=== PATIENT | female | born 1955 | race Caucasian/White ===

== ENCOUNTER 2023-03-04 11:08 | Outpatient (OUT) | payer MEDICARE, SELFPAY ==
--- NOTE | 2023-03-04 11:24 | XR_ITS ---
The [address] [address] Patient Name: DERRELL AGUERO MRN: [id number] date: 1955 Sex: F Assigned Patient Location: [facility] Current Patient Location: [facility] Accession/Order Number: [id number] Exam Date: 03/04/2023 11:28 Report Date: 03/05/2023 06:54 At the request of: NON-STAFF PHYSICIAN Procedure: XR elbow RT min 3V PROCEDURE: XR elbow RT min 3V HISTORY: Closed displaced fx of distal end-right humerus S42.491A COMPARISON: None. FINDINGS: BONES:Plate and screw repair of prior lateral malleolus fracture without evidence of hardware fracture or loosening. The distal screw extends into the intercondylar space. Medial and lateral tendons, with the medial pin extending posterior medially at least 2.0 cm external to the bone, to near the skin surface. No appreciable bone fracture or dislocation. Marked degenerative changes and prominent surrounding heterotopic bone formation. SOFT TISSUES:Posterior medial soft tissue swelling/edema. EFFUSION:None visible. OTHER: Negative. IMPRESSION: 1. No prior studies for comparison. 2. Postsurgical changes as detailed above. 3. Pain extending to near the skin surface posterior medial to the elbow, and prominent surrounding subcutaneous edema. Correlate for expected post surgical findings. Electronically authenticated by: JASON GUNN Date: 03/05/2023 06:54
== END 2023-03-04 11:09 ==
PROVIDERS: PCP Family Medicine
DX: S42.491A Other displaced fracture of lower end of right humerus, initial encounter for closed fracture (principal)
CPT/HCPCS: 73080

== ENCOUNTER 2023-05-28 10:02 | Outpatient (OUT) | payer MEDICARE, SELFPAY ==
[2023-05-28 09:34] LABS: Microalbumin Urine Random <1.3 mg/dL (<=30.0)
[2023-05-28 10:11] LABS: Estimated Average Glucose 134 mg/dL; Glycohemoglobin A1C 6.3 % (4.5-6.2)
[2023-05-28 10:23] LABS: Alanine Aminotransferase 28 U/L (14-59); Albumin Globulin Ratio 1.1; Albumin Level 4.1 g/dL (3.4-5.0); Alkaline Phosphatase 82 U/L (46-116); Anion Gap 9.9; Aspartate Amino Transferase 29 U/L (15-37); BUN Creatinine Ratio 20.3; Bilirubin Total 0.7 mg/dL (0.2-1.0); Calcium 9.4 mg/dL (8.5-10.1); Carbon Dioxide 26.4 mmol/L (21.0-32.0); Chloride 103 mmol/L (98-107); Chol HDL Ratio 2.6; Cholesterol 159 mg/dL (<=200); Estimated GFR (African America >60 (>=60); Estimated GFR (Non-African Ame >60 (>=60); Globulin 3.6 g/dL; Glucose 133 mg/dL (74-106); HDL Cholesterol 62 mg/dL (40-60); Potassium 4.3 mmol/L (3.5-5.1); Sodium 135 mmol/L (136-145); Total Protein 7.7 g/dL (6.4-8.2); Triglycerides 144 mg/dL (<=150); VLDL CHOLESTEROL 28.8 mg/dL
[2023-05-28 10:36] LABS: Basophils Absolute Auto 0.1 10^3/uL (0.0-0.1); Basophils Percent Auto 0.8 % (0.2-2.0); Eosinophils Absolute Auto 0.2 10^3/uL (0.0-0.7); Eosinophils Percent Auto 3.3 % (0.9-7.0); Hematocrit 45.7 % (36.0-48.0); Hemoglobin 15.1 g/dL (12.0-16.0); Immature Granulocytes Abs Auto 0.02 10^3/uL (0.00-0.03); Immature Granulocytes Pct Auto 0.3 % (0.0-0.5); Lymphocytes Absolute Auto 1.8 10^3/uL (1.2-3.8); Mean Corpuscular Hemoglobin 27.8 pg (26.7-34.0); Mean Corpuscular Volume 84.2 fL (81.0-99.0); Mean Platelet Volume 11.4 fL (9.5-13.5); Monocytes Absolute Auto 0.4 10^3/uL (0.3-0.8); Monocytes Percent Auto 6.9 % (1.7-12.0); Neutrophils Absolute Auto 3.6 10^3/uL (1.4-6.5); Neutrophils Percent Auto 58.7 % (43.0-75.0); Platelet Count 144 10^3/uL (150-450); Red Blood Count 5.43 10^6/uL (4.20-5.40); Red Cell Distribution Width 13.3 % (11.0-15.0); White Blood Count 6.1 10^3/uL (4.0-11.0)
== END 2023-05-28 10:03 | disposition home or self-care (01) ==
LOC: LAB 10:03
PROVIDERS: PCP Family Medicine; Visit Provider Family Medicine
DX: E11.65 Type 2 diabetes mellitus with hyperglycemia (principal); I10 Essential (primary) hypertension; E78.5 Hyperlipidemia, unspecified
CPT/HCPCS: 36415; 80053; 80061; 82043; 83036; 85025

== ENCOUNTER 2023-10-15 12:39 | Outpatient (OUT) | payer MEDICARE, SELFPAY ==
--- NOTE | 2023-10-15 12:55 | XR_ITS ---
The [place] [id number] Patient Name: DERRELL AGUERO MRN: [id number] date: 1955 Sex: F Assigned Patient Location: [facility] Current Patient Location: [facility] Accession/Order Number: [id number] Exam Date: 10/15/2023 13:09 Report Date: 10/15/2023 14:21 At the request of: NON-STAFF PHYSICIAN Procedure: XR DEXA axial skeleton EXAMINATION: XR DEXA axial skeleton HISTORY: Osteoporosis, Fracture Right Humerus COMPARISON: No relevant comparison available. TECHNIQUE: Dual-energy X-ray absorptiometry (DXA) was performed. FINDINGS: SPINE ANALYSIS: Average bone mineral density is 0.846 g/cm2. T-score (standard deviation relative to young adult mean): -3.0 . HIP ANALYSIS: Lowest bone mineral density is within the femoral neck, 0.697 g/cm2. T-score (standard deviation relative to young adult mean): -2.5 . XR/XR DEXA axial skeleton IMPRESSION: [employer] Classification: Osteoporosis - High Fracture Risk Electronically authenticated by: JASON GUNN Date: 10/15/2023 14:21
== END 2023-10-15 12:40 | disposition home or self-care (01) ==
LOC: RAD 12:43
PROVIDERS: PCP Family Medicine
DX: S42.201A Unspecified fracture of upper end of right humerus, initial encounter for closed fracture (principal); M81.0 Age-related osteoporosis without current pathological fracture
CPT/HCPCS: 77080

== ENCOUNTER 2024-02-07 10:51 | Outpatient (OUT) | payer MEDICARE, SELFPAY ==
--- OUTSIDE RECORDS SUMMARY | 2024-02-07 11:14 | XMS_ITS | CCD ---
Author Organization [facility] Care Team Providers Care Band Maker Name Role Phone Ada Neff MD Primary Care Provider [phone] ADA NEFF Primary Care Physician REQUEST, NONE LISTED Attending Unavaila ble REQUEST, DR MCCOY LISTED Consulting Unavaila ble NEFF, DR ADA Mosley Primary Care Unavailable REQUEST, DR MCCOY LISTED Admitting Unavaila ble MISC, DR MOE Consulting Unavailable BALL, DR MANZANARES Primary Care Unavailable MISC, DR MOE Admitting Unavailable MISC, DR MOE Attending Unavailable CARMEN VILLALTA Admitting Unavailable NABIL, DR MANZANARES Primary Care Unavailable CARMEN VILLALTA Attending Unavailable CARMEN VILLALTA Consulting Unavailable Szado OTR/L, Shirley Unavailable [phone] Nosin OTR/L, Cori Unavailable Unavailable Ada Neff MD Primary Care Provider [phone] Szado OTR/L, Shirley Unavailable Nosin OTR/L, Cori Unavailable Unavailable Ada Neff MD Primary Care Provider Szado OTR/L, Shirley Unavailable Nosin OTR/L, Cori Unavailable Unavailable Ada Neff Unavailable RESHMA Carballo Attending Provider Unavailable Primary Care Provider UnavailTanmay Parnell MD Unavailable Estephanie Carballo Attending Unavailable Estephanie Carballo Admitting Unavailable NO FAMILY, PHYSICIAN Primary Care Unavailable GISELE MCKEON Attending Unavailable TANMAY SCOTT Referring Unavailable BRAYDEN GUAJARDO Attending Unavailable TANMAY SCOTT Referring Unavailable BLACKSTON, GISELE T Attending Unavailable HOYEN, TANMAY Referring Unavailable DARINBLEY, LOVE Attending Unavailable HOYEN, TANMAY Referring Unavailable BLACKSTON, GISELE T Attending Unavailable HOYEN, TANMAY Referring Unavailable KELBLEY, LOVE Attending Unavailable HOYEN, TANMAY Referring Unavailable KELBLEY, LOVE Attending Unavailable HOYEN, TANMAY Referring Unavailable BLACKSMATTEO, GISELE T Attending Unavailable HOYEN, TANMAY Referring Unavailable BLACKSTON, GISELE T Attending Unavailable HOYEN, TANMAY Referring Unavailable Cassiusn Tanmay TAYLOR Unavailable JANICE ROLANDCE Referring Unavailable PROVIDER, UNKNOWN Admitting Unavailable PROVIDER, UNKNOWN Attending Unavailable NEFF, ADA Primary Care Unavailable LENEHAN, BAUTISTA Referring Unavailable PROVIDER, UNKNOWN Admitting Unavailable PROVIDER, UNKNOWN Attending Unavailable NEFF, ADA Primary Care Unavailable PROVIDER, UNKNOWN Admitting Unavailable PROVIDER, UNKNOWN Attending Unavailable EUGENIA, TANMAY A. Referring Unavailable NEFF, ADA Primary Care Unavailable PROVIDER, UNKNOWN Admitting Unavailable NEFF, ADA Primary Care Unavailable LENEHAN, BAUTISTA Referring Unavailable PROVIDER, UNKNOWN Attending Unavailable PROVIDER, UNKNOWN Admitting Unavailable HOYEN, TANMAY A. Attending Unavailable NEFF, ADA Primary Care Unavailable PROVIDER, UNKNOWN Admitting Unavailable PROVIDER, UNKNOWN Attending Unavailable NEFF, ADA Primary Care Unavailable PROVIDER, UNKNOWN Admitting Unavailable LENEHAN, BAUTISTA Referring Unavailable PROVIDER, UNKNOWN Attending Unavailable NEFF, ADA Primary Care Unavailable PROVIDER, UNKNOWN Admitting Unavailable NEFF, ADA Primary Care Unavailable PROVIDER, UNKNOWN Attending Unavailable PROVIDER, UNKNOWN Admitting Unavailable NEFF, ADA Primary Care Unavailable PROVIDER, UNKNOWN Attending Unavailable Allergies Allergy Classification Reported Allergen(s) Allergy Type Date of Onset Reaction(s) Facility (3 sources) atorvastatin Drug Allergy 5 Unknown [facility] Other (1 source) atorvastatin Drug Allergy 3 [facility] Repository Medications Current Medications Medication Drug Class(es) Dates Sig (Normalized) Sig (Original) acetaminophen 325 mg / oxyCODONE hydrochloride 5 mg oral tablet (7 sources) Opioid Agonist Start: 01-04-2022 End: 01-13-2022 take 1 tablet by mouth every six hours as needed for pain oxyCODONE-acetamin ophen (Percocet) 5-325 mg per tablet Indications: Closed fracture of distal end of right humerus, unspecified fracture morphology, initial encounter , Acute post-operative pain Take 1 Tablet by mouth every 6 hours as needed for Pain for up to 7 days. 28 Tablet 0 01/06/2022 01/13/2022 Active Start: 01-03-2022 take 1 tablet by amisha th every six hours Percocet 2.5 mg-325 mg oral tablet 1 tab(s), Oral, q6hr, Refill(s) 0 Start Date: 01/03/22 Status: Ordered aspirin 81 mg chewable tablet (1 source) Platelet Aggregation Inhibitor, Nonsteroidal Anti-inflammatory Drug Start: 01-03-2022 aspirin 81 MG chewable tablet bisacodyl 10 mg rectal suppository (1 source) Stimulant Laxative Start: 01-03-2022 bisacodyl (DULCOLAX) 10 MG suppository calcium chloride 0.0014 meq/ml / potassium chloride 0.004 meq/ml / sodium chloride 0.103 meq/ml / sodium lactate 0.028 meq/ml injectable solution (3 sources) Start: 01-06-2022 lactated ringe rs iv infusion Start: 01-03-2022 lactated ringe rs iv infusion cephalexin 500 mg oral capsule (1 source) Cephalosporin Antibacterial Start: 03-08-2023 End: 03-15-2023 take 1 capsule by mouth four times daily cephALEXin (Keflex) 500 MG capsule Take 1 Capsule by mouth 4 times daily for 7 days. 28 Capsule 0 03/08/2023 03/15/2023 Active docusate sodium 100 mg oral capsule (20 sources) Start: 01-03-2022 take 1 capsule by mouth twice daily docusate sodium (Colace) 100 MG capsule Take 1 Capsule by mouth 2 times daily. 60 Capsule 3 01/04/2022 Active ergocalciferol 1.25 mg oral capsule (8 sources) Provitamin D2 Compound Start: 08-16-2023 End: 12-15-2023 take 1 capsule by mouth every week vitamin D2 (ERGOCALCIFEROL) 1.25 MG (51300 UT) capsule TAKE 1 CAPSULE BY MOUTH ONCE WEEKLY 6 Capsule 0 12/13/2023 Active 1 ml HYDROmorphone hydrochloride 1 mg/ml cartridge (1 source) Opioid Agonist Start: 01-06-2022 End: 01-07-2022 HYDROmorphone (DILAUDID) 1 mg/mL injection HYDROmorphone (DILAUDID) 0.2 MG/ML injection 0.2 mg (1 source) Start: 01-06-2022 End: 01-08-2022 HYDROmorphone (DILAUDID) 0.2 MG/ML injection 0.2 mg lisinopril 5 mg oral tablet (20 sources) Angiotensin Converting Enzyme Inhibitor Start: 01-03-2022 lisinopril (ZESTRIL) 5 MG tablet Take by mouth. 0 01/03/2022 Active magnesium hydroxide 80 mg/ml oral suspension (1 source) Start: 01-03-2022 magnesium hydroxide (MILK OF MAGNESIA) 400 MG/5ML oral suspension metFORMIN hydrochloride 500 mg oral tablet (20 sources) Biguanide Start: 01-03-2022 metformin (GLUCOPHAGE) 500 MG tablet Take by mouth. 0 01/03/2022 Active 1 ml naloxone hydrochloride 0.4 mg/ml injection (2 sources) Opioid Antagonist Start: 01-06-2022 naloxone (NARCAN) 0.4 MG/ML injection Start: 01-03-2022 naloxone (NARC AN) 0.4 MG/ML injection 2 ml ondansetron 2 mg/ml injection (2 sources) Serotonin-3 Receptor Antagonist Start: 01-03-2022 ondansetron (ZOFRAN) 4 MG/2ML injection Start: 01-03-2022 take 1 tablet by amisha th every eight hours Zofran 4 mg Tab 4 mg = 1 tab(s), Oral, q8hr, Refills(s) 0 Start Date: 01/03/22 Status: Ordered oxyCODONE hydrochloride 5 mg oral tablet (5 sources) Opioid Agonist Start: 01-06-2022 End: 01-06-2022 oxyCODONE immediate release tablet Start: 01-03-2022 End: 01-04-2022 oxyCODONE immediate release tablet predniSONE 5 mg oral tablet (20 sources) Start: 03-02-2022 predniSONE (DE LTASONE) 5 MG tablet Take 1 Tablet by mouth Continuous PRN. 42 Tablet 0 03/02/2022 Active rosuvastatin calcium 5 mg oral tablet (20 sources) HMG-CoA Reductase Inhibitor Start: 01-03-2022 rosuvastatin (CRESTO R) 5 MG tablet Take by mouth. 0 01/03/2022 Active take 1 tablet by mouth once anali y Rosuvastatin Calcium 10 MG TAKE ONE TABLET BY MOUTH DAILY Active 72 hr scopolamine 0.0139 mg/hr transdermal system (1 source) Anticholinergic Start: 01-03-2022 scopolamine (TRANSDERM-SCOP) 1 MG/3DAYS patch 10 ml sodium chloride 9 mg/ml injection (1 source) Start: 01-06-2022 sodium chlorid e 0.9 % (PF) 0.9 % injection Completed/Discontinued Medications Medication Drug Class(es) Dates Sig (Normalized) Sig (Original) 2 ml fentaNYL 0.05 mg/ml injection (1 source) Opioid Agonist Start: 01-06-2022 End: 01-06-2022 fentaNYL (SUBLIMAZE) 100 MCG/2ML injection Start: 01-06-2022 End: 01-06-2022 fentaNYL (SUBLIMAZE) 100 MCG /2ML injection Problems Active Problems Problem Classification Problem Date Documented Date Episodic/Chronic Conditions associated with dizziness or vertigo (3 sources) Benign paroxysmal positional vertigo; Translations: [Benign paroxysmal vertigo, left ear] Episodic Diabetes mellitus with complications (5 sources) Hyperglycemia due to type 2 diabetes mellitus; Translations: [Type 2 diabetes mellitus with hyperglycemia] Chronic Disorders of lipid metabolism (20 sources) Hyperlipidemia; Translations: [Hyperlipidemia, unspecified] Onset: 01-04-2022 Chronic Essential hypertension (20 sources) Hypertensive disorder; Translations: [Essential (primary) hypertension] Onset: 01-04-2022 Chronic Heart valve disorders (20 sources) Aortic stenosis, non-rheumatic ; Translations: [Nonrheumatic aortic (valve) stenosis] Onset: 01-01-2015 Chronic Immunizations and screening for infectious disease (7 sources) Encounter for immunization; Translations: [Vaccination given] Onset: 08-12-2021 Episodic Nutritional deficiencies (2 sources) Vitamin D deficiency; Translations: [Vitamin D deficiency, unspecified] 01-10-2024 Chronic Osteoporosis (6 sources) Senile osteoporosis; Translations: [Age-related osteoporosis without current pathological fracture] Onset: 10-11-2023 10-11-2023 Chronic Other nervous system disorders (1 source) Other chronic pain; Translations: [Other chronic pain] Onset: 01-10-2024 Chronic Other nervous system disorders (1 source) Acute postoperative pain; Translations: [Other acute postprocedural pain] Episodic Other non-traumatic joint disorders (1 source) Stiffness of joint of right elbow; Translations: [Stiffness of right elbow, not elsewhere classified] Episodic Other non-traumatic joint disorders (1 source) Finger joint stiff; Translations: [Stiffness of right hand, not elsewhere classified] Episodic Other non-traumatic joint disorders (5 sources) Pain in right shoulder; Translations: [Pain in joint, shoulder region] Onset: 01-10-2024 10-28-2023 Episodic Other non-traumatic joint disorders (4 sources) Stiffness of right shoulder; Translations: [Stiffness of right shoulder, not elsewhere classified] 10-28-2023 Episodic Other non-traumatic joint disorders (3 sources) Chronic pain of right upper limb; Translations: [Pain in right shoulder] 01-10-2024 Episodic Other nutritional; endocrine; and metabolic disorders (3 sources) Body mass index 40+ - severely obese; Translations: [Body mass index (BMI) 40.0-44.9, adult] Chronic Otitis media and related conditions (3 sources) Non-suppurative otitis media; Translations: [Unspecified nonsuppurative otitis media, right ear] Episodic Unclassified (1 source) Pain in right shoulder; Translations: [Pain in right shoulder] Onset: 08-06-2023 Past or Other Problems Problem Classification Problem Date Documented Da te Episodic/Chronic Fracture of upper limb (20 sources) Closed fracture of lower end of humerus; Translations: [Other displaced fracture of lower end of right humerus, initial encounter for closed fracture] Onset: 01-03-2022 Episodic Results Test Name Value Interpretation Reference Range Facility XR ELBOW RIGHT MINIMUM 3 VIE WSon 01-10-2024 XR ELBOW RIGHT MINIMUM 3 VIEWS EXAMINATION: XR ELBOW RIGHT MINIMUM 3 VIEWSPRO/RT 01/10/2024 09:08 AM CLINICAL HISTORY: fx ASSOCIATED DIAGNOSIS: Chronic right shoulder pain Chronic right shoulder pain ORDERING PROVIDER: JANICE ROLAND TECHNMARIO NOTE: COMPARISON: XR ELBOW RIGHT MINIMUM 3 VIEWS 10/11/2023, 12:13 PM FINDINGS: Bone: Osteopenia. Internal fixation of a well-healed fracture of the humeral lateral condyle by plate and screw device and K wire. No hardware failure or loosening, acute fracture or destructive bone lesion. Joint: Moderate ulnotrochlear joint osteoarthritis. No dislocation. Soft tissues: Calcifications surrounding the elbow which may be related to loose intra-articular bodies and/or heterotopic ossification. IMPRESSION: 1. Internal fixation of a well-healed fracture of the right humeral lateral condyle. No hardware failure or loosening. 2. Moderate right ulnotrochlear joint osteoarthritis. 3. Calcifications surrounding the right elbow which may be related to loose intra-articular bodies and/or heterotopic ossification. 4. Osteopenia. Right elbow MACRO: None Normal [facility] XR Elbow - right 3 Viewson 0 01-10-2024 EXAMINATION: XR ELBO W RIGHT MINIMUM 3 VIEWSPRO/RT 01/10/2024 09:08 AM CLINICAL HISTORY: fx ASSOCIATED DIAGNOSIS: Chronic right shoulder pain Chronic right shoulder pain ORDERING PROVIDER: JANICE PATTON NOTE: COMPARISON: XR ELBOW RIGHT MINIMUM 3 VIEWS 10/11/2023, 12:13 PM FINDINGS: Bone: Osteopenia. Internal fixation of a well-healed fracture of the humeral lateral condyle by plate and screw device and K wire. No hardware failure or loosening, acute fracture or destructive bone lesion. Joint: Moderate ulnotrochlear joint osteoarthritis. No dislocation. Soft tissues: Calcifications surrounding the elbow which may be related to loose intra-articular bodies and/or heterotopic ossification. IMPRESSION: 1. Internal fixation of a well-healed fracture of the right humeral lateral condyle. No hardware failure or loosening. 2. Moderate right ulnotrochlear joint osteoarthritis. 3. Calcifications surrounding the right elbow which may be related to loose intra-articular bodies and/or heterotopic ossification. 4. Osteopenia. Right elbow MACRO: None RADIOLOGY Erick Sanchez, - 01/10/2024 EXAMINATION: XR ELBOW RIGHT MINIMUM 3 VIEWSPRO/RT 01/10/2024 09:08 AM CLINICAL HISTORY: fx ASSOCIATED DIAGNOSIS: Chronic right shoulder pain Chronic right shoulder pain ORDERING PROVIDER: JANICE PATTON NOTE: COMPARISON: XR ELBOW RIGHT MINIMUM 3 VIEWS 10/11/2023, 12:13 PM FINDINGS: Bone: Osteopenia. Internal fixation of a well-healed fracture of the humeral lateral condyle by plate and screw device and K wire. No hardware failure or loosening, acute fracture or destructive bone lesion. Joint: Moderate ulnotrochlear joint osteoarthritis. No dislocation. Soft tissues: Calcifications surrounding the elbow which may be related to loose intra-articular bodies and/or heterotopic ossification. IMPRESSION: 1. Internal fixation of a well-healed fracture of the right humeral lateral condyle. No hardware failure or loosening. 2. Moderate right ulnotrochlear joint osteoarthritis. 3. Calcifications surrounding the right elbow which may be related to loose intra-articular bodies and/or heterotopic ossification. 4. Osteopenia. Right elbow MACRO: None [facility] Study observation (narrative) [facility] XR Elbow - right 3 ViewsOrde red By: Erick Sanchez on 01-10-2024 [employer] Work Phone: XR SHOULDER RIGHT MINIMUM 2 VIEWSon 01-10-2024 XR SHOULDER RIGHT MINIMUM 2 VIEWS EXAMINATION: XR SHOULDER RIGHT MINIMUM 2 VIEWSPRO/RT 01/10/2024 09:02 AM CLINICAL HISTORY: Shoulder pain, right ASSOCIATED DIAGNOSIS: Chronic right shoulder pain Chronic right shoulder pain ORDERING PROVIDER: JANICE PATTON NOTE: COMPARISON: 10/11/2023 IMPRESSION: Progressive healing of fracture of head and neck of the right humerus. Asymmetry of the glenohumeral joint is noted. Widening of subacromial space is noted. No significant change in position alignment. Right shoulder MACRO: None Normal [facility] XR Shoulder - right 2 Viewso n 01-10-2024 EXAMINATION: XR SHOULDER RIGHT MINIMUM 2 VIEWSPRO/RT 01/10/2024 09:02 AM CLINICAL HISTORY: Shoulder pain, right ASSOCIATED DIAGNOSIS: Chronic right shoulder pain Chronic right shoulder pain ORDERING PROVIDER: JANICE PATTON NOTE: COMPARISON: 10/11/2023 IMPRESSION: Progressive healing of fracture of head and neck of the right humerus. Asymmetry of the glenohumeral joint is noted. Widening of subacromial space is noted. No significant change in position alignment. Right shoulder MACRO: None RADIOLOGY Deborah Baez MD - 01/10/2024 EXAMINATION: XR SHOULDER RIGHT MINIMUM 2 VIEWSPRO/RT 01/10/2024 09:02 AM CLINICAL HISTORY: Shoulder pain, right ASSOCIATED DIAGNOSIS: Chronic right shoulder pain Chronic right shoulder pain ORDERING PROVIDER: JANICE PATTON NOTE: COMPARISON: 10/11/2023 IMPRESSION: Progressive healing of fracture of head and neck of the right humerus. Asymmetry of the glenohumeral joint is noted. Widening of subacromial space is noted. No significant change in position alignment. Right shoulder MACRO: None [facility] Study observation (narrative) [facility] XR Shoulder - right 2 ViewsO rdered By: Deborah Baez on 01-10-2024 [employer] Work Phone: Telephone Encounteron 2023 [employer] Interface Message Text Left voicemail for patient, notified her we ordered and sent in Vit D to her pharmacy. She should begin to take it and then we will check to see where her levels are once she is done taking the Vit D. Normal [facility] [employer] [facility] Telephone Encounteron 2023 [employer] Interface Message Text Alina would need to contact Radiology and the film library for copies of the XR's Normal [facility] [employer] [facility] [employer] Interface Message Text Mikala from [facility] called, asking to get a copy of the patients x-ray for the patients right side elbow. Please send the x-ray over as soon as possible. Thank you. [phone] ext [phone] Normal [facility] [employer] [facility] Progress Noteson 10-11-2023 [employer] Interface Message Text PT for the elbow and shoulder AAROM and AROM with gentle PROM as the fractures are healing nicely Eval and treat Advance as tolerated Modalities prn Visits 20 The shoulder is healing now rather well. There is some slight angulation on the radiographs. Her elevation is at least to 90???. She feels that the motion is going to improve. It appears she did have a new fracture adjacent or within the old fracture this is also healing on the radiographs with some prominence of the hardware there is some degeneration of the radial capitellar joint. Range of motion is from 40 to approximately 130???. Once the shoulder is healed sufficiently we will considering hardware removal on the right elbow. Further follow-up with radiographs of both conditions over the next 3 months. Tanmay Scott M.D. Normal [facility] [employer] [facility] XR ELBOW RIGHT MINIMUM 3 VIE WSon 10-11-2023 XR ELBOW RIGHT MINIMUM 3 VIEWS EXAMINATION: XR ELBOW RIGHT MINIMUM 3 VIEWSPRO/RT 10/11/2023 12:12 PM CLINICAL HISTORY: right elbow fx ASSOCIATED DIAGNOSIS: Closed supracondylar fracture of right humerus, initial encounter ORDERING PROVIDER: JANICE PATTON NOTE: COMPARISON: XR ELBOW RIGHT MINIMUM 3 VIEWS 08/16/2023, 9:[address] ELBOW RIGHT W/O CONTRAST 01/03/2022, 4:56 PM FINDINGS: Bone: Osteopenia. Internal fixation of healing/well-healed, comminuted, intra-articular fracture of the distal humerus by a K wire and lateral plate and screw device with satisfactory alignment of the fracture fragments and no appreciable radiolucent fracture lines at the fracture site. No hardware failure or loosening or destructive bone lesion. Joint: Elbow joint effusion. Probable loose intra-articular bodies in the elbow joint. Mild ulnotrochlear joint, radiocapitellar joint and proximal radioulnar joint osteoarthritis. No dislocation. Soft tissues: Soft tissue swelling. IMPRESSION: 1. Internal fixation of healing/well-healed, comminuted, intra-articular fracture of the distal right humerus. 2. Right elbow joint effusion and probable loose intra-articular bodies in the elbow joint. 3. Mild right ulnotrochlear joint, radiocapitellar joint and proximal radioulnar joint osteoarthritis. 4. Osteopenia. Right elbow MACRO: None Normal [facility] [employer] [facility] XR Elbow - right 3 Viewson 0 10-11-2023 EXAMINATION: XR ELBO W RIGHT MINIMUM 3 VIEWSPRO/RT 10/11/2023 12:12 PM CLINICAL HISTORY: right elbow fx ASSOCIATED DIAGNOSIS: Closed supracondylar fracture of right humerus, initial encounter ORDERING PROVIDER: JANICE PATTON NOTE: COMPARISON: XR ELBOW RIGHT MINIMUM 3 VIEWS 08/16/2023, 9:[address] ELBOW RIGHT W/O CONTRAST 01/03/2022, 4:56 PM FINDINGS: Bone: Osteopenia. Internal fixation of healing/well-healed, comminuted, intra-articular fracture of the distal humerus by a K wire and lateral plate and screw device with satisfactory alignment of the fracture fragments and no appreciable radiolucent fracture lines at the fracture site. No hardware failure or loosening or destructive bone lesion. Joint: Elbow joint effusion. Probable loose intra-articular bodies in the elbow joint. Mild ulnotrochlear joint, radiocapitellar joint and proximal radioulnar joint osteoarthritis. No dislocation. Soft tissues: Soft tissue swelling. IMPRESSION: 1. Internal fixation of healing/well-healed, comminuted, intra-articular fracture of the distal right humerus. 2. Right elbow joint effusion and probable loose intra-articular bodies in the elbow joint. 3. Mild right ulnotrochlear joint, radiocapitellar joint and proximal radioulnar joint osteoarthritis. 4. Osteopenia. Right elbow MACRO: None RADIOLOGY Erick Sanchez, DO - 10/11/2023 EXAMINATION: XR ELBOW RIGHT MINIMUM 3 VIEWSPRO/RT 10/11/2023 12:12 PM CLINICAL HISTORY: right elbow fx ASSOCIATED DIAGNOSIS: Closed supracondylar fracture of right humerus, initial encounter ORDERING PROVIDER: JANICE PATTON NOTE: COMPARISON: XR ELBOW RIGHT MINIMUM 3 VIEWS 08/16/2023, 9:[address] ELBOW RIGHT W/O CONTRAST 01/03/2022, 4:56 PM FINDINGS: Bone: Osteopenia. Internal fixation of healing/well-healed, comminuted, intra-articular fracture of the distal humerus by a K wire and lateral plate and screw device with satisfactory alignment of the fracture fragments and no appreciable radiolucent fracture lines at the fracture site. No hardware failure or loosening or destructive bone lesion. Joint: Elbow joint effusion. Probable loose intra-articular bodies in the elbow joint. Mild ulnotrochlear joint, radiocapitellar joint and proximal radioulnar joint osteoarthritis. No dislocation. Soft tissues: Soft tissue swelling. IMPRESSION: 1. Internal fixation of healing/well-healed, comminuted, intra-articular fracture of the distal right humerus. 2. Right elbow joint effusion and probable loose intra-articular bodies in the elbow joint. 3. Mild right ulnotrochlear joint, radiocapitellar joint and proximal radioulnar joint osteoarthritis. 4. Osteopenia. Right elbow MACRO: None [facility] Radiology Study observation (narrative) [facility] XR Elbow - right 3 ViewsOrde red By: Erick Sanchez on 10-11-2023 [employer] Work Phone: XR SHOULDER RIGHT MINIMUM 2 VIEWSon 10-11-2023 XR SHOULDER RIGHT MINIMUM 2 VIEWS EXAMINATION: XR SHOULDER RIGHT MINIMUM 2 VIEWSPRO/RT 10/11/2023 12:13 PM CLINICAL HISTORY: Shoulder pain, right; fu fx ASSOCIATED DIAGNOSIS: Closed fracture of proximal end of right humerus, unspecified fracture morphology, initial encounter ORDERING PROVIDER: JANICE PATTON NOTE: COMPARISON: CT PSI RIGHT SHOULDER W/O 08/24/2023, 1:35 PM FINDINGS: Bones: Osteopenia. Healing, comminuted, impaction fracture of the humeral head and neck with satisfactory alignment of the fracture fragments and bridging callus formation and persistent radiolucent fracture lines at the fracture site. No destructive bone lesion. Joint: Moderate acromioclavicular joint osteoarthritis. Inferior subluxation of the humeral head with widening of the superior glenohumeral joint space. No dislocation. Soft tissues: Unremarkable. IMPRESSION: 1. Healing, comminuted, impaction fracture of the right humeral head and neck. 2. Inferior subluxation of the right humeral head with widening of the superior right glenohumeral joint space, likely related to a a shoulder joint effusion. 3. Moderate right acromioclavicular joint osteoarthritis. 4. Osteopenia. Right shoulder MACRO: None Normal [facility] [employer] [facility] XR Shoulder - right 2 Viewso n 10-11-2023 EXAMINATION: XR SHOULDER RIGHT MINIMUM 2 VIEWSPRO/RT 10/11/2023 12:13 PM CLINICAL HISTORY: Shoulder pain, right; fu fx ASSOCIATED DIAGNOSIS: Closed fracture of proximal end of right humerus, unspecified fracture morphology, initial encounter ORDERING PROVIDER: JANICE PATTON NOTE: COMPARISON: CT PSI RIGHT SHOULDER W/O 08/24/2023, 1:35 PM FINDINGS: Bones: Osteopenia. Healing, comminuted, impaction fracture of the humeral head and neck with satisfactory alignment of the fracture fragments and bridging callus formation and persistent radiolucent fracture lines at the fracture site. No destructive bone lesion. Joint: Moderate acromioclavicular joint osteoarthritis. Inferior subluxation of the humeral head with widening of the superior glenohumeral joint space. No dislocation. Soft tissues: Unremarkable. IMPRESSION: 1. Healing, comminuted, impaction fracture of the right humeral head and neck. 2. Inferior subluxation of the right humeral head with widening of the superior right glenohumeral joint space, likely related to a a shoulder joint effusion. 3. Moderate right acromioclavicular joint osteoarthritis. 4. Osteopenia. Right shoulder MACRO: None RADIOLOGY Erick Sanchez, DO - 10/11/2023 EXAMINATION: XR SHOULDER RIGHT MINIMUM 2 VIEWSPRO/RT 10/11/2023 12:13 PM CLINICAL HISTORY: Shoulder pain, right; fu fx ASSOCIATED DIAGNOSIS: Closed fracture of proximal end of right humerus, unspecified fracture morphology, initial encounter ORDERING PROVIDER: JANICE PATTON NOTE: COMPARISON: CT PSI RIGHT SHOULDER W/O 08/24/2023, 1:35 PM FINDINGS: Bones: Osteopenia. Healing, comminuted, impaction fracture of the humeral head and neck with satisfactory alignment of the fracture fragments and bridging callus formation and persistent radiolucent fracture lines at the fracture site. No destructive bone lesion. Joint: Moderate acromioclavicular joint osteoarthritis. Inferior subluxation of the humeral head with widening of the superior glenohumeral joint space. No dislocation. Soft tissues: Unremarkable. IMPRESSION: 1. Healing, comminuted, impaction fracture of the right humeral head and neck. 2. Inferior subluxation of the right humeral head with widening of the superior right glenohumeral joint space, likely related to a a shoulder joint effusion. 3. Moderate right acromioclavicular joint osteoarthritis. 4. Osteopenia. Right shoulder MACRO: None [facility] Radiology Study observation (narrative) [facility] CT PSI RIGHT SHOULDER W/Oon 08-24-2023 CT PSI RIGHT SHOULDER W/O EXAMINATION: CT PSI RIGHT SHOULDER W/OPRO/RT 08/24/2023 01:35 PM CLINICAL HISTORY: prox humerus fracture surgical planning rTSA ASSOCIATED DIAGNOSIS: Other closed displaced fracture of distal end of right humerus, initial encounter ORDERING PROVIDER: JANICE PATTON NOTE: COMPARISON: None TECHNIQUE: Thin axial images were obtained without intravenous contrast. Multiplanar reconstructions were obtained from the axial data. INTRA-PROCEDURE MEDS: FINDINGS: Soft tissue: No significant soft tissue swelling. No focal fluid collection. The visualized muscles are unremarkable, but are suboptimally evaluated by CT. Incidental 3 mm solid pulmonary nodule in the right upper lobe (Series 3, Image 55). Bone/joint: Comminuted, mildly impacted fracture of the humeral anatomic neck with extension to the greater and lesser tuberosities. Some early healing callus formation is evident. No other fracture identified. No suspicious osseous lesion. There is moderate osteoarthritis of the acromioclavicular joint with a large inferiorly projecting osteophyte along the distal clavicle (Series 1001, Image 53). IMPRESSION: 1. Comminuted, mildly impacted fracture of the right humeral anatomic neck with extension to the greater and lesser tuberosities, with some early healing callus formation. 2. Acromioclavicular joint degenerative changes as above. 3. Incidental 3 mm solid pulmonary nodule in the right upper lobe. Based on the 2017 Fleischner Society guidelines, no imaging followup is recommended. These followup recommendations do not apply in immunocompromised patients or patients with cancers who are at risk for metastasis. MACRO: (-I1-) Normal [facility] Progress Noteson 08-16-2023 [employer] Authentication Interface Message Text Patient was identified by name and date of . Sophie Chaudhari RN Patient at risk for falls:No Falls Risk protocol implemented: No Normal [facility] XR ELBOW RIGHT MINIMUM 3 VIE WSon 08-16-2023 XR ELBOW RIGHT MINIMUM 3 VIEWS EXAMINATION: XR ELBOW RIGHT MINIMUM 3 VIEWSPRO/RT 08/16/2023 09:10 AM CLINICAL HISTORY: fx ASSOCIATED DIAGNOSIS: Other closed displaced fracture of distal end of right humerus, initial encounter ORDERING PROVIDER: TANMAY PATTON NOTE: Best images possible, patient in splint COMPARISON: XR ELBOW RIGHT MINIMUM 3 VIEWS 03/08/2023, 9:25 AM IMPRESSION: Fracture lucency involving the distal humerus is not confidently identified on prior exams and may represent a new fracture. Consider cross-sectional imaging. Unchanged position of intact fixation hardware along the lateral aspect of the humerus. Overlying casting material somewhat limits evaluation. Comparison with the previous studies shows no change in position or alignment of the previously described right elbow fractures. Right elbow MACRO: None Normal [facility] [employer] [facility] XR Elbow - right 3 Viewson 1 10-16-2022 EXAMINATION: XR ELBO W RIGHT MINIMUM 3 VIEWSPRO/RT 08/16/2023 09:10 AM CLINICAL HISTORY: fx ASSOCIATED DIAGNOSIS: Other closed displaced fracture of distal end of right humerus, initial encounter ORDERING PROVIDER: TANMAY PATTON NOTE: Best images possible, patient in splint COMPARISON: XR ELBOW RIGHT MINIMUM 3 VIEWS 03/08/2023, 9:25 AM IMPRESSION: Fracture lucency involving the distal humerus is not confidently identified on prior exams and may represent a new fracture. Consider cross-sectional imaging. Unchanged position of intact fixation hardware along the lateral aspect of the humerus. Overlying casting material somewhat limits evaluation. Comparison with the previous studies shows no change in position or alignment of the previously described right elbow fractures. Right elbow MACRO: None RADIOLOGY Laurie Zavaleta MD - 08/16/2023 EXAMINATION: XR ELBOW RIGHT MINIMUM 3 VIEWSPRO/RT 08/16/2023 09:10 AM CLINICAL HISTORY: fx ASSOCIATED DIAGNOSIS: Other closed displaced fracture of distal end of right humerus, initial encounter ORDERING PROVIDER: TANMAY SCOTT TECHNOLOGISTS NOTE: Best images possible, patient in splint COMPARISON: XR ELBOW RIGHT MINIMUM 3 VIEWS 03/08/2023, 9:25 AM IMPRESSION: Fracture lucency involving the distal humerus is not confidently identified on prior exams and may represent a new fracture. Consider cross-sectional imaging. Unchanged position of intact fixation hardware along the lateral aspect of the humerus. Overlying casting material somewhat limits evaluation. Comparison with the previous studies shows no change in position or alignment of the previously described right elbow fractures. Right elbow MACRO: None [facility] Radiology Study observation (narrative) [facility] XR Elbow - right 3 ViewsOrde red By: Laurie Zavaleta on 08-16-2023 [facility] Work Phone: XR elbow RT min 3V*on 2022 XR elbow RT min 3V* [facility] [place] [address] XRay Report Signed Patient: Shruti Locke MR#: [id number] : 1955 Acct:[id number] Age/Sex: 68 / F ADM Date: 08/06/23 Loc: XDUCLY Room: Type: [facility] Attending Dr: Estephanie JUSTICE Copies to: RESHMA Newton Ordering Provider: RESHMA Newton Date of Service: 08/06/23 XR/XR elbow RT min 3V*: RIGHT ELBOW PAIN XR elbow RT min 3V* 08/06/2023 4:58 PM SIGNS AND SYMPTOMS: Right elbow pain after fall PROTOCOL: Frontal, lateral, and oblique radiographs of the right elbow COMPARISON: None FINDINGS: There is evidence of previous hardware fixation of the lateral epicondyle without hardware complication or malalignment. There is bony remodeling of the articular surfaces of the right elbow joint space greatest in the ulnar aspect of the joint. There is a minimally displaced supracondylar fracture which appears to be acute. There is accompanying soft tissue swelling with a joint effusion. There is no evidence of dislocation. XR/XR elbow RT min 3V* IMPRESSION: Minimally displaced supracondylar fracture of the right elbow with an accompanying joint effusion. Remote posttraumatic deformity is noted without hardware complication. Impression dictated by: Hakan Bernard M.D.08/06/2023 5:03 PM Dictation Location: [place] [address] Transcribed By: DEVAN 08/06/231702 Dictated By: Hakan Bernard II, MD 08/06/231700 Signed By: 08/06/231702 [facility] XR shoulder RT min 2V*on XR shoulder RT min 2V* [place] [address] XRay Report Signed Patient: Shruti Locke MR#: [id number] : 1955 Acct:[id number] Age/Sex: 68 / F ADM Date: 08/06/23 Loc: XDUCLY Room: Type: [facility] Attending Dr: Estephanie JUSTICE Copies to: RESHMA Newton Ordering Provider: RESHMA Newton Date of Service: 08/06/23 XR/XR shoulder RT min 2V*: RIGHT SHOULDER PAIN XR shoulder RT min 2V* 08/06/2023 4:57 PM SIGNS AND SYMPTOMS: Fall, right shoulder pain PROTOCOL: Frontal, Grashey, and scapular Y views of the right shoulder COMPARISON: None FINDINGS: There is hypertrophy of the acromial clavicular joint. There is mild glenohumeral joint space loss. There is an acute displaced fracture of the head of the humerus extending to the superior articular surface. No additional fractures are noted. The visualized right hemithorax is grossly intact. XR/XR shoulder RT min 2V* IMPRESSION: There is an acute displaced fracture of the head of the humerus extending to the superior articular surface. No evidence of dislocation. Impression dictated by: Hakan Bernard M.D.08/06/2023 5:01 PM Dictation Location: [facility] Transcribed By: [facility] 08/06/231700 Dictated By: Hakan Bernard II, MD 08/06/231699 Signed By: 08/06/231700 [facility] Progress Noteson 03-08-2023 [employer] Authentication Interface Message Text Patient was identified by name and date of . Sophie Chaudhari RN Patient at risk for falls:No Falls Risk protocol implemented: No Normal [facility] [employer] Authentication Interface Message Text Patient presents today for migrating k-wire right elbow. No pain. Small poke hole over k-wire. Minimal drainage. No purulence. Right hardware removal () The patient was identified operative site was marked and verbal consent was obtained. Under sterile technique, local anesthesia was infiltrated in the planned area of incision. The K-wires were identified overlying the skin. Small longitudinal incisions were made over the K-wire of the right elbow. The K-wire were removed. The wound was irrigated. The skin was closed with steri strips. XR right elbow ordered to confirm k wire removal. Keflex for abx due to open poke hole Janice Roland PA-C Orthopaedics Hand and Upper Extremity 03/08/23 8:42 AM Normal [facility] XR ELBOW RIGHT MINIMUM 3 VIE WSon 03-08-2023 XR ELBOW RIGHT MINIMUM 3 VIEWS EXAMINATION: XR ELBOW RIGHT MINIMUM 3 VIEWSPRO/RT 03/08/2023 09:24 AM CLINICAL HISTORY: right elbow kwire removal ASSOCIATED DIAGNOSIS: Other closed displaced fracture of distal end of right humerus, initial encounter ORDERING PROVIDER: JANICE ROLAND TECHNOLOGISTS NOTE: COMPARISON: 08/03/2022 IMPRESSION: Interval removal of a horizontal pin from the distal humerus, otherwise remaining fixation hardware along the lateral humerus is intact without evidence of failure or complication. There has been interval healing of the lateral epicondyle and capitellar fractures. No new fracture. Right elbow MACRO: None Normal [facility] XR Elbow - right 3 Viewson 0 03-08-2023 EXAMINATION: XR ELBO W RIGHT MINIMUM 3 VIEWSPRO/RT 03/08/2023 09:24 AM CLINICAL HISTORY: right elbow kwire removal ASSOCIATED DIAGNOSIS: Other closed displaced fracture of distal end of right humerus, initial encounter ORDERING PROVIDER: JANICE ROLAND TECHNMARIO NOTE: COMPARISON: 08/03/2022 IMPRESSION: Interval removal of a horizontal pin from the distal humerus, otherwise remaining fixation hardware along the lateral humerus is intact without evidence of failure or complication. There has been interval healing of the lateral epicondyle and capitellar fractures. No new fracture. Right elbow MACRO: None RADIOLOGY Rahul Brady M D - 03/08/2023 EXAMINATION: XR ELBOW RIGHT MINIMUM 3 VIEWSPRO/RT 03/08/2023 09:24 AM CLINICAL HISTORY: right elbow kwire removal ASSOCIATED DIAGNOSIS: Other closed displaced fracture of distal end of right humerus, initial encounter ORDERING PROVIDER: JANICE PATTON NOTE: COMPARISON: 08/03/2022 IMPRESSION: Interval removal of a horizontal pin from the distal humerus, otherwise remaining fixation hardware along the lateral humerus is intact without evidence of failure or complication. There has been interval healing of the lateral epicondyle and capitellar fractures. No new fracture. Right elbow MACRO: None [employer] Radiology Study observation (narrative) [employer] [facility] XR Elbow - right 3 ViewsOrde red By: Rahul Brady on 03-08-2023 [employer] Work Phone: Telephone Encounteron 2022 [employer] Authentication Interface Message Text Patient making sure we got her pictures, notified Janice Thornton PA-C and will forward them to her. Normal The [employer] Interface Message Text Spoke with Md Scott and ABDULLAHI Hutchinson, patient to come in Wednesday morning for K-wire removal. Patient called and notified, appointment made. Normal [facility] [employer] Interface Message Text Asked patient to send us pictures of her arm- will forward pictures to Dr. Scott once I receive them. Normal [facility] [employer] Interface Message Text Spoke with patient, she got her x-ray done. She was wondering if we have received the images- as of now I have not seen anything. I told patient to at least fax over the report, and she should send us the disc with the images. Patient now believes the hardware is starting to poke through ter skin. She stated her arm/clothes were bloodied yesterday. She cleaned herself up and has bandaids and a wrap around the area. I urged her to go to the ED out by her. She stated she does not see the hardware but feels that it is starting to come out. I will speak with Dr. Scott, I informed her she may have to come see us next week sometime. I will call her back by the end of the day. Normal [facility] Telephone Encounteron 2022 [employer] Authentication Interface Message Text Patient calling in regards to her external order so she can get the x-ray of her elbow. Order has been faxed. Patient to call if she does not get it or there are other issues. Normal [facility] Telephone Encounteron 2022 [employer] Authentication Interface Message Text Patient has fax number for the order: fax to [phone]- to Velma. Normal [facility] [employer]ist Authentication Interface Message Text Patient called to let me know she has the fax number so we can fax her external order for the xray. Explained we will not be able to see it, so she will obtain it on a disc and send it to us. We will call her once we review it. Normal [facility] [employer] Authentication Interface Message Text Called her elbow has been hurting she feels that the hardware came loose. She will need external x-ray order and then will get xrays. Normal [facility] Telephone Encounteron 2022 [employer] Authentication Interface Message Text Patient called to say that she believes the screw or a wire broke in her elbow, it hurts if she moves her elbow and she currently has it in a sling. Please contact patient to schedule an earlier appointment than her 05/03 appointment if necessary. Patient is in her cabin for the next few days, please contact her at [phone], otherwise her normal cell number is preferred. Patient confirms it is ok to leave a voicemail with details. Normal [facility] XR Elbow - right 3 Viewson 0 05-04-2022 EXAMINATION: XR ELBO W RIGHT MINIMUM 3 VIEWSPRO/RT 05/04/2022 09:25 AM CLINICAL HISTORY: Reason for Exam: right elbow ORIF ASSOCIATED DIAGNOSIS: Other closed displaced fracture of distal end of right humerus, initial encounter ORDERING PROVIDER: JANICE PATTON NOTE: COMPARISON: March 02, 2022 FINDINGS: A compression plate along the distal lateral aspect humerus 2 pins transfixing distal humerus appear intact and unchanged in position. The major fragments of distal humerus are unchanged in position. Fracture lucencies are visible including the capitellum, although are less distinct than on prior study. IMPRESSION: No change in appearance of fixation hardware or major fracture fragment alignment. XR ELBOW RIGHT MINIMUM 3 VIEWS MACRO: None RADIOLOGY Trever Eastman MD - 05/04/2022 EXAMINATION: XR ELBOW RIGHT MINIMUM 3 VIEWSPRO/RT 05/04/2022 09:25 AM CLINICAL HISTORY: Reason for Exam: right elbow ORIF ASSOCIATED DIAGNOSIS: Other closed displaced fracture of distal end of right humerus, initial encounter ORDERING PROVIDER: JANICE PATTON NOTE: COMPARISON: March 02, 2022 FINDINGS: A compression plate along the distal lateral aspect humerus 2 pins transfixing distal humerus appear intact and unchanged in position. The major fragments of distal humerus are unchanged in position. Fracture lucencies are visible including the capitellum, although are less distinct than on prior study. IMPRESSION: No change in appearance of fixation hardware or major fracture fragment alignment. XR ELBOW RIGHT MINIMUM 3 VIEWS MACRO: None [facility] Radiology Study observation (narrative) [facility] XR Elbow - right 3 ViewsOrde red By: Trever Eastman on 05-04-2022 [facility] Work Phone: XR ELBOW RIGHT MINIMUM 3 VIE WSon 03-02-2022 EXAMINATION: XR ELBO W RIGHT MINIMUM 3 VIEWSPRO/RT 03/02/2022 09:22 AM CLINICAL HISTORY: Reason for Exam: orif lateral epicondyle ASSOCIATED DIAGNOSIS: Other closed displaced fracture of distal end of right humerus, initial encounter ORDERING PROVIDER: JANICE PATTON NOTE: COMPARISON: Right elbow x-ray on 01/19/2022. FINDINGS: Status post ORIF of the comminuted capitellar fracture, no evidence of hardware failure. The alignment of the major fracture fragments is unchanged. The fracture lines are visualized, not changed significantly since prior x-ray. The alignment of the radiocapitellar joint is maintained. Soft tissues about the right elbow has improved. IMPRESSION: * Status post ORIF of the comminuted right capitellar fracture, no evidence of hardware failure. * The alignment of the major fracture fragments is unchanged. No significant change since 01/19/2022 x-ray. XR ELBOW RIGHT MINIMUM 3 VIEWS MACRO: None RADIOLOGY Annabella Sparks MD - 03/02/2022 EXAMINATION: XR ELBOW RIGHT MINIMUM 3 VIEWSPRO/RT 03/02/2022 09:22 AM CLINICAL HISTORY: Reason for Exam: orif lateral epicondyle ASSOCIATED DIAGNOSIS: Other closed displaced fracture of distal end of right humerus, initial encounter ORDERING PROVIDER: JANICE ROLAND TECHNMARIO NOTE: COMPARISON: Right elbow x-ray on 01/19/2022. FINDINGS: Status post ORIF of the comminuted capitellar fracture, no evidence of hardware failure. The alignment of the major fracture fragments is unchanged. The fracture lines are visualized, not changed significantly since prior x-ray. The alignment of the radiocapitellar joint is maintained. Soft tissues about the right elbow has improved. IMPRESSION: * Status post ORIF of the comminuted right capitellar fracture, no evidence of hardware failure. * The alignment of the major fracture fragments is unchanged. No significant change since 01/19/2022 x-ray. XR ELBOW RIGHT MINIMUM 3 VIEWS MACRO: None [facility] Radiology Study observation (narrative) [facility] XR ELBOW RIGHT MINIMUM 3 VIE WSOrdered By: Annabella Sparks on 03-02-2022 [facility] Work Phone: GLYCOHEMOGLOBIN A1Con 2021 ADA RECOMMENDATION SEE BELOW Normal [facility] [place] [facility] Comment on above: Result Comment: ADA RECOMMENDED LIMIT 4.0 - 6.0 ADA THERAPEUTIC TARGET < 7.0 ACTION SUGGESTED > 7.0 Performed By: #### D ATA1C #### [facility] [address] [place] [address] [address] Mark Albert Glucose [Mass/Vol] 131 mg/dL Normal [facility] [place] [facility] Comment on above: Performed By: #### D ATA1C #### [facility] [address] [place], [place] [address] Dr. Mark Albert HbA1c (Bld) [Mass fraction] 6.2 % Normal 4.5-6.2 [facility] Comment on above: Performed By: #### D ATA1C #### [facility] [address] [place] [address] [address] Mark Albert XR ELBOW RIGHT MINIMUM 3 VIE WSon 01-19-2022 EXAMINATION: XR ELBO W RIGHT MINIMUM 3 VIEWSPRO/RT CLINICAL HISTORY: Reason for Exam: right distal humerus ORIF ASSOCIATED DIAGNOSIS: Other closed displaced fracture of distal end of right humerus, initial encounter TECHNOLOGISTS NOTE: COMPARISON: 01/03/2022 FINDINGS: IMPRESSION: Interval fixation of comminuted intra-articular fracture of the lateral epicondyle and capitellum of the humerus. No evidence of hardware failure or complication. There has been interval healing response. Fracture lucencies are evident. There is improved alignment of the fracture fragments compared to the prefixation radiographs, all of the fragments remain mildly displaced. Small curvilinear ossification at the anteromedial aspect of the ulnotrochlear joint was not apparent on prior and may represent an avulsion fracture.. XR ELBOW RIGHT MINIMUM 3 VIEWS MACRO: None RADIOLOGY Rahul Brady M D - 01/19/2022 EXAMINATION: XR ELBOW RIGHT MINIMUM 3 VIEWSPRO/RT CLINICAL HISTORY: Reason for Exam: right distal humerus ORIF ASSOCIATED DIAGNOSIS: Other closed displaced fracture of distal end of right humerus, initial encounter TECHNOLOGISTS NOTE: COMPARISON: 01/03/2022 FINDINGS: IMPRESSION: Interval fixation of comminuted intra-articular fracture of the lateral epicondyle and capitellum of the humerus. No evidence of hardware failure or complication. There has been interval healing response. Fracture lucencies are evident. There is improved alignment of the fracture fragments compared to the prefixation radiographs, all of the fragments remain mildly displaced. Small curvilinear ossification at the anteromedial aspect of the ulnotrochlear joint was not apparent on prior and may represent an avulsion fracture.. XR ELBOW RIGHT MINIMUM 3 VIEWS MACRO: None [facility] Radiology Study observation (narrative) [facility] XR ELBOW RIGHT MINIMUM 3 VIE WSOrdered By: Rahul Brady on 01-19-2022 [facility] Work Phone: Coding Summary.on 01-06-2022 Coding Summary. CD:[id number] G h0bWw+PGhlYWQ+RM6ZHCU cM21kxNKncZ0IE0rJZD0V NGTKPEWIDX5VZX4wzOC8R RkkV1HnlrVi RdjliXCcWB06SBd7WOV0t EgcFMnmvH4dxILiA8j9Yk MvLE65aY49PLekPOSgLxR 3LjZpbjsgbWFy E3drCvMwjOKeNxs+PHRhY mxlIHdpZHRoPScxMDAlJy MksGuvJZ2aPv8qPUQkCJK vbGxhcHNlOiBj q3buWPNsFKweVO8vtBqhI 4WcmGR2ZHQbm4l4Ys18dR I+NTXbTAY8kWndXXzgg64 9KaHxx1vkKQB6 tKSuEVsnDUZ1S00fc5V1W XPyPFBgFBA4jDL8qT2lhI sgcsjlL0OdoFMdTbV3SRT 0eBMxqG2kpOmr qhzisO9cWfh+S52BZV2SO BFZRA6JQqt0M4YfYvluzO I+WG95JDUwEG04mGFpuOE nn4bgkQa9KdGk FWGySBD8rPvbUOcqs0QsJ IWqD20vrAEwt8L7LWKpgO zgqDCfImPxfIB2wS2sTNy vajkot4gevaaj Wrbkf0jxwi34yD64M93dN FvkEYZvROM5WTBjTIRkbY ysce3qsE6vWh8+OEiia7e vz8wijLl0UpSf HJKymkHqjMdwHVL1m8DlQ r24N9ChdWesa9NbWvz3xh 37bDEnu9P5lGL4ICoiDOR soL5gHOrsHpH9 QVYdZsRpcG66sWUkJBfeX f8mqGaahOwmPO5nAZEjkw paEEAgkC5dGCUfmHEqlWg bSD8fJDKaspwt k327EfXlFNT4WSYlxENqD 1IbkE3yNyYtEZHqAJIqF2 FjaXVfKPtgG706IQrsBdZ 0JSZtptXhD9Ok LSFunJwnGhY6j7N7Fk9Bv 4IuasgnYYD3CTarCKR0Vz KgXvSgAbI8F3YoCzx9GFW puAdaDV6dW2Ax STJrcoifpdkokXS0PBQsA JWrxF45mSPiRRawOf0zf9 X3p021SEGtKDOsiS84Cf3 udDogMTBwdCBU rF6kmrqgb5mxmdpvWpWrI ZYsPSu4RRs0ZBOrmIayQj JxYBV3UwU7IAU9kHHfjR6 toRvtfkowxS9n Oyc+M87cuK3dCND1OMW7w wufIBQaosDhIP18SH40W4 RyPjwvdGFibGU+PGRpdiB [id number] n9eaw7XaNQkaD4PyZALwZ BniMhj9KGHfPXR4dEZ3cS 7dXFUuWBsam4Z0aJY6Q0G sunDzbj3un8mv ZJPgKBmjO01cuPMcn7E0W ZFpkZX1PIRzjQsbJcVbrG 93Oyc+ABGxuHtda4SxOue tu3cwn8inmYe7 TcMkORYhzoUwhZzhRBA7k 5NaGf35C02xPFpuHNCvFK FsCSRaZUBljNcdlq3qxF0 wIi8+PGNvbCB3 qYD2qH5xABBfAvS4HGvgF 007WpNtuMFtOncdt3cto5 tmiLq6TwJoXWYpolGcxCl fHYR6k2DdDf89 O65iOPmnTAXmZZMuVKDtE PBelIgqak4msZ4dKk2+PC 2fz0acpu39cF52cTA+PHR eKPI9lHofJVfp DPTgyJ4iTCxgPoX4WGJtZ cKtrX91dHVbPRlgUd3yhU gciJwbOE0xBFZocbvij27 2HoGjz1jmNPXm cVEtRQqwNPI5O92mr5M6Q UUuILKzXFO1cFF3lI9abV lnbjogbGVmdDsgdmVydGl fUZpdHOslK109 IHRvcDsnPlBhdGllbnQgT bHoFNp0J8AgQza1YBJnjU tiDQ2zcZAaTJodPy0leAf xbRdaOO7pWELc xycct876CqPbc3wmBIKwx INyVNvuKGR8H45tf2Q4VR PgLOXwHFH2bTM8bO4unCh nbjogbGVmdDsg dwRriHmrBNijBIqcB321H HRvcDsnPkJpcnRoIERhdG K8CO52ZX54mJGjg1X7iHY 5F2GuCHQfnuyy lbbkoGO3RACtGISaeE33S q0utKmtTa7hSNGsLSO8FW ApeBAiV5XyvE7rXcFyHVR eOPSmP5IiwPBv NSdxR608XIafZxJ9FACdc tEuM2SzAKAapSbsPjK8u8 K1Ui4CO7D5WZ34OZ95xLM er2U4nWG0H7Hq HIAvzsuftmtmlPB3ALYvI RJzkV84Xk1kfJzwEe6vUF OhNWJ0WFUeqXJvB1SyaV5 yOiAjMDAwMDAw K0DqwXRoPSriL094FWuvW iA3MPVuziDmR7DrKIArpM faXsA2t2B4Li5VEEz0EL3 0KF11pQLpb5H2 vIN6R2JfISWrcjciomgnt QM3HBQmAMLtgE72Ak1vgH kkCd7lRDXrNFZ6QKMjlLM dH2QfnA9lYkBa VNSqTRJqP7YuxJYhEXkxY 785MGfiXyY2BIGdyvRlU2 ZgQOXuuOlrTqR6d1B8Gv3 IQBFfDB25YZG9 rLH3IY60FT69R9UuEygbe GFibGU+PHRhYmxlIHdpZH RoPScxMDAlJyBzdHlsZT0 oEz1gSYQvYNHz cWrkySLnNaCxm6heYVOoR KcuVZ8gzWjsI9KxgRN1UN Fzn2s8Hu95H86rZ6WctCT +CTEafBK8vPD8 rY4cGnTeJhU5KRhfX579J yBibJTdAlbjq6bgm6itdF m9CjQ8CUNsliNzlHopKWR 2j6MpJn96R82s IHdpZHRoPSIxNSUiIHZhb Xmikj1swF1sEk8+PGNvbC X2iCO0vI0aIrBcWqN2DXf sE081GgDdsGXf Vfxno4jkk9fwzFe7OqKvO TIrvtTskOwzTIP5z0EpWr 98F5DjfOmsx1VqSfg7nr7 7nPElc6M2cJT1 R8UzHMTwoyyewCAmcTufX M0iUEMomqqwXGCbnG4cDE LuA6p7GbThRsQ9HRcqO3S grgK7ETGilPMr QJlwBEQ7E24qt6X7SVJkM ERgHUX6qUO2zM5vmPxtvt ogbGVmdDsgdmVydGljYWw vOWqkO404XYPu mCdjDCUpvJ4aWTBqnEFsv NqhBM7dYPIgoucrUssXMM ZmFAJGJ8cXJI56WX10aZX us2W7fOR5A6Zs ONNlkqgmsciofUF2RATjM ZOsfE59fMHqGRutBg0tr2 V2l174NZWoKZIptX24My5 udDogMTBwdCBU rJ9xutwyv1zfbvviJlUeT GUiULy7MOp4NIAdvKldJt QbPDZ0KiM8TCM6aXSukB5 miHvejqckgG3n Oyc+LLGiMwAeJJa0Thgrp GQ+UZVmNWH9cJwfSIjmQF BxsJ8eSBRkG2z6PuScVbE 3WOjbI7LhFJOd kbnkIz60pD3xRyUjTuN3D DefN5BdvlJ6ORNtvQPnGC hbPHP0Y47pp3P9FCQcVYV kZAP3rJF8sV2i bGlnbjogbGVmdDsgdmVyd TydMEyeNDuqY504SHShkG smYuS6VYaxMEBmUI52YS3 2xWWny9S9sZQ8 A7XsCTPimdcjuxjdoTU8N JRnLQUwuS17cFMyCVzzLa 1wf0H6a772CBZjNJDjcP3 0Tl0oaUwdAOUv wUCVhF2ksqckz2rqktkhS dXwBVZdEMu6SOd4EQZosK jbZbYxSKM1KrU9TCW8tCJ rcT7gaYycduxn jF7bBjh+FuRnEHhsPL26E C42pWZpn6H2tFX6S3BtZG VdkcztkrfohBI8CQAfBKI fcA03iAXyKApa Fu6fu7X0b456LDFiNPFza K36Op5drWvcWBObpSMNeM 4yooslm6xycclwCeQxWDS hLIl3NQa2QWPg vTawEcFjACR3AnN1YOT9m LYscW0iwUbubhkdrD7qIm c+LR7vaedalxO7ZJ28BT8 5C3ThXzjtePAl bGU+PHRhYmxlIHdpZHRoP XkzLENdWeNvcVkuZJ2nWe 9yZGVyLWNvbGxhcHNlOiB bc7qxEIUkPZif JV2mcHurZ5UnlRD5LNHlh 9c0Ms60A68oF6UrcAR+PG WkzNH4ePI9nH7zHiOrFoO 4BLkwL679HdPe mVXpDjcoz2glt3peoKr4F jDtRJZhbsGkeWxtLPW6q5 DsWu45T60aKCdlHEXiHUG yMCUiIHZhbGln re8hiG5kUh3+FPNrsZF2k AY7bV1cQpMvElR2NBiiZ9 19XeMzkDWsVqfyU26sT2O vdXA+PHRyPjx0 FTAhpFkxZO6ouCZdOPanN h8wIXQ4SoFtCaTfWQhrJ5 ZjMFEnypqdhpbevWV2XEQ pVIHjqW99Tv3y gXifJv2lDRGiAKV7CJAps ZBjA9ZdiW9aGrFqXKEmCA GiR3NceTFoQQfqE325JFg dExE5FGEyemJe C3DjSNBtoBbeOwD2x8P7K h7RnJdpeORbLL7sCfZzQM v2V7SdIww9VJZnwVisAJ3 jvVGtNOjqSo9u nYlysCwfEP9rDWVitzypv 409WgSmo1miUPLkwWGoYP svNHT0V78wi8M4YUFnZPE zNZH3qEE0iK1m bGlnbjogbGVmdDsgdmVyd LkoFLibBFhtQ727MIBloR mgDxVNVnp8T6HgTgm5FOC vlExbSY3adTEa OUaqFr7twBoykLehJT3qT MYitmmis760IjDsz0vuWW QemZLeDOljTTI3M45ld8Z 9UJWxUKGtKMW0 gPZ8jI7gmTtwukapbJWad DsgdmVydGljYWwtYWxpZ2 61PFHopXfhOa1DKcc1Q8C kIkj4XJLnrHmc MI5utGDlQJrlGh3izZkoh TbxJK0oPTWqtxxqn215Xc Fad4dqVOPcnFGqNCevADI 1H64ev8M0RVCk QPUtSMA6bES0iI4hxGycb jogbGVmdDsgdmVydGljYW wlXKsrU849TLAoyLisXzP heWVyOjwvdGQ+ ES02bu01E6ToKjbbCpg0X EKwUMM2oLN4aQ5zMENkPI lmp9F3mXL2J0WbxtDhvt7 ke9elONKcYCwe Y29s (more content not included)... Normal [facility] GLUCOSE, FINGERSTICK-IN OFFI CEon 01-06-2022 Glucose [Mass/Vol] 192 mg/dL High 80 - 116 mg/dL [facility] Interpretation and review of laboratory results Abnormal [facility] Glucose [Mass/Vol] 140 mg/dL High 80 - 116 mg/dL [facility] Interpretation and review of laboratory results Abnormal [facility] No Panel Informationon 01-06 : Technical services were performed by the department of Anesthesia in surgery without interpretive services. Please refer to the patient's chart for the results of the procedure. [facility] Narrative & Impression EXAMINATION: US GUIDANCE NEEDLE PLACEMENT CLINICAL HISTORY: peripheral nerve block [facility] EXAMINATION: XR ELBO W RIGHT 2 VIEWPRO/RT CLINICAL HISTORY: Reason for Exam: intraop, orif of right elbow TECHNOLOGISTS NOTE: COMPARISON: None FLUOROSCOPIST: TANMAY SCOTT FLUORO TIME: .21 Minutes FINDINGS: Intraoperative fluoroscopy was provided during ORIF of distal right humeral fractures. Bony detail is limited. IMPRESSION: Documentation of intraoperative fluoroscopy. Bony detail is limited. Please see operative report for full details. MACRO: None RADIOLOGY Gilbert Palomo MD - 01/06/2022 EXAMINATION: XR ELBOW RIGHT 2 VIEWPRO/RT CLINICAL HISTORY: Reason for Exam: intraop, orif of right elbow TECHNOLOGISTS NOTE: COMPARISON: None FLUOROSCOPIST: TANMAY SCOTT FLUORO TIME: .21 Minutes FINDINGS: Intraoperative fluoroscopy was provided during ORIF of distal right humeral fractures. Bony detail is limited. IMPRESSION: Documentation of intraoperative fluoroscopy. Bony detail is limited. Please see operative report for full details. MACRO: None [facility] Radiology Study observation (narrative) [facility] Radiology Study observation (narrative) [facility] No Panel InformationOrdered By: Henry Farfan on 01-06-2022 [facility] Work Phone: No Panel InformationOrdered By: Gilbert Palomo on 01-06-2022 [facility] Work Phone: US GUIDANCE NEEDLE PLACEMENT on 01-06-2022 : Technical services were performed by the department of Anesthesia in surgery without interpretive services. Please refer to the patient's chart for the results of the procedure. [facility] N[facility]ative & Impression EXAMINATION: US GUIDANCE NEEDLE PLACEMENT CLINICAL HISTORY: peripheral nerve block [facility] Radiology Study observation (narrative) [facility] US GUIDANCE NEEDLE PLACEMENT Ordered By: Rakesh Nickerson on 01-06-2022 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 Indications for Study:Aortic stenosis. Tech. Comments Patient identified by name and date of . Doctor's order(s) verified. Findings/Conclusions Chambers Valves AV The valve could not be adequately visualized. Summary Nondiagnostic study. Authenticated by: Electronically signed and authenticated by EDWINA MEDRANO MD(Interpreting physician) on 01/05/2022 07:37 AM [facility] ABO RH TYPEon 01-04-2022 [facility] Basic metabolic 2000 panelon 01-04-2022 Anion gap [Moles/Vol] 12 mmol/L [facility] Calcium [Mass/Vol] 9.3 mg/dL 8.4 - 10. 4 mg/dL [facility] Chloride [Moles/Vol] 103 mmol/L 97 - 11 1 mmol/L [facility] CO2 [Moles/Vol] 24 mmol/L 21 - 30 mmol/L [facility] Creatinine [Mass/Vol] 0.76 mg/dL 0.50 - 1.10 mg/dL [facility] GFR/1.73 sq M.predicted MDRD (S/P/Bld) [Vol rate/Area] 87 mL/min/{1.73_m2} >=60 mL/min/1.73s qm [facility] Comment on above: 2020 CKD EPI Equatio n using Creatinine without Race Comment: Estimated glomerular filtration rate (eGFR) is calculated without a race coefficient. Values should be interpreted in the context of the patient's full clinical presentation. Reference: 1. Gaurav C, Antonio M, Samy DC, et al.. A Unifying Approach for GFR Estimation: Recommendations of the NKF-ASN Task Force on Reassessing the Inclusion of Race in Diagnosing Kidney Disease. Micronesian Journal of Kidney Diseases 202;79(2):268-88.e1. 2. N Engl J Med 2020 Vol. 385 Issue 19 Pages 2554-1067 Glucose [Mass/Vol] 116 mg/dL 80 - 116 mg/dL [facility] Interpretation and review of laboratory results Normal [facility] Potassium [Moles/Vol] 4.1 mmol/L 3.3 - 5.3 mmol/L [facility] Sodium [Moles/Vol] 135 mmol/L 135 - 148 mmol/L [facility] Urea nitrogen [Mass/Vol] 13 mg/dL 8 - 22 mg/dL [facility] CBC WITH DIFFERENTIALon 12-26 Basophils (Bld) [#/Vol] 0.06 10*3/uL 0.00 - 0.20 K/uL [facility] Basophils/100 WBC (Bld) 0.7 % <=1.9 [facility] Eosinophils (Bld) [#/Vol] 0.12 10*3/uL 0.00 - 0.70 K/uL [facility] Eosinophils/100 WBC (Bld) 1.6 % 0.1 - 4.0 % [facility] Erythrocyte distribution width (RBC) [Ratio] 13.8 % 11.5 - 14.5 % [facility] Hematocrit (Bld) [Volume fraction] 37.3 % 36.0 - 46.0 % [facility] Hemoglobin (Bld) [Mass/Vol] 12.9 g/dL 12.0 - 15.0 g/dL [facility] Interpretation and review of laboratory results Abnormal [facility] Lymphocytes (Bld) [#/Vol] 2.72 10*3/uL 1.00 - 4.80 K/uL [facility] Lymphocytes/100 WBC (Bld) 35.1 % 24.0 - 44.0 % [facility] MCH (RBC) [Entitic mass] 28.6 pg 26.0 - 34.0 pg [facility] MCHC (RBC) [Mass/Vol] 34.5 g/dL 32.0 - 35.9 g/dL [facility] MCV (RBC) [Entitic vol] 83 fL 80 - 100 fL [facility] Monocyte distribution width Auto (Bld) [Entitic vol] [facility] Monocytes (Bld) [#/Vol] 0.63 10*3/uL 0.20 - 1.00 K/uL [facility] Monocytes/100 WBC (Bld) 8.1 % 2.0 - 11.0 % [facility] Neutrophils (Bld) [#/Vol] 4.23 10*3/uL 1.50 - 8.00 K/uL [facility] Neutrophils/100 WBC (Bld) 54.6 % 31.0 - 76.0 % [facility] Platelet mean volume (Bld) [Entitic vol] 8.9 fL 7.5 - 11.2 fL [facility] Platelets (Bld) [#/Vol] 123 10*3/uL Low 150 - 400 K/uL [facility] RBC (Bld) [#/Vol] 4.50 10*6/uL [facility] WBC (Bld) [#/Vol] 7.7 10*3/uL 4.5 - 11.5 K/uL [facility] - Blood bankon ABO and Rh group Nom (Bld) Blood group B Rh(D) positive [facility] Basic metabolic 2000 panelon 01-03-2022 Anion gap [Moles/Vol] 16 mmol/L [facility] Calcium [Mass/Vol] 9.6 mg/dL 8.4 - 10. 4 mg/dL [facility] Chloride [Moles/Vol] 103 mmol/L 97 - 11 1 mmol/L [facility] CO2 [Moles/Vol] 22 mmol/L 21 - 30 mmol/L [facility] Creatinine [Mass/Vol] 0.91 mg/dL 0.50 - 1.10 mg/dL [facility] GFR/1.73 sq M.predicted MDRD (S/P/Bld) [Vol rate/Area] 70 mL/min/{1.73_m2} >=60 mL/min/1.73s qm [facility] Comment on above: 2020 CKD EPI Equatio n using Creatinine without Race Comment: Estimated glomerular filtration rate (eGFR) is calculated without a race coefficient. Values should be interpreted in the context of the patient's full clinical presentation. Reference: 1. Gaurav C, Antonio M, Samy DC, et al.. A Unifying Approach for GFR Estimation: Recommendations of the NKF-ASN Task Force on Reassessing the Inclusion of Race in Diagnosing Kidney Disease. Micronesian Journal of Kidney Diseases 202;79(2):268-88.e1. 2. N Engl J Med 2020 Vol. 385 Issue 19 Pages 5081-7263 Glucose [Mass/Vol] 166 mg/dL High 80 - 116 mg/dL [facility] Interpretation and review of laboratory results Abnormal [facility] Potassium [Moles/Vol] 4.1 mmol/L 3.3 - 5.3 mmol/L [facility] Sodium [Moles/Vol] 137 mmol/L 135 - 148 mmol/L [facility] Urea nitrogen [Mass/Vol] 14 mg/dL 8 - 22 mg/dL [facility] CBC panel Auto (Bld)on 01-03 Erythrocyte distribution width (RBC) [Ratio] 13.7 % 11.5 - 14.5 % [facility] Hematocrit (Bld) [Volume fraction] 37.2 % 36.0 - 46.0 % [facility] Hemoglobin (Bld) [Mass/Vol] 12.8 g/dL 12.0 - 15.0 g/dL [facility] Interpretation and review of laboratory results Abnormal [facility] MCH (RBC) [Entitic mass] 28.7 pg 26.0 - 34.0 pg [facility] MCHC (RBC) [Mass/Vol] 34.5 g/dL 32.0 - 35.9 g/dL [facility] MCV (RBC) [Entitic vol] 83 fL 80 - 100 fL [facility] Platelet mean volume (Bld) [Entitic vol] 9.1 fL 7.5 - 11.2 fL [facility] Platelets (Bld) [#/Vol] 132 10*3/uL Low 150 - 400 K/uL [facility] RBC (Bld) [#/Vol] 4.48 10*6/uL [facility] WBC (Bld) [#/Vol] 8.7 10*3/uL 4.5 - 11.5 K/uL [facility] CT ELBOW RIGHT W/O CONTRASTO rdered By: Anup Díaz on 01-03-2022 CT DLP 281.3 (mGy.cm) [facility] h Work Phone: CT Series Upper arm [facility] Work Phone: CTDI VOL 11.4 (mGy) [facility] Work Phone: PHANTOM TYPE IEC Body Dosimetry Phantom [facility] Work Phone: [facility] Work Phone: CT ELBOW RIGHT W/O CONTRASTo n 01-03-2022 EXAMINATION: CT ELBO W RIGHT W/O CONTRASTPRO/RT CLINICAL HISTORY: Reason for Exam: Elbow fracture; elbow fracture ASSOCIATED DIAGNOSIS: Elbow fracture elbow fracture TECHNOLOGISTS NOTE: Best scans possible COMPARISON: None TECHNIQUE: Thin axial images were obtained without intravenous contrast. Multiplanar reconstructions were obtained from the axial data. INTRA-PROCEDURE MEDS: FINDINGS: Soft tissue: Moderate soft tissue swelling around the elbow joint and along the posterior extremity. No focal fluid collection. The visualized muscles are unremarkable. Bone/joint: Acute, comminuted depressed fracture of the lateral epicondyles epicondyle with extension into the capitulum and trochlea. Multiple loose fracture fragments are seen, largest measuring 1.6 cm in the anterior joint space. there is 1 cm laterally displaced of the proximal ulna and radius suspecting underlying ligamentous tear especially of the ulnar collateral ligament complex. No significant degenerative change. Small joint effusion. IMPRESSION: Acute, comminuted, depressed laterally displaced fracture of the lateral of the lateral epicondyle with extension into the capitulum and trochlea. Suspecting underlying ulna collateral injury. Multiple loose fracture fragments identified within the joint capsule. Associated moderate swelling of the soft tissues without focal fluid collection. CT ELBOW RIGHT W/O CONTRAST MACRO: None RADIOLOGY Anup Díaz MD - 01/03/2022 EXAMINATION: CT ELBOW RIGHT W/O CONTRASTPRO/RT CLINICAL HISTORY: Reason for Exam: Elbow fracture; elbow fracture ASSOCIATED DIAGNOSIS: Elbow fracture elbow fracture TECHNOLOGISTS NOTE: Best scans possible COMPARISON: None TECHNIQUE: Thin axial images were obtained without intravenous contrast. Multiplanar reconstructions were obtained from the axial data. INTRA-PROCEDURE MEDS: FINDINGS: Soft tissue: Moderate soft tissue swelling around the elbow joint and along the posterior extremity. No focal fluid collection. The visualized muscles are unremarkable. Bone/joint: Acute, comminuted depressed fracture of the lateral epicondyles epicondyle with extension into the capitulum and trochlea. Multiple loose fracture fragments are seen, largest measuring 1.6 cm in the anterior joint space. there is 1 cm laterally displaced of the proximal ulna and radius suspecting underlying ligamentous tear especially of the ulnar collateral ligament complex. No significant degenerative change. Small joint effusion. IMPRESSION: Acute, comminuted, depressed laterally displaced fracture of the lateral of the lateral epicondyle with extension into the capitulum and trochlea. Suspecting underlying ulna collateral injury. Multiple loose fracture fragments identified within the joint capsule. Associated moderate swelling of the soft tissues without focal fluid collection. CT ELBOW RIGHT W/O CONTRAST MACRO: None [facility] Radiology Study observation (narrative) [facility] Consent for Treatmenton Consent for Treatment [id number] .00CD:127 Normal [facility] Discharge Instructionson Discharge Instructions [id number] 1.00CD:127 Normal [facility] ED Clinical Summaryon 2021 ED Clinical Summary [place] [address] ED Clinical Summary Person Information Name: SHRUTI LOCKE/[facility] Age: 66 Years : 1955 Sex: Female Language: Sao Tomean PCP: ADA NEFF MD Marital Status: Single Visit Id: Visit Reason: Fall; Elbow pain-swelling; Fell 01/02/2022...right elbow injury Speciality: Acuity: 3 Enc Type: Emergency Med Service: Emergency Arrival: 01/03/2022 08:40:31 Discharge: 01/03/2022 12:03:27 LOS: 000 03:23 Checkin: 01/03/2022 08:40:31 Checkout: 01/03/2022 12:03:27 Dispo Type: Home (Routine DC) EVENTS: Event Name Event Status Request Date/Time Start Date/Time Complete Date/Time Arrive Complete 01/03/2022 08:40:31 01/03/2022 08:40:31 01/03/2022 08:40:31 Document Home Meds Request 01/03/2022 08:40:31 Triage Complete 01/03/2022 08:40:31 01/03/2022 08:52:15 01/03/2022 08:52:15 Dr Exam Complete 01/03/2022 08:45:05 01/03/2022 08:45:05 01/03/2022 08:45:05 Registration Complete 01/03/2022 08:45:05 01/03/2022 08:52:44 01/03/2022 09:32:32 Bed Assign Complete 01/03/2022 08:52:44 01/03/2022 08:52:44 01/03/2022 08:52:44 RN Exam Complete 01/03/2022 08:52:44 01/03/2022 08:57:30 01/03/2022 08:57:30 Fall Risk Request 01/03/2022 08:57:30 Dr Exam Complete 01/03/2022 09:27:56 01/03/2022 09:27:56 01/03/2022 09:27:56 Reg Complete Request 01/03/2022 09:32:32 Reg Bed Request Complete 01/03/2022 09:32:32 01/03/2022 09:32:32 01/03/2022 09:32:32 X-Ray Complete 01/03/2022 09:59:08 01/03/2022 10:02:18 01/03/2022 10:19:55 Wet Read Request 01/03/2022 10:19:55 Discharge Complete 01/03/2022 11:36:20 01/03/2022 12:03:32 01/03/2022 12:03:32 Transfer Complete 01/03/2022 12:03:32 01/03/2022 12:03:32 01/03/2022 12:03:32 ADDRESS: [address] [place] [phone] PHYS DOC NOTES: MEDICAL INFORMATION: Prescriptions Given: Medications to Continue with No Changes Other Medications acetaminophen-oxycodo ne (Percocet 2.5 mg-325 mg oral tablet) 1 Tablets By Mouth every 6 hours. lisinopril (lisinopril 5 mg Tab) 1 Tablets By Mouth every day. metformin (metformin 500 mg Tab) 1 Tablets By Mouth 2 times a day. ondansetron (Zofran 4 mg Tab) 1 Tablets By Mouth every 8 hours. rosuvastatin (rosuvastatin 5 mg Tab) 1 Tablets By Mouth every day. PATIENT EDUCATION INFORMATION: Instructions: Cast or Splint Care, Adult, [id number] Follow up: With: Address: When: Go directly to [facility] emergency room to be evaluated by Dr. Avila With: Address: When: ADA TAWANDA [address] [place] [address] [facility] (1) In 3 days DIAGNOSIS: 1:Fracture of right elbow [facility] ED Noteon 01-03-2022 ED Note 1050: Called [facility] Transfer line, Valdo answered. Valdo talked to Dr. Moss about transfer. 1127: Valdo called back from [facility] Transfer line....Valdo stated Patient was accepted to Dr. Sheng Donahue (Ortho) and we can set up transfer to ER to ER at [facility]. Handed the packet to Family member that is driving patient to [facility] ER. Packet : Disc, ED chart , Facesheet and Auth to Transfer documentation and with Directions to [facility]. [facility] ED Note-Physicianon 01-04-20 ED Note-Physician Basic Information No qualifying data available. Chief Complaint pt arrived via privat vehicle c/o right elbow pain. pt stated that she was at a flea market and tripped and fell. pt was seen at another hospital and needed surgery but she wanted to come to her hospital here. pt last took half of a percocet at 0430 last History of Present Illness Ms. Locke is a 66 y/o female with PMH of HTN/high cholesterol/T2DM who comes into the ER today for a referral to an orthopedic surgeon after having fallen and broken her right arm yesterday. Patient had a fracture of the humerus after a fall brought on by tripping on a cinder block at a [employer] yesterday. She states she did not hit or head or lose consciousness, but was dizzy for about 5 minutes after the fall. The dizziness has since resolved. The patient denies current chest pain, sob, numbness/tingling in the extremity, signs of ischemia. Review of Systems Constitutional: no fever, no chills, no sweats, no weakness Skin: no Jaundice, no rash, no lesions, nopetechiae Respiratory: no shortness of breath, no cough, no orthopnea, no wheezing Cardiovascular: no chest pain, no palpitations, no edema Gastrointestinal: no nausea, no vomiting, no diarrhea, no GI bleeding Musculoskeletal: no back pain, no trauma Neurologic: no headache, no dizziness, no numbness, no weakness Heme/Lymph: no bleeding tendency, no bruising tendency, no petechiae, no swollen nodes Additional ROS info: Except as noted in the above Review of Systems and in the History of Present Illness all other systems have been reviewed and are negative or noncontributory. Physical Exam Vitals & Measurements T: 36.7 ?C(Oral) HR: 80(Peripheral) RR: 18 BP: 148/78 SpO2: 94% HT: 165 cm HT: 165.0 cm WT: 96.5 kg WT: 96.5 kg BMI: 35.45 General: alert, no acute distress Skin: warm, dry Head: no trauma, normocephalic Neck: Trachea midline, no adenopathy, no tenderness Eye: normal conjunctiva, sclera clear Cardiovascular: holosystolic murmur that patient states is chronic, regular rate and rhythm, normal peripheral perfusion Respiratory: Lungs CTA, respirations non labored Chest wall: no deformity. Gastrointestinal: soft, non distended, no tenderness, no guarding. Back: No tenderness, Normal ROM, Normal alignment. Extremities: right arm in cast and sling, swollen with good perfusion, Neurological: alert oriented, LOC appropriate for age, CN II-XII grossly intact, sensation equal & normal bilaterally, speech normal Psychiatric: cooperative, affect appropriate for age, normal judgement, normal psychiatric thoughts. Medical Decision Making I discussed the case with our student. I then examined the patient and interviewed the patient. She was seen in [place] yesterday diagnosed with a displaced intra-articular elbow fracture. She did not want to have definitive treatment in that area so she returned home with a posterior splint. She states that the pain is controlled. On examination the hand does appear to be slightly swollen but it is warm to the touch she has good strength and strong pulses. I discussed the case with our orthopedic surgeon, Dr. Borden. He asked for repeat films through the splint so he could evaluate and make a decision. These films were reviewed. There is a comminuted intra-articular fracture that is significantly displaced anteriorly. He felt that the repair was beyond the skill level of a [facility] and referred her to [facility]. I discussed the case with [facility] transfer line. They have arranged an orthopedic consult today in their emergency room with Dr. Avila. Copies of the films will be sent with the patient. Assessment/Plan 1. Fracture of right elbow (S42.401A: Unspecified fracture of lower end of right humerus, initial encounter for closed fracture) Orders: XR Elbow 2 Views Right Disposition Plan Patient Discharge Condition Unchanged, stable Discharge Disposition Transfer by private vehicle to [facility] ER Discharge Prescription List Prescriptions No active prescription medications Follow-up With When Contact Information Go directly to [facility] emergency room to be evaluated by Dr. Avila Additional Instructions: ADA NEFF In 3 days [facility] [place], [place] [address] (1) Additional Instructions: Patient Education Cast or Splint Care, Adult, Xxea-jd-Lien Attestation Patient was treated and evaluated by the Medical Student. The attending physician was in the Emergency Department at all times and supervised care. The case was discussed with the attending physician and diagnostics were reviewed as needed. Problem List/Past Medical History Ongoing No qualifying data Historical No qualifying data Medications Inpatient No active inpatient medications Home lisinopril 5 mg Tab, 5 mg= 1 tab(s), Oral, Daily metformin 500 mg Tab, 500 mg= 1 tab(s), Oral, BID Percocet 2.5 mg-325 mg oral tablet, 1 tab(s (more content not included)... Normal [facility] Comment on above: Result Comment: Elec tronically Signed By: Yaakov Greenwood MS, III\.br\Date and Time Signed: 01/03/22 09:06 EDT\.br\Electronically Co-Signed By: Jl Moss MD\.br\Date and Time Co-Signed: 01/03/22 11:37 EDT ED Patient Education Noteon 01-03-2022 ED Patient Education Note Orthopedics Cast or Splint Care, Adult Casts and splints are supports that are worn to protect broken bones and other injuries. A cast or splint may hold a bone still and in the correct position while it heals. Casts and splints may also help to ease pain, swelling, and muscle spasms. How to care for your cast ? Do not stick anything inside the cast to scratch your skin. ? Check the skin around the cast every day. Tell your doctor about any concerns. ? You may put lotion on dry skin around the edges of the cast. Do not put lotion on the skin under the cast. ? Keep the cast clean. ? If the cast is not waterproof: ? Do not let it get wet. ? Cover it with a watertight covering when you take a bath or a shower. How to care for your splint ? Wear it as told by your doctor. Take it off only as told by your doctor. ? Loosen the splint if your fingers or toes tingle, get numb, or turn cold and blue. ? Keep the splint clean. ? If the splint is not waterproof: ? Do not let it get wet. ? Cover it with a watertight covering when you take a bath or a shower. Follow these instructions at home: Bathing ? Do not take baths or swim until your doctor says it is okay. Ask your doctor if you can take showers. You may only be allowed to take sponge baths for bathing. ? If your cast or splint is not waterproof, cover it with a watertight covering when you take a bath or shower. Managing pain, stiffness, and swelling ? Move your fingers or toes often to avoid stiffness and to lessen swelling. ? Raise (elevate) the injured area above the level of your heart while sitting or lying down. Safety ? Do not use the injured limb to support your body weight until your doctor says that it is okay. ? Use crutches or other assistive devices as told by your doctor. General instructions ? Do not put pressure on any part of the cast or splint until it is fully hardened. This may take many hours. ? Return to your normal activities as told by your doctor. Ask your doctor what activities are safe for you. ? Keep all follow-up visits as told by your doctor. This is important. Contact a doctor if: ? Your cast or splint gets damaged. ? The skin around the cast gets red or raw. ? The skin under the cast is very itchy or painful. ? Your cast or splint feels very uncomfortable. ? Your cast or splint is too tight or too loose. ? Your cast becomes wet or it starts to have a soft spot or area. ? You get an object stuck under your cast. Get help right away if: ? Your pain gets worse. ? The injured area tingles, gets numb, or turns blue and cold. ? The part of your body above or below the cast is swollen and it turns a different color (is discolored). ? You cannot feel or move your fingers or toes. ? There is fluid leaking through the cast. ? You have very bad pain or pressure under the cast. ? You have trouble breathing. ? You have shortness of breath. ? You have chest pain. This information is not intended to replace advice given to you by your health care provider. Make sure you discuss any questions you have with your health care provider. Document Released: 01/13/2012 Document Revised: 01/03/2020 Document Reviewed: 09/03/2017 Elsevier Patient Education ? 2019 [employer] Normal [facility] ED Patient Summaryon 022 ED Patient Summary [place] [id number] Patient Discharge Instructions Person Information Name: SHRUTI LOCKE Age: 66 Years Arrival Date: 01/03/2022 08:40:31 Discharge Diagnosis: 1:Fracture of right elbow Primary Care Physician: ADA NEFF MD Provider Information Primary Provider: Jl Moss MD [employer] Specialist:None The exam and treatment you received in the Emergency Department were for an urgent problem and are not intended as complete care. It is important that you follow up with a doctor, nurse practitioner, or physician?s content assistant for ongoing care. If your symptoms become worse or you do not improve as expected and you are unable to reach your usual health care provider, you should return to the Emergency Department. We are available 24 hours a day. SHRUTI LOCKE has been given the following list of patient education materials, prescriptions and follow-up instructions: Follow-up Instructions: With: Address: When: Go directly to [facility] emergency room to be evaluated by Dr. Avila With: Address: When: ADA NEFF [address] [place] [address] Business (1) In 3 days In the event that this physician does not participate in your insurance network, please consult with your insurance company to find a nearby participating provider. Patient Education Materials: Cast or Splint Care, Adult, [id number] A MESSAGE TO ALL PATIENTS REGARDING OPIOIDS PRESCRIPTION OPIOIDS: WHAT YOU NEED TO KNOW Prescription opioids can be used to help relieve ybvvspgv-gp-ahpfyf pain and are often prescribed following a surgery or injury, or for certain health conditions. These medications can be an important part of the treatment but also come with serious risks. It is important to work with your healthcare provider to make sure you are getting the safest, most effective care. WHAT ARE THE RISKS AND SIDE EFFECTS OF OPIOID USE? Prescription opioids carry serious risks of addiction and overdose, especially with prolonged use. An opioid overdose, often marked by slowed breathing, can cause sudden . The use of prescription opioids can have a number of side effects as well, even when taken as directed: ? Tolerance?meaning you might need to take more of the medication for the same pain relief ? Physical dependence?meaning you have symptoms of withdrawal when a medication is stopped ? Increased sensitivity to pain ? Constipation ? Nausea, vomiting, and dry mouth ? Sleepiness and dizziness ? Confusion ? Depression ? Low levels of testosterone that can result in lower sex drive, energy, and strength ? Itching and sweating RISKS ARE GREATER WITH: ? History of drug misuse, substance use disorder, or overdose ? Mental health conditions (such as depression or anxiety) ? Sleep apnea ? Older age (65 years and older) ? Avoid alcohol while taking prescription opioids. Also, unless specifically advised by your health care provider, medications to avoid include: ? Benzodiazepines (such as Xanax or Valium) ? Muscle relaxants (such as Soma or Flexeril) ? Hypnotics (such as Ambien or Lunesta) ? Other prescription opioids KNOW YOUR OPTIONS Talk to your health care provider about ways to manage your pain that don?t involve prescription opioids. Some of these options may actually work better and have fewer risks and side effects. Options may include: ? Pain relievers such as acetaminophen, ibuprofen, and naproxen ? Some medication that are also used for depression or seizures ? Physical therapy and exercise ? Cognitive behavioral therapy, a psychological, goal-directed approach, in which patients learn how to modify physical, behavioral, and emotional triggers of pain and stress. IF YOU ARE PRESCRIBED OPIOIDS FOR PAIN: ? Never take opioids in greater amounts or more often than prescribed. ? Follow up with your primary health care provider. o Work together to create a plan on how to manage your pain. o Talk about ways to help manage your pain that don?t involve prescription opioids. o Talk about any and all concerns and side effects. ? Help prevent misuse and abuse o Never sell or share prescription opioids. o Never use another person?s prescription opioids. ? Store prescription opioids in a secure place and out of reach of others (this may include visitors, children, friends, and family). ? Safely dispose of unused prescription opioids: Find your community drug take-back program or your pharmacy mail-back program, or flush them down the toilet, following guidance from the Food and Drug Administration (www.fda.gov/Drugs/Re sourcesForYou). ? Visit www.cdc.gov/drugoverd ose to learn about the risks of opioids abuse and overdose. ? If you believe you may be struggling with addiction, tell your health child care giver and ask for ho (more content not included)... [facility] No Panel Informationon 01-03 Radiology Study observation (narrative) [facility] Outside Recordson 01-03-2022 Outside Records [id number]# 1.00CD:127 Normal [facility] PROTHROMBIN TIME AND INRon 0 01-03-2022 INR Coag (PPP) [Relative time] 1.20 {INR} [facility] Interpretation and review of laboratory results Abnormal [facility] PT Coag (PPP) [Time] 13.5 s High [facility] TYPE AND SCREENon 01-03-2022 ABO and Rh group Nom (Bld) Blood group B Rh(D) positive [facility] ABO and Rh group Nom (Bld) No Previous Results [facility] Blood group antibody screen Ql Negative [facility] Transfer Documentson 022 Transfer Documents [id number]# 1.00CD:127 Normal [facility] XR ELBOW RIGHT MINIMUM 3 VIE WSon 01-03-2022 EXAMINATION: XR ELBO W RIGHT MINIMUM 3 VIEWSPRO/RT CLINICAL HISTORY: Reason for Exam: elbow fx ASSOCIATED DIAGNOSIS: TECHNOLOGISTS NOTE: COMPARISON: None FINDINGS: Acute displaced fracture of the lateral epicondyle extending into the capitulum. Joint effusion is not well evaluated due to overlying bone fragment. There is no radiopaque foreign body. Lateral soft tissue swelling. IMPRESSION: Acute displaced fracture of the lateral epicondyle with extension into the joint space. Adjacent lateral soft tissue swelling. Right elbow MACRO: None RADIOLOGY Arlyn Mills MD - 01/03/2022 EXAMINATION: XR ELBOW RIGHT MINIMUM 3 VIEWSPRO/RT CLINICAL HISTORY: Reason for Exam: elbow fx ASSOCIATED DIAGNOSIS: TECHNOLOGISTS NOTE: COMPARISON: None FINDINGS: Acute displaced fracture of the lateral epicondyle extending into the capitulum. Joint effusion is not well evaluated due to overlying bone fragment. There is no radiopaque foreign body. Lateral soft tissue swelling. IMPRESSION: Acute displaced fracture of the lateral epicondyle with extension into the joint space. Adjacent lateral soft tissue swelling. Right elbow MACRO: None [facility] XR ELBOW RIGHT MINIMUM 3 VIE WSOrdered By: Arlyn Mills on 01-03-2022 [facility] Work Phone: XR Elbow 2 Views Righton XR Elbow 2 Views Right Exam Date/Time: 01/03/2022 10:19 EDT Reason for Exam: Fracture Report IMPRESSION: THERE ARE COMMINUTED FRACTURES OF THE LATERAL HUMERAL CONDYLE. CLINICAL HISTORY: Fracture COMPARISONS: None available. FINDINGS: AP and lateral views of the right elbow demonstrate comminuted mildly displaced fractures of the lateral humeral condyle FINAL REPORT Dictated: 01/03/2022 11:00 am Reggie Babcock MD, V. Signed (Electronic Signature): 01/03/2022 11:00 am Signed by: Reggie Babcock MD, V. Transcribed by: HILDA Technologist: KALEIGH Lipscomb [facility] XR FOREARM RIGHT 2 VIEWSon 0 01-03-2022 EXAMINATION: XR FOREARM RIGHT 2 VIEWSPRO/RT CLINICAL HISTORY: Reason for Exam: elbow fx ASSOCIATED DIAGNOSIS: TECHNOLOGISTS NOTE: COMPARISON: None FINDINGS: Acute displaced fracture of the lateral epicondyle with extension into the capitulum. The radius and ulna are intact. There is no radiopaque foreign body. IMPRESSION: 1. Acute displaced fracture of the lateral epicondyle with intra-articular extension. The radius and ulna are intact. 2. Soft tissue swelling of the forearm Right forearm MACRO: None RADIOLOGY Arlyn Mills MD - 01/03/2022 EXAMINATION: XR FOREARM RIGHT 2 VIEWSPRO/RT CLINICAL HISTORY: Reason for Exam: elbow fx ASSOCIATED DIAGNOSIS: TECHNOLOGISTS NOTE: COMPARISON: None FINDINGS: Acute displaced fracture of the lateral epicondyle with extension into the capitulum. The radius and ulna are intact. There is no radiopaque foreign body. IMPRESSION: 1. Acute displaced fracture of the lateral epicondyle with intra-articular extension. The radius and ulna are intact. 2. Soft tissue swelling of the forearm Right forearm MACRO: None [facility] XR HUMERUS RIGHTon EXAMINATION: XR HUMERUS RIGHTPRO/RT CLINICAL HISTORY: Reason for Exam: elbow fx ASSOCIATED DIAGNOSIS: TECHNOLOGISTS NOTE: Best images possible due to PT ability to tolerate exam, please look at elbow for distal lateral COMPARISON: None FINDINGS: Acute fracture of the lateral epicondyle with extension into the elbow joint. There is no radiopaque foreign body. Moderate degenerative changes of the shoulder joint. IMPRESSION: Acute fracture of the lateral epicondyle with intra-articular extension. The mid and proximal portions of the humerus are intact. Right humerus MACRO: None RADIOLOGY Arlyn Mills MD - 01/03/2022 EXAMINATION: XR HUMERUS RIGHTPRO/RT CLINICAL HISTORY: Reason for Exam: elbow fx ASSOCIATED DIAGNOSIS: TECHNOLOGISTS NOTE: Best images possible due to PT ability to tolerate exam, please look at elbow for distal lateral COMPARISON: None FINDINGS: Acute fracture of the lateral epicondyle with extension into the elbow joint. There is no radiopaque foreign body. Moderate degenerative changes of the shoulder joint. IMPRESSION: Acute fracture of the lateral epicondyle with intra-articular extension. The mid and proximal portions of the humerus are intact. Right humerus MACRO: None [facility] Blood Glucose Meteron 2021 Glucose [Mass/Vol] 159 mg/dL High 70-100 [facility] Comment on above: Performed By: #### A CC #### [facility], CLIA# [id number] [address] [place], [place] [address] [place] [address] Adalid Olea M.D. Director CT Elbow WO Righton 01-03-20 CT Elbow WO Right [facility] Name: SHRUTI LOCKE Resilience Phys: [place] [address] : 1955 Age: 66 Acct: [id number] [place] [facility] [place] No.: [id number] Status: REG ER Exam Date: 01/02/22 Accession Number: [id number] Exam: [id number] CT/CT Elbow WO Right CT Elbow WO Right EXAMINATION: CT Elbow WO Right HISTORY: Elbow fracture COMPARISON: Elbow x-rays earlier in the day. TECHNIQUE: Axial CT imaging was performed through the elbow. Sagittal and coronal reformatted/reconstru cted sequences were obtained. Dose reduction techniques were achieved by using automated exposure control and/or adjustment of mA and/or kV according to patient size and/or use of iterative reconstruction technique. FINDINGS: Both the sagittal and coronal reformatted-reconstru cted sequencing were performed in an oblique planes instead of true coronal and sagittal planes. This limits evaluation of the fracture. Comminuted displaced intra-articular fracture of the capitellum that extends into the distal distal humerus metaphysis and lateral epicondyle. No visualized irregularity of the radial head or olecranon. Large elbow effusion IMPRESSION: Comminuted displaced intra-articular fracture of the capitellum and lateral epicondyle. CC: ADA NEFF; FABRICIO MCKEE Technologist: MERCEDES DIETRICH Dictated By: MINNA PETER Signed Date/Time: 01/02/22, 1740 This report was electronically signed in another vendor system Normal [facility] XR Elbow 3 Views Righton XR Elbow 3 Views Right [facility] Name: SHRUTI LOCKE Resilience Phys: [place] [address] : 1955 Age: 66 Acct: [id number] [place] [facility] [place] No.: [id number] Status: REG ER Exam Date: 01/02/22 Accession Number: [id number] Exam: [id number] RAD/XR Elbow 3 Views Right XR Elbow 3 Views Right XR Elbow 3 Views Right Indication: Fall with injury Comparison: None Findings: There is a fracture of the lateral aspect of the lateral epicondyle of the humerus with intra-articular extension and displacement. Moderate joint effusion noted. Soft tissue swelling. Impression: Displaced lateral epicondylar fracture. CC: ADA NEFF; FABRICIO MCKEE Technologist: GUILLERMINA NICOLAS Dictated By: ANGELITA HOLLIS MD Signed Date/Time: 01/02/22, 1534 This report was electronically signed in another vendor system Normal [facility] CBC AUTO DIFFon 08-11-2021 BASO # 0.0 103/ul Normal 0.0-0.1 [facility] Comment on above: Performed By: #### C BC #### [facility] [address] [address] [address] Mark Albert Basophils/100 WBC (Bld) 0.7 % Normal 0.2-2.0 [facility] Comment on above: Performed By: #### C BC #### [facility] [address] [place] [address] [address] Mark Albert EO # 0.3 103/ul Normal 0.0-0.7 [facility] Comment on above: Performed By: #### C BC #### [facility] [address] [place] [address] Dr. Mark Albert Eosinophils/100 WBC (Bld) 4.9 % Normal 0.9-7.0 [facility] Comment on above: Performed By: #### C BC #### [facility] [address] [place] [address] Dr. Mark Albert Erythrocyte distribution width (RBC) [Ratio] 13.0 % Normal 11.0-15.0 [facility] Comment on above: Performed By: #### C BC #### [facility] [address] [place] [address] Dr. Mark Ablert Hematocrit (Bld) [Volume fraction] 48.2 % Critically high 36.0-48.0 [facility] Comment on above: Performed By: #### C BC #### [facility] [address] [place] [address] Dr. Mark Albert Hemoglobin (Bld) [Mass/Vol] 15.8 g/dL Normal 12.0-16.0 [facility] Comment on above: Performed By: #### C BC #### [facility] [address] [place] [address] Dr. Mark Albert IG # 0.01 10e3/ul Normal 0.00-0.03 [facility] Comment on above: Performed By: #### C BC #### [facility] [address] [place] [address] Dr. Mark Albert IG % 0.2 % Normal 0.0-0.5 [facility] Comment on above: Performed By: #### C BC #### [facility] [address] [place] [address] Dr. Mark Albert LYMPH # 2.0 103/ul Normal 1.2-3.8 [facility] Comment on above: Performed By: #### C BC #### [facility] [address] [place] [address] Dr. Mark Albert Lymphocytes/100 WBC (Bld) 32.8 % Normal 20.5-60.0 [facility] Comment on above: Performed By: #### C BC #### [facility] [address] [place] [address] Dr. Mark Albert MANUAL DIFF REQ NO Normal [facility] Comment on above: Performed By: #### C BC #### [facility] [address] [place] [address] Dr. Mark Albert MCH (RBC) [Entitic mass] 27.7 pg Normal 26.7-34.0 [facility] Comment on above: Performed By: #### C BC #### [facility] [address] [place] [address] Dr. Mark Albert MCHC (RBC) [Mass/Vol] 32.8 g/dL Normal 29.9-35.2 [facility] Comment on above: Performed By: #### C BC #### [facility] [address] [place] [address] Dr. Mark Albert MCV (RBC) [Entitic vol] 84.4 fL Normal 81.0-99.0 [facility] Comment on above: Performed By: #### C BC #### [facility] [address] [place] [address] Dr. Mark Albert MONO # 0.4 103/ul Normal 0.3-0.8 [facility] Comment on above: Performed By: #### C BC #### [facility] [address] [place] [address] Dr. Mark Albert Monocytes/100 WBC (Bld) 6.5 % Normal 1.7-12.0 [facility] Comment on above: Performed By: #### C BC #### [facility] [address] [place] [address] Dr. Mark Albert NEUT # 3.4 103/ul Normal 1.4-6.5 [facility] Comment on above: Performed By: #### C BC #### [facility] [address] [place] [address] Dr. Mark Albert Neutrophils/100 WBC (Bld) 54.9 % Normal 43.0-75.0 [facility] Comment on above: Performed By: #### C BC #### [facility] [address] [address] [address] Mark Albert Platelet mean volume (Bld) [Entitic vol] 11.8 fL Normal 9.5-13.5 [facility] Comment on above: Performed By: #### C BC #### [facility] [address] [place] [address] [address] Mark Albert PLT 140 103/ul Critically low 150-450 [facility] Comment on above: Result Comment: plts reviewed Performed By: #### C BC #### [facility] [address] [address] [address] Mark Albert RBC 5.71 106/ul Critically high 4.20-5.40 [facility] Comment on above: Performed By: #### C BC #### [facility] [address] [address] [address] Mark Albert WBC 6.1 103/ul Normal 4.0-11.0 [facility] Comment on above: Performed By: #### C BC #### [facility] [address] [address] [address] Mark Albert LIPID PROFILEon 08-11-2021 CHOL-HDL RATIO NORM SEE BELOW Normal [facility] Comment on above: Result Comment: 3.3 - 4.4 LOW RISK 4.4 - 7.1 AVERAGE RISK 7.1 - 11.0 MODERATE RISK >11.0 HIGH RISK Performed By: #### L IPID, BMP #### [facility] [address] [place] [address] Dr. Mark Albert Cholesterol [Mass/Vol] 173 mg/dL Normal <=200 Th [facility] Comment on above: Performed By: #### L IPID, BMP #### [facility] [address] [address] [address] Mark Albert Cholesterol in HDL [Mass/Vol] 59 mg/dL Normal [facility] Comment on above: Performed By: #### L IPID, BMP #### [facility] [address] [address] [address] Mark Albert Cholesterol in LDL [Mass/Vol] 83.4 mg/dL Normal [facility] Comment on above: Performed By: #### L IPID, BMP #### [facility] [address] [place] [address] Dr. Mark Albert Cholesterol.total/Chol esterol in HDL [Mass ratio] 2.9 {ratio} Normal [facility] Comment on above: Performed By: #### L IPID, BMP #### [facility] [address] [address] [address] Mark Albert HDL NORMAL > or = 60 mg/dl - LO W CARDIOVASCULAR RISK <40 mg/dl - HIGH CARDIOVASCULAR RISK Normal [facility] Comment on above: Performed By: #### L IPID, BMP #### [facility] [address] [place] [address] Dr. Mark Albert LDL CALC NORMAL SEE BELOW Normal [facility] Comment on above: Result Comment: <100 mg/dl OPTIMAL 100 - 129 mg/dl NEAR OR ABOVE OPTIMAL 130 - 159 mg/dl BORDERLINE HIGH 160 - 189 mg/dl HIGH >190 mg/dl VERY HIGH Performed By: #### L IPID, BMP #### [facility] [address] [place] [address] Dr. Mark Albert Triglyceride [Mass/Vol] 153 mg/dL Critically high <=150 [facility] Comment on above: Performed By: #### L IPID, BMP #### [facility] [address] [place] [address] Dr. Mark Albert VLDL CALC 30.6 mg/dL Normal [facility] Comment on above: Performed By: #### L IPID, BMP #### [facility] [address] [place] [address] Dr. Mark Albert PROF CHEM 8 (BAS METB)on Anion gap [Moles/Vol] 11.7 mmol/L Normal [facility] Comment on above: Performed By: #### L IPID, BMP #### [facility] [address] [place] [address] Dr. Mark Albert Calcium [Mass/Vol] 9.8 mg/dL Normal 8.4-10.2 [facility] Comment on above: Performed By: #### L IPID, BMP #### [facility] [address] [place] [address] Dr. Mark Albert Chloride [Moles/Vol] 98 mmol/L Normal 98-107 [facility] Comment on above: Performed By: #### L IPID, BMP #### [facility] [address] [place] [address] Dr. Mark Albert CO2 [Moles/Vol] 28.7 mmol/L Normal 22.0-30.0 [facility] Comment on above: Performed By: #### L IPID, BMP #### [facility] [address] [place] [address] Dr. Mark Albert Creatinine [Mass/Vol] 0.72 mg/dL Normal 0.52-1.04 [facility] Comment on above: Performed By: #### L IPID, BMP #### [facility] [address] [place] [address] Dr. Mark Albert EGFR-AF [facility] LUCIAN >60 Normal >=60 [facility] Comment on above: Performed By: #### L IPID, BMP #### [facility] [address] [place] [address] Dr. Mark Albert EGFR-NON AF [facility] LUCIAN >60 Normal >=60 [facility] Comment on above: Performed By: #### L IPID, BMP #### [facility] [address] [place] [address] Dr. Mark Albert Glucose [Mass/Vol] 259 mg/dL Critically high 74-106 [facility] Comment on above: Performed By: #### L IPID, BMP #### [facility] [address] [place] [address] Dr. Mark Albert Potassium [Moles/Vol] 4.4 mmol/L Normal 3.4-5.0 [facility] Comment on above: Performed By: #### L IPID, BMP #### [facility] [address] [place] [address] Dr. Mark Albert Sodium [Moles/Vol] 134 mmol/L Critically low 137-145 [facility] Comment on above: Performed By: #### L IPID, BMP #### [facility] [address] [address] [address] Mark Albert Urea nitrogen [Mass/Vol] 13.0 mg/dL Normal 7.0-17.0 [facility] Comment on above: Performed By: #### L IPID, BMP #### [facility] [address] [address] [address] Mark Albert Urea nitrogen/Creatinine [Mass ratio] 18.1 mg/mg Normal [facility] Comment on above: Performed By: #### L IPID, BMP #### [facility] [address] [place] [address] Dr. Mark Albert Vital Signs Date Time Vital Sign Value Performing Clinician Facility 05-19-2023 10:00-0400 Body height 162.56 cm Ada Neff Other [facility] Other 05-19-2023 10:00-0400 Body mass index (BMI) [Ratio] 36.9 kg/m2 Ada Neff Other [facility] Other 05-19-2023 10:00-0400 Body weight 97.52 kg Ada Neff Other [facility] Other 05-19-2023 10:00-0400 Diastolic blood pressure 83 mm[Hg] Ada Neff Other [facility] Other 05-19-2023 10:00-0400 Systolic blood pressure 164 mm[Hg] Ada Neff Other [facility] Other 01-06-2022 18:30-0400 Body temperature 99.9 [degF] Tanmay Scott MD Work Phone: [facility] 01-06-2022 18:30-0400 Diastolic blood pressure 80 mm[Hg] Tanmay Scott MD Work Phone: [facility] 01-06-2022 18:30-0400 Heart rate 72 /min Tanmay Scott MD Work Phone: [facility] 01-06-2022 18:30-0400 SaO2% (BldA) [Mass fraction] 94 % Tanmay Scott MD Work Phone: [facility] 01-06-2022 18:30-0400 Systolic blood pressure 149 mm[Hg] Tanmay Scott MD Work Phone: [facility] 01-06-2022 18:03-0400 Respiratory rate 14 /min Tanmay Scott MD Work Phone: [facility] 01-04-2022 15:35-0400 Body temperature 98.4 [degF] Marianna Zavala MD Work Phone: [facility] 01-04-2022 15:35-0400 Diastolic blood pressure 69 mm[Hg] Marianna Zavala MD Work Phone: [facility] 01-04-2022 15:35-0400 Heart rate 86 /min Marianna Zavala MD Work Phone: [facility] 01-04-2022 15:35-0400 Respiratory rate 18 /min Marianna Zavala MD Work Phone: [facility] 01-04-2022 15:35-0400 SaO2% (BldA) [Mass fraction] 96 % Marianna Zavala MD Work Phone: [facility] 01-04-2022 15:35-0400 Systolic blood pressure 141 mm[Hg] Marianna Zavala MD Work Phone: [facility] 01-03-2022 18:30-0400 Body height 165.1 cm Marianna Zavala MD Work Phone: [facility] 01-03-2022 18:30-0400 Body mass index (BMI) [Ratio] 35.28 kg/m2 Marianna Zavala MD Work Phone: [facility] 01-03-2022 18:30-0400 Body weight 96.16 kg Marianna Zavala MD Work Phone: [facility] 01-03-2022 08:44-0400 Body temperature 98.06 [degF] Jl [facility] 01-03-2022 08:44-0400 Diastolic blood pressure 78 mm[Hg] J[facility] 01-03-2022 08:44-0400 Heart rate 80 /min Jl [facility] 01-03-2022 08:44-0400 Respiratory rate 18 /min Jl [facility] 01-03-2022 08:44-0400 SaO2% (BldA) [Mass fraction] 94 % J[facility] 01-03-2022 08:44-0400 Systolic blood pressure 148 mm[Hg] J[facility] Encounters Encounter Date Encounter Type Care Provider Facility Start: 01-10-2024 End: 01-11-2024 ambulatory JANICE ROLAND Facility:[facility] Start: 01-10-2024 End: 01-10-2024 Office outpatient visit 15 minutes Tanmay Scott MD Work Phone: [facility] Comment on above: Chronic right should er pain (Primary Dx); Vitamin D deficiency Start: 01-10-2024 End: 01-10-2024 Subsequent hospital visit by physician Op Xray 1 [facility] Radiology Comment on above: Chronic right should er pain Start: 11-18-2023 End: 11-18-2023 ambulatory GISELE MCKEON Not Available Start: 11-16-2023 End: 11-16-2023 ambulatory GISELE MCKEON Not Available Start: 11-11-2023 Bamboo flowsheet Love Melchor [employer] [facility] Start: 11-11-2023 Bamboo flowsheet Love Lagunasy [employer] [facility] Start: 11-11-2023 End: 11-11-2023 ambulatory Love Lagunasy [employer] [facility] Comment on above: Acute pain of right shoulder (Primary Dx); Stiffness of right shoulder joint Start: 11-09-2023 Bamboo flowsheet Love Lagunasy [employer] [facility] Start: 11-09-2023 Bamboo flowsheet Love Lagunasy [employer] [facility] Start: 11-09-2023 End: 11-09-2023 ambulatory LOVE LAGUNASY Not Available Start: 11-09-2023 End: 11-09-2023 ambulatory Love Lagunasy [employer] [facility] Comment on above: Acute pain of right shoulder (Primary Dx); Stiffness of right shoulder joint Start: 11-04-2023 End: 11-04-2023 ambulatory Gisele Mckeon PT Work Phone: [facility] Comment on above: Acute pain of right shoulder (Primary Dx); Stiffness of right shoulder joint Start: 11-02-2023 Refill Janice CALLAWAYC Work Phone: [facility] Comment on above: Refill Start: 11-02-2023 End: 11-02-2023 ambulatory LOVE MELCHOR Not Available Start: 10-28-2023 End: 10-28-2023 ambulatory Gisele Mckeon PT Work Phone: [facility] Comment on above: Acute pain of right shoulder (Primary Dx); Stiffness of right shoulder joint Start: 10-26-2023 End: 10-26-2023 ambulatory BRAYDEN GUAJARDO Not Available Start: 10-21-2023 End: 10-21-2023 ambulatory GISELE MCKEON Not Available Start: 10-11-2023 End: 10-12-2023 ambulatory JANICE ROLAND Facility:[facility] Start: 10-11-2023 End: 10-12-2023 ambulatory UNKNOWN PROVIDER Facility:[facility] Start: 10-11-2023 End: 10-12-2023 Office outpatient visit 25 minutes Tanmay Scott MD Work Phone: [facility] Comment on above: Other closed displac ed fracture of distal end of right humerus, initial encounter (Primary Dx); Closed supracondylar fracture of right humerus, initial encounter; Closed fracture of proximal end of right humerus, unspecified fracture morphology, initial encounter; Age-related osteoporosis without current pathological fracture Start: 08-24-2023 End: 08-25-2023 ambulatory UNKNOWN PROVIDER Facility:[facility] Start: 08-16-2023 End: 08-17-2023 ambulatory UNKNOWN PROVIDER Facility:[facility] Start: 08-16-2023 End: 08-16-2023 Office outpatient visit 15 minutes Janice Roland PA-C Work Phone: [facility] Comment on above: Other closed displac ed fracture of distal end of right humerus, initial encounter (Primary Dx); Closed supracondylar fracture of right humerus, initial encounter; Closed fracture of proximal end of right humerus, unspecified fracture morphology, initial encounter Start: 08-16-2023 End: 08-16-2023 Subsequent hospital visit by physician Op Xray 2 [facility] Comment on above: Other closed displac ed fracture of distal end of right humerus, initial encounter Start: 08-06-2023 End: 08-06-2023 ambulatory Estephanie Carballo Facility:[facility] Start: 08-06-2023 End: 08-06-2023 Patient encounter procedure SURGICAL SPECIALIST-C Estephanie Carballo Work Phone: [facility] [place] Work Phone: Start: 08-06-2023 End: 08-06-2023 ambulatory Ada Neff Other [facility] Other Start: 08-06-2023 Telephone encounter Ada Neff [facility] [place] Start: 05-19-2023 End: 05-19-2023 ambulatory Ada Neff Other [facility] Other Start: 05-19-2023 Office outpatient vi sit 15 minutes Ada Neff [facility] Start: 03-08-2023 End: 03-09-2023 ambulatory UNKNOWN PROVIDER Facility:[facility] Start: 03-08-2023 End: 03-08-2023 Office outpatient visit 15 minutes Janice ROSADO-C Work Phone: [facility] Comment on above: Other closed displac ed fracture of distal end of right humerus, initial encounter (Primary Dx) Start: 03-04-2023 Telephone encounter Irena Lambert RN [facility] Start: 03-02-2023 Telephone encounter Irena Lambert RN [facility] Start: 08-03-2022 End: 08-03-2022 Office outpatient visit 15 minutes Janice ROSADO-C Work Phone: [facility] Comment on above: Other closed displac ed fracture of distal end of right humerus, initial encounter (Primary Dx) Start: 05-04-2022 End: 05-04-2022 Office outpatient new 30 minutes Janice [facility]AWAYC [facility] Comment on above: Other closed displac ed fracture of distal end of right humerus, initial encounter (Primary Dx) Start: 05-04-2022 End: 05-04-2022 Subsequent hospital visit by physician Op Xray 5 [facility] Radiology Comment on above: Other closed displac ed fracture of distal end of right humerus, initial encounter Start: 03-02-2022 Telephone encounter Janice Asencio stiven ROSADO-C Work Phone: [facility] Physical Therapy Start: 03-02-2022 End: 03-02-2022 Nutrition therapy Karla Stone OTR/L [facility] Occupational Therapy Start: 03-02-2022 End: 03-02-2022 Patient encounter procedure Janice ROSADO-Everette Work Phone: [facility] Comment on above: Other closed displac ed fracture of distal end of right humerus, initial encounter (Primary Dx) OT Treatment (Clinic 2) Start: 03-02-2022 End: 03-02-2022 Subsequent hospital visit by physician Op Xray 5 [facility] Comment on above: Other closed displac ed fracture of distal end of right humerus, initial encounter Start: 01-28-2022 End: 01-29-[address] NONE LISTED REQUEST Facility: Start: 01-19-2022 End: 01-19-2022 ambulatory Shirley Collazoalley OTR/L Work Phone: [facility] Occupational Therapy Comment on above: Arrived Start: 01-19-2022 End: 01-19-2022 Nutrition therapy Shirley Collazoalley OTR/L Work Phone: [employer] Occupational Therapy Start: 01-19-2022 End: 01-19-2022 Patient encounter procedure Janice Amparo FERNANDO Work Phone: [facility] Comment on above: Other closed displac ed fracture of distal end of right humerus, initial encounter (Primary Dx) Start: 01-19-2022 End: 01-19-2022 Subsequent hospital visit by physician Op Xray 1 [facility] Comment on above: Other closed displac ed fracture of distal end of right humerus, initial encounter Start: 01-14-2022 Orders Only Janice Amparo [place] Work Phone: [facility] Start: 01-06-2022 End: 01-06-2022 Subsequent hospital visit by physician Tanmay Scott MD Work Phone: [facility] Comment on above: Arrived Start: 01-06-2022 End: 01-06-2022 Subsequent hospital visit by physician Tanmay Scott MD Work Phone: [facility] Main OR Comment on above: Closed fracture of d istal end of right humerus, unspecified fracture morphology, initial encounter (Primary Dx); Acute post-operative pain; Nonrheumatic aortic valve stenosis; Hyperlipidemia, unspecified hyperlipidemia type; Hypertension, unspecified type Arrived Start: 01-04-2022 Orders Only Godfrey Avila DO Work Phone: [facility] Start: 01-03-2022 End: 01-04-2022 Evaluation and management of inpatient Marianna Zavala MD Work Phone: Inpatient [facility]A Comment on above: Closed fracture of r ight elbow, initial encounter (Primary Dx); Closed fracture of distal end of right humerus, unspecified fracture morphology, initial encounter; Hyperlipidemia, unspecified hyperlipidemia type; Hypertension, unspecified type; Nonrheumatic aortic valve stenosis Start: 01-03-2022 Admission to [facility] Godfreyiesha Avila DO Work Phone: [facility] Start: 01-03-2022 End: 01-03-2022 Emergency department patient visit Jl [facility] Start: 10-14-2021 Adult health examination Roz Neff Other [facility] Other Start: 08-12-2021 End: 08-13-2021 ambulatory CARMEN VILLALTA Facility:[facility] Start: 08-11-2021 End: 08-12-[address] DOCTOR QUICK Facility:[facility] Start: 09-26-2019 Gynecological examin ation normal Adanichole Neff Other [facility] Other Procedures Date Procedure Procedure Detail Performing Clinician Start: 01-10-2024 End: 01-10-2024 Radex shoulder complete minimum 2 views Janice Roland PA-C Work Phone: Start: 08-16-2023 Radex elbow complete minimum 3 views Herber Brunson MD Work Phone: Start: 08-06-2023 Plain X-ray of right elbow SURGICAL SPECIALIST-C Estephanie Carballo Work Phone: Start: 08-06-2023 Plain X-ray of right shoulder SURGICAL SPECIALIST-C Estephanie Carballo Work Phone: Start: 03-08-2023 Removal implant deep Ma alejandra Roland PA-C Work Phone: Start: 05-04-2022 Radex elbow complete minimum 3 views Janice Roland PA-C Work Phone: Start: 03-02-2022 Radex elbow complete minimum 3 views Janice Roland PA-C Work Phone: Start: 01-19-2022 Therapeutic px 1/> a reas each 15 min exercises Shirley Price OTR/L Work Phone: Start: 01-19-2022 Radex elbow complete minimum 3 views Janice Roland PA-C Work Phone: Start: 01-06-2022 End: 01-06-2022 Us guidance needle placement img s&i Minna Merrick DO Work Phone: Start: 01-06-2022 Glucose blood reagent strip Tanmay Scott MD Work Phone: Start: 01-06-2022 Radex elbow 2 views Cuco Garcia MD Work Phone: Start: 01-06-2022 Glucose blood reagent strip Tanmay Scott MD Work Phone: Start: 01-04-2022 Echocardiography Paola ancelmo Saldanao DO Work Phone: Start: 01-04-2022 Basic metabolic pane l calcium total Adalid Tatum DO Work Phone: Start: 01-04-2022 Blood typing serologic abo Adalid Tatum DO Work Phone: Start: 01-03-2022 Blood count complete automated Adalid Tatum DO Work Phone: Start: 01-03-2022 Blood typing, ABO, R ho(D) and RBC antibody screening Adalid Tatum DO Work Phone: Start: 01-03-2022 Ct upper extremity w /o contrast material Adalid Tatum DO Work Phone: Start: 01-03-2022 Radex humerus minimum 2 views Adalid Tatum DO Work Phone: Start: 01-03-2022 XRAY UPPER EXTREMITY IMAGE IMPORT Adalid Tatum DO Work Phone: Plan of Treatment Date Care Activity Detail Author Start: 08-11-2026 Cholesterol [Mass/volume] in Serum or Plasma Cholesterol [facility] Start: 01-10-2024 End: 01-10-2024 Patient encounter procedure 01/10/2024 9:30 AM EDT Office Visit [facility] [address] [place] [address] Tanmay Scott MD [address] [place] [address] [facility] Start: 11-18-2023 End: 11-18-2023 ambulatory 11/18/2023 10:00 AM EST Treatment [facility] [address] [place] [address] Gisele Mckeon, PT [address] [place] [address] [facility] Start: 11-16-2023 End: 11-16-2023 ambulatory 11/16/2023 10:00 AM EST Treatment [facility] [address] [place] [address] Gisele Mckeon, PT [address] [place] [address] [facility] Start: 11-11-2023 End: 11-11-2023 ambulatory [facility] Comment on above: Arrived Start: 11-09-2023 End: 11-09-2023 ambulatory [facility] Comment on above: Arrived Start: 11-04-2023 End: 11-04-2023 ambulatory 11/04/2023 10:00 AM EST Treatment [facility] [address] [place] [address] Gisele Mckeon, PT [address] [place] [address] [facility] Start: 11-02-2023 End: 11-02-2023 ambulatory 11/02/2023 10:30 AM EST Treatment [facility] [address] [place] [address] Love Melchor, [employer] [facility] Start: 10-11-2023 End: 10-11-2024 DXA Skeletal system Views for bone density BD BONE DENSITY SURVEY Imaging Routine Closed fracture of proximal end of right humerus, unspecified fracture morphology, initial encounter Age-related osteoporosis without current pathological fracture Expected: 10/11/2023, Expires: 10/11/2024 [facility] Work Phone: Comment on above: Expected: 10/11/2023 , Expires: 10/11/2024 Start: 08-24-2023 End: 08-24-2023 Professional / ancillary services management 08/24/2023 2:00 PM EST Ancillary Procedure [facility] [address] [place] [address] [facility] [address] Start: 08-16-2023 End: 08-16-2024 CT Shoulder - right WO contrast CT PSI RIGHT SHOULDER W/O Imaging Within 1 week Other closed displaced fracture of distal end of right humerus, initial encounter Expected: 08/16/2023, Expires: 08/16/2024 [facility] [facility] Work Phone: Comment on above: Expected: 08/16/2023 , Expires: 08/16/2024 Start: 06-27-2023 Annual wellness visit Annual W ellness Visit (G0438) [facility] Start: 05-28-2023 COVID-19 Vaccine ( season) COVID[facility] Start: 05-28-2023 Influenza vaccination Influenza Vacc ine (#1) [facility] Start: 05-03-2023 End: 05-03-2023 Patient encounter procedure 05/03/2023 9:45 AM EDT Office Visit [facility] [address] [facility] [place] [address] Janice Roland PA-C [address] [facility] [place] [address] [facility] Start: 01-04-2023 Basic metabolic 2000 panel - Serum or Plasma Basic [facility] Panel [facility] Start: 01-04-2023 Creatinine measurement Basic Metabol ic Panel [facility] Start: 01-04-2023 End: 01-04-2023 Patient encounter procedure 01/04/2023 Office Visit Orthopedics Janice Roland PA-C [address] [facility] [place] [address] [facility] Start: 08-03-2022 End: 08-03-2023 XR Elbow - right 3 Views XR ELBOW RIGHT MINIMUM 3 VIEWS Imaging Routine Other closed displaced fracture of distal end of right humerus, initial encounter Expected: 08/03/2022, Expires: 08/03/2023 [facility] [employer] [facility] Work Phone: Comment on above: Expected: 08/03/2022 , Expires: 08/03/2023 Start: 08-03-2022 End: 08-03-2022 Patient encounter procedure 08/03/2022 Office Visit Orthopedics Janice Roland PA-C [address] [facility] [place] [address] [facility] Start: 2022 [facility] Start: 2022 Pneumococcal Vaccine : 65+ Years (1 - PCV) Pneumococcal Vaccine: 65+ Years (1 - PCV) [facility] Start: 2022 Pneumococcal Vaccine : 65+ Years (1 of 1 - PCV) Pneumococcal Vaccine: 65+ Years (1 of 1 - PCV) [facility] Start: 2022 Screening for osteoporosis Bone Densitometry [facility] Start: 06-27-2022 Influenza vaccination Influenza Vacc ine (#1) [facility] Start: 06-27-2022 Welcome to Medicare Visit (G0402) Welcome to Medicare Visit (G0402) [facility] Start: 05-04-2022 End: 05-04-2023 XR Elbow - right 3 Views XR ELBOW RIGHT MINIMUM 3 VIEWS Imaging Routine Other closed displaced fracture of distal end of right humerus, initial encounter Expected: 05/04/2022, Expires: 05/04/2023 [facility] [employer] [facility] Work Phone: Comment on above: Expected: 05/04/2022 , Expires: 05/04/2023 Start: 05-04-2022 End: 05-04-2022 Patient encounter procedure 05/04/2022 Office Visit Orthopedics Janice Roland PA-C [address] [facility] [place] [address] [facility] Start: 03-26-2022 End: 03-26-2022 ambulatory 03/26/2022 Allied Health Occupational Therapy Nosin, Cori, OTR/L [address] [facility] [place] [address] [facility] Start: 03-02-2022 End: 03-02-2023 Radex elbow complete minimum 3 views XR ELBOW RIGHT MINIMUM 3 VIEWS Imaging Routine Other closed displaced fracture of distal end of right humerus, initial encounter Expected: 03/02/2022, Expires: 03/02/2023 [facility] [employer] [facility] Work Phone: Comment on above: Expected: 03/02/2022 , Expires: 03/02/2023 Start: 03-02-2022 End: 03-02-2022 Patient encounter procedure 03/02/2022 Office Visit Orthopedics Janice Roland PA-C [address] [facility] [place] [address] [facility] Start: 01-19-2022 End: 01-19-2023 Radex elbow complete minimum 3 views XR ELBOW RIGHT MINIMUM 3 VIEWS Imaging Routine Other closed displaced fracture of distal end of right humerus, initial encounter Expected: 01/19/2022, Expires: 01/19/2023 [facility] [employer] [facility] Work Phone: Comment on above: Expected: 01/19/2022 , Expires: 01/19/2023 Start: 01-19-2022 End: 01-19-2022 Patient encounter procedure 01/19/2022 Office Visit Orthopedics Janice Roland PA-C [address] [facility] [place] [address] [facility] Start: 01-14-2022 End: 01-14-2023 Radex elbow complete minimum 3 views XR ELBOW RIGHT MINIMUM 3 VIEWS Imaging Routine Other closed displaced fracture of distal end of right humerus, initial encounter Expected: 01/14/2022, Expires: 01/14/2023 [facility] Work Phone: Comment on above: Expected: 01/14/2022 , Expires: 01/14/2023 Start: 01-06-2022 End: 01-06-2022 REDUCTION, OPEN, HUMERUS, DISTAL REDUCTION, OPEN, HUMERUS, DISTAL Routine scheduled Closed fracture of right elbow, initial encounter 01/06/2022 1:22 PM EDT [facility] Start: 12-10-2021 COVID-19 Vaccine (3 - Booster for Gio series) COVID-19 Vaccine (3 - Booster for Gio series) [facility] Start: 10-07-2021 COVID-19 Vaccine (3 - Booster for Gio series) COVID-19 Vaccine (3 - Booster for Gio series) [facility] Start: 2017 Hepatitis B (HBV) Vaccine (optional start 60+ years) Hepatitis B (HBV) Vaccine (optional start 60+ years) [facility] Start: 2017 RSV vaccine (optiona l 60+ years) RSV vaccine (optional 60+ years) [facility] Start: 2007 Measurement of occul t blood in single stool specimen FIT [facility] Start: 2007 Screening for malignant neoplasm of breast Mammography [facility] Start: 2007 Screening for malignant neoplasm of colon CRC Screening [facility] Start: 2007 Varicella-zoster vaccine (product) Shingles (RZV) Vaccine (1 of 2) [facility] Start: 2002 Cholesterol [Mass/volume] in Serum or Plasma Cholesterol [facility] Start: 2002 Screening for malignant neoplasm of colon [facility] Start: 1997 Screening for malignant neoplasm of breast [facility] Start: 1976 Screening for malignant neoplasm of cervix Pap Smear [facility] Start: 1976 Hepatitis A (HAV) Vaccine (optional start 19+ years) Hepatitis A (HAV) Vaccine (optional start 19+ years) [facility] Start: 1975 Hepatitis C screening Hepatitis C An tibody [facility] Start: 1975 Tetanus + diphtheria + acellular pertussis vaccine (product) Tdap Booster [facility] Start: 1972 HIV screening HIV Test [facility] Start: 1957 Screening for malignant neoplasm of colon [facility] End: 01-04-2022 Ecg routine ecg w/least 12 lds trcg only w/o i&r EKG 12 LEAD - PERFORM MUSE Routine One time, now for 1 Occurrences starting 01/04/2022 until 01/04/2022 [facility] [employer] [facility] Work Phone: Comment on above: One time, now for 1 Occurrences starting 01/04/2022 until 01/04/2022 End: 01-03-2022 Radex elbow complete minimum 3 views XR ELBOW RIGHT MINIMUM 3 VIEWS Imaging STAT Today for 1 Occurrences starting 01/03/2022 until 01/03/2022 [facility] [employer] [facility] Work Phone: Comment on above: Today for 1 Occurren juan starting 01/03/2022 until 01/03/2022 End: 01-06-2022 Radex elbow complete minimum 3 views XR ELBOW RIGHT MINIMUM 3 VIEWS Imaging Routine Today for 1 Occurrences starting 01/06/2022 until 01/06/2022 [facility] [employer] [facility] Work Phone: Comment on above: Today for 1 Occurren juan starting 01/06/2022 until 01/06/2022 REDUCTION, OPEN, HUMERUS, DISTAL REDUCTION, OPEN, HUMERUS, DISTAL E- Within 24 Hours Closed fracture of distal end of right humerus, unspecified fracture morphology, initial encounter [facility] REDUCTION, OPEN, HUMERUS, DISTAL REDUCTION, OPEN, HUMERUS, DISTAL Routine scheduled Closed fracture of right elbow, initial encounter [facility] REDUCTION, OPEN, HUMERUS, DISTAL REDUCTION, OPEN, HUMERUS, DISTAL Routine scheduled Closed fracture of distal end of right humerus, unspecified fracture morphology, initial encounter [facility] Immunizations Immunization Date Immunization Notes Care Provider [facility] 09-07-2023 Influenza, injectabl e, high-dose seasonal, quadrivalent, 0.7 mL, preservative free (JBT=660) Tanmay Scott MD Work Phone: [facility] 09-07-2023 Respiratory syncytia l virus (RSV), vaccine, bivalent, protein subunit RSV prefusion F, diluent reconstituted, 0.5 mL, preservative free (XJE=987) Tanmay Scott MD Work Phone: [facility] 07-28-2022 influenza virus vaccine, split virus (incl. purified surface antigen) Ada Neff Other [facility] Other 08-12-2021 Moderna Monovalent (12+ yrs) COVID-19 vaccine, mRNA, spike protein, LNP, PF, 100 mcg/0.5 mL (IQK=444) Irena Lambert RN [facility] Payers Date Payer Category Payer Private Health Insurance [id number] 2022 Private Health Insurance [id number] 2022 Medicare [id number] 315 2022 Medicare [id number] 2.1 [id number] 2022 Private Health Insurance CLI [id number] 2022 Unknown [id number] 1.13.56.2.7.3.365244. 315 1959 Self-pay 1957 Unknown [id number] 2.16.840.1.856311.3.579.2.1259 1957 Unknown [id number] 2.16.840.1.179018.3.579.2.1259 1957 Unknown [id number] 2.16.840.1.852595.3.579.2.1259 1957 Unknown [id number] 2.16.840.1.767739.3.579.2.1259 1957 Unknown [id number] 2.16.840.1.682195.3.579.2.1259 1957 Unknown [id number] 2.16.840.1.678781.3.579.2.1259 1957 Unknown [id number] 2.16.840.1.229885.3.579.2.1259 1957 Unknown [id number] 2.16.840.1.244383.3.579.2.1259 1957 Unknown [id number] 2.16.840.1.542434.3.579.2.1259 1957 Unknown [id number] 2.16.840.1.010503.3.579.2.732 1957 Unknown [id number] 2.16.840.1.378218.3.579.2.732 1957 Unknown [id number] 2.840.1.414150.3.579.2.732 1957 Unknown [id number] 2.16.840.1.556933.3.579.2.732 1957 Unknown [id number] 2..840.1.163017.3.579.2.732 1957 Unknown [id number] 2.16.840.1.196519.3.579.2.732 1957 Unknown [id number] 2.16.840.1.654926.3.579.2.732 1957 Unknown [id number] 2.16.840.1.887591.3.579.2.732 1957 Unknown [id number] 2.16.840.1.659182.3.579.2.732 Unknown [id number] 2.16.840.1.481834.3.579.2.593 Unknown [id number] 2.16.840.1.549410.3.579.2.593 Unknown [id number] 2.16.840.1.324944.3.579.2.593 Unknown MMO [id number] Rip BC/BS [id number] 2.16.840.1.559270.3.579.2.531 Social History Date Type Detail Facility Start: 01-03-2022 End: 01-10-2024 Tobacco smoking status DEIS Ex-smoker [facility] Work Phone: Start: 09-27-1976 End: 09-27-1991 History of tobacco use Current smoker [facility] Start: 09-27-1976 End: 09-27-1991 History of tobacco use Cigarette Smoker [facility] Start: 01-03-2022 End: 01-10-2024 Cigarettes smoked current (pack per day) - Reported 1 [facility] Start: 1955 [facility] Comment on above: pt denies Start: 01-10-2024 Sex Assigned At Female F [facility] Start: 05-04-2022 End: 01-10-2024 Tobacco use and exposure Smokeless tobacco non-user [facility] Start: 1955 Sex Assigned At Female F [facility] Medical Equipment Procedure Code Equipment Code Equipment Origin al Text Equipment Identifier Dates Plate T 2.4mm 7h ole Shaft Lcp Ea1 249.670 - [id number] Start: 01-06-2022 Scr Bn 65mm Lg T lscp Kyls [id number] - [id number] Start: 01-06-2022 Clinical Notes 01-03-2022 to 01-10-2024 Tanmay Scott MD - 01/10/2024 9:30 AM Jose Mckeon, PT - 11/04/2023 10:00 AM Nanda Mckeon, PT - 10/28/2023 10:00 AM Tanmay Nixon MD - 10/11/2023 12:18 PM EST Note Date & Type Note Facility 01-10-2024 Note [facility] Progress Note: S: 68 year old female who presents for follow up right shoulder and elbow following a fall on 08/05/23. She previously underwent right distal humerus ORIF with Dr Scott in December 2021. Today she is doing well. Pain Score: 0/10. Her motion has improved. She is doing her exercises at home daily. Elbow stiff today because she was gardening over the last couple days. Otherwise no concerns. Has 1 week left of vit D booster then will have level checked. Considering hardware removal for the elbow in the fall. ROS: Constitutional - denies fever, chills, night sweats Cardiac - denies CP, palpitations Respiratory - denies SOB, cough O: There were no vitals filed for this visit. General: Well-appearing, NAD, converses appropriately HEENT: Atraumatic, normocephalic, MMM Cardiac: RRR to peripheral palpation Pulmonary: Normal inspiratory effort, non-labored breathing Musculoskeletal: Right shoulder Skin intact. No significant swelling or deformity TTP none ROM FF 120, ER 40 SILT Right elbow Skin intact. No significant deformity. Mild swelling TTP minimal ROM flexion 90, ext -40 SILT Imaging: XR right elbow: healed supracondylar fracture right elbow with unchanged hardware alignment. XR right shoulder: healed proximal humerus fracture mild Inferior subluxation of the head relative to the GH joint Imaging personally interpreted and reviewed with patient. A/P: 68 year old female with right proximal humerus fracture, right distal humerus fracture - continue PT exercises - consider elbow hardware removal in the fall - check vit D level once booster completed. External order provided. Will call with results and then decide on plan moving forward (another booster vs OTC daily) - DEXA T score -2.5 to 3.0. will follow up with PCP - RTC in the fall when ready to proceed with hardware removal elbow Ambulatory Split/Shared Visit Documentation: MDM: I personally performed and obtained the entire medical decision making of this patient during this encounter and confirm the documentation of the entire encounter is accurate. I provided a substantive portion of the care of this patient. Encounter Diagnoses Name Primary? Chronic right shoulder pain Yes Vitamin D deficiency Tanmay Scott M.D. Attending responsible for the care and surgery Janice Roland PA-C [facility]opa[facility] Hand [facility] Upper Extremity 01/10/24 9:45 AM [facility] 01-10-2024 History of Presen t illness Narrative Images from the original note were not included. [facility] Progress Note: S: 68 year old female who presents for follow up right shoulder and elbow following a fall on 08/05/23. She previously underwent right distal humerus ORIF with Dr Scott in December 2021. Today she is doing well. Pain Score: 0/10. Her motion has improved. She is doing her exercises at home daily. Elbow stiff today because she was gardening over the last couple days. Otherwise no concerns. Has 1 week left of vit D booster then will have level checked. Considering hardware removal for the elbow in the fall. ROS: Constitutional - denies fever, chills, night sweats Cardiac - denies CP, palpitations Respiratory - denies SOB, cough O: There were no vitals filed for this visit. General: Well-appearing, NAD, converses appropriately HEENT: Atraumatic, normocephalic, MMM Cardiac: RRR to peripheral palpation Pulmonary: Normal inspiratory effort, non-labored breathing Musculoskeletal: Right shoulder Skin intact. No significant swelling or deformity TTP none ROM FF 120, ER 40 SILT Right elbow Skin intact. No significant deformity. Mild swelling TTP minimal ROM flexion 90, ext -40 SILT Imaging: XR right elbow: healed supracondylar fracture right elbow with unchanged hardware alignment. XR right shoulder: healed proximal humerus fracture mild Inferior subluxation of the head relative to the GH joint Imaging personally interpreted and reviewed with patient. A/P: 68 year old female with right proximal humerus fracture, right distal humerus fracture - continue PT exercises - consider elbow hardware removal in the fall - check vit D level once booster completed. External order provided. Will call with results and then decide on plan moving forward (another booster vs OTC daily) - DEXA T score -2.5 to 3.0. will follow up with PCP - RTC in the fall when ready to proceed with hardware removal elbow Ambulatory Split/Shared Visit Documentation: MDM: I personally performed and obtained the entire medical decision making of this patient during this encounter and confirm the documentation of the entire encounter is accurate. I provided a substantive portion of the care of this patient. Encounter Diagnoses Name Primary? Chronic right shoulder pain Yes Vitamin D deficiency Tanmay Scott M.D. Attending responsible for the care and surgery Janice Roland PA-C Orthopaedics Hand [facility] Upper Extremity 01/10/24 9:45 AM documented in this encounter [facility] 11-04-2023 History of Presen t illness Narrative Physical Therapy Physical Therapy Treatment Visit Patient Name: Shruti Locke Today's Date: 11/04/2023 Encounter Diagnoses Name Primary? Acute pain of right shoulder Yes Stiffness of right shoulder joint Visit number: 5 Supervised Time: 42 minutes Total Time: 55 minutes Time In: 10:30 AM Time Out: 11:28 AM History: Pt. Presents to PT with right shoulder pain and limited shoulder ROM. Pt. tripped on a curb on 08/05/23 resulting in closed fracture of proximal end of right humerus. Pt. Is now referred to PT for elbow and shoulder AAROM/AROM with gentle PROM as the fractures are healing nicely. Precautions: osteopenia, fractures are still healing; gentle PROM Objective: PT Evaluation (10/21/23) Right shoulder AROM: flexion 75 deg, abduction 45 deg, IR sacrum, ER right neck Right shoulder PROM: flexion 120 deg, abduction 100 deg Flexibility: posterior capsular tightness, pectoralis tightness Strength: right shoulder grossly 3-/5 in all planes Goals: To be met by 4-6 weeks 1) Pt. Will report of 0/10 right shoulder pain while reaching/lifting objects to help improve her functional mobility and quality of life. 2) Pt. Will demonstrate 160 degree or greater right shoulder flexion/abduction AROM to help improve her functional mobility and return to prior level of function. 3) Pt. Will demonstrate normal functional ER/IR ROM to help improve her functional mobility and return to prior level of function. 4) Pt. Will demonstrate 5/5 right shoulder strength grossly in all planes to help improve her functional mobility and return to prior level of function. 5) Pt. Will demonstrate normal right UE muscle flexibility to help improve her functional shoulder ROM in all planes to return to prior level of function. Subjective/Pain: pt. Reports of less shoulder pain after manual technique from last PT session. TREATMENT: Manual: PROM gentle, in all cardinal directions, MFR/STM/TPR to right shoulder and upper arm, (avoid mobs due to healing fracture) (16 minutes) Therapeutic Exercise: guided patient through skilled therapeutic exercises to help improve shoulder ROM/flexibility; exercises in grid ( 30 mins total/ 15 minutes supervised ) Therapeutic Activity: Neuromuscular Re-education: Modalities: IFC with ice for pain control (PRN) Assessment: The patient has participated in 5 outpatient PT sessions since start of care on 10/21/23 for right shoulder pain and tightness post proximal end fracture of right humerus. Continues to demonstrates steady progress toward PT. PT treatment to focus on improving shoulder ROM/flexibility, gentle due to fracture site is still healing. Plan: Recommend outpatient PT 2x/week for 4-6 weeks per above PT POC pending patient progress and medical necessity standards I hereby deem this POC medically necessary. Please sign below and fax back to the number below. Physician Signature: Date: documented in this encounter [facility] 10-28-2023 History of Presen t illness Narrative Physical Therapy Physical Therapy Treatment Visit Patient Name: Shruti Locke Today's Date: 10/28/2023 Encounter Diagnoses Name Primary? Acute pain of right shoulder Yes Stiffness of right shoulder joint Visit number: 3 Supervised Time: 50 Total Time: 58 Treatment time: 1000 Treatment conclusion: 1058 History: Pt. Presents to PT with right shoulder pain and limited shoulder ROM. Pt. tripped on a curb on 08/05/23 resulting in closed fracture of proximal end of right humerus. Pt. Is now referred to PT for elbow and shoulder AAROM/AROM with gentle PROM as the fractures are healing nicely. Precautions: osteopenia, fractures are still healing; gentle PROM Objective: PT Evaluation (10/21/23) Right shoulder AROM: flexion 75 deg, abduction 45 deg, IR sacrum, ER right neck Right shoulder PROM: flexion 120 deg, abduction 100 deg Flexibility: posterior capsular tightness, pectoralis tightness Strength: right shoulder grossly 3-/5 in all planes Goals: To be met by 4-6 weeks 1) Pt. Will report of 0/10 right shoulder pain while reaching/lifting objects to help improve her functional mobility and quality of life. 2) Pt. Will demonstrate 160 degree or greater right shoulder flexion/abduction AROM to help improve her functional mobility and return to prior level of function. 3) Pt. Will demonstrate normal functional ER/IR ROM to help improve her functional mobility and return to prior level of function. 4) Pt. Will demonstrate 5/5 right shoulder strength grossly in all planes to help improve her functional mobility and return to prior level of function. 5) Pt. Will demonstrate normal right UE muscle flexibility to help improve her functional shoulder ROM in all planes to return to prior level of function. Subjective/Pain: Pt has been performing more household activities to help improve shoulder ROM. Continues to have difficulty reaching behind her back and over her head. TREATMENT: Manual: PROM gentle, in all cardinal directions, MFR/STM/TPR to right shoulder and upper arm, (avoid mobs due to healing fracture) (15 minutes) Therapeutic Exercise: guided patient through skilled therapeutic exercises to help improve shoulder ROM/flexibility; exercises in grid (25 minutes) Therapeutic Activity: Neuromuscular Re-education: Modalities: IFC with ice for pain control Assessment: The patient has participated in 3 outpatient PT sessions since start of care on 10/21/23. Pt. Will benefit from skilled PT services. PT treatment to focus on improving shoulder ROM/flexibility, gentle due to fracture site is still healing. Added band exercises to POC today and pt. Tolerated well. Pt demonstrates good progress toward PT goals. Good effort with all ther ex. Plan: Recommend outpatient PT 2x/week for 4-6 weeks per above PT POC pending patient progress and medical necessity standards I hereby deem this POC medically necessary. Please sign below and fax back to the number below. Physician Signature: Date: documented in this encounter [facility] 10-11-2023 History of Presen t illness Narrative PT for the elbow and shoulder AAROM and AROM with gentle PROM as the fractures are healing nicely Eval and treat Advance as tolerated Modalities prn Visits 20 The shoulder is healing now rather well. There is some slight angulation on the radiographs. Her elevation is at least to 90 . She feels that the motion is going to improve. It appears she did have a new fracture adjacent or within the old fracture this is also healing on the radiographs with some prominence of the hardware there is some degeneration of the radial capitellar joint. Range of motion is from 40 to approximately 130 . Once the shoulder is healed sufficiently we will considering hardware removal on the right elbow. Further follow-up with radiographs of both conditions over the next 3 months. Tanmay Scott M.D. documented in this encounter [facility] 08-16-2023 Note [facility] Progress Note: S: 68 year old female who presents for ED follow up right shoulder and elbow following a fall on 08/05/23. She previously underwent right distal humerus ORIF with Dr Scott in December 2021. Tripped over curb walking with her daughter. Presented to OSH near home. Placed in long arm splint. Today she presents with her daughter. Significant bruising right upper arm. Pain Score: 0/10. Denies numbness/tingling. ROS: Constitutional - denies fever, chills, night sweats Cardiac - denies CP, palpitations Respiratory - denies SOB, cough O: There were no vitals filed for this visit. General: Well-appearing, NAD, converses appropriately HEENT: Atraumatic, normocephalic, MMM Cardiac: RRR to peripheral palpation Pulmonary: Normal inspiratory effort, non-labored breathing Musculoskeletal: Right shoulder Skin intact. Significant anterior ecchymosis resolving TTP diffuse ROM deferred SILT Right elbow Skin intact. No significant deformity. Mild swelling TTP minimal ROM deferred, wiggles fingers SILT Imaging: XR right elbow: acute supracondylar fracture right elbow with unchanged hardware alignment XR right shoulder reviewed from OSH: acute, displaced proximal humerus fracture with humeral head split, varus deformity. Inferior subluxation of the head relative to the GH joint Imaging personally interpreted and reviewed with patient. A/P: 68 year old female with right proximal humerus fracture, right distal humerus fracture - Sling/OT splint - has at home. Will wear when not wearing sling as needed - CT right shoulder to eval, considering rTSA pending CT results - Will discuss over the phone once CT reviewed to determine treatment plan - Vit D weekly booster - RTC pending CT results. Will discuss via telephone. Janice Roland PA-C Orthopaedics Hand and Upper Extremity 08/16/23 10:10 AM [facility] [employer] [facility] 08-16-2023 History of Presen t illness Narrative Images from the original note were not included. [facility] Progress Note: S: 68 year old female who presents for ED follow up right shoulder and elbow following a fall on 08/05/23. She previously underwent right distal humerus ORIF with Dr Scott in December 2021. Tripped over curb walking with her daughter. Presented to OSH near home. Placed in long arm splint. Today she presents with her daughter. Significant bruising right upper arm. Pain Score: 0/10. Denies numbness/tingling. ROS: Constitutional - denies fever, chills, night sweats Cardiac - denies CP, palpitations Respiratory - denies SOB, cough O: There were no vitals filed for this visit. General: Well-appearing, NAD, converses appropriately HEENT: Atraumatic, normocephalic, MMM Cardiac: RRR to peripheral palpation Pulmonary: Normal inspiratory effort, non-labored breathing Musculoskeletal: Right shoulder Skin intact. Significant anterior ecchymosis resolving TTP diffuse ROM deferred SILT Right elbow Skin intact. No significant deformity. Mild swelling TTP minimal ROM deferred, wiggles fingers SILT Imaging: XR right elbow: acute supracondylar fracture right elbow with unchanged hardware alignment XR right shoulder reviewed from OSH: acute, displaced proximal humerus fracture with humeral head split, varus deformity. Inferior subluxation of the head relative to the GH joint Imaging personally interpreted and reviewed with patient. A/P: 68 year old female with right proximal humerus fracture, right distal humerus fracture - Sling/OT splint - has at home. Will wear when not wearing sling as needed - CT right shoulder to eval, considering rTSA pending CT results - Will discuss over the phone once CT reviewed to determine treatment plan - Vit D weekly booster - RTC pending CT results. Will discuss via telephone. Janice Roland PA-C Orthopaedics Hand and Upper Extremity 08/16/23 10:10 AM Patient was identified by name and date of . Sophie Chaudhari RN Patient at risk for falls:No Falls Risk protocol implemented: No documented in this encounter [facility] 05-19-2023 Evaluation note Encounter Date Diagnosis Assessment Notes Apr, Essential (primary) hypertension (ICD-10 - I10) Blood pressure remains well controlled at this time. Denies cardiac symptoms. Shows no signs or symptoms or poor control. Patient to continue with above medication and we will continue to monitor. Advised to pay attention to body and symptoms. Any developing patterns. Stay well hydrated. Apr, Type 2 diabetes mellitus with hyperglycemia (ICD-10 - E11.65) gave info for the $20 a1C at . Also recheck in 3 months. Discussed potential adverse effects of metformin. Pt will call with any issues. Healthy diet and exercise encouraged. Weight loss helps to reduce blood sugars and A1C. Wear supportive shoes, avoid open toed shoes. Check feet daily. Apr, Hyperlipidemia, unspecified (ICD-10 - E78.5) Patient to continue to watch diet and increase exercise routine. Remain active as tolerated and we will continue to monitor with routine blood work. Patient is to continue with above medication as directed. [employer] Other 06-12-2023 History of Present illness Narrative* Sophie Chaudhari RN - 03/08/2023 8:59 AM EDT Patient was identified by name and date of . Sophie Chaudhari RN Patient at risk for falls:No Falls Risk protocol implemented: No * Janice Roland PA-C - 03/08/2023 8:38 AM EDT Images from the original note were not included. Patient presents today for migrating k-wire right elbow. No pain. Small poke hole over k-wire. Minimal drainage. No purulence. Right hardware removal () The patient was identified operative site was marked and verbal consent was obtained. Under steriletechnique, local anesthesia was infiltrated in the planned area of incision. The K-wires were identified overlying the skin. Small longitudinal incisions were made over the K-wire of the right elbow.The K-wire were removed. The wound was irrigated. The skin was closed with steri strips. XR right elbow ordered to confirm k wire removal. Keflex for abx due to open poke hole Janice Roland PA-C Orthopaedics Hand and Upper Extremity 03/08/23 8:42 AM documented in this [id number] Telephone encounter Note* Telephone Encounter - Irena Lambert RN - 03/04/2023 9:09 AM EDT Patient calling in regards to her external order so she can get the x-ray of her elbow. Order has been faxed. Patient to call if she does not get it or there are other issues. [id number] Miscellaneous Notes* Telephone Encounter - Irena Lambert RN - 03/04/2023 9:09 AM EDT Patient calling in regards to her external order so she can get the x-ray of her elbow. Order has been faxed. Patient to call if she does not get it or there are other issues. documented in this [id number] Telephone encounter Note* Telephone Encounter - Irena Lambert RN - 03/02/2023 4:59 PM EDT Patient has fax number for the order: fax to [phone]- to [facility]. [id number] Miscellaneous Notes* Telephone Encounter - Irena Lambert RN - 03/02/2023 4:59 PM EDT Patient has fax number for the order: fax to [phone]- to [facility]. documented in this [id number] Telephone encounter Note* Telephone Encounter - Irena Lambert RN - 03/02/2023 4:47 PM EDT Patient called to let me know she has the fax number so we can fax her external order for the xray.Explained we will not be able to see it, so she will obtain it on a disc and send it to us. We willcall her once we review it. [id number] Miscellaneous Notes* Telephone Encounter - Irena Lambert RN - 03/02/2023 4:47 PM EDT Patient called to let me know she has the fax number so we can fax her external order for the xray.Explained we will not be able to see it, so she will obtain it on a disc and send it to us. We willcall her once we review it. documented in this [id number] Telephone encounter Note* Telephone Encounter - Irena Lambert RN - 03/02/2023 3:20 PM EDT Called her elbow has been hurting she feels that the hardware came loose. She will need external x-ray order and then will get xrays. [id number] Miscellaneous Notes* Telephone Encounter - Irena Lambert RN - 03/02/2023 3:20 PM EDT Called her elbow has been hurting she feels that the hardware came loose. She will need external x-ray order and then will get xrays. documented in this [id number] History of Present illness Narrative* Janice Roland PA-C - 08/03/2022 8:35 PM EST Images from the original note were not included. [facility] Progress Note: S: 67 year old female who presents for follow up s/p ORIF right distal humerus lateral epicondyle, lateral collateral ligament repair. Doing well today. Pain minimal. Pain Score: 2/10 Completed outpatient therapy. She is active at home. Denies numbness/tingling. Occasional ache and stiffness with activity. ROS: Constitutional - denies fever, chills, night sweats Cardiac - denies CP, palpitations Respiratory - denies SOB, cough O: There were no vitals filed for this visit. General: Well-appearing, NAD, converses appropriately HEENT: Atraumatic, normocephalic, MMM Cardiac: RRR to peripheral palpation Pulmonary: Normal inspiratory effort, non-labored breathing Musculoskeletal: Right elbow - Skin intact. Well healed surgical incision. No significant swelling or deformity - TTP minimal over lateral epicondyle - ROM limited flexion 90 extension lacks 30, improving pronosupination - Sensation intact to LT Imaging: XR right elbow: s/p lateral epicondyle ORIF with intact hardware. Heterotopic ossification. Significant healed noted. No significant change from prior Imaging personally interpreted and reviewed with patient. A/P: 67 year old female s/p right lateral epicondyle ORIF, lateral collateral ligament repair - Continue activities as tolerated - Discussed HO excision if painful in 4-6 months. Will monitor with repeat XR and exam - Continue ice, heat, NSAIDs as needed - Consider CT if no improvement - RTC in 4-6 months with XR ordered Janice Roland PA-C [facility]opa[facility] Extremity 08/03/22 8:35 PM * Emmett Licona - 08/03/2022 10:10 AM EST Patient was identified by name and date of . Patient at risk for falls:No Falls Risk protocol implemented: No documented in this [id number] History of Present illness Narrative* Janice Roland PA-C - 05/04/2022 10:02 AM EDT Images from the original note were not included. [facility] Progress Note: S: 66 year old female who presents for follow up s/p ORIF right distal humerus lateral epicondyle, lateral collateral ligament repair. Doing well today. Pain minimal. Compliant with therapy at outside facility. Denies numbness/tingling. Occasional ache and stiffness. Working on ROM with her therapist. Small improvements. ROS: Constitutional - denies fever, chills, night sweats Cardiac - denies CP, palpitations Respiratory - denies SOB, cough O: There were no vitals filed for this visit. General: Well-appearing, NAD, converses appropriately HEENT: Atraumatic, normocephalic, MMM Cardiac: RRR to peripheral palpation Pulmonary: Normal inspiratory effort, non-labored breathing Musculoskeletal: Right elbow - Skin intact. Well healed surgical incision. No significant swelling or deformity - TTP minimal over lateral epicondyle - ROM limited flexion 80, extension lacks 30 - Sensation intact to LT Imaging: XR right elbow: s/p lateral epicondyle ORIF with intact hardware. Heterotopic ossification. Significant healed noted Imaging personally interpreted and reviewed with patient. A/P: 66 year old female s/p right lateral epicondyle ORIF, lateral collateral ligament repair - Continue OT for ROM and strengthening. May have block from HO but continue to progress as tolerated - Continue ice, heat, NSAIDs as needed - Consider CT at next visit to [facility] RTC in 3 months with XR ordered Janice Roland PA-C Orthopa[facility] Hand and Upper Extremity 05/04/22 10:02 AM * Lindsay Hernandes RN - 05/04/2022 9:26 AM EDT Patient was identified by name and date of . Lindsay Hernandes RN Patient at risk for falls:No Falls Risk protocol implemented: No documented in this [id number] Telephone encounter Note* Telephone Encounter - Stella De León - 03/02/2022 3:39 PM EDT Ks Ms. Roland, Patient called and stated going to a Therapy office which near to her home. The OT referral from December is too old as per the therapy office. Please update the [facility] therapy referral and fax it over to [phone]. If you have any questions, please feel free to call back to the patient. Thank you! [id number] Miscellaneous Notes* Telephone Encounter - Stella De León - 03/02/2022 3:39 PM EDT Hi Ms. Roland, Patient called and stated going to a Therapy office which near to her home. The OT referral from December is too old as per the therapy office. Please update the [facility] therapy referral and fax it over to [phone]. If you have any questions, please feel free to call back to the patient. Thank you! documented in this [id number] History of Present illness Narrative* Karla Stone OTR/Tu - 03/02/2022 9:40 AM EDT OCCUPATIONAL THERAPY HAND CLINIC Visit #: 2 Referred to Occupational Therapy for evaluation and treatment Referring Provider: Janice Roland PA-C Diagnosis: R distal humerus fx Multi fragmented and comminuted lateral epicondyle fracture involving the entire capitellum with intact medial column DOI/Mechanism: 01/03/22, tripped over a cinder block Surgery: 01/06/21 ORIF right distal humerus lateral epicondyle, repair lateral collateral ligament PRECAUTIONS: NWB Payor: FINANCIAL ASSISTANCE PROGRAM / Plan: [facility] / Product Type: *No Product type* hSruti Locke is a 66 year old hand dominant female. Past Medical History as of 03/02/2022: Past Medical History: Diagnosis Date Aortic stenosis DM (diabetes mellitus) (HCC) Hyperlipidemia Hypertension Obesity (BMI 30-39.9) Medications as of 03/02/2022: Current Outpatient Medications: predniSONE (DELTASONE) 5 MG tablet, Take 1 Tablet by mouth Continuous PRN., Disp: 42 Tablet, Rfl: 0 lisinopril (ZESTRIL) 5 MG tablet, Take by mouth., Disp: , Rfl: metformin (GLUCOPHAGE) 500 MG tablet, Take by mouth., Disp: , Rfl: lisinopril (ZESTRIL) 5 MG tablet, Take 5 mg by mouth daily., Disp: , Rfl: docusate sodium (Colace) 100 MG capsule, Take 1 Capsule by mouth 2 times daily. (Patient not taking: Reported on 03/02/2022), Disp: 60 Capsule, Rfl: 3 Employment: Retired Identification was verified by patient verbalizing her name and date of . SUBJECTIVE: pt reporting she has mostly been working on her hand motion Pain scale: Pain is 0/10 in right elbow and forearm and is described as aching. To manage symptoms, patient instructed to utilize heat and ice at home, to utilize splint, continuepain medication as prescribed by physician of record and to begin home exercise program OBJECTIVE: Appearance: Edema moderate dorsal hand and elbow Scar at lateral elbow, adherent and tight Splinting: Posterior elbow, wrist and hand splint Fabricated 01/19/22 Purpose of splint: relieve pain, support/rest and protect healing structures Wearing schedule:discharge Pt was instructed in splint wearing schedule, care and precautions. Treatment Today: See HEP Home Exercises Program (HEP): Edema control, elevation with active pumping of hand, tibigrip D for hand and tubigrip E for elbow Tendon gliding PROM MCP flexion-hold 10 sec PROM composite finger flexion-hold 10 sec Wrist AROM flex/ext Wrist PROM flexion-hold 10 sec Wrist PROM extension-hold 10 sec AROM forearm rotation Elbow AROM against wall with towel behind humerus Elbow AROM down to side Elbow PROM, upper arm on a stack of books, pushing holding 10 sec Encourage use of RUE in functional tasks, nothing super heavy Emphasis on importance of therapy early on to improve outcomes Scar massage with dycem or lotion 3x/day Tubigrip, both pieces at night time, hand piece in the day time Total time: 60 min Individual time: TEx4 In time: 0940 Out time: 1040 Pt educated in Home Exercise Program (HEP), Precautions, Pt response to education: Return demonstration, ASSESSMENT: Shruti Locke is a 66 year old female 7 weeks and 6 day(s) s/p ORIF right distal humerus lateral epicondyle, repair lateral collateral ligament. Pt reporting she has been working mostly on finger motion. Elbow extremely stiff, resting in about -20* ext and very limited flexion (about 45* actively). Reissued HEP to address finger, wrist, forearm, elbow and edema deficits. Pt reporting issued with lack of insurance and getting to OT, discussed importance of addressing injury now, and not waiting months as outcomes can be poor at that point. Pt and daughter reporting understanding. Pt has skilled OT needs to address problems listed below. Prognosis for therapy: Good Problems include: Decreased Range of Motion, Decreased Strength, Edema, Pain, Impaired Self Care Skills, Impaired Home Management Skills, Lack of home program, Fracture and Healing Structures PLAN OF CARE: Patient would benefit from occupational therapy for the following goals: GOALS Short Term Goals: achieve in 2 visits: Patient demonstrates home program independently. Patient is able to independently don and doff splint. Patient is able to verbalize precautions, wearing schedule and purpose of splinting. Patient is independent with ROM exercises. Patient is independent with edema control. Interventions/Frequency: OT eval 03/26/22 MD appt 05/04/22 Plan of care discussed with patient and agreed upon. Risks and benefits of Occupational Therapy discussed with patient. Plan for next visit: static progressive elbow flexion splint, make one more appointment within 3 months of injury date, progress program. KOREY Segura/Tu documented in this [id number] History of Present illness Narrative* Janice Roland PA-C - 03/02/2022 9:22 AM EDT Images from the original note were not included. Post Operative visit Date of surgery: 01/06/2022 Surgery(s) performed: 1. ORIF right distal humerus lateral epicondyle 2. Lateral collateral ligament repair Surgeon: Tanmay Scott MD Pain (0-10): minimal Other Complaints: elbow stiffness, hand edema Wound: well healed Edema: moderate, resolving Motion: stiff elbow flexion/extension, has not been in therapy due to insurance issues. Will see OTtoday Sensibility: intact to LT Radiograph findings: s/p lateral epicondyle ORIF with intact hardware. No further displacement of the fracture fragments. Intact k-wire fixation. Evidence of healing. Imaging personally interpreted and reviewed with patient. Plan: OT today for ROM, edema control. Prednisone taper for swelling. Progress as tolerated. Has not been wearing OT splint advised to completely discontinue X-rays on follow up: yes - right elbow ordered Follow up: 2 months with XR ordered Janice Roland PA-C Orthopaedics Hand and Upper Extremity 03/02/22 9:23 AM documented in this [id number] History of Present illness Narrative* Shirley Price OTR/L - 01/19/2022 10:08 AM EDT OCCUPATIONAL THERAPY HAND CLINIC Visit #: 1 Referred to Occupational Therapy for evaluation and treatment Referring Provider: Janice Roland PA-C Diagnosis: distal humerus fx Multi fragmented and comminuted lateral epicondyle fracture involving the entire capitellum with intact medial column DOI/Mechanism: 01/03/22, tripped over a cinder block Surgery: 01/06/21 ORIF right distal humerus lateral epicondyle, repair lateral collateral ligament PRECAUTIONS: Healing fracture, Protective ROM, Protective splint and NWB Payor: FINANCIAL ASSISTANCE PROGRAM / Plan: [facility] / Product Type: *No Product type* Shruti Locke is a 66 year old hand dominant female. Past Medical History as of 01/19/2022: Past Medical History: Diagnosis Date Aortic stenosis DM (diabetes mellitus) (HCC) Hyperlipidemia Hypertension Obesity (BMI 30-39.9) Medications as of 01/19/2022: Current Outpatient Medications: lisinopril (ZESTRIL) 5 MG tablet, Take 5 mg by mouth daily., Disp: , Rfl: docusate sodium (Colace) 100 MG capsule, Take 1 Capsule by mouth 2 times daily., Disp: 60 Capsule, Rfl: 3 Employment: Retired Identification was verified by patient verbalizing her name and date of . SUBJECTIVE: pain is not bad, I don't like the drugs Pain scale: Pain is 0/10 in right elbow and forearm and is described as aching. To manage symptoms, patient instructed to utilize heat and ice at home, to utilize splint, continuepain medication as prescribed by physician of record and to begin home exercise program OBJECTIVE: 13 days post op Appearance: Edema severe Closed Wound: lateral elbow, steri strips just removed, some dry blood present Splinting: Posterior elbow, wrist and hand splint fabricated this visit Purpose of splint: relieve pain, support/rest and protect healing structures Wearing schedule: At all times except remove to shower and perform home exercises. May remove and allow to air while arm supported on pillow Pt was instructed in splint wearing schedule, care and precautions. Treatment Today: See HEP Home Exercises Program (HEP): AAROM : sup/pro with elbow at 90, elbow flex and ext with forearm in neutral. Achieves ~ -65 to 85 flex Tendon gliding - pt with sig stiffness fingers Wound Care ( wash in soap and water, pat dry) Edema control, elevation with active pumping of hand Pt seen for walk in appointment in OT Hand Clinic and seen for the following: Total time: 55 min In time: 10:10 Out time: 11:05 Pt educated in Home Exercise Program (HEP), Precautions, Pt response to education: Return demonstration, ASSESSMENT: Shruti Locke is a 66 year old female 13 day(s) s/p ORIF right distal humerus lateral epicondyle, repair lateral collateral ligament. Splint fabricated, elbow very stiff. Also with some stiffness fingers. Edema is significant Prognosis for therapy: Good Problems include: Decreased Range of Motion, Decreased Strength, Edema, Pain, Impaired Self Care Skills, Impaired Home Management Skills, Lack of home program, Fracture and Healing Structures PLAN OF CARE: Patient would benefit from occupational therapy for the following goals: GOALS Short Term Goals: achieve in 2 visits: Patient demonstrates home program independently. Patient is able to independently don and doff splint. Patient is able to verbalize precautions, wearing schedule and purpose of splinting. Patient is independent with ROM exercises. Patient is independent with edema control. Interventions/Frequency: Plan to f/u PRN Patient to schedule follow up therapy at another facility. Given phone numbers for CHT's closer to home. Plan of care discussed with patient and agreed upon. Risks and benefits of Occupational Therapy discussed with patient. Plan for next visit: adjust splint as needed KOREY Jimenez/Tu documented in this [id number] Instructions* Patient Instructions* Janice Roland PA-C - 01/19/2022 9:52 AM EDT [facility] at [phone] to schedule an appointment if one was not made for you today. documented in this [id number] History of Present illness Narrative* Janice Roland PA-C - 01/19/2022 9:39 AM EDT Images from the original note were not included. Post Operative visit Date of surgery: 01/06/2022 Surgery(s) performed: 1. ORIF right distal humerus lateral epicondyle 2. Lateral collateral ligament repair Surgeon: Tanmay Scott MD Pain (0-10): 0 Other Complaints: none Wound: healing well Edema: resolving Motion: stiff, protected Sensibility: intact to LT Radiograph findings: s/p lateral epicondyle ORIF with intact hardware. No further displacement of the fracture fragments. Intact k-wire fixation Imaging personally interpreted and reviewed with patient. Plan: OT today for posterior long arm splint, ROM, edema control. External OT order for therapy closer to home. Sutures trimmed. Scar massage X-rays on follow up: yes - right elbow ordered Follow up: 6 weeks with XR ordered Janice Roland PA-C Orthopaedics Hand and Upper Extremity 01/19/22 9:39 AM documented in this [id number] Miscellaneous Notes* Brief Operative Note - Buzz Garcia MD - 01/06/2022 2:23 PM EDT Brief Operative Note MAIN OR 05 Shruti Locke 66 year old female Surgical Contact Serial Number: [id number] Preoperative Diagnosis: Closed fracture of right elbow, initial encounter [S42.401A] Postoperative Diagnosis: * Closed fracture of right elbow, initial encounter [S42.401A] Procedures: ORIF R lateral epicondyle Surgeon(s): Surgeon(s): Tanmay Scott MD Staff: Scrub: Brooks Wesley RN; Tawanna Godfrey Auger Supervisor Nurse: Love Carney RN; Sunny Donald RN Physician Communications Specialist: Janice Roland PA-C Securities Dealer: Buzz Garcia MD Anesthesia: General Anesthesiologist: Henry Farfan MD; Minna Sin DO CAA: Sunny Appiah CAA Specimen(s): * No specimens in log * Estimated Blood Loss: 5-10 cc Lines/Drains: Peripheral IV Access: 01/06/22 0928 20 gauge Distal;Left;Outer Forearm (Active) $ Lines: $ IV Start (procedure) 01/06/22926 Site Assessment WNL;Dressing intact 01/06/22926 Infusion Status Port #1 Infusing 01/06/22926 Temporarily Retained Foreign Object: No Findings: Comminuted fracture Complications: None Status at end of surgery: Stable Activity: NWB Surgical wound class: Yes, wound was clean. Patient Class: Outpatient Surgery. Is this a patient scheduled as an outpatient that needs to be admitted as an inpatient? No Dr. Scott was present in the OR for the critical portion of the procedure and procedure sign-out. Signed by Buzz Garcia MD 01/06/2022 4:21 PM * OP Note - Tanmay Scott MD - 01/06/2022 2:23 PM EDT Patient: Shruti Locke : 1955 Date of Procedure:01/06/2022 PREOPERATIVE DIAGNOSIS: Right lateral epicondyle distal humerus fracture POSTOPERATIVE DIAGNOSIS: Same PROCEDURE PERFORMED: ORIF right distal humerus lateral epicondyle, repair lateral collateral ligament SURGEON: Tanmay Scott MD CUSTOMER SERVICE ADVISOR: Radha TAYLOR, Amparo ROSADO ANESTHESIA: General ESTIMATED BLOOD LOSS: 10 cc FINDINGS: Multi fragmented and comminuted lateral epicondyle fracture involving the entire capitellum with intact medial column COMPLICATIONS: None. SPECIMENS: None. DRAINS: None IMPLANTS: Implant Name Type Inv. Item Serial No. Lokie Driver Lot No. LRB No. Used Action PLATE T 2.4MM 7HOLE SHAFT LCP EA1 249.670 - [id number] Plate PLATE T 2.4MM 7HOLE SHAFT LCP EA1 249.670 [employer] TRAY Right 1 Implanted SCREW 2.4 X 28MM SELF-TAPPING EA1 201.778 - [id number] Screw SCREW 2.4 X 28MM SELF-TAPPING EA1 [employer] TRAY Right 1 Implanted SCREW 2.4 X 24MM SELF-TAPPING EA1 [id number] - [id number] Screw SCREW 2.4 X 24MM SELF-TAPPING EA1 [employer] TRAY Right 1 Implanted SCREW 2.4 X 30MM SELF-TAPPING EA1 212.830 - [id number] Screw SCREW 2.4 X 30MM SELF-TAPPING EA1 212.830 [employer] TRAY Right 1 Implanted SCR BN 65MM LG TLSCP KYLS EA1 [id number] - [id number] Screw SCR BN 65MM LG TLSCP KYLS [id number] Tyron TRAY Right 2 Implanted Tourniquet time: 103 minutes Temporarily Retained Foreign Object: No INDICATIONS FOR OPERATION: The patient is a 66 year old female who presents status post fall. Patient was then presented roughly 2 days ago to the emergency room after a fall. Imaging at that time demonstrated an extremely comminuted lateral epicondyle fracture. Patient was splinted with plans for outpatient fixation. In the interim prior to surgical intervention patient was noted to have a history of aortic stenosis. Preoperative echocardiogram was obtained and reviewed by the anesthesia team.Risks and benefits were explained. Patient is deemed stable and cleared for surgical intervention The patient was counseled extensively regarding the options for treatment including operative and non- operative forms of treatment and after thorough counseling has elected to proceed with surgical treatment. The patient was counseled that with surgical treatment there is the possibility that their condition might not improve or may even worsen. No guarantees or warranties were provided regarding the outcome. Risks, benefits and alternatives of the surgery were discussed with the patient. The risks include, but not limited to, infection, bleeding, post-operative pain, damage to nerves and bloodvessels, wound dehiscence and wound healing problems, incomplete relief of pain, the need for physical/occupational therapy, inability to return to their desired level of function, the need for revision surgery, complex regional pain syndrome, bone malunion or nonunion (if applicable) as well as medical complications such as anesthetic complications, cardiopulmonary complications and . I also had a mami discussion with the patient with regards to the the severity of her fracture. Based onher preoperative imaging her articular surface was extremely comminuted on the lateral side. I explained that we would do everything that we could to piece back the fragments to restore her joint alignment however there was a very real possibility that we would not be able to reconstruct this and that she would need some sort of intervention in the future in the form of arthroplasty. Patient understood these risks and benefits and consented to the procedure. The patient was medically stable prior to surgery. DESCRIPTION OF PROCEDURE: The patient was identified preoperatively, operative site was marked and consent was obtained. She was then was brought back to the operating room. She was placed supine on stretcher with a hand table. Anesthesia was administered without complication. Patient was then transitioned lateral on a beanbag. An axillary roll was placed into the down arm. All bony prominences were padded. Peroneal nerves were free. SCDs were applied to the bilateral lower extremities. A tourniquet was placed on the upper arm and set at 250 mm Hg. The arm was then sterilely prepped and draped in standard fashion. A time out was performed and an esmarch bandage was used to exsanguinate the arm. The tourniquet was inf lated. We began our case by making a curvilinear incision over the lateral aspect of the distal humerus curving into what would become our future Yoel interval. Sharp dissection was carried through skin. Bovie electrocautery was used to maintain hemostasis. The intermuscular septum between the brachialis and triceps was identified and split just on the posterior edge. Dissection was carried down to the level of the lateral humeral ridge. The brachialis and triceps muscles were bluntly elevated from the anterior posterior humeral surfaces. Distally we extended our incision and identified what we thought to be the anconeus. We identified a Yoel interval. This interval was split bluntly as well as with electrocautery. At this time a significant amount of fracture hematoma was identified and evacuated. Next, in order to identify the more medial aspects of our articular surface we chose to create a flap of the lateral epicondyle and lateral ulnar collateral ligament. This was done by taking and transecting the posterior aspect of the periosteum and posterior fascia off the lateral epicondyle. Once this was done we were able to reflect the entire lateral epicondyle piece anteriorly. At this time it was quickly apparent the significant level of comminution at the joint surface at the lateral edge. There was roughly 5-6 fragments of various size that consisted of the capitellum and lateral epicondyle. All these pieces were free-floating with without any soft tissue attachments. Unfortunately felt that at this time these pieces were nonviable and not contribute to any articular stability in the long-term. These pieces were removed and the joint was irrigated with normal saline. Oncethis was done there was a fairly sizable soft bony gap between the intact medial column and the lateral column. There was 1 piece that we had reflected anteriorly with our lateral ulnar collateral ligament was still intact the soft tissue. This was the most lateral aspect of the lateral epicondyle.In order to maintain some level of lateral column stability we placed some D corticated bone graft from the free pieces into the bony void. We then secured these pieces with a K-wire and cut this flush. Next we flipped our lateral epicondyle piece that was still attached to soft tissue back down toclose off the gap. Everything was then secured with 2 K-wires 1 up into the medial column and 1 lateral to medial across the articular surface. Imaging was then brought in which demonstrated a relatively normal appearing joint however it was noted again that there was still a moderate amount of bone loss. Without this to be acceptable at this time given the significant amount of comminution and bone loss that she had sustained. The elbow was also ranged at this time and felt to be stable without a significant amount of fat amount of posterolateral rotary instability or instability of the ulnohumeral joint. Next we placed a 7 hole [employer] mini frag 2.4 mm plate over the lateral epicondyle origin. This wassecured proximally with a cortical screw and then distally with a locking screw through what we hadreconstructed to be arch are articular surface. The plate was further secured with 2 more screws proximally. X-ray with again was brought in which confirmed plate position, screw trajectory, and overall maintained alignment of our reconstructed articular surface. The elbow was then ranged and felt to be stable however there was some slight gapping laterally where we had reflected off our lateral ulnar collateral ligament. We then chose to repair this through drill hole just proximal to the lateral epicondyle. Suture tape was used to circumferentially passed through the lateral ulnar collateral ligament and then up in through the drill hole that we had made. This was done in a way to essentially create a tension band effect across the lateral epicondyle and lateral ulnar collateral ligament. The elbow was very stable at this time. There were no blocks to rotation or range of motion. Once this was completed, the wound was copiously irrigated. The Yoel interval was closed with several interrupted 0 Vicryl sutures in [id number] fashion. The lateral intermuscular septum between the triceps and brachialis was then closed in running fashion with 0 Vicryl. The skin was then closed in layered fashion with 2-0 Vicryl, followed by running 3-0 Monocryl. The skin was cleaned Steri-Strips were applied and then the wound was dressed with Xeroform fluffs and Webril. The tourniquetwas then deflated. The drapes were removed. Finally a long-arm splint was applied and the patient was transition from her lateral position back supine and general anesthesia was reversed without complication. The patient was then taken to the recovery room in stable condition The sponge, needle, and instrument count were correct. DISPOSITION: The patient will be discharged home. Pain will be controlled via oral pain medications. Patient will follow-up in roughly 1-2 weeks for postoperative visit. Tanmay Scott M.D. Attending responsible for the care and surgery * Anesthesia Attestation - Minna Sin DO - 01/06/2022 1:40 PM EDT Anesthesia Attestation ATTESTATION OF INFORMED CONSENT FOR ANESTHESIA Anesthesia options were discussed with the patient and/or legal inbound call center representative. The risks, benefits and alternatives were reviewed. Questions regarding anesthesia were answered. Patient and/or legal inbound call center representative knows such anesthetics and procedures may be performed by Resident physicians, Certified Anesthesiologist Assistants, or Certified Nurse Anesthetists under the supervision of a physician. The patient /or the patient s legal representativeagree with the plan for anesthesia. * Blood Attestation - Minan Sin DO - 01/06/2022 1:40 PM EDT Blood Attestation ATTESTATION OF INFORMED CONSENT FOR BLOOD The transfusion of blood and/or blood components were discussed with the patient and/or legal inbound call center representative. The risks, benefits and alternatives were reviewed. Questions regarding blood transfusions were answered. The patient /or the patient s legal inbound call center representative agree with the plan for transfusion of blood and/or blood components. documented in this [id number] History general Narrative - Reported* Type Description Date Medical History Essential (primary) hypertension Medical History Type 2 diabetes mellitus with hy perglycemia Surgical History Tubal Ligation Surgical History Right elbow surgery 01/06/2022 Hospitalization History SEE SURGICAL HX [facility] Other 04-12-2022 Hospital Discharge instructions* Instructions* Kendy Cortes RN - 01/06/2022 Post-Operative Instructions Hand/Wrist/Elbow/Shoulder Surgery Dressing You have a bulky dressing or splint on your elbow. Do Not remove dressing until your next appointment with your surgeon or Occupational Therapy (OT). Please call your surgeon's office if this is not already arranged Showering You may shower as soon as you want after surgery. Please cover the dressing with a bag and do not get it wet. If your cast or splint gets wet you must contact your surgeon's office immediately to arrange to be seen. If you are allowed to remove your dressing, you may shower and get the wound wet 2 days after your surgery. You may allow the water to run over the incisions and pat the incision day. Do Not let the wound soak in a tub, pool, or dishwater. Ice & Elevate The use of ice on your elbow after surgery will help with both pain control and swelling. Continue with icing your elbow on an as needed basis. Elevate your elbow above heart level as much as possible for the first 48 hours after surgery. Thiswill keep the swelling to a minimum and prevent throbbing and pain. Pain Medication If you received a regional anesthetic block your arm and hand may be numb for several hours (6-24 hours). You will be discharged with an oral pain medication (analgesic). Rest and elevation is still one of the most important factors for pain control. Take your pain medication as directed even though the pain is minimal with the block; do not wait for the pain to become out of control. The most severe pain occurs as the block wears off. Even if you are not having pain but feel the arm and hand waking up , take your pain medication sothat it will be working when needed. Pain medication may cause some lethargy, nausea, or constipation. If these symptoms become significantly problematic, please contact your surgeon's office and discontinue the medication. Avoid alcohol while taking pain medication. Gradually resume your normal diet. The night of your surgery, begin with liquids and/or light foods. If you are feeling well enough in the morning progress to your normal eating patterns. Eating a well balanced diet with plenty of fresh fruits and vegetables and drinking plenty of fluids may help alleviate and constipation resulting from pain medication. Smoking and smokeless tobacco Tobacco use is known to interfere with wound and fracture healing and increase your pain. Do not smoke postoperatively. Please contact your surgeon's office for a referral to the smoking cessation program. Driving It is not advisable to drive a vehicle while you are on pain medication due to the possible side effects. However, once you are off pain medication and you feel that you are able to safely control the vehicle, you may drive. Warning Signs Observe your elbow and incision site for increased redness, inflammation, drainage, foul odor, or increased pain unrelieved by rest or medication. If any of the above occurs, or should you develop a fever greater than 101 degrees, please notify your surgeon's office or contact the orthopeadic nurseat immediately. Appointments Your follow-up appointment is scheduled on No future appointments.. If you do not already have an appointment scheduled within two weeks of your surgery, please contact our office at the numbers listed below. Do not hesitate to call your surgeon with any questions or concerns at the numbers listed above. After business hours please call [facility] pellet press operator at and ask for the orthopeadicresident foreign correspondent. For emergencies call [phone]. [facility] Upper Extremity and Hand Surgery MD Trever Wright MD Kyle Chepla, MD Andrea Gallup, BROADCAST TECHNICIAN-NEUROLOGICAL SURGEON MD Tanmay Louis MD Bram Kaufman, MD Michael Keith, MD Adrienne Lee, MD Mary Grace Lenehan, PAChaceC MD Vito Stone MD Kathryn Wozniak, PA-C Orthopaedic Surgery Nurse Line Orthopaedic Surgery Appointments For questions related to paperwork, please call Orthopaedic Surgery , Option 1 PERIOPERATIVE DISCHARGE/HOME-GOING INSTRUCTIONS ANESTHESIA - GENERAL (ADULT) If a problem arises, you may contact your physician by calling [phone] and asking for the resident foreign correspondent for Hand service. Special Care Needs: Activity: Rest at home today and tomorrow, then progress to your regular activities as tolerated. Diet: Clear liquids are best tolerated at first. If you are not nauseated, you can progress your diet to solid foods as tolerated. Possible post-operative precautions: Call you doctor or clinic for: 1. Signs of infection such as fever or chills. 2. Severe pain that in not relieved by Tylenol or your pain medicine prescription. 3. You may have a sore throat - it is usually gone in 1 to 2 days. Post-anesthesia safety: Possible side effects include drowsiness, dizziness, or inability to think clearly. For your safety, do not drive, drink alcoholic beverages, take any unprescribed medication or make any important decisions for 24 hours. A responsible adult should be with you for 24 hours. If no urine by 10:30PM or you become very uncomfortable and can t urinate, call [phone] or come to the emergency room. The day after surgery, a nurse will call to check on you. However, if there are any questions or concerns, please call us at the number listed in the home going instructions. PERIOPERATIVE DISCHARGE/HOME-GOING INSTRUCTIONS ANESTHESIA - PERIPHERAL NERVE BLOCK Precautions: Avoid exposure to extreme cold or heat on affected site until normal sensation returns. Because thenerves were temporarily numbed, you will not be able to tell if your skin is getting burned or damaged. Avoid weight bearing to the affected arm or leg. Because the nerves were temporarily numbed, your arm or leg may be weak and may not support weight. In addition, you will not be able to feel the painthat would normally prevent you from straining that limb. If you have numbness or excessive weakness in any or part of the affected area that persists [id number] hours, contact [phone], and ask for the anesthesiologist foreign correspondent. For additional health information, call: [employer] Line at [phone]; 24 hours a day. PERIOPERATIVE DISCHARGE/HOME-GOING INSTRUCTIONS Obstructive Sleep Apnea (MARITZA) Recommendations: You have had an evaluation for Obstructive Sleep Apnea during your pre- operative interview and have been identified as possibly having MARITZA. Sleep apnea, if untreated, is thought to be a possible cause of high blood pressure and breathing problems. Please make an appointment with the sleep study office at [phone] to be evaluated and scheduled for the recommended sleep study. If you have diagnosed or suspected sleep apnea, your anesthesiologist recommends that if you have been given narcotic prescriptions today, do not fill them. Wait to fill and start your narcotic prescriptions until tomorrow. If you have a CPAP or BiPAP machine, use it today if you take a nap in addition to your usual nightly use. If you experience an emergency with your breathing, you, or you family member should immediately call 911. * Attachments The following attachments cannot be sent through Care Everywhere. * Preventing Falls ([place]) documented in this [id number] History and physical note* Janice Roland PA-C - 01/06/2022 10:31 AM EDT I have reviewed the patient's History and Physical Examination. I have personally seen and evaluated the patient, repeating hooks portions. There is no significant interval change. Surgery is still indicated. Yes Consent reviewed and signed by patient/family: Yes Operative site verified and marked: Yes Janice Roland PA-C 01/06/22 10:31 AM documented in this [id number] Hospital Discharge instructions* Instructions* Lenin Carpio MD - 01/04/2022 Follow-Up Instructions Your surgery is scheduled for 01/06/[address] Scott. You will receive a call from the Surgery Schedulers on Wednesday with timing of your surgery. The direct orthopaedic clinic appointment line phone number is [phone]. Please do not delay incalling to make this appointment. Alternatively, you may call the main hospital appointment number at [phone], and ask the pellet press operator to be connected to the orthopaedic outpatient clinic assistant front office manager. Cast/Splint Care Instructions: 1) Do not get your splint/cast wet for any reason. This includes protecting it from shower water and in the rain. If the cast/splint becomes wet for any reason, you need to be seen immediately, either in the emergency department or in the first available clinic appointment, in order to have the splint/cast changed. Allowing a wet splint/cast to sit on your skin may cause skin breakdown and infection. 2) Do not walk or bear any weight on your cast/splint, unless specifically told to do so. 3) Do not stick any sharp objects (knives, forks, clothes hangers, etc) inside your splint/cast to itch. This will inevitably cause a scratch on the skin, which may become infected. Alternatively, you may blow a vice chair, on the cool air setting, in order to provide some relief. 4) You should keep your operative or injured extremity elevated above the level of your heart for the first 48-72 hours. This will help minimize the swelling in the immediate aftermath from surgery or from an acute fracture/injury. 5) You may ice your injured/operative extremity, which is especially useful to minimize swelling, in the first 48-72 hours. Make sure that the ice is not in direct contact with your skin, and that the ice does not leak out of it's bag. It will take ~30 minutes for the ice/cooling to move through your splint/cast material, but it will do so. Double-bagging ice is an effective technique. 6) If you begin to experience progressive and rapidly increasing pain that seems out of proportion to what you normally have been experiencing from your baseline pain after surgery/injury, or if yourdigits (fingers or toes) become numb and/or turn blue and cold - you NEED TO CALL US IMMEDIATELY ORCOME TO the Emergency Department IMMEDIATELY for an emergent evaluation by the orthopaedic resident. Activity Right Upper Extremity: Non-Weight Bearing Discharge medications You have been sent home with the following home pain medications: Percocet. Please wean yourself off the Percocet, as tolerated. You may not take more than 12 Percocet tablets in a single 24-hr period. Do not take tylenol or drive while on Percoet. You have been sent home with colace to prevent constipation while on narcotic pain medications. Take as needed. documented in this [id number] Consult note* Sushila Rodney - 01/04/2022 12:06 PM EDT Associated Order(s): IP OCCUPATIONAL THERAPY SERVICE REQUEST OCCUPATIONAL THERAPY INITIAL EVALUATION Patient seen from 926 to 941 on 7A unit for 15 minutes. Reason for Admit:66 yo female admitted s/p fall Diagnosis: R lateral epicondyle and capitellum fractures Precautions/Activity Order: NWB RUE, high falls, full code Procedures this admit: plan for surgical fixation 01/04 once clear for OR Past Medical and Surgical History: Past Medical History: Diagnosis Date Aortic stenosis DM (diabetes mellitus) (HCC) Hyperlipidemia Hypertension Obesity (BMI 30-39.9) Past Surgical History: Procedure Laterality Date TUBAL LIGATION SUBJECTIVE: Patient Subjective: It hurts whenever I move my arm. Patient Identified Goal(s):To return home Home Living Situation Prior Functional Status: Independent Living Assistance Available at Home: lives with , daughters also able to assist as needed Patient lives in a 1 story home 1 stairs to enter. Full Bathroom on 1 level, Bedroom on 1 level. Equipment available at home: shower chair, cane OBJECTIVE: Patient Identification: patient verbalizing his/her name and date of . Risks and benefits of occupational therapy: Patient informed of risks and benefits of treatment Appearance:IV, splint to RUE Alertness: WFL Affect: WNL Cooperation/Behavior: Appropriate dialogue with therapist Communication: WFL Pain: Pain ratin/10 at rest,0/10 with movement, Location: R elbow Pain Relief Interventions Implemented: Positioning and Notified Nurse Self Care: Assistance Level Dep Max Mod Min CG CS DS UT I Set-Up Comment Feeding x x Using LUE, assist for cutting food Grooming/Hygiene x x Using LUE Bathing:UB x Simulated sponge bathing Bathing:LB x Simulated sponge bathing Dressing:UB x Anticipated to don shirt Dressing: LB x Anticipated to don pants Toileting x Anticipated for clothing management Transfers/Bed Mobility: Assistance Level Dep Max Mod Min CG CS DS UT I Set-Up Comment Toilet Transfers x anticipated Bed Transfers x Sit to stand from chair, Pt supporting LUE with RUE Bed Mobility NT pt seated in chair at time of eval Endurance for Self Care: Fair Static Sitting Balance: WFL Dynamic Sitting Balance: WFL UE Motor: LUE AROM and strength grossly WFL RUE immobilized at elbow in extension, NWB Digit extension WFL, digit flexion 3/4 Wrist flexion/extension WFL Shoulder flexion 1/4 active, 1/2 passive Vision/Perception: WFL Cognition: Orientation: Oriented to person, place and date Follows Commands: WFL Attention: WNL Memory: WFL Problem Solving: WFL Safety/Judgement: WFL Sequencing: WFL Patient/Family Education: Instructed patient in roles of therapy, importance of OOB activity and occupational engagement, RUE WB restrictions, d/c planning Patient up in chair with call light in reach. DME: With Patients permission ordered no equipment via [employer] Order. If any questions contact [facility] DME Provider at [phone]. 6 Clicks Daily Activity OT 01/04/2022 Help from another person Eating meals 3 Help from another person taking care of personal grooming 3 Help from another person bathing 3 Help from another person putting on and taking off regular upper body clothing 3 Help from another person putting on and taking off regular lower body clothing 3 Help from another person toileting 3 OT 6 Clicks Score 18 6 Click Score Guidelines: 1 - Unable = Total/Dependent Assist 2 - A lot = Max/Moderate Assist 3 - A little = Minimum/Contact Guard Assist/Supervision 4 - Non = Modified [place]/Independent ASSESSMENT: Anticipate patient will be appropriate for discharge home pending pt's functional status following scheduled ORIF of RUE. Will continue to follow patient while in hospital as appropriate, pt may benefit from outpatient OT services as WB status is upgraded Rehabilitation Potential: Good Problem List: decreased ADLs, impaired upper extremity motor function, decreased functional transfers/mobility, impaired balance, decreased home management tasks/IADLs and decreased functional activity tolerance Goals (to be achieved by discharge from acute care): Patient will perform grooming with Set up Patient will dress upper body with Close supervision Patient will dress lower body with Close supervision Patient will perform bed mobility with Close supervision Patient will perform bathing with Close supervision Patient will perform toileting with Close supervision Patient will perform bed transfers with Modified Independent Patient will perform commode transfers with Modified Independent Patient will demonstrate improved right fine motor skills to fasten buttons/zippers PLAN: Shruti Gregoryt will be seen 1-3 times a week. Treatment to include: Functional AROM/Strengthening, functional mobility training, ADL retraining, functional endurance activities, home management retraining, functional task simulation, adaptive equipment / compensatory strategy training and patient / family education and discharge planning able to discuss the evaluation findings and treatment plan with the patient/family. The patient/family did participate in the development of plan and goals. Sushila Rodney, OTR/L NA = Not Assessed, I = Independent, UT = Modified Independent, Sup = Supervised, Set up = Physical Assistance for Set-up Only, Min = Minimal Assistance, Mod = Moderate Assistance, Max = Max assistance; Dep = Dependent; AROM = Active Range of Motion;PROM=Passive Rangeof Motion; MMT = Manual Muscle Test; UB = Upper Body; LB = Lower Body * Ajay Wen, PT - 01/04/2022 10:07 AM EDT Associated Order(s): IP PHYSICAL THERAPY SERVICE REQUEST PHYSICAL THERAPY ACUTE EVALUATION Referral received, chart reviewed. Patient seen from 926 to 941 on 7A 702-1 unit for 15 minutes. Admit date/time: 01/03/2022 2:26 PM Co Eval with Ot for safe pt handling and improved therapy tolerance Reason for Admit: Fall with R elbow Fx Diagnosis: Closed Fracture of R Distal Humerus Precautions: Up with assistance as tolerated Falls Weightbearing Non-weight bearing right upper extremity Full Code Procedures this admit: Pending OR er Ortho note on 01/04/22 Past Medical and Surgical History: PMH: Past Medical History: Diagnosis Date Aortic stenosis DM (diabetes mellitus) (HCC) Hyperlipidemia Hypertension Obesity (BMI 30-39.9) PSH: Past Surgical History: Procedure Laterality Date TUBAL LIGATION Identification was verified by patient verbalizing his/her name and date of . Risks and Benefits of physical therapy: Patient and family informed of risks and benefits of treatment SUBJECTIVE: Patient Subjective: I tripped at the [employer] Patient Identified Goal(s):none verbalized PRODUCT SAFETY HEAD Status: I for ADL/IADL, + drive, retired, no AD Home: 1 steps to enter without rails. no steps to bedroom/bathroom Assistance available: pt family can assist throughout day Equipment available: cane shower chair and rolling walker OBJECTIVE: Appearance: Obese, IV and Splint/cast R UE Behavior: WFL Oriented x 4 Follows multiple step commands Pain: Site/Location: R UE at rest; Pain Scale: 0/10 Pain Relief Interventions Implemented: Notified Nurse Passive ROM: Not formally tested however observed WFL for basic level of mobility, R UE n/t Strength/Active ROM: Not formally tested however observed WFL for basic level of mobility and Grossly at least 3/5 throughout, R UE n/t Mobility: Sitting balance: Good Sit to stand: close supervision Ambulation/Gait: pt CS x 70' with therapy managing IV line, pt supporting R UE cast with cues from therapy. Decreased gait speed, decreased step length, no unsteadiness noted. Endurance: WFL Patient/Family Education: Instructed Patient and other family member in roles of therapy. Reviewed Weightbearing Non-weight bearing right upper extremity Precautions with Patient and other family member Patient up in chair with call light in reach. DME: With Patients permission ordered no equipment via [employer] Order. If any questions contact [facility] DME Provider at [phone]. 6 Clicks Basic Mobility PT 01/04/2022 Difficulty turning over in bed 3 Difficulty sitting down and standing up from a chair with arms 3 Difficulty moving from lying on back to sitting on the side of the bed 3 Help from another person moving to and from bed to a chair 3 Help from another person to walk in hospital room 3 Help from another person climbing 3-5 steps with a railing 3 PT 6 Clicks Score 18 6 Click Score Guidelines: 1 - Total = Requires total assistance, or cannot do at all. 2 - A lot = Requires a lot of help (maximun to moderate assistance) Can use assistive devices. 3 - A little = Requires a little help (supervision, minimal assistance) Can use assistive devices. 4 - None = Does not require any help and does the activity independently. Can use assistive devices. ASSESSMENT: Shruti Locke is a 66 year old yo female s/p fall with R distal humorus Fx that is currenlty pending surgical intervention per Ortho 01/04/22 note. Pt r UE is splinted and NWB. Pt demonstrating good compliance with orders and mobilizing at supervision level. Anticipate patient will be appropriate for discharge home following 1-2 acute Physical Therapy sessions. Will continue to follow patient while in hospital as appropriate. Problems: Pain Decreased ROM/strength Decreased functional mobility Rehabilitation Potential: Good Goals (to be achieved by discharge from acute care): Patient will achieve acceptable level of pain control to allow participation in therapy. Patient will increase bed mobility to modified independent Patient will perform sit to/from stand with none with modified independent Patient will ambulate 150 feet with none with modified independent Patient will ascend/descend 1 stairs with single rail(s) and none with contact guard assistance Patient will increase ROM/Strength/Endurance/Balance to allow for above goals. Patient/Family independent with exercise program/precautions. PLAN OF CARE: Frequency: Patient to be seen 3-5 times a week Interventions: Functional mobility ROM/Strengthening Home exercise program Discharge planning and equipment ordering as needed Patient /Family education The evaluation findings and treatment plan were discussed with the patient/family. The patient/family indicated understanding and agreement with the plan. Ajay Wen PT NA = Not Assessed, I = Independent, UT = Modified Independent, Sup = Supervised, Set up = Physical Assistance for Set-up Only, Min = Minimal Assistance, Mod = Moderate Assistance, Max = Max assistance; Dep = Dependent; AROM = Active Range of Motion; PROM = Passive Range of Motion; MMT = Manual Muscle Test; LE = Lower Extremity * Emmett Garcia MD - 01/03/2022 6:54 PM EDT Associated Order(s): IP MEDICINE CONSULT Images from the original note were not included. MEDICINE CONSULTS PRE-SURGICAL EVALUATION Shruti Locke [id number] A710/2801/03/2022 Length of stay: 1 day(s) REASON FOR CONSULT: PSE Surgical Procedure: ORIF RUE - distal humeral fracture Surgeon: Sheng Date of Surgery: 01/04/2022 HPI: Shruti Locke is a 66 year old female with a PMHx of HTN, HLD, DM (diagnosed 09/2021), and Aortic Stenosis (diagnosed 2012) who presented to the ED on 01/03/2022 with c/o R elbow pain following a mechanical fall. Initially presented to OSH and was found to have R elbow fracture; transferred to [facility] for in tervention. Pt tripped and fell over a cinder block while exiting a flea market. No head trauma. Ptdenies recurrent falls, syncope, lightheadedness, or dizziness. Ortho originally with plan to proceed to OR on evening of 01/03, however, anesthesia requesting additional clearance d/t murmur discovered on exam and Pt with report of history of Aortic Stenosis. Surgical Hx: Review of patient's past surgical history indicates: TUBAL LIGATION FHx: Denied significant FH. No family history on file. Social Hx: Social History Socioeconomic History Marital status: Tobacco Use Smoking status: Former Smoker Packs/day: 1.00 Years: 15.00 Pack years: 15.00 Types: Cigarettes Quit date: 1991 Years since quittin.2 Home Medications: Metformin 500 mg BID Lisinopril 5 mg daily Rosuvastatin 10 mg daily Functional capacity: >4 mets DASI: 50.7 points Mets 8.97 STOP-BANG: Snores louder than talking or loud enough to be heard through closed doors Often feels tired, fatigued, or sleepy during daytime Treatment for high blood pressure BMI more than 35 Age over50 => 5 points total. (?3 points is high risk for MARITZA) ROS General: Denies: fever, chills and night sweats [employer]EW[employer]: No h/o CVA/TIA/Seizures Respiratory: h/o smoking 15 pack/years and No h/o COPD, asthma dyspnea or recent URI Cardiovascular: h/o diagnosed in 2012 (asymptomatic); No CP, KNOX, palpitations, or edema GI: No h/o PUD/GERD/Liver disease/ ETOH excess : No h/o disease Renal: No h/o CRI/ESRD Endo: h/o T2DM oral agents Heme: No h/o excessive bleeding/ bruising, no h/o anemia, no h/o blood products Onc: No h/o malignancy VTE: No h/o DVT/PE Rheum: No h/o rheumatologic disease Psychiatric: No h/o psychiatric disease Anesthesia complications: no history of difficult intubation , adverse effects of anesthetic agents, or family history of anesthesia-related problems, nor malignant hyperthermia MEDCATIONS: No current facility-administered medications on file prior to encounter. No current outpatient medications on file prior to encounter. ALLERGIES: Patient has no known allergies. Latex Allergy: No OBJECTIVE: BP 127/64 (BP Location: left arm) Pulse 69 Temp 98.1 F (36.7 C) (Oral) Resp 16 Ht 5' 5 (1.651 m) Wt 212 lb (96.2 kg) SpO2 96% BMI 35.28 kg/m Intake/Output Summary (Last 24 hours) at 01/03/20222199 Last data filed at 01/03/20222031 Gross per 24 hour Intake 480 ml Output -- Net 480 ml PHYSICAL EXAM: General: WDWN, Lying in bed, mild discomfort d/t RUE pain, alert, conversational. Skin: Warm, dry. Abrasion RLE. Nevus LLE. HEENT: NCAT. EOMI. PERRL. Dentures Neck: FROM. Supple. No JVD, lymphadenopathy CV: RRR. Heart murmur 2/6 systolic murmur best heard at LUSB Lungs: Lungs clear to auscultation. Good air entry bilaterally Abdomen: Abdomen soft and non-tender. BS normal No masses or organomegaly. Extremities: RUE bandaged and with limited ROM d/t pain. Remaining extremities normal. No edema. Neuro: No focal neurological deficits Pulses: 2+ carotid and radial pulses : Not examined/ Not indicated AIRWAY EXAM: Mallampati Classification of Airway: Class III Only soft palate visible Neck Extension: FROM Mouth Openin fingers Teeth: dentures ASA Classification: Class II: Individual with one system well controlled disease. Disease does not affect daily living. LAB DATA: CBC (last 3 years, up to 5 values) None PT/INR None Basic Metabolic Panel None GFR could not be estimated; serum creatinine not found Fingerstick Glucose None Hepatic/Biliary/Pancreas None Arterial Blood Gases None Cardiac None Lipids (last 3 years, up to 5 values) None No results found for: HBA1C Unable to assess ASCVD risk (required inputs: age 40-79; cholesterol 130-320 in past 5 years, HDL 20-100 in past 5 years, systolic BP 90-200, smoking status) IMAGING/OTHER: EKG: NA CT ELBOW RIGHT W/O CONTRAST IMPRESSION: Acute, comminuted, depressed laterally displaced fracture of the lateral of the lateral epicondyle with extension into the capitulum and trochlea. Suspecting underlying ulna collateral injury. Multiple loose fracture fragments identified within the joint capsule. Associated moderate swelling of thesoft tissues without focal fluid collection. XR HUMERUS RIGHT IMPRESSION: Acute fracture of the lateral epicondyle with intra-articular extension. The mid and proximal portions of the humerus are intact. XR FOREARM RIGHT 2 VIEWS IMPRESSION: 1. Acute displaced fracture of the lateral epicondyle with intra-articular extension. The radius and ulna are intact. 2. Soft tissue swelling of the forearm XR ELBOW RIGHT MINIMUM 3 VIEWS IMPRESSION: Acute displaced fracture of the lateral epicondyle with extension into the joint space. Adjacent lateral soft tissue swelling. RISK CALCULATOR ASSESSMENT: NSQIP RCRI 0 points = Class I risk (3.9% 30-day risk of , UT, or cardiac arrest) ASSESSMENT: 66 year old female with PMH notable for HTN, HLD, DM, and planned for ORIF RUE. Medicine is consulted for pre-surgical evaluation. Functional/exercise capacity: >4.0 METs History: HTN: controlled on lisinopril T2DM: controlled on metformin HLD: on rosuvastatin : no follow up since diagnosis 2012; asymptomatic Patient has minor clinical predictors of increased perioperative cardiovascular risk and patient isscheduled for a procedure that is medium risk. RECOMMENDATIONS: Recommendations to surgical team: Blood sugar on AM of surgery Continue statin throughout periop period Target blood sugar values <180 mg/dl postoperatively Sleep apnea monitoring per Anesthesia protocol Hold ACEi/ARB/diuretic day of surgery. Hold metformin on the evening prior to surgery and the morning of surgery. Final clearance pending cardiology recommendations. Although Pt is currently on ACEi, it is suggested that Pt follow up with cardiology/PCP regarding use of ACEi in setting of , as this is frequently contraindicated. Patient is medically optimized for surgery pending : Labs EKG, and clearance by cardiology. Patient was intructed on the following: -NPO after midnight before surgery except following meds with sip of water on AM of surgery -Follow up PCP regarding sleep study for suspected MARITZA as outpatient. -Follow up with PCP/cardiology regarding management of . Post-op pain management/antibiotics/anticoagulation/blood products/wound care: - management per surgical team Staffed with Dr. Garcia. Eliza Blunt MD, PhD Internal Medicine/Pediatrics PGY 3 HAO Pager (19/04): [phone] (click to text page) Attending/Teaching Physician Note: I saw and evaluated Shruti Locke. I personally obtained the hooks and critical portions of the history and physical exam. I reviewed the resident's documentation and discussed the patient with the resident. I agree with the resident's medical decision making as documented in the resident's note. Additional Findings, Impression and Plan: [Principal Hospital Problem (Final Diagnosis)] Closed fracture of right distal humerus [Secondary Hospital Problems] Closed fracture of distal end of right humerus, unspecified fracture morphology, initial encounter HTN (hypertension) HLD (hyperlipidemia) Nonrheumatic aortic valve stenosis I was consulted for pre-surgical evaluation due to concern for aortic stenosis and medical comorbidities. Patient is low risk for moderate risk procedure. Risk of M LESLYE less than 1%. Cardiology evaluated aortic stenosis and it is not severe. Would avoid fluid shifts as possible during surgery. Further specific recommendations per Cardiology. I explained the risks and benefits of surgery to the patient and she agrees to move forward as scheduled. Med consult will see the patient at least once after surgery. Please call for questions/comanagement. Emmett Garcia MD documented in this [id number] History of Present illness Narrative* Tj Reyes MD - 01/04/2022 11:20 AM EDT Bedside echo performed to assess for aortic stenosis severity Patient couldn't lay left lateral, hence imaging obtained in supine position. Aortic valve opens adequately, calcified, no AI on color doppler LVEF ~55+/-5% Full echo to be performed on Wednesday Discussed with Dr. Kumar and Dr Jarvis * Adalid Tatum DO - 01/04/2022 1:41 AM EDT Images from the original note were not included. Orthopaedics Progress Note Shruti Cornelia [id number] 01/04/22 S: No acute events overnight. Pain is well-controlled. Denies cp/sob/n/v. No fevers/chills. O: BP 127/64 (BP Location: left arm) Pulse 69 Temp 98.1 F (36.7 C) (Oral) Resp 16 Ht 5' 5 (1.651 m) Wt 212 lb (96.2 kg) SpO2 96% BMI 35.28 kg/m Alert, awake Right Upper Extremity TTP over R elbow over splint Splint c/d/i SILT m/r/u/a nerves of RUE Motor intact intrinsic, healthcare technician, wrist flexion Radial pulse 2+ at wrist, cap refill<2s Compartments soft and compressible Labs Basic Metabolic Panel Na K Cl CO2 Gap Glu BUN Cr Ca 01/03/22 1707 137 4.1 103 22 16 166 14 0.91 9.6 CBC (last 3 years, up to 5 values) WBC RBC Hgb Hct MCV RDW Plt 01/03/22 1707 8.7 4.48 12.8 37.2 83 13.7 132 A/P: Shruti Locke is a 66 year old female with R lateral epicondyle and capitellum fractures - Pain control: oxycodone PRN - NPO for surgery today - pt will need echo today for medical/cardiology clearance - plan for surgical fixation 01/04 once clear for OR - maintain splint RUE. Alarcon, elevate Phong Tatum DO Orthopaedic Surgery PGY-2 Pager [phone] 01/04/22 1:45 AM Team A: - Osmany Hanson, PGY-1, [phone] - Andres Rodriguez, PGY-3, [phone] - Phong Tatum, PGY-2, [phone] Team B: - Toni Gilmore, PGY-2, [phone] - WEI Medrano, PGY-2, [phone] Elective Team: - Bertin Geronimo, PGY-2, [phone] - Lenin Carpio, PGY-3, [phone] Hand Team: - Denis Garcia, PGY-4, [phone] After 5 pm and on weekends, please page foreign correspondent resident ([phone]) with questions or concerns. documented in this [id number] Miscellaneous Notes* Care Plan Note - Abby Soares RN - 01/04/2022 10:28 AM EDT Problem: Routine Care: Goal: Patient care will be managed and maintained throughout hospital stay per unit specific routine care procedure Outcome: Progressing Problem: Acute Pain: Goal: Ability to identify pain intensity on a pain scale and rate it consistently will be achieved and maintained Outcome: Progressing Goal: Understanding of proper administration and use of medicines will be achieved Outcome: Progressing Goal: Acceptable level of pain which allows the patient to achieve functional outcome goals Outcome: Progressing Problem: Impaired Mobility: Goal: Ability to tolerate increased activity will improve and be maintained Outcome: Progressing Goal: Ability to maintain or regain baseline function will be acheived Outcome: Progressing Goal: Range of joint motion will improve Outcome: Progressing Goal: Will be free of DVT Outcome: Progressing Problem: Alteration in Tissue Perfusion: Peripheral: Goal: Promote adequate perfusion and limit complications for a person experiencing or is at risk for inadequate tissue perfusion in peripheral circulation Outcome: Progressing Problem: Impaired Skin Integrity: Goal: Acheive wound healing without signs and symptoms of infection Outcome: Progressing Problem: Risk for Infection: Goal: Risk for infection will be reduced Outcome: Progressing Problem: Altered Elimination: Goal: Establishment of normal bowel function will be achieved and maintained Outcome: Progressing Goal: Establishment of normal urinary function will be acheived and maintained Outcome: Progressing Problem: Anticoagulation Therapy: Goal: Ability to acheive therapeutic anticoagulation therapy with be maintained Outcome: Progressing Problem: VTE Prophylaxis: Goal: Will be free of DVT Outcome: Progressing Problem: Safety: Goal: Patient will remain free of falls during hospital stay Outcome: Progressing Problem: Discharge Planning: Goal: Discharge needs of the adult patient will be met Outcome: Progressing Goal: Discharge needs of the pediatric patient will be met Outcome: Progressing * Care Plan Note - Hong Lebron RN - 01/03/2022 9:31 PM EDT Problem: Routine Care: Goal: Patient care will be managed and maintained throughout hospital stay per unit specific routine care procedure Outcome: Progressing Problem: Acute Pain: Goal: Ability to identify pain intensity on a pain scale and rate it consistently will be achieved and maintained Outcome: Progressing Goal: Understanding of proper administration and use of medicines will be achieved Outcome: Progressing Goal: Acceptable level of pain which allows the patient to achieve functional outcome goals Outcome: Progressing Problem: Impaired Mobility: Goal: Ability to tolerate increased activity will improve and be maintained Outcome: Progressing Problem: Impaired Mobility: Goal: Ability to tolerate increased activity will improve and be maintained Outcome: Progressing Goal: Ability to maintain or regain baseline function will be acheived Outcome: Progressing Goal: Range of joint motion will improve Outcome: Progressing Goal: Will be free of DVT Outcome: Progressing Problem: Alteration in Tissue Perfusion: Peripheral: Goal: Promote adequate perfusion and limit complications for a person experiencing or is at risk for inadequate tissue perfusion in peripheral circulation Outcome: Progressing Problem: Impaired Skin Integrity: Goal: Acheive wound healing without signs and symptoms of infection Outcome: Progressing Problem: Risk for Infection: Goal: Risk for infection will be reduced Outcome: Progressing Problem: Altered Elimination: Goal: Establishment of normal bowel function will be achieved and maintained Outcome: Progressing Goal: Establishment of normal urinary function will be acheived and maintained Outcome: Progressing Problem: Anticoagulation Therapy: Goal: Ability to acheive therapeutic anticoagulation therapy with be maintained Outcome: Progressing Problem: VTE Prophylaxis: Goal: Will be free of DVT Outcome: Progressing Problem: Safety: Goal: Patient will remain free of falls during hospital stay Outcome: Progressing Problem: Discharge Planning: Goal: Discharge needs of the adult patient will be met Outcome: Progressing Goal: Discharge needs of the pediatric patient will be met Outcome: Progressing * Anesthesia Attestation - Minna Sin DO - 01/03/2022 5:40 PM EDT Anesthesia Attestation ATTESTATION OF INFORMED CONSENT FOR ANESTHESIA Anesthesia options were discussed with the patient and/or legal inbound call center representative. The risks, benefits and alternatives were reviewed. Questions regarding anesthesia were answered. Patient and/or legal inbound call center representative knows such anesthetics and procedures may be performed by Resident physicians, Certified Anesthesiologist Assistants, or Certified Nurse Anesthetists under the supervision of a physician. The patient /or the patient s legal representativeagree with the plan for anesthesia. * Blood Attestation - Minna Sin DO - 01/03/2022 5:40 PM EDT Blood Attestation ATTESTATION OF INFORMED CONSENT FOR BLOOD The transfusion of blood and/or blood components were discussed with the patient and/or legal inbound call center representative. The risks, benefits and alternatives were reviewed. Questions regarding blood transfusions were answered. The patient /or the patient s legal inbound call center representative agree with the plan for transfusion of blood and/or blood components. 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 Indications for Study:Aortic stenosis. Tech. Comments Patient identified by name and date of . Doctor's order(s) verified. Findings/Conclusions Chambers Valves AV The valve could not be adequately visualized. Summary Nondiagnostic study. Authenticated by: Electronically signed and authenticated by EDWINA MEDRANO MD(Interpreting physician) on 01/05/2022 07:37 AM documented in this [id number] Reason for referral (narrative)* Tests/Procedures (Emergency) - Authorized Specialty Diagnoses / Procedures Referred By Contact Referred To Contact Cardiovascular Testing Procedures ECHOCARDIOGRAM, ADULT SERVICE REQUEST [address] [place] [address] [facility] CARD NON INVASIVE [address] [place] [address] Referral ID Status Reason Start Date Expiration Date V isits Requested Visits Authorized [id number] Authorized 01/04/2022 01/04/2023 1 1 * Service Level Authorization (Emergency) - Authorized Specialty Diagnoses / Procedures Referred By Contac t Referred To Contact Radiology Procedures XR ELBOW RIGHT MINIMUM 3 VIEWS Adalid Tatum DO [address] [place] [address] [facility] DIAGNOSTIC RADIOLOGY [address] [facility] [place] [address] Referral ID Status Reason Start Date Expiration Date V isits Requested Visits Authorized [id number] Authorized 01/03/2022 01/03/2023 1 1 * Service Level Authorization (Emergency) - Closed Specialty Diagnoses / Procedures Referred By Contac t Referred To Contact Radiology Procedures XRAY UPPER EXTREMITY IMAGE IMPORT(BRAIN) DOWNLOAD POWERSHARE IMAGES TO [facility] Adalid Tatum DO [address] [place] [address] [facility] DIAGNOSTIC RADIOLOGY [address] [facility] [place] [address] Referral ID Status Reason Start Date Expiration Date Visits Re quested Visits Authorized [id number] Closed 01/03/2022 01/03/2023 1 1 [id number] History and physical note* Adalid Tatum DO - 01/04/2022 1:46 AM EDT I have reviewed the patient's History and Physical Examination. I have personally seen and evaluated the patient, repeating hooks portions. There is no significant interval change. Surgery is still indicated. Yes Consent reviewed and signed by patient/family: Yes Operative site verified: Yes Adalid Tatum DO Orthopaedic Surgery PGY-2 Pager [phone] 01/04/22 1:46 AM Alternative Team members: Ortho Team A Bertin Geronimo [phone] Ajay Gilmore [phone] After 5 pm and on weekends, please page foreign correspondent resident ([phone]) with questions or concerns. * Adalid Tatum DO - 01/03/2022 4:46 PM EDT Orthopaedic Surgery Consult H&P Requesting Provider / Service: ED CC: R elbow pain HPI: 66 year old female presents to [facility] c/o righ elbow pain after mechanical fall. Pt fell yesterday while in [facility]. Pt lives in [facility]. Pt presented to outside facility and was found to have R elbow fractures. Pt transferred here for definitive treatment. Pt denies any other injury. Onset: yesterday Location: R elbow Duration: constant Aggravating factors: movement Pain ratin/10 Associated symptoms: none Denies history of VTE. Former smoker. PMH: No past medical history on file. DM, HTN, HLD No past surgical history on file. Tubal ligation Social History Socioeconomic History Marital status: No Known Allergies No current facility-administered medications for this encounter. No current outpatient medications on file. Family History: non contributory Review of Systems: ROS No pertinent symptoms related to systems other than those stated above. O: Patient Vitals for the past 24 hrs: BP Temp Temp src Pulse Resp SpO2 O2 Device 01/03/22 1342 130/67 98.1 F (36.7 C) Temporal 80 18 100 % Room air No intake or output data in the 24 hours ending 01/03/22 1647 PE: BP 130/67 Pulse 80 Temp 98.1 F (36.7 C) (Temporal) Resp 18 SpO2 100% GEN: AaOx4, NAD HEENT: normocephalic atraumatic, EOMI, MMM, pupils equal and round PSYCH: appropriate mood and affect RESP: nonlabored breathing on room air CARDIAC: Extremities WWP, RRR to peripheral palpation NEURO: CN 2-12 grossly intact SKIN: warm and dry Right upper extremity: - Skin intact. Eccymosis over elbow - Tender to palpation over R elbow - pain with movement of R elbow - AIN/PIN/Uln motor fxn intact - SILT axillary, radial, median, ulnar - 2+ radial pulse. Cap refill < 2 seconds in all digits. - Compartments soft and compressible. A complete secondary exam was performed, and no injuries were identified other than those stated above. Labs: Basic Metabolic Panel None Cardiac None Imagin-view radiographs of the right elbow, obtained at [facility] today, show Acute, mildly displaced fracture of the lateral epicondyle with extension into the capitulum. Mild lateral soft tissue swelling. CT pending A/P: 66yo F with lateral epicondyle and capitellum fractures - pt splinted in the ED - CT for pre-op planing - NPO - pain control - admit to orthopedic service - plan for surgical intervention this evening- ORIF R elbow Phong Tatum DO Orthopedic Surgery, PGY-2 Pager [phone] For questions/issues: Patient will be followed by Team A Team A: - Osmany Hanson, PGY-1, [id number] - Andres Rodriguez, PGY-3, [phone] - Phong Tatum, PGY-2, [id number] Team B: - Toni Gilmore, PGY-2, [phone] - WEI Medrano, PGY-2, [phone] Elective Team: - Bertin Geronimo, PGY-2, [phone] - Lenin Carpio, PGY-3, [phone] Hand Team: - Denis Garcia, PGY-4, [phone] After 5 pm and on weekends, please page the on-call resident ([phone]) with questions or concerns. 12/27/21 This consult was seen and staffed within 30 minutes of the initial consult. documented in this [id number] Emergency department Note* Oliver Ivey MD - 01/03/2022 4:58 PM EDT SECOND ATTENDING PHYSICIAN 01/03/2022 4:58 PM Patient was endorsed to me at 3:00 PM from Brenda Zavala Initial H&P as obtained and documented by Brenda Zavala. ED Medications: Medications ceFAZolin (ANCEF) 2,000 mg in dextrose 50 mL ivpb (has no administration in time range) ED Provider Transfer of Care Admission Report: Clinical Impression: Clinical Impression Diagnosis Comment Closed fracture of right elbow, initial encounter [S42.401A] Closed fracture of distal end of right humerus, unspecified fracture morphology, initial encounter [S42.401A] Reason for admission: OR admission Pending labs: CBC, BMP, TYPE AND SCREEN and PT & INR Pending imaging results: XR ELBOW RIGHT Report called to Orthopedics. MEDICAL DECISION MAKING Vital Signs: Reviewed the patient s vital signs. Nursing Notes: Reviewed and utilized the nursing notes. Signal Mechanic: not needed - patient preferred language is S[place]. Radiology Studies: Ordered and reviewed the radiology images. Reviewed the radiologist's preliminary report which reads as follows: XR ELBOW RIGHT MINIMUM 3 VIEWS: Acute, mildly displaced fracture of the lateral epicondyle with extension into the capitulum. Mild lateral soft tissue swelling. XR FOREARM RIGHT 2 VIEWS: Acute, mildly displaced fracture of the lateral epicondyle with intra-articular extension into the capitulum. XR HUMERUS RIGHT: Acute fracture of the lateral condyle with extension to the capitulum. CT ELBOW RIGHT W/O CONTRAST: Acute, comminuted fracture of the lateral still humerus including the lateral epicondyle with extension into the capitulum and trochlea. Multiple loose fracture fragmentsidentified within the joint capsule. Associated moderate swelling of the soft tissues without focalfluid collection. Medical Decision Making: Knee Fx, taken to OR by ortho. IMPRESSION AND DISPOSITION IMPRESSION Clinical Impression Diagnosis Comment Closed fracture of right elbow, initial encounter [S42.162A] Medical Screening Exam: The patient has received a medical screening examination and within reasonable clinical confidence the patient was stabilized within the capabilities of the Emergency Department and requires admission for further stabilization and / or evaluation DISPOSITION Disposition: Admitted. Time of admission:5:30 PM . Report given to Orthopedics. Patient condition: Stable COUNSELING Counseling: Spoke with the patient and discussed today s findings, in addition to providing specific details for the plan of care and counseling regarding the diagnosis and prognosis. She was given the opportunity to ask questions. Discussed the plan for admission. SCRIBE ATTESTATION 01/03/2022, 5:11 PM. This note is prepared by Herber Gloria acting as Scribe for Oliver Trujillo All medical record entries made by the Scribe were at my direction and personally dictated by me. Margot reviewed the record and confirm that the note above accurately reflects all work, treatment, procedures, and medical decision making performed by me. Oliver Trujillo. * Marianna Zavala MD - 01/03/2022 3:34 PM EDT Images from the original note were not included. EMERGENCY DEPARTMENT - VISIT NOTE HISTORY OF PRESENT ILLNESS Chief Complaint Patient presents with Arm symptoms Right arm fracture [facility] HIPAA: Verbal permission granted from patient to discuss case, including protected health information, in front of family / friends in room at the time of the evaluation. Signal Mechanic: not needed - patient preferred language is [place]. The history is provided by the Patient. Shruti Locke is a 66 year old female RHD presenting to the ED for right elbow fracture. Pt reports she tripped and fell over concrete barrier yesterday while she was in [place], [place]. Fell onto right elbow. Denies any other injury. Went to [facility] in [place], [place], had xray and CT which demonstrated right elbow fx. Pt was splinted and given percocet rx for pain. Pt is from [place], [place] and went to [facility] today and was referred to [facility] for orthopedic consultation. Pt last took percocet approx 11am today which is helping with pain. Pain is constant in right elbow. Last ate at 10pm last night.Denies numbness or weakness in hand. Denies head pain, neck or back pain. REVIEW OF SYSTEMS The following systems were reviewed and are negative except as noted: the remainder of the systems were reviewed and all others are negative except as noted above PAST HISTORY Pertinent Past History: HTN, HL Pertinent Social History: denies tob use PHYSICAL EXAM BP 130/67 Pulse 80 Temp 98.1 F (36.7 C) (Temporal) Resp 18 SpO2 100% Exam: Constitutional Nursing triage notes reviewed, Vital signs reviewed, Alert, Awake, No acute distressand sitting in chair HENT Head atraumatic Eyes Pupils equal round and reactive to light and Extraocular muscles intact Neck Supple and Non tender Lungs Clear to auscultation Heart Regular rate and rhythm Back No midline bony tenderness to thoracic/lumbar/sacral spines Extremities Full ROM all 4 extremities except right elbow. R UE in posterior long arm splint and sling; no tenderness over right wrist/ hand. +2 radial pulse on R Neuro Alert normally oriented, Normal speech and distal m/u/r motor and sensation intact to lt touch in R UE Skin Warm and Dry Psych Normal affect, Good eye contact and Cooperative MEDICAL DECISION MAKING and ED COURSE Nursing triage and assessment notes reviewed and incorporated Chart Reviewed: Summary of pertinent elements includes CT right elbow report from yesterday shows comminuted intra-articular fx through capitellum and lateral epicondyle [employer] History Professor Orthopedics Recommend repeat xrays, may need ORIF this evening. OARRS was reviewed today: NO concerning data. MDM/Plan: pt here for orthopedic consultation of right elbow fracture s/p mechanical fall yesterday. NVI distally. xrays pending and final recommendations pending at sign out to Dr. Ivey at 1500. Marianna Zavala MD IMPRESSION AND DISPOSITION Clinical Impression Diagnosis Comment Closed fracture of right elbow, initial encounter [S42.401A] pending orthopedic consultation Marianna Zavala MD documented in this [id number] Evaluation + Plan note Extracted from: Title:ED Note Author:Timo MS III, Yaakov Jalloh e:01/03/22 1. Fracture of right elbow ( S42.401A: Unspecified fracture of lower end of right humerus, initial encounter for closed fracture) Orders: XR Elbow 2 Views Right [facility]04-09-2022 Hospital Discharge instructions Patient Education 01/03/2022 11:36:25 Cast or Splint Care, Adult, [id number] Cast or Splint Care, Adult Casts and splints are supports that are worn to protect broken bones and other injuries. A cast or splint may hold a bone still and in the correct position while it heals. Casts and splints may also help to ease pain, swelling, and muscle spasms. How to care for your cast Do not stick anything inside the cast to scratch your skin. Check the skin around the cast every day. Tell your doctor about any concerns. You may put lotion on dry skin around the edges of the cast. Do not put lotion on the skin under the cast. Keep the cast clean. If the cast is not waterproof: ?Do not let it get wet. ?Cover it with a watertight covering when you take a bath or a shower. How to care for your splint Wear it as told by your doctor. Take it off only as told by your doctor. Loosen the splint if your fingers or toes tingle, get numb, or turn cold and blue. Keep the splint clean. If the splint is not waterproof: ?Do not let it get wet. ?Cover it with a watertight covering when you take a bath or a shower. Follow these instructions at home: Bathing Do not take baths or swim until your doctor says it is okay. Ask your doctor if you can take showers. You may only be allowed to take sponge baths for bathing. If your cast or splint is not waterproof, cover it with a watertight covering when you take a bath or shower. Managing pain, stiffness, and swelling Move your fingers or toes often to avoid stiffness and to lessen swelling. Raise (elevate) the injured area above the level of your heart while sitting or lying down. Safety Do not use the injured limb to support your body weight until your doctor says that it is okay. Use crutches or other assistive devices as told by your doctor. General instructions Do not put pressure on any part of the cast or splint until it is fully hardened. This may take many hours. Return to your normal activities as told by your doctor. Ask your doctor what activities are safe for you. Keep all follow-up visits as told by your doctor. This is important. Contact a doctor if: Your cast or splint gets damaged. The skin around the cast gets red or raw. The skin under the cast is very itchy or painful. Your cast or splint feels very uncomfortable. Your cast or splint is too tight or too loose. Your cast becomes wet or it starts to have a soft spot or area. You get an object stuck under your cast. Get help right away if: Your pain gets worse. The injured area tingles, gets numb, or turns blue and cold. The part of your body above or below the cast is swollen and it turns a different color (is discolored). You cannot feel or move your fingers or toes. There is fluid leaking through the cast. You have very bad pain or pressure under the cast. You have trouble breathing. You have shortness of breath. You have chest pain. This information is not intended to replace advice given to you by your health care provider. Make sure you discuss any questions you have with your health care provider. Document Released: 01/13/2012 Document Revised: 01/03/2020 Document Reviewed: 09/03/2017 [employer] Patient Education 2020 [employer]. Follow Up Care 01/03/2022 08:43:16 With:Go directly to [facility] emergency room to be evaluated by Dr. Avila Address:Unknown When: Unknown With:ADA NEFF Address: [address] [place], [place] [id number]- [facility] (1) When:Within 3 Day(s) [facility] Diagnosis Other closed displaced fracture of distal end of right humerus, initial encounter- Primary [facility] Diagnosis Closed fracture of right elbow, initial encounter Closed fracture of distal end of right humerus, unspecified fracture morphology, initial encounter Hyperlipidemia, unspecified hyperlipidemia type Hypertension, unspecified type Nonrheumatic aortic valve stenosis Aortic valve disorders [facility]* Diagnosis Closed fracture of distal end of right humerus, unspecified fracture morphology, initial encounter- Primary Acute post-operative pain Nonrheumatic aortic valve stenosis Aortic valve disorders Hyperlipidemia, unspecified hyperlipidemia type Hypertension, unspecified type [facility]* Diagnosis Other closed displaced fracture of distal end of right humerus, initial encounter- Primary [facility]* Diagnosis Other closed displaced fracture of distal end of right humerus, initial encounter- Primary [facility]* Diagnosis Other closed displaced fracture of distal end of right humerus, initial encounter- Primary [facility]* Diagnosis Other closed displaced fracture of distal end of right humerus, initial encounter- Primary [facility]* Diagnosis Other closed displaced fracture of distal end of right humerus, initial encounter [facility]* Diagnosis Other closed displaced fracture of distal end of right humerus, initial encounter- Primary [facility]* Diagnosis Other closed displaced fracture of distal end of right humerus, initial encounter- Primary Stiffness of right elbow joint Stiffness of finger joint of right hand [facility]* Diagnosis Other closed displaced fracture of distal end of right humerus, initial encounter [facility]* Diagnosis Other closed displaced fracture of distal end of right humerus, initial encounter- Primary [facility]* Diagnosis Other closed displaced fracture of distal end of right humerus, initial encounter [facility]* Diagnosis Other closed displaced fracture of distal end of right humerus, initial encounter- Primary [facility]* Diagnosis Other closed displaced fracture of distal end of right humerus, initial encounter- Primary [facility]* Diagnosis Other closed displaced fracture of distal end of right humerus, initial encounter- Primary Other closed displaced fracture of distal end of right humerus, initial encounter [facility] noteNo assessment information availableMercy Health [facility] Work Phone: Evaluation noteNo InformationNortJefferson [facility] [employer] Other Evaluation note* Diagnosis Other closed displaced fracture of distal end of right humerus, initial encounter- Primary Closed supracondylar fracture of right humerus, initial encounter Closed fracture of proximal end of right humerus, unspecified fracture morphology, initial encounter Other closed displaced fracture of distal end of right humerus, initial encounter [facility]* Diagnosis Other closed displaced fracture of distal end of right humerus, initial encounter [facility]* Diagnosis Other closed displaced fracture of distal end of right humerus, initial encounter- Primary Closed supracondylar fracture of right humerus, initial encounter Closed fracture of proximal end of right humerus, unspecified fracture morphology, initial encounter Age-related osteoporosis without current pathological fracture Senile osteoporosis Closed supracondylar fracture of right humerus, initial encounter Closed fracture of proximal end of right humerus, unspecified fracture morphology, initial encounter [facility]* Diagnosis Acute pain of right shoulder- Primary Stiffness of right shoulder joint [facility] Diagnosis Acute pain of right shoulder- Primary Stiffness of right shoulder joint [facility]* Diagnosis Acute pain of right shoulder- Primary Stiffness of right shoulder joint [facility]* Diagnosis Acute pain of right shoulder- Primary Stiffness of right shoulder joint [facility]* Diagnosis Chronic right shoulder pain- Primary Pain in joint, shoulder region Vitamin D deficiency Unspecified vitamin D deficiency Chronic right shoulder pain Pain in joint, shoulder region [facility]* Diagnosis Chronic right shoulder pain Pain in joint, shoulder region [facility] Narrative No data available for this section [facility] for referral (narrative)* Tests/Procedures (Routine) - Authorized Specialty Diagnoses / Procedures Referred By Contac t Referred To Contact Diagnoses Other closed displaced fracture of distal end of right humerus, initial encounter Janice Roland PA-C [address] [facility] [address] [place] [id number] Referral ID Status Reason Start Date Expiration Date V isits Requested Visits Authorized [id number] Authorized 03/02/2023 03/02/2024 3 3 Comments [facility] elbow right [facility] Tests/Procedures (Routine) - Authorized Specialty Diagnoses / Procedures Referred By Contac t Referred To Contact Diagnoses Vitamin D deficiency Janice Roland PA-C [address] [facility] [place] [address] Referral ID Status Reason Start Date Expiration Date V isits Requested Visits Authorized [id number] Authorized 01/10/2024 01/09/2025 3 3 Comments 25-hydroxy vit D. Vit D lab - check level * Diagnostic X-Ray (Routine) - Closed Specialty Diagnoses / Procedures Referred By Contac t Referred To Contact Radiology Diagnoses Chronic right shoulder pain Procedures XR ELBOW RIGHT MINIMUM 3 VIEWS Janice Roland PA-C [address] [place] [address] [place] [address] [facility] DI[facility] [address] [place] [address] [place] [address] Referral ID Status Reason Start Date Expiration Date Visits Re quested Visits Authorized [id number] Closed 01/10/2024 01/04/2025 1 1 * Diagnostic X-Ray (Routine) - Closed Specialty Diagnoses / Procedures Referred By Contac t Referred To Contact Radiology Diagnoses Chronic right shoulder pain Procedures XR SHOULDER RIGHT MINIMUM 2 VIEWS Janice Roland PA-C [address] [place] [address] [place] [address] [facility] [address] [place] [address] [place] [address] Referral ID Status Reason Start Date Expiration Date Visits Re quested Visits Authorized [id number] Closed 01/10/2024 01/04/2025 1 1 [facility] N[facility]* Auth/Cert Specialty Diagnoses / Procedures Referred By Contac t Referred To Contact General Surgery Diagnoses Closed fracture of right elbow, initial encounter Closed fracture of right elbow, initial encounter [S42.401A] Procedures OPEN TREATMENT, HUMERAL SUPRACONDYLAR/TRANSCOND YLAR FRACTURE; W/INTERCONDYLAR EXTENSION REDUCTION, OPEN, HUMERUS, DISTAL Tanmay Scott MD [address] [place] [address] [facility] [address] [facility] [place] [address] Phone: [phone] Referral ID Status Reason Start Date Expiration Date Visits Re quested Visits Authorized [id number] 3 3 [facility] Advance Directives No Advanced Directives Records FoundLatest Code Status on File Code Status Date Activated Date Inactivated Comments Full Code 01/03/2022 6:46 PM Documentation of decision pr ocess for this code status: Patient and surrogate unable or unavailable to discuss. There is no previous documentation of code status. Defaulting to Full Code Latest Code Status on File Code Status Date Activated Date Inactivated Comments Full Code 01/03/2022 6:46 PM Latest Code Status on File Code Status Date Activated Date Inactivated Comments Full Code 01/03/2022 6:46 PM 01/04/2022 7:48 PM Latest Code Status on File Code Status Date Activated Date Inactivated Comments Full Code 01/03/2022 6:46 PM 01/04/2022 7:48 PM Latest Code Status on File Code Status Date Activated Date Inactivated Comments Full Code 01/03/2022 6:46 PM 01/04/2022 7:48 PM Question Answer Comments Documentation of decision process for this code status: Patient and surrogate unable or unavailable to discuss. There is no previous documentation of code status. Defaulting to Full Code Latest Code Status on File Code Status Date Activated Date Inactivated Comments Full Code 01/03/2022 6:46 PM 01/04/2022 7:48 PM Question Answer Comments Documentation of decision process for this code status: Patient and surrogate unable or unavailable to discuss. There is no previous documentation of code status. Defaulting to Full Code Latest Code Status on File Code Status Date Activated Date Inactivated Comments Full Code 01/03/2022 6:46 PM 01/04/2022 7:48 PM Question Answer Comments Documentation of decision process for this code status: Patient and surrogate unable or unavailable to discuss. There is no previous documentation of code status. Defaulting to Full Code Reason for Referral Specialty Diagnoses / Procedures Referred By Angie sifuentes Referred To Contact Radiology Diagnoses Chronic right shoulder pain Procedures XR SHOULDER RIGHT MINIMUM 2 VIEWS Janice Roland PA-C [address] [place] [address] [place] [address] [facility] [address] [place] [address] [place] [address] Referral ID Status Reason Start Date Expiration Date Visits Re quested Visits Authorized [id number] Closed 01/10/2024 01/04/2025 1 1 Specialty Diagnoses / Procedures Referred By Contac t Referred To Contact Radiology Diagnoses Chronic right shoulder pain Procedures XR ELBOW RIGHT MINIMUM 3 VIEWS Janice Roland PA-C [address] [place] [address] [place] [address] [facility] [address] [place] [address] [place] [address] Referral ID Status Reason Start Date Expiration Date Visits Re quested Visits Authorized [id number] Closed 01/10/2024 01/04/2025 1 1 Specialty Diagnoses / Procedures Referred By Contac t Referred To Contact Radiology Diagnoses Closed fracture of proximal end of right humerus, unspecified fracture morphology, initial encounter Age-related osteoporosis without current pathological fracture Procedures BD BONE DENSITY SURVEY Tanmay Scott MD [address] [place] [address] [facility] BONE DENSITY [address] [place] [address] Referral ID Status Reason Start Date Expiration Date V isits Requested Visits Authorized [id number] Authorized 10/11/2023 10/10/2024 1 1 Specialty Diagnoses / Procedures Referred By Contac t Referred To Contact Diagnoses Closed fracture of proximal end of right humerus, unspecified fracture morphology, initial encounter Tanmay Scott MD [address] [place] [address] Referral ID Status Reason Start Date Expiration Date Visits Requested Visits Authorized [id number] Authorized Patient Preference 10/11/2023 10/11/2024 3 3 Comments PT for the elbow and shoulder AAROM and AROM with gentle PROM as the fractures are healing nicely Eval and treat Advance as tolerated Modalities prn Visits 20 Referral ID Status Reason Start Date Expiration Date Visits Requested Visits Authorized [id number] Authorized Patient Preference 10/11/2023 10/11/2024 3 3 Comments Dexa scan for osteoporosis Specialty Diagnoses / Procedures Referred By Contac t Referred To Contact Radiology Diagnoses Closed supracondylar fracture of right humerus, initial encounter Procedures XR ELBOW RIGHT MINIMUM 3 VIEWS Janice Roland PA-C [address] [place] [address] [place] [address] [facility] [address] [address] [place] [address] Referral ID Status Reason Start Date Expiration Date Visits Re quested Visits Authorized [id number] Closed 10/11/2023 10/10/2024 1 1 Specialty Diagnoses / Procedures Referred By Contac t Referred To Contact Radiology Diagnoses Closed fracture of proximal end of right humerus, unspecified fracture morphology, initial encounter Procedures XR SHOULDER RIGHT MINIMUM 2 VIEWS Janice Roland PA-C [address] [place] [address] [place] [address] [facility] [address] [place] [address] [place] [address] Referral ID Status Reason Start Date Expiration Date Visits Re quested Visits Authorized [id number] Closed 10/11/2023 10/10/2024 1 1 Specialty Diagnoses / Procedures Referred By Contac t Referred To Contact Radiology Diagnoses Other closed displaced fracture of distal end of right humerus, initial encounter Procedures XR ELBOW RIGHT MINIMUM 3 VIEWS Janice Roland PA-C [address] [place] [address] [place] [address] [facility] [address] [place] [address] Dr [place] [id number] Referral ID Status Reason Start Date Expiration Date V isits Requested Visits Authorized [id number] Authorized 01/14/2022 01/14/2023 1 1 Specialty Diagnoses / Procedures Referred By Contac t Referred To Contact Procedures US GUIDANCE NEEDLE PLACEMENT Main Or [address] [facility] [place] [address] Referral ID Status Reason Start Date Expiration Date V isits Requested Visits Authorized [id number] Authorized 01/06/2022 01/06/2023 3 3 Specialty Diagnoses / Procedures Referred By Contac t Referred To Contact Cardiology Diagnoses Nonrheumatic aortic valve stenosis Hyperlipidemia, unspecified hyperlipidemia type Hypertension, unspecified type Procedures CARDIOLOGY SERVICE REQUEST Janice Roland PA-C [address] [place] [address] [address] [place] [id number] [facility] HV [address] [place] [address] Referral ID Status Reason Start Date Expiration Date V isits Requested Visits Authorized [id number] Authorized 01/06/2022 07/05/2022 3 3 Specialty Diagnoses / Procedures Referred By Contac t Referred To Contact Radiology Procedures XR ELBOW RIGHT 2 VIEW XR ELBOW RIGHT MINIMUM 3 VIEWS Buzz Garcia MD [address] [place] [address] [place] [address] [facility] [address] [place] [address] [place] [address] Referral ID Status Reason Start Date Expiration Date Visits Re quested Visits Authorized [id number] Closed 01/06/2022 01/06/2023 1 1 Specialty Diagnoses / Procedures Referred By Contac t Referred To Contact Radiology Procedures XR ELBOW RIGHT MINIMUM 3 VIEWS Main Or [address] [place] [address] [facility] [address] [place] [address] [place] [address] Referral ID Status Reason Start Date Expiration Date V isits Requested Visits Authorized [id number] Authorized 01/06/2022 01/06/2023 1 1 Specialty Diagnoses / Procedures Referred By Contact Referred To Contact Cardiovascular Testing Procedures ECHOCARDIOGRAM, ADULT SERVICE REQUEST Janice Roland PA-C [address] [place] [address] [place] [address] [facility] CARD NON INVASIVE [address] [place] [address] Referral ID Status Reason Start Date Expiration Date V isits Requested Visits Authorized [id number] Authorized 01/06/2022 01/06/2023 1 1 Specialty Diagnoses / Procedures Referred By Contac t Referred To Contact Procedures US GUIDANCE NEEDLE PLACEMENT Minna Sin DO [address] [place] [address] Referral ID Status Reason Start Date Expiration Date V isits Requested Visits Authorized [id number] Authorized 01/06/2022 01/06/2023 3 3 Summary Purpose Family History No Family History Records FoundNo Family History Records FoundNo Family History Records FoundNo Family History Records FoundNo Family History Records FoundNo Family History Records Found Additional Source Comments Care Teams (unrecognized sec tion and content) Band Maker Relationship Specialty Start Date End Date Ada Neff MD [address] [place] [facility] [place] [address] PCP - General Family Medicine 01/03/22 Band Maker Relationship Specialty Start Date End Date Ada Neff MD [address] [place] [facility] [place] [address] PCP - General Family Medicine 01/03/22 Band Maker Relationship Specialty Start Date End Date Ada Neff MD [address] [place] [facility] [place] [address] PCP - General Family Medicine 01/03/22 Band Maker Relationship Specialty Start Date End Date Ada Neff MD [address] [place] [facility] [place] [address] PCP - General Family Medicine 01/03/22 Band Maker Relationship Specialty Start Date End Date Ada Neff MD [address] [place] [facility] [place] [address] PCP - General Family Medicine 01/03/22 Band Maker Relationship Specialty Start Date End Date Ada Neff MD [address] [place] [facility] [place] [address] PCP - General Family Medicine 01/03/22 Band Maker Relationship Specialty Start Date End Date Ada Neff MD [address] [place] [facility] [place] [address] PCP - General Family Medicine 01/03/22 Band Maker Relationship Specialty Start Date End Date Ada Neff MD [address] [place] [facility] [place] [address] PCP - General Family Medicine 01/03/22 Band Maker Relationship Specialty Start Date End Date Ada Neff MD [address] [place] [address] PCP - General Family Medicine 01/03/22 Chan Pricee, OTR/L [address] [place] [address] Occupational Therapist Occupational Therapy 01/31/22 Band Maker Relationship Specialty Start Date End Date Ada Neff MD [address] [place] [address] PCP - General Family Medicine 01/03/22 Shirley Price, OTR/L [address] [place] [address] Occupational Therapist Occupational Therapy 01/31/22 Band Maker Relationship Specialty Start Date End Date Ada Neff MD [address] [place] [address] PCP - General Family Medicine 01/03/22 Chan Pricee, OTR/L [address] [place] [address] Occupational Therapist Occupational Therapy 01/31/22 Band Maker Relationship Specialty Start Date End Date Ada Neff MD [address] [place] [address] PCP - General Family Medicine 01/03/22 Janet Priceerine, OTR/L [address] [place] [address] Occupational Therapist Occupational Therapy 01/31/22 Band Maker Relationship Specialty Start Date End Date Ada Neff MD [address] [place] [address] PCP - General Family Medicine 01/03/22 Chan Pricee, OTR/L [address] [place] [address] Occupational Therapist Occupational Therapy 01/31/22 Nosin, Cori, OTR/L [address] [place] [address] Occupational Therapist Occupational Therapy 03/28/22 Band Maker Relationship Specialty Start Date End Date Ada Neff MD [address] [place] [address] PCP - General Family Medicine 01/03/22 Chan Pricee, OTR/L [address] [place] [address] Occupational Therapist Occupational Therapy 01/31/22 Nosin, Cori, OTR/L [address] [place] [address] Occupational Therapist Occupational Therapy 03/28/22 Band Maker Relationship Specialty Start Date End Date Ada Neff MD [address] [place] [address] PCP - General Family Medicine 01/03/22 Chan Pricee, OTR/L [address] [place] [address] Occupational Therapist Occupational Therapy 01/31/22 Nosin, Cori, OTR/L [address] [place] [address] Occupational Therapist Occupational Therapy 03/28/22 Band Maker Relationship Specialty Start Date End Date Ada Neff MD [address] [place] [address] PCP - General Family Medicine 01/03/22 Shirley Price, OTR/L [address] [place] [address] Occupational Therapist Occupational Therapy 01/31/22 Nosin, Cori, OTR/L [address] [place] [address] Occupational Therapist Occupational Therapy 03/28/22 Band Maker Relationship Specialty Start Date End Date Ada Neff MD [address] [place] [address] PCP - General Family Medicine 01/03/22 Chan Pricee, OTR/L [address] [place] [address] Occupational Therapist Occupational Therapy 01/31/22 Nosin, Cori, OTR/L [address] [facility] [place] [address] Occupational Therapist Occupational Therapy 03/28/22 Band Maker Relationship Specialty Start Date End Date Ada Neff MD [address] [place] [address] PCP - General Family Medicine 01/03/22 Shirley Price, OTR/L [address] [place] [address] Occupational Therapist Occupational Therapy 01/31/22 Nosin, Cori, OTR/L [address] [facility] [place] [address] Occupational Therapist Occupational Therapy 03/28/22 Team Status: Inactive Member Role Status Dates Estephanie Carballo NP-C Attending Provider Active Band Maker Relationship Specialty Start Date End Date Ada Neff MD [address] [place] [address] PCP - General Family Medicine 01/03/22 Shirley Price, OTR/L [address] [place] [address] Occupational Therapist Occupational Therapy 01/31/22 NosMatt pylei, OTR/L [address] [facility] [place] [address] Occupational Therapist Occupational Therapy 03/28/22 Band Maker Relationship Specialty Start Date End Date Ada Neff MD [address] [place] [address] PCP - General Family Medicine 01/03/22 Shirley Price, OTR/L [address] [place] [address] Occupational Therapist Occupational Therapy 01/31/22 NosMatt pylei, OTR/L [address] [facility] [place] [address] Occupational Therapist Occupational Therapy 03/28/22 Band Maker Relationship Specialty Start Date End Date Ada Neff MD [address] [place] [address] PCP - General Family Medicine 01/03/22 Shirley Price, OTR/L [address] [place] [address] Occupational Therapist Occupational Therapy 01/31/22 Karla Stone, OTR/L [address] [facility] [place] [address] Occupational Therapist Occupational Therapy 03/28/22 Band Maker Relationship Specialty Start Date End Date Ada Neff MD [address] [place] [address] PCP - General Family Medicine 01/03/22 Shirley Price, OTR/L [address] [place] [address] Occupational Therapist Occupational Therapy 01/31/22 Karla Stone, OTR/L [address] [facility] [place] [address] Occupational Therapist Occupational Therapy 03/28/22 Tanmay Scott MD [address] [place] [address] Physician Orthopaedic Hand Service 10/30/23 Band Maker Relationship Specialty Start Date End Date Ada Neff MD [address] [place] [address] PCP - General Family Medicine 01/03/22 Shirley Price, OTR/L [address] [place] [address] Occupational Therapist Occupational Therapy 01/31/22 Karla Stone, OTR/L [address] [facility] [place] [address] Occupational Therapist Occupational Therapy 03/28/22 Tanmay Scott MD [address] [place] [phone] Physician Orthopaedic Hand Service 10/30/23 Band Maker Relationship Specialty Start Date End Date Ada Neff MD [address] [place], [place] [id number] PCP - General Family Medicine 01/03/22 Shirley Price, OTR/L [address] [place], [place] [address] Occupational Therapist Occupational Therapy 01/31/22 Karla Stone, OTR/L [address] [place] [address] [place] [address] Occupational Therapist Occupational Therapy 03/28/22 Tanmay Scott MD [address] [place] [phone] Physician Orthopaedic Hand Service 10/30/23 Reason for Visit (unrecogniz ed section and content) Reason Comments Arm symptoms Right arm fracture s ent from [facility] for ortho consult Specialty Diagnoses / Procedures Referred By Contact Referred To Contact Occupational Therapy Diagnoses Other closed displaced fracture of distal end of right humerus, initial encounter Janice Roland PA-C [address] [place] [address] [address] [place] [phone] Occ Therapy [address] [place] [address] Referral ID Status Reason Start Date Expiration Date Visits Requested Visits Authorized [id number] Authorized Consultatio [facility] 01/19/2022 01/19/2023 10 10 Specialty Diagnoses / Procedures Referred By Angie sifuentes Referred To Contact Radiology Diagnoses Other closed displaced fracture of distal end of right humerus, initial encounter Procedures XR ELBOW RIGHT MINIMUM 3 VIEWS Janice Roland PA-C [address] [place] [address] DR [place] [phone] [facility] [address] [place] [address] [place] [address] Referral ID Status Reason Start Date Expiration Date Visits Re quested Visits Authorized [id number] Closed 01/14/2022 01/14/2023 1 1 Reason Comments Post Op Check Reason Comments OT Treatment Clinic 2 Specialty Diagnoses / Procedures Referred By Contact Referred To Contact Occupational Therapy Diagnoses Other closed displaced fracture of distal end of right humerus, initial encounter Janice Roland PA-C [address] [place] [address] [place] [address] Occ [address] [place] [address] Referral ID Status Reason Start Date Expiration Date Visits Re quested Visits Authorized [id number] Closed 01/19/2022 01/19/2023 1 1 Reason Comments Evaluation Follow up right elbo w. Referral ID Status Reason Start Date Expiration Date Visits Re quested Visits Authorized [id number] Closed 03/02/2022 03/02/2023 1 1 Reason Comments Monitoring/follow-up Right elbow Specialty Diagnoses / Procedures Referred By Angie sifuentes Referred To Contact Orthopedics Diagnoses . Procedures . [facility] [address] [place] [phone] Phone: [phone] Referral ID Status Reason Start Date Expiration Date Visits Re quested Visits Authorized [id number] 3 3 Reason Comments Elbow symptoms/complaints Specialty Diagnoses / Procedures Referred By Angie sifuentes Referred To Contact Radiology Diagnoses Other closed displaced fracture of distal end of right humerus, initial encounter Procedures XR ELBOW RIGHT MINIMUM 3 VIEWS Ortho Hand [address] [place] [address] [facility] [address] [place] [address] [place] [address] Referral ID Status Reason Start Date Expiration Date Visits Re quested Visits Authorized [id number] Closed 11/13/2023 08/12/2024 1 1 Reason Comments Joint Pain Monitoring/follow-up Specialty Diagnoses / Procedures Referred By Angie sifuentes Referred To Contact Physical Therapy Diagnoses Unspecified fracture of upper end of right humerus, initial encounter for closed fracture Procedures [place] PHYSICAL THERAPY EVALUATION LOW COMPLEX 20 MINS Tanmay Scott MD [address] [place] [phone] Gisele Mckeon, PT [address] [address] Referral ID Status Reason Start Date Expiration Date V isits Requested Visits Authorized [id number] Authorized 10/14/2023 04/11/2024 30 30 Reason Comments Refill Reason Comments Monitoring/follow-up Specialty Diagnoses / Procedures Referred By Angie sifuentes Referred To Contact Radiology Diagnoses Chronic right shoulder pain Procedures XR ELBOW RIGHT MINIMUM 3 VIEWS Janice Roland PA-C [address] [facility] [place] [address] [facility] [address] [facility] [place] [address] Referral ID Status Reason Start Date Expiration Date Visits Re quested Visits Authorized [id number] Closed 01/10/2024 01/04/2025 1 1 Scheduled Active and Recently Administ ered Medications (unrecognized section and content) Medication Order 01/02/2022 01/03/2022 01/04/2022 aspirin 81 MG chewable tablet 81 mg, Oral, 2 TIMES DAILY, First dose on 01/03/22 at 1900, Until Discontinued 190 (Hold/Not Given - Provider: Hong Lebron RN - Reason: Not indicated) 1014 (Hold/Not Given - Provider: Abby Soares, MATILDA - Reason: Clinical contraindications)2100 (Due) docusate sodium (COLACE) capsule 100 mg, Oral, 2 TIMES DAILY, First dose on 01/03/22 at 2100, Until Discontinued 2031 (Given - Provider: Hong Lebron, MATILDA) 1013 (Given - Provider: Abby Soares, RN)2100 (Due) Continuous Medication Order 01/02/2022 01/03/2022 01/04/2022 lactated ringers iv infusion Intravenous, at 75 mL/hr, CONTINUOUS, Starting on 01/03/22 at 1900, Until Discontinued 1900 (Hold/Not Given - Provider: Hong Lebron RN - Reason: Not indicated) lactated ringers iv infusion Intravenous, at 50 mL/hr, CONTINUOUS, Starting on 01/03/22 at 2000, Until Discontinued 2031 (IV New Bag - Provider: Hong Lebron, RN) PRN Medication Order 01/02/2022 01/03/2022 01/04/2022 bisacodyl (DULCOLAX) 10 MG suppository 10 mg, Rectal, DAILY PRN, Starting on 01/03/22 at 1843, Until Discontinued, Constipation, if NPO or no BM from Milk of Magnesia within 6 hours magnesium hydroxide (MILK OF MAGNESIA) 400 MG/5ML oral suspension 30 mL, Oral, EVERY 8 HOURS PRN, Starting on 01/03/22 at 1843, Until Discontinued, Constipation naloxone (NARCAN) 0.4 MG/ML injection 0.4 mg, Intravenous Push, PRN, Starting on 01/03/22 at 1843, Until Discontinued, Respiratory Rate Less Than 8 for adults and less than 12 for Peds or for suspected overdose, as needed for opiate overdose ondansetron (ZOFRAN) 4 MG/2ML injection 4 mg, Intravenous Push, EVERY 6 HOURS PRN, Starting on 01/03/22 at 1843, Until Discontinued, Nausea, Vomiting, if nausea/vomiting not controlled by Scopalamine Patch oxyCODONE immediate release tablet (CANCELED) 5 mg, Oral, EVERY 6 HOURS PRN, Starting on 01/03/22 at 1845, Until 01/04/22 at 0959, Mild Pain (pain score 1,2,3) 0450 (Given - Provid er: Hong Lebron RN) oxyCODONE immediate release tablet (CANCELED) 10 mg, Oral, EVERY 6 HOURS PRN, Starting on 01/03/22 at 1845, Until 01/04/22 at 0959, Moderate Pain (pain score 4,5,6) 2031 (Given - Provider: Hong Lebron RN) oxyCODONE immediate release tablet 5 mg, Oral, EVERY 4 HOURS PRN, Starting on 01/04/22 at 1000, Until Discontinued, Mild Pain (pain score 1,2,3) oxyCODONE immediate release tablet 10 mg, Oral, EVERY 4 HOURS PRN, Starting on 01/04/22 at 1000, Until Discontinued, Moderate Pain (pain score 4,5,6) 1013 (Given - Provid er: Abby Soares RN)1654 (Given - Provider: Abby Soares RN) scopolamine (TRANSDERM-SCOP) 1 MG/3DAYS patch 1.5 mg, Transdermal, EVERY 72 HOURS PRN, Starting on 01/03/22 at 1843, Until Discontinued, nausea/vomiting Scheduled Medication Order 01/04/2022 01/05/2022 01/06/2022 ceFAZolin (ANCEF) 2,000 mg in dextrose 50 mL ivpb (COMPLETED) 2,000 mg, Intravenous, ONCE, 1 dose, On Wed01/06/22 at 1030 1417 (Given - Provid er: VICTORIA Woodruff) fentaNYL (SUBLIMAZE) 100 MCG/2ML injection (COMPLETED) 50 mcg, Intravenous Push, ONCE, 1 dose, On Wed01/06/22 at 1700, PACU Now 1643 (Given - Provid er: Kendy Cortes RN) Continuous Medication Order 01/04/2022 01/05/2022 01/06/2022 lactated ringers iv infusion Intravenous, at 75 mL/hr, CONTINUOUS, Starting on Wed01/06/22 at 1030, Until Discontinued 1030 (Due) PRN Medication Order 01/04/2022 01/05/2022 01/06/2022 HYDROmorphone (DILAUDID) 0.2 MG/ML injection 0.2 mg 0.2 mg, Intravenous Push, PACU EVERY 15 MIN PRN X 4 DOSES, 4 doses, Starting on e 01/06/22 at 1452, Until Lili 01/08/22 at 1451, Moderate Pain (pain score 4,5,6), PACU Now HYDROmorphone (DILAUDID) 1 mg/mL injection 0.5 mg, Intravenous Push, PACU EVERY 15 MIN PRN X 4 DOSES, 4 doses, Starting on Wed01/06/22 at 1452, Until Wed01/07/22 at 2359, Severe Pain (pain score 7,8,9,10), PACU Now naloxone (NARCAN) 0.4 MG/ML injection 0.4 mg, Intravenous Push, PRN, Starting on Wed01/06/22 at 1452, Until Discontinued, Respiratory Rate Less Than 8 for adults and less than 12 for Peds or for suspected overdose, PACU Now oxyCODONE immediate release tablet 5 mg, Oral, PACU ONCE PRN, Starting on Wed01/06/22 at 1452, Until Wed01/06/22 at 2051, Mild Pain (pain score 1,2,3), PACU Now sodium chloride 0.9 % (PF) 0.9 % injection 3 mL, Intravenous Push, PRN, Starting on Wed01/06/22 at 1452, Until Discontinued, For medication administration and blood draw, PACU Now INFORMATION SOURCE (unrecogn ized section and content) DATE CREATED AUTHOR 01/11/2022 [facility] DATE CREATED AUTHOR AUTHOR'S ORGANIZ ATION 02/05/2022 [facility] DATE CREATED AUTHOR AUTHOR'S ORGANIZ ATION 02/15/2022 [facility] DATE CREATED AUTHOR AUTHOR'S ORGANIZ ATION 11/05/2023 [place] DATE CREATED AUTHOR AUTHOR'S ORGANIZ ATION 11/26/2023 [facility] DATE CREATED AUTHOR AUTHOR'S ORGANIZ ATION 01/16/2024 [facility] [employer] [facility] Goals (unrecognized section and content) Goals may be documented in a n alternate section FOR RECORDS PERTAINING TO PATIENTS WHO ARE OR HAVE BEEN ENROLLED IN A CHEMICAL DEPENDENCY/SUBSTANCEABUSE PROGRAM, SOME INFORMATION MAY BE OMITTED. This clinical summary was aggregated from multiple sources. Caution should be exercised in using it in the provision of clinical care. This summary normalizes information from multiple sources, and as a consequence, information in this document may materially change the coding, format and clinical context of patient data. In addition, data may be omitted in some cases. CLINICAL DECISIONS SHOULD BE BASED ON THE PRIMARY CLINICAL RECORDS. [email or web address] provides no warranty or guarantee of the accuracy or completeness of information in this document.
== END 2024-02-07 10:52 | disposition home or self-care (01) ==
LOC: LAB 10:51
PROVIDERS: PCP Family Medicine
DX: E55.9 Vitamin D deficiency, unspecified (principal)
CPT/HCPCS: 36415; 82306

== ENCOUNTER 2024-05-24 08:49 | Outpatient (OUT) | payer MEDICARE, SELFPAY ==
--- NOTE | 2024-05-24 08:51 | MM_ITS ---
Patient Name: DERRELL AGUERO MR#: [id number] : 1955 Exam Date: 05/24/2024 Ordering Doctor: DR Ciara Jefferson M.D. RADIOLOGY REPORT PROCEDURE: MM TOMOSYNTHESIS SCREENING BI COMPARISON: MG MAMM PINKY SCRN W CAD DIG, 02/13/2013. INDICATIONS: Screening Calculator Name NCI Breast Cancer Risk Assessment Tool 5 Year Breast Cancer Risk 1.20% Lifetime Breast Cancer Risk 4.40% Personal Breast Cancer No Personal Ovarian Cancer No Treatments None Family Cancers Sister with lymph cancer at age 42; Brother with colon cancer at age 58. LOCATION: [facility] BREAST COMPOSITION: The breasts are heterogeneously dense,which may obscure small masses. FINDINGS: DIAGNOSTIC CATEGORY 2--BENIGN FINDING. NO CHANGE FROM COMPARISON. Scattered benign-appearing nodules are present. Scattered benign-appearing calcifications are present. Scattered benign-appearing lymph nodes are present. RIGHT BREAST: No significant suspicious finding. LEFT BREAST: No significant suspicious finding. RECOMMENDATIONS: ROUTINE MAMMOGRAM AND CLINICAL EVALUATION IN 12 MONTHS. PLEASE NOTE: A NORMAL MAMMOGRAM DOES NOT EXCLUDE THE POSSIBILITY OF BREAST CANCER. A CLINICALLY SUSPICIOUS PALPABLE LUMP SHOULD BE BIOPSIED. Dictated by: Ky Soares MD on 05/24/2024 at 12:35 Approved by: Ky Soares MD on 05/24/2024 at 12:36
== END 2024-05-24 08:50 | disposition home or self-care (01) ==
LOC: MAMMO 08:49
PROVIDERS: PCP Family Medicine; Visit Provider Family Medicine
DX: Z12.31 Encounter for screening mammogram for malignant neoplasm of breast (principal); Z80.7 Family history of other malignant neoplasms of lymphoid, hematopoietic and related tissues; Z80.0 Family history of malignant neoplasm of digestive organs
CPT/HCPCS: 77063; 77067

== ENCOUNTER 2024-05-24 09:21 | Outpatient (OUT) | payer MEDICARE, SELFPAY ==
[2024-05-24 09:50] LABS: Basophils Absolute Auto 0.1 10^3/uL (0.0-0.1); Eosinophils Absolute Auto 0.3 10^3/uL (0.0-0.7); Eosinophils Percent Auto 5.4 % (0.9-7.0); Hematocrit 42.7 % (36.0-48.0); Hemoglobin 14.5 g/dL (12.0-16.0); Immature Granulocytes Abs Auto 0.01 10^3/uL (0.00-0.03); Immature Granulocytes Pct Auto 0.2 % (0.0-0.5); Lymphocytes Absolute Auto 1.6 10^3/uL (1.2-3.8); Lymphocytes Percent Auto 30.9 % (20.5-60.0); Mean Corpuscular Hemoglobin 28.3 pg (26.7-34.0); Mean Corpuscular Volume 83.2 fL (81.0-99.0); Monocytes Absolute Auto 0.4 10^3/uL (0.3-0.8); Monocytes Percent Auto 6.7 % (1.7-12.0); Neutrophils Absolute Auto 2.9 10^3/uL (1.4-6.5); Neutrophils Percent Auto 55.8 % (43.0-75.0); Platelet Count 130 10^3/uL (150-450); Red Blood Count 5.13 10^6/uL (4.20-5.40); Red Cell Distribution Width 12.9 % (11.0-15.0); White Blood Count 5.2 10^3/uL (4.0-11.0)
[2024-05-24 10:43] LABS: Alanine Aminotransferase 30 U/L (14-59); Albumin Globulin Ratio 1.3; Albumin Level 4.1 g/dL (3.4-5.0); Alkaline Phosphatase 87 U/L (46-116); Anion Gap 14.2; Aspartate Amino Transferase 29 U/L (15-37); BUN Creatinine Ratio 15.7; Bilirubin Total 0.7 mg/dL (0.2-1.0); Calcium 9.6 mg/dL (8.5-10.1); Carbon Dioxide 26.7 mmol/L (21.0-32.0); Chloride 101 mmol/L (98-107); Chol HDL Ratio 2.4; Cholesterol 161 mg/dL (<=200); Estimated GFR (African America >60 (>=60); Estimated GFR (Non-African Ame >60 (>=60); Globulin 3.1 g/dL; Glucose 154 mg/dL (74-106); HDL Cholesterol 66 mg/dL (40-60); Potassium 3.9 mmol/L (3.5-5.1); Sodium 138 mmol/L (136-145); Total Protein 7.2 g/dL (6.4-8.2); Triglycerides 132 mg/dL (<=150); VLDL CHOLESTEROL 26.4 mg/dL
[2024-05-24 10:46] LABS: Microalbumin Urine Random <1.3 mg/dL (<=30.0)
[2024-05-24 11:34] LABS: Estimated Average Glucose 166 mg/dL; Glycohemoglobin A1C 7.4 % (4.5-6.2)
== END 2024-05-24 09:22 | disposition home or self-care (01) ==
LOC: LAB 09:23
PROVIDERS: PCP Family Medicine; Visit Provider Family Medicine
DX: E78.5 Hyperlipidemia, unspecified (principal); E11.65 Type 2 diabetes mellitus with hyperglycemia; I10 Essential (primary) hypertension
CPT/HCPCS: 36415; 80053; 80061; 82043; 83036; 85025

== ENCOUNTER 2024-09-14 09:46 | Outpatient (OUT) | payer MEDICARE, SELFPAY ==
[2024-09-14 10:01] LABS: Estimated Average Glucose 151 mg/dL; Glycohemoglobin A1C 6.9 % (4.5-6.2)
--- OUTSIDE RECORDS SUMMARY | 2024-09-14 10:01 | XMS_ITS | CCD ---
Author Organization [facility] CliniSynm Care Team Providers Care Page Makeup System Operator Name Role Phone Ada Neff MD Primary Care Provider ADA NEFF Primary Care Physician REQUEST, NONE LISTED Attending Unavaila ble REQUEST, DR MCCOY LISTED Consulting Unavaila ble TAWANDA, DR ADA Mosley Primary Care Unavailable REQUEST, DR MCCOY LISTED Admitting Unavaila ble MISC, DR MOE Consulting Unavailable BALL, DR MANZANARES Primary Care Unavailable MISC, DR MOE Admitting Unavailable MISC, DR MOE Attending Unavailable CARMEN VILLALTA Admitting Unavailable NABIL, DR MANZANARES Primary Care Unavailable CARMEN VILLALTA Attending Unavailable CARMEN VILLALTA Consulting Unavailable Szado OTR/L, Shirley Unavailable Nosin OTR/L, Cori [...] GUAJARDO Attending Unavailable TANMAY SCOTT Referring Unavailable GISELE MCKEON Attending Unavailable TANMAY SCOTT Referring Unavailable LOVE MELCHOR Attending Unavailable HOYEN, TANMAY Referring Unavailable MIKE, GISELE Sifuentes Attending Unavailable EMERYYEFransisco, TANMAY Referring Unavailable LOVE MELCHOR Attending Unavailable HOYEN, TANMAY Referring Unavailable LOVE MELCHOR Attending Unavailable HOYEN, TANMAY Referring Unavailable BLACKSTON, GISELE T Attending Unavailable HOYEN, TANMAY Referring Unavailable BLACKSTON, GISELE T Attending Unavailable EUGENIA, TANMAY Referring Unavailable Tanmay Scott MD Unavailable JANICE ROLANDCE Referring Unavailable PROVIDER, UNKNOWN Attending Unavailable PROVIDER, UNKNOWN Admitting Unavailable NEFF, ADA Primary Care Unavailable PROVIDER, UNKNOWN Attending Unavailable PROVIDER, UNKNOWN Admitting Unavailable TANMAY SCOTT. Referring Unavailable NEFF, ADA Primary Care Unavailable PROVIDER, UNKNOWN Attending Unavailable LENEHAN, BAUTISTA Referring Unavailable PROVIDER, UNKNOWN Admitting Unavailable NEFF, ADA Primary Care Unavailable NEFF, ADA Primary Care Unavailable PROVIDER, UNKNOWN Attending Unavailable LENEHAN, BAUTISTA Referring Unavailable PROVIDER, UNKNOWN Admitting Unavailable PROVIDER, UNKNOWN Attending Unavailable PROVIDER, UNKNOWN Admitting Unavailable NEFF, ADA Primary Care Unavailable LENEHAN, BAUTISTA Referring Unavailable PROVIDER, UNKNOWN Attending Unavailable PROVIDER, UNKNOWN Admitting Unavailable NEFF, ADA Primary Care Unavailable PROVIDER, UNKNOWN Attending Unavailable PROVIDER, UNKNOWN Admitting Unavailable NEFF, ADA Primary Care Unavailable NEFF, ADA Primary Care Unavailable PROVIDER, UNKNOWN Admitting Unavailable TANMAY SCOTT Attending Unavailable PROVIDER, UNKNOWN Attending Unavailable PROVIDER, UNKNOWN Admitting Unavailable NEFF, ADA Primary Care Unavailable Unavailable Primary Care Provider Unavailabl e Allergies Allergy Classification Reported Allergen(s) Allergy Type Date of Onset Reaction(s) Facility (3 sources) atorvastatin Drug Allergy 5 Unknown [facility] Other (1 source) atorvastatin Drug Allergy 3 [facility] Repository Medications Current Medications Medication Drug Class(es) [...] days. 28 Capsule 0 03/08/2023 03/15/2023 Active cholecalciferol 0.05 mg oral capsule (1 source) Vitamin D Start: 05-22-2024 take 50 ug by mouth once daily Cholecalciferol (Vitamin D3) Active 50 MCG PO Daily May 22, 2024 12:00am docusate sodium 100 mg oral capsule (20 sources) Start: 01-03-2022 take 1 capsule by mouth twice daily docusate sodium (Colace) 100 MG capsule Take 1 Capsule by mouth 2 times daily. 60 Capsule 3 01/04/2022 Active ergocalciferol 1.25 mg oral capsule (14 sources) Provitamin D2 Compound Start: 08-16-2023 End: 12-15-2023 take 1 capsule by mouth every week vitamin D2 (ERGOCALCIFEROL) 1.25 MG (96446 UT) capsule TAKE 1 CAPSULE BY MOUTH [...] mg oral tablet (20 sources) Biguanide Start: 01-12-2024 End: 04-10-2024 take 1 tablet by mouth twice daily Metformin Active 0 .ROUTE .COMPLEX 180 April 10, 2024 10:12am TAKE 1 TABLET BY MOUTH TWICE A DAY Start: 01-03-2022 End: 01-12-2024 metformin (GLUCOPHAGE) 500 M G tablet Take by mouth. 0 01/03/2022 Active 1 ml naloxone hydrochloride 0.4 mg/ml injection (2 sources) Opioid Antagonist Start: 01-06-2022 naloxone (NA RCAN) 0.4 MG/ML injection Start: 01-03-2022 naloxone (NARC [...] oral tablet (20 sources) Start: 03-02-2022 predniSONE (DELTASONE) 5 MG tablet Take 1 Tablet by mouth Continuous PRN. 42 Tablet 0 03/02/2022 Active rosuvastatin calcium 10 mg oral tablet (20 sources) HMG-CoA Reductase Inhibitor Start: 01-12-2024 take 10 mg by mouth once daily Rosuvastatin Active 10 MG PO Daily January 12, 2024 12:00am Start: 01-03-2022 rosuvastatin ( CRESTOR) 5 MG tablet Take by mouth. 0 01/03/2022 Active take 1 tablet by amisha th once daily Rosuvastatin Calcium 10 MG TAKE ONE TABLET [...] left ear] Episodic Diabetes mellitus with complications (7 sources) Hyperglycemia due to type 2 diabetes [...] [Vitamin D deficiency, unspecified] 01-10-2024 Chronic Osteoporosis (11 sources) Senile osteoporosis; Translations: [Age-related osteoporosis without [...] [Body mass index (BMI) 40.0-44.9, adult] Chronic Other screening for suspected conditions (not mental disorders or infectious disease) (2 sources) Patient encounter status; Translations: [Encounter for screening mammogram for malignant neoplasm of breast] 05-22-2024 Episodic Otitis media and related conditions (3 sources) [...] Test Name Value Interpretation Reference Range Facility Telephone Encounteron 2023 Box Worker Authentication Interface Message Text Left voicemail for patient- Vit D level is good she can begin to take Vit D 2000 units over the counter. Normal [facility] Box Worker Authentication Interface Message Text Pt called, asking about her, Vit D, new test results. Please call pt @ [phone] Thank you. Normal [facility] XR ELBOW RIGHT MINIMUM 3 VIE [...] Osteopenia. Right elbow MACRO: None Normal [facility] XR Elbow - right 3 Viewson [...] MACRO: None RADIOLOGY Erick Sanchez, DO - 01/10/2024 EXAMINATION: XR ELBOW RIGHT MINIMUM [...] ossification. 4. Osteopenia. Right elbow MACRO: None [facility] Radiology Study observation (narrative) [facility] XR Elbow - right 3 ViewsOrde red By: Erick Sanchez on 01-10-2024 [facility] Work Phone: XR SHOULDER RIGHT MINIMUM 2 [...] alignment. Right shoulder MACRO: None Normal [facility] XR Shoulder - right 2 Viewso n 01-10-2024 EXAMINATION: XR SHOULDER RIGHT MINIMUM 2 VIEWSPRO/RT 01/10/2024 09:02 AM CLINICAL HISTORY: Shoulder pain, right ASSOCIATED DIAGNOSIS: Chronic right shoulder pain Chronic right shoulder pain ORDERING PROVIDER: JANICE ROLAND TECHNMARIO NOTE: COMPARISON: 10/11/2023 IMPRESSION: Progressive healing of [...] in position alignment. Right shoulder MACRO: None [facility] Rad[facility] Study observation (narrative) [facility] XR Shoulder - right 2 ViewsO rdered By: Deborah Baez on 01-10-2024 [facility] Work Phone: Telephone Encounteron 2023 Box Worker Authentication Interface Message Text Left voicemail for patient, notified her we ordered and sent in Vit D to her pharmacy. She should begin to take it and then we will check to see where her levels are once she is done taking the Vit D. Normal [facility] Telephone Encounteron 2023 Box Worker Authentication Interface Message Text Alina would need to contact Radiology and the film library for copies of the XR's Normal [facility] Box Worker Authentication Interface Message Text Mikala from [facility] called, asking to get a copy of the patients x-ray for the patients right side elbow. Please send the x-ray over as soon as possible. Thank you. [phone] ext [phone] Normal [facility] Progress Noteson 10-11-2023 Box Worker Authentication Interface Message Text PT for the [...] 3 months. Tanmay Scott M.D. Normal [facility] XR ELBOW RIGHT MINIMUM 3 VIE WSon 10-11-2023 XR ELBOW RIGHT MINIMUM 3 VIEWS EXAMINATION: XR ELBOW RIGHT MINIMUM 3 VIEWSPRO/RT 10/11/2023 12:12 PM CLINICAL HISTORY: right elbow fx ASSOCIATED DIAGNOSIS: Closed supracondylar fracture of right humerus, initial encounter ORDERING PROVIDER: JANICE ROLAND TECHNOLOGISTS NOTE: COMPARISON: XR ELBOW RIGHT MINIMUM 3 [...] Osteopenia. Right elbow MACRO: None Normal [facility] XR Elbow - right 3 Viewson [...] osteoarthritis. 4. Osteopenia. Right elbow MACRO: None [facility] Radiology Study observation (narrative) [facility] [employer] [facility] XR Elbow - right 3 ViewsOrde red By: Erick Sanchez on 10-11-2023 [facility] Work Phone: XR SHOULDER RIGHT MINIMUM 2 VIEWSon 10-11-2023 XR SHOULDER RIGHT MINIMUM 2 VIEWS EXAMINATION: XR SHOULDER RIGHT MINIMUM 2 VIEWSPRO/RT 10/11/2023 12:13 PM CLINICAL HISTORY: Shoulder pain, right; fu fx ASSOCIATED DIAGNOSIS: Closed fracture of proximal end of right humerus, unspecified fracture morphology, initial encounter ORDERING PROVIDER: JANICE ROLAND TECHNMARIO NOTE: COMPARISON: CT PSI RIGHT SHOULDER W/O [...] Osteopenia. Right shoulder MACRO: None Normal [facility] XR Shoulder - right 2 Viewso [...] osteoarthritis. 4. Osteopenia. Right shoulder MACRO: None [facility] Radiology Study observation (narrative) [facility] CT PSI RIGHT SHOULDER W/Oon 08-24-2023 CT PSI RIGHT SHOULDER W/O EXAMINATION: CT PSI RIGHT SHOULDER W/OPRO/RT 08/24/2023 01:35 PM CLINICAL HISTORY: prox humerus fracture surgical planning rTSA ASSOCIATED DIAGNOSIS: Other closed displaced fracture of distal end of right humerus, initial encounter ORDERING PROVIDER: JANICE ROLAND TECHNOLOGISTS NOTE: COMPARISON: None TECHNIQUE: Thin axial images [...] risk for metastasis. MACRO: (-I1-) Normal [facility] Progress Noteson 08-16-2023 Box Worker Authentication Interface Message Text Patient was identified by name and date of . Sophie Chaudhari RN Patient at risk for falls:No Falls Risk protocol implemented: No Normal [facility] XR ELBOW RIGHT MINIMUM 3 VIE [...] fractures. Right elbow MACRO: None [facility] El[facility] - right 3 Viewson 1 10-16-2022 EXAMINATION: XR ELBO W RIGHT MINIMUM 3 VIEWSPRO/RT 08/16/2023 09:10 AM CLINICAL HISTORY: fx ASSOCIATED DIAGNOSIS: Other closed displaced fracture of distal end of right humerus, initial encounter ORDERING PROVIDER: TANMAY SCOTT TECHNMARIO NOTE: Best images possible, patient in splint [...] humerus, initial encounter ORDERING PROVIDER: TANMAY SCOTT TECHNMARIO NOTE: Best images possible, patient in splint [...] right elbow fractures. Right elbow MACRO: None [facility] Rad[facility]narrative[facility] - right 3 ViewsOrde red By: Laurie Zavaleta on 08-16-2023 [facility] Work Phone: XR elbow RT min 3V*on 2022 XR elbow RT min 3V* [facility] Main [address] [address] XRay Report Signed Patient: Shruti Locke MR#: [id number] : 1955 Acct:[id number] Age/Sex: 68 / F ADM Date: 08/06/23 Loc: XDUCLY Room: Type: [facility] Attending Dr: Estephanie JUSTICE Copies to: RESHMA Netwon Ordering Provider: RESHMA Newton Date of Service: [...] Hakan Bernard M.D.08/06/2023 5:03 PM Dictation Location: [place] [address] Transcribed By: [facility] 08/06/231702 Dictated By: Hakan Bernard II, MD 08/06/231700 Signed By: 08/06/231702 Normal [facility] XR shoulder RT min 2V*on XR shoulder RT min 2V* [facility] Main [address] [address] XRay Report Signed Patient: Shruti Locke MR#: [id number] : 1955 Acct:[id number] Age/Sex: 68 / F ADM Date: 08/06/23 Loc: XDUCLY Room: Type: [facility] Attending Dr: Estephanie JUSTICE Copies to: RESHMA [...] Hakan Bernard M.D.08/06/2023 5:01 PM Dictation Location: [place] [address] Transcribed By: DEVAN 08/06/231700 Dictated By: Hakan Bernard II, MD 08/06/231699 Signed By: 08/06/231700 [facility] Progress Noteson 03-08-2023 Box Worker Authentication Interface Message Text Patient was identified by name and date of . Sophie Chaudhari RN Patient at risk for falls:No Falls Risk protocol implemented: No Normal [facility] Box Worker Authentication Interface Message Text Patient presents today [...] Upper Extremity 03/08/23 8:42 AM Normal [facility] XR ELBOW RIGHT MINIMUM 3 VIE [...] fracture. Right elbow MACRO: None Normal [facility] XR Elbow - right 3 Viewson [...] No new fracture. Right elbow MACRO: None Rahul Cole M D - 03/08/2023 EXAMINATION: XR ELBOW [...] No new fracture. Right elbow MACRO: None [facility] Radiology Study observation (narrative) [facility] XR Elbow - right 3 ViewsOrde red By: Rahul Brady on 03-08-2023 [facility] Work Phone: Telephone Encounteron 2022 Box Worker Authentication Interface Message Text Patient making sure we got her pictures, notified Janice Thornton PA-C and will forward them to her. Normal [facility] Authentication Interface Message Text Spoke with Md Scott and ABDULLAHI Camacho Jasper, patient to come in Wednesday for K-wire removal. Patient called and notified, appointment made. Normal [facility] Interface Message Text Asked patient to send us pictures of her arm- will forward pictures to Dr. Scott once I receive them. Normal [facility] Interface Message Text Spoke with patient, she [...] the end of the day. Normal [facility] Telephone Encounteron 2022 Box Worker Authentication Interface Message Text Patient calling in regards to her external order so she can get the x-ray of her elbow. Order has been faxed. Patient to call if she does not get it or there are other issues. Normal [facility] Telephone Encounteron 2022 Box Worker Authentication Interface Message Text Patient has fax number for the order: fax to [phone]- to [facility]. Normal [facility] Authentication Interface Message Text Patient called to let me know she has the fax number so we can fax her external order for the xray. Explained we will not be able to see it, so she will obtain it on a disc and send it to us. We will call her once we review it. Normal [facility] Box Worker Authentication Interface Message Text Called her elbow has been hurting she feels that the hardware came loose. She will need external x-ray order and then will get xrays. Normal [facility] Telephone Encounteron 2022 Box Worker Authentication Interface Message Text Patient called to say that she believes the screw or a wire broke in her elbow, it hurts if she moves her elbow and she currently has it in a sling. Please contact patient to schedule an earlier appointment than her 05/03 appointment if necessary. Patient is in her cabin for the next few days, please contact her at [phone], otherwise her normal cell number is preferred. Patient confirms it is ok to leave a voicemail with details. Normal [facility] XR Elbow - right 3 Viewson [...] ELBOW RIGHT MINIMUM 3 VIEWS MACRO: None [facility] Radiology Study observation (narrative) [facility] XR Elbow - right 3 ViewsOrde red By: Trever Eastman on 05-04-2022 [facility] Work Phone: XR ELBOW RIGHT MINIMUM 3 [...] ELBOW RIGHT MINIMUM 3 VIEWS MACRO: None [facility] Radiology Study observation (narrative) [facility] XR ELBOW RIGHT MINIMUM 3 VIE WSOrdered By: Annabella Sparks on 03-02-2022 [facility]: GLYCOHEMOGLOBIN A1Con 2021 ADA RECOMMENDATION SEE BELOW Normal [facility] Comment on above: Result Comment: ADA RECOMMENDED LIMIT 4.0 - 6.0 ADA THERAPEUTIC TARGET < 7.0 ACTION SUGGESTED > 7.0 Performed By: #### D ATA1C #### [facility] [address] [place] [address] Dr. Mark Albert Glucose [Mass/Vol] 131 mg/dL Normal [facility] Comment on above: Performed By: #### D ATA1C #### [facility] [address] [place] [address] [address] Mark Albert HbA1c (Bld) [Mass fraction] 6.2 % Normal 4.5-6.2 [facility] Comment on above: Performed By: #### D ATA1C #### [facility] [address] [place] [address] Dr. Mark Albert XR ELBOW RIGHT MINIMUM [...] ELBOW RIGHT MINIMUM 3 VIEWS MACRO: None [facility] Radiology Study observation (narrative) [facility] XR ELBOW RIGHT MINIMUM 3 VIE WSOrdered By: Rahul Brady on 01-19-2022 [facility] Work Phone: Coding Summary.on 01-06-2022 Coding Summary. CD:[id number] G h0bWw+PGhlYWQ+ZM4FUUA gH76lhLVdoJ7KZ3aUTA1R WGXCCKSIXE9IZM7ewIW4G SxmI5QceqWx XxmboJBmIS45CJv5XIY2s UolOHltnV0qzMSiI0r9Cj VxTV94oN71OUirXOCuFdP 3LjZpbjsgbWFy O5gcNzKlgUUpUyu+PHRhY mxlIHdpZHRoPScxMDAlJy JjsWkmXL9lWz7jUXLmFJL vbGxhcHNlOiBj d8miZKBbWGxhES4awIvhZ 9OzfJV4LHTbq7c7Ye31eY I+WRClBXK5hNbrTDisu04 6LkXbj9gvTZO4 hFIjAMjhWIV6S49oi3V3U UFhFUDuHUR8sFG3jH0alX qewojeL6KvqFCuNbF5COB 3oOSwtT5coNvw tmvaiR8sYfs+T05TJV6LZ WAACL6JRxg0S4JwCspkyQ I+NL62UDTqFN99zWOlgQI kq5ioiUb8EsHh NSNlGAW8fPghBSiov7YiM HHcH34bdLFbw2B5DAKsyV dzjEGkMrFvdCL1wE4jHCa kxtogf4gwxofq Zerce0zmtx14bB88X21rO OgzCKCxUZM3DMPxMYIclJ rwae2olC9jNp7+MKira6u bw1cgtTe8ZzIg WGKjaiRgbIylMZZ4d3WcH x63U5YevEwbm7KyCvw2qi 63qFIjj1J7vJU8LGwtNKN ziR4fKZugFeZ6 DHFiJaKspF71zZNxGDfbI i0fyJcueBgpYF3hOLRher otYAWmbP5vNWFwtJPnqIu kSO7zJNGjhudg e386WnEqBLS9ICQzmYCaJ 5ZrnF5dGzMbXYBlXEUmB3 YfqAGtSTvjV951MAwsPiW 2VADosbMjZ6Ou VNXwsMctBkM8d0X2Il7Cu 5KkqwplDRE1ADjvEGD1Ml WdGpZxCrY4V1QxIrm4YOM tqAniLM9vI0Ro OGHxppphqkvioMM8HENxV OCuzS91dLLaFOezJn3in9 H3g565WNSvWSVdgT94If2 udDogMTBwdCBU zP3lhgvwn9dvghyaLvYqU JGvAMb4SXa5YUJzjGwtMz FnLNA6MyG2CTP7aVWndX0 evSnvlbyupG5p Oyc+L04uhG9rMDO4ZRH3v memWOYidnZrDM34XE01Z4 RyPjwvdGFibGU+PGRpdiB tcOosRV2hPyPy o6cfk5KrNRvvM2KyBRJgD GonRzz5BMTjSMF2bBM0aW 8uOGXeBGsdf5U2xIN4M9J nwkPldk1mr8nx BJRlJXgoM01zrHEww5Y6X MTbfHY7KIOndZtiFuFzzO 93Oyc+HARlhVlab4PxEhp vl8htn1nqyVb2 OkFdBYGdrfVxhXgaDYM3d 7AvDn12W04vMOghAUGlWM LcMTKrCJBhoMxgrb8brV1 wIi8+PGNvbCB3 iVK0hD5xLQJrYzO0MUfpG 304CuXqoQLfJmdaf2amc4 hqeZm1PfMiTGUnmxMmnCz nWZP3j3RyCb19 D65sIQeuVBTsVTOoKJUhA SZrsVfuba0dlB9nCg9+PC 9su2lkvf54wT72zAU+PHR eLBB4mFazFSyh IPWotM9xSEfgTwQ4HCDvI mMwnB64lHXsKLbeKk0ltT hhuWazCF7iLZBioyxnf94 5ZnSkz0spMCIb zTSrMJrdDTG2Y32ki1B6B SWmDQRuEOK1oUW0tC1qeN lnbjogbGVmdDsgdmVydGl iHXtsYOldV962 IHRvcDsnPlBhdGllbnQgT fBiVGh4P4DyVbs5YNUwgE uhPQ6afPGyYMsfGi4avKd xeLuqTM1mXUTp svydm265ObFra2fpDSCit FZiBWvjLMF2E18np0R5YO SvHSZiQFF2kPV6qJ1yvPf nbjogbGVmdDsg zsPbeWheXAekQPscR648H HRvcDsnPkJpcnRoIERhdG Q0SX89FC58xUYws6W8sMO 7V7LcHDQawxgg guaeiWQ6VQKwJNWqqQ03G p4jkTukTe3sFOZrAEY7SN LujPNkO1GzyT2oLoTmIWJ iWLAhE1GnkSDn MIacR495LTqyWlC7YEQbo zJbK0TrWASqrNoaPyQ5v2 E8Ut1GP3U9CO13NC40xMO fs3E7iWV9Z7Mp EGOzdjlsdznhqEK5PNKhC MWkmQ89Mi2ieUviZz8cRT JjIGO8OZQkpZDkX8IqtQ2 yOiAjMDAwMDAw V6CwySFrHTbfJ651ZLeoE wS3XZSabdWmK4YlINPiuX xaFiO9o8D4Np0ODUa9XC6 7PM63eMVop7N2 mDS8G1WdHKThjoosmoeus GF4VVAzSHOdsF89Ik3ewD mqJv0aOZMsZIN4RPUozWT pQ6ZfuU4rAaWm BPNjJFYoP5UexWHlCHlwD 876WJlaBjW9YTLqunAeS5 MxQBArtRfaDvN7f4Z1Ia7 PKHVtKN46DNT6 gKK6WY84BA15C7YsDccyv GFibGU+PHRhYmxlIHdpZH RoPScxMDAlJyBzdHlsZT0 bEn2iNNEcNKNc yJdkuRJzXaRim2giIFVrR CcqKH8qxFyaR2OwdTC6ZE Vqd6z6Nt30L06qD4WhdZM +NRNngPE9pJY6 iW5oQvEpVeP3MKghZ566I gZdlXZaZooha7nvl9tqiF b3ZhM0YQLybcNgzOslLSR 7y8NdBo46Q72s IHdpZHRoPSIxNSUiIHZhb Tspml5fpW4xAf4+PGNvbC C9zPD4iA7cTfJcLaY2KIe tY926GyBjzCFt Vfmpy4zuq8butMy2KjUtM UVejfFpkJmcVRP6p0DuPa 98Y7LrsVwkp8VtYgm9rb7 4yHTtu2Y0fCW1 B2ErNKPcoudxtAPkjHapA I6uJJJzsrhoDLDesQ7vBM OtA1l6VsBqHdE4NXofA4Y fsvC6MVZycHUf FSytQND9K49mm2C2DZEuC PJfTRX1qOB5fF4plRbnyr ogbGVmdDsgdmVydGljYWw fTPajS277NBTh qRdsQZRqyJ0xMUOcbCCek XvgAO5xTEWhvofsEmkCHV FeULURI3wUZN78RX58kTS xl1F4eAC3O6Fg NWPhlafhuwohkAG0QCUxZ RNdqR17vJXmRAbmXv7ii0 N3v974SNNyEQHogN33Ph3 udDogMTBwdCBU dP5npngli8qzqkdtWrUvE LBcQSy1ZWn6WVZonTjlMc TzTZT2PhA4JRK5qLJgdC6 tsYbeckczjD6c Oyc+VERbXfIfUSa1Jxexd GQ+IEPpTNG8bBhzAVmxYU HnhM2cSMExI9s0ApMyLkC 5JNcxN7GgKWGr brloMq85fV1rMrBwGxB5G AguQ9WryoJ3VNDvwNFcIE qqKYT8W45uk7U9ZOTdDMV pYKT3iHA0mD8i bGlnbjogbGVmdDsgdmVyd IqfGUcjBMrzC507GDOlbW cyYdX6WDaiAIObVT51XW3 5yREta4X4cUN1 C2NjHUMpelsffuhqnER4P LWcNDSabM12fWWfTHitXs 8cj0I7l000DJIvDSOmmY1 5Wo1idCjfBZHm nRZJqK1wcukyf5aubfbeJ aYnGLSeGNz2XYm0YRLonX uhHkQuWMO4RyQ9YET0gYF zgH7sdUpelmhb wJ5aUub+KlJlIHlmNB91L F30dKKrj7W3nMJ0H5EiBP RjqlzhofairQF8PUMqVNZ vsR59bSRmXLpa Ak1cx2N8m071IMTsTBXxp H32Qe1icLkkMJVplVLCpW 8xgipmg7cfqgdrEmNhSBT tKFv7YBu1PYEe uXhuKmIfSRO3InG4WWF5m BGmhP4iwWtybfyroB3nYn c+WX3qaefuoqC9HA81RZ1 2B4SaHugsnMDg bGU+PHRhYmxlIHdpZHRoP ZxnWVXcLfXfmHsqAO2bWr 9yZGVyLWNvbGxhcHNlOiB hy6mfPPKxBShp FC3jvJkaP0BllHY5POKxw 3p1Ja15P45gK1WugKJ+PG HwqKP0hMB5eI8wDxLgOeS 6JAeoY198YzCl lKOyHbqur9zam9pujWh5I cRzUBPnjbAxwCgfRAL1v1 FgEy18Q86cEFreIIPzEWY yMCUiIHZhbGln so9adR9hIn3+XVRsoDS2v GH7rB8wPiTvHnF5GRubL6 51HmJalDOnVzmfH65sC1D vdXA+PHRyPjx0 QTJwySrfWL2qeYKnKWxiG c1mPMY6TaFcCnPiHJkeQ1 LhERIystwactngbGC4OYS rNFDobB80Ic3v lRjaTp4mGLHzKET2RGHgo HUlQ7SymY7nFyQcHOFvFR SqE2DzyNGwCIjwC872YPn zNcR5JLKtoxBg A1OoEMBqdTffAbS6i8A2E b9VqWxqpTFfEK1iFgFeLK s0T4VtHji5GUCcjLrwGV6 mpEJuGCfmCz8w mHroiLxpSO0hTOMqsdzqq 367QxSam3vbXCTslHDyBG iiTXQ6T72at3Q7HKAkOWB sHKV4oAN5oE2w bGlnbjogbGVmdDsgdmVyd JkbAElbSZazJ608SASwuR taTmCLNnt2W0BbPng1NUL obUeoRS1zrIAc GNayBe9dcBuygJalLS3wB HLwqyfxe672RrGee5igPH BxqLIcEUdeUXI8U60uv0N 8FYRaKYUfCPR0 sNA5eI1dsCuqkshwiPIgm DsgdmVydGljYWwtYWxpZ2 35ZXOotOedXo4DCue6X9K yHkb2NHGhtCop KM8onSVcKDclWj6bcBclc YbePO3dWFEtlqfrm968Ca Cez0rvQMUmaFUdLTfhHLA 7R69ia1C0ZOWq ZTIwWWM0zVI0jE7tqUnyw jogbGVmdDsgdmVydGljYW wqTHlqL956RXEiuCbmZxS heWVyOjwvdGQ+ KY64mi98E1IsLqseKvc5M WLfCNU0mDD3mD5oTLHhEC ibr2Z2sBQ0V0BoolQxcw0 ib7ctTRAyPBqd Y29s (more content not included)... Normal [facility] GLUCOSE, FINGERSTICK-IN OFFI CEon 01-06-2022 Glucose [Mass/Vol] 192 mg/dL High 80 - 116 mg/dL [facility] Interpretation and review of laboratory results Abnormal [facility] Glucose [Mass/Vol] 140 mg/dL High 80 - 116 mg/dL [facility] Interpretation and review of laboratory results [facility] Panel Informationon 01-06 : Technical services were performed by the department of Anesthesia in surgery without interpretive services. Please refer to the patient's chart for the results of the procedure. [facility] Narrative & Impression EXAMINATION: US GUIDANCE NEEDLE PLACEMENT CLINICAL HISTORY: peripheral nerve block [facility] EXAMINATION: XR ELBO W RIGHT 2 VIEWPRO/RT [...] operative report for full details. MACRO: None [facility] Radiology Study observation (narrative) [facility] Radiology Study observation (narrative) [facility] No Panel InformationOrdered By: Henry Farfan on 01-06-2022 [facility]: No Panel InformationOrdered By: Gilbert Palomo on 01-06-2022 [employer] Work Phone: US GUIDANCE NEEDLE PLACEMENT on 01-06-2022 : Technical services were performed by the department of Anesthesia in surgery without interpretive services. Please refer to the patient's chart for the results of the procedure. [facility] Narrative & Impression EXAMINATION: US GUIDANCE NEEDLE PLACEMENT CLINICAL HISTORY: peripheral nerve block [facility] Radiology Study observation (narrative) [facility] US GUIDANCE NEEDLE PLACEMENT Ordered By: Rakesh Nickerson on 01-06-2022 [facility]: ECHOCARDIOGRAM REPORTon 12-26 Left ventricular Ejection fraction % [facility] Jennifer Coronado M D - 01/04/2022 10:26 AM EDT Transthoracic Echocardiographic Report Name: CORNELIA MEDRANO Physician: : [id number] Referring Physician: SHENG DONAHUE DO Age: 66 [employer]: Exam Date: 01/04/2022 10:26 Fellow: LUIS A [...] Inclusion of Race in Diagnosing Kidney Disease. [place] Journal of Kidney Diseases 202;79(2):268-88.e1. 2. N Engl J Med 2020 Vol. 385 Issue 19 Pages 4156-4451 Glucose [Mass/Vol] 116 mg/dL 80 - 116 mg/dL [facility] Interpretation and review of laboratory results Normal [facility] Potassium [Moles/Vol] 4.1 mmol/L 3.3 - 5.3 mmol/L [facility] Sodium [Moles/Vol] 135 mmol/L 135 - 148 mmol/L [facility] Urea nitrogen [Mass/Vol] 13 mg/dL 8 - 22 mg/dL [facility] CBC WITH DIFFERENTIALon 12-26 Basophils (Bld) [#/Vol] [...] [Mass/Vol] 12.9 g/dL 12.0 - 15.0 g/dL [facility] Interpretation [...] 7.7 10*3/uL 4.5 - 11.5 K/uL [facility] - Blood bankon ABO and Rh group Nom (Bld) Blood group B Rh(D) positive [facility] Basic metabolic 2000 panelon 01-03-2022 Anion gap [Moles/Vol] 16 mmol/L [facility] Calcium [Mass/Vol] 9.6 mg/dL 8.4 - 10. [...] Inclusion of Race in Diagnosing Kidney Disease. [place] Journal of Kidney Diseases 202;79(2):268-88.e1. 2. N Engl J Med 2020 Vol. 385 Issue 19 Pages 5783-3243 Glucose [Mass/Vol] 166 mg/dL High 80 - 116 mg/dL [facility] Interpretation and review of laboratory results Abnormal [facility] Potassium [Moles/Vol] 4.1 mmol/L 3.3 - 5.3 mmol/L [facility] Sodium [Moles/Vol] 137 mmol/L 135 - 148 mmol/L [facility] Urea nitrogen [Mass/Vol] 14 mg/dL 8 - 22 mg/dL [facility] panel Auto (Bld)on 01-03 Erythrocyte distribution width (RBC) [Ratio] 13.7 % 11.5 - 14.5 % [facility] Hematocrit (Bld) [Volume fraction] 37.2 % 36.0 - 46.0 % [facility] Hemoglobin (Bld) [Mass/Vol] 12.8 g/dL 12.0 - 15.0 g/dL [facility] review of laboratory results [facility] MCH (RBC) [Entitic mass] 28.7 pg 26.0 - 34.0 pg [facility] MCHC (RBC) [Mass/Vol] 34.5 g/dL 32.0 - 35.9 g/dL [facility] MCV (RBC) [Entitic vol] 83 fL 80 - 100 fL [facility] Platelet mean volume (Bld) [Entitic vol] 9.1 fL 7.5 - 11.2 fL [facility] Platelets (Bld) [#/Vol] 132 10*3/uL Low 150 - 400 K/uL [facility] RBC (Bld) [#/Vol] 4.48 10*6/uL [facility] WBC (Bld) [#/Vol] 8.7 10*3/uL 4.5 - 11.5 K/uL [facility] CT ELBOW RIGHT W/O CONTRASTO rdered By: Anup Díaz on 01-03-2022 CT DLP 281.3 (mGy.cm) [facility] Work Phone: CT Series Upper arm [facility] Work Phone: CTDI VOL 11.4 (mGy) [facility] Work Phone: PHANTOM TYPE IEC Body Dosimetry Phantom [facility] Work Phone: [facility] Work Phone: CT ELBOW RIGHT W/O CONTRASTo [...] CT ELBOW RIGHT W/O CONTRAST MACRO: None [facility] Rad[facility] Study observation (narrative) [facility] Consent for Treatmenton 04-0 Consent for Treatment [id number]#1 .00CD:127 Normal [facility] Discharge Instructionson Discharge Instructions [id number]# 1.00CD:127 Normal [facility] ED Clinical Summaryon 2021 ED Clinical Summary [address] [address] ED Clinical Summary Person Information Name: SHRUTI LOCKE/[facility] Age: 66 Years : 1955 Sex: Female Language: Jordanian PCP: ADA NEFF MD Marital Status: Single [...] 01/03/2022 12:03:32 01/03/2022 12:03:32 01/03/2022 12:03:32 ADDRESS: [address] [place] [phone] PHYS DOC NOTES: MEDICAL INFORMATION: Prescriptions Given: [...] INFORMATION: Instructions: Cast or Splint Care, Adult, Orvj-er-Crzh Follow up: With: Address: When: Go directly to [facility] emergency room to be evaluated by Dr. Avila With: Address: When: ADA NEFF [facility] [id number] Business (1) In 3 days DIAGNOSIS: 1:Fracture of right elbow [facility] ED Noteon 01-03-2022 ED Note 1050: Called [facility] Transfer line, Valdo answered. Valdo talked to Dr. Moss about transfer. 1127: Valdo called back from [facility] Transfer line....Valdo stated Patient was accepted to Dr. Sheng Donahue (Ortho) and we can set up transfer to ER to ER at [facility]. Handed the packet to Family member that is driving patient to [facility] ER. Packet : Disc, ED chart , Facesheet and Auth to Transfer documentation and with Directions to [facility]. Normal [facility] ED Note-Physicianon 01-04-20 ED Note-Physician Basic Information No qualifying data available. Chief Complaint pt arrived via privat vehicle c/o right elbow pain. pt stated that she was at a [employer] and tripped and fell. pt was seen at another hospital and needed surgery but she wanted to come to her hospital here. pt last took half of a percocet at 0430 last History of Present Illness Ms. Lokce is a 66 y/o female with PMH of HTN/high cholesterol/T2DM who comes into the ER today for a referral to an orthopedic surgeon after having fallen and broken her right arm yesterday. Patient had a fracture of the humerus after a fall brought on by tripping on a cinder block at a [employer] yesterday. She states she did not hit [...] interviewed the patient. She was seen in [place] yesterday diagnosed with a displaced intra-articular elbow [...] was beyond the skill level of a [facility] hospital and referred her to [facility]. I discussed the case with [facility] transfer line. They have arranged an orthopedic [...] Discharge Disposition Transfer by private vehicle to [facility] ER Discharge Prescription List Prescriptions No active prescription medications Follow-up With When Contact Information Go directly to [facility] emergency room to be evaluated by Dr. Avila Additional Instructions: ADA NEFF In 3 days [facility] [place], [place] [address] (1) Additional Instructions: Patient Education Cast or Splint Care, Adult, Ktuw-pw-Yorc Attestation Patient was treated and evaluated by [...] 1 tab(s (more content not included)... Normal [facility] Comment on above: Result Comment: Elec tronically Signed By: Timo ALVAREZ IIIYaakov\.br\Date and Time Signed: 01/03/22 09:06 EDT\.br\Electronically Co-Signed [...] Reviewed: 09/03/2017 Elsevier Patient Education ? 2019 [employer]. Normal [facility] ED Patient Summaryon 022 ED Patient Summary [address] [address] Patient Discharge Instructions Person Information Name: SHRUTI LOCKE Age: 66 Years Arrival Date: 01/03/2022 08:40:31 Discharge Diagnosis: 1:Fracture of right elbow Primary Care Physician: ADA NEFF MD Provider Information Primary Provider: Jl Moss MD [facility] Mover Helper:None The exam and treatment you received in the Emergency Department were for an urgent problem and are not intended as complete care. It is important that you follow up with a doctor, nurse practitioner, or physician?s financial assistant for ongoing care. If your symptoms [...] Instructions: With: Address: When: Go directly to [facility] emergency room to be evaluated by Dr. Avila With: Address: When: ADA NEFF [address] [place] [id number] Business (1) In 3 days In the event that this physician does not participate in your insurance network, please consult with your insurance company to find a nearby participating provider. Patient Education Materials: Cast or Splint Care, Adult, Etpk-hd-Ecer A MESSAGE TO ALL PATIENTS REGARDING OPIOIDS PRESCRIPTION OPIOIDS: WHAT YOU NEED TO KNOW Prescription opioids can be used to help relieve igirqbsh-cv-dmmubv pain and are often prescribed following a [...] be struggling with addiction, tell your health hourly caregiver and ask for ho (more content not included)... Normal [facility] No Panel Informationon 01-03 Radiology Study observation (narrative) [facility] Outside Recordson 01-03-2022 Outside Records [id number]# 1.00CD:127 Normal [facility] PROTHROMBIN TIME AND INRon 0 01-03-2022 INR Coag (PPP) [Relative time] 1.20 {INR} High [facility] Interpretation and review of laboratory results [facility] Coag (PPP) [Time] 13.5 s High [facility] TYPE AND SCREENon 01-03-2022 ABO and Rh group Nom (Bld) Blood group B Rh(D) positive [facility] ABO and Rh group Nom (Bld) No Previous Results [facility] Blood group antibody screen Ql Negative [facility] Transfer Documentson 022 Transfer Documents [id number]# 1.00CD:127 Normal [facility] XR ELBOW RIGHT MINIMUM 3 VIE WSon [...] soft tissue swelling. Right elbow MACRO: None Arlyn Riggins MD - 01/03/2022 EXAMINATION: XR ELBOW RIGHT [...] soft tissue swelling. Right elbow MACRO: None [facility] XR ELBOW RIGHT MINIMUM 3 VIE WSOrdered By: Arlyn Mills on 01-03-2022 [employer] Work Phone: XR Elbow 2 Views Righton [...] V. Transcribed by: HILDA Technologist: KALEIGH Lipscomb [facility] XR FOREARM RIGHT 2 VIEWSon 0 01-03-2022 [...] of the forearm Right forearm MACRO: None Arlyn Riggins MD - 01/03/2022 EXAMINATION: XR FOREARM RIGHT [...] of the forearm Right forearm MACRO: None [facility] XR HUMERUS RIGHTon 2 EXAMINATION: XR HUMERUS RIGHTPRO/RT CLINICAL HISTORY: Reason [...] humerus are intact. Right humerus MACRO: None [facility] Blood Glucose Meteron 2021 Glucose [Mass/Vol] 159 mg/dL High 70-100 [facility] Comment on above: Performed By: #### A CC #### [facility], CLIA# [id number] [facility] [address] Adalid Olea M.D. Director CT Elbow WO [facility] 01-03-20 CT Elbow WO Right [facility] Name: SHRUTI LOCKE [email or web address] Phys: [place] [address] : 1955 Age: 66 Acct: [id number] Loc: LAURA MRN/Unit No.: [id number] Status: REG ER Exam Date: 01/02/22 Accession Number: [id number] Exam: CT/CT Elbow WO Right CT Elbow WO [...] electronically signed in another vendor system Normal [facility] XR Elbow 3 Views Righton XR Elbow 3 Views Right [facility] Name: SHRUTI LOCKE [email or web address] Phys: [place] [address] : 1955 Age: 66 Acct: [id number] Loc: LAURA MRN/Unit No.: [id number] Status: REG ER Exam Date: 01/02/22 Accession Number: [id number] Exam: RAD/XR Elbow 3 Views Right XR Elbow [...] By: ANGELITA HOLLIS MD Signed Date/Time: 01/02/22, 6459 This report was electronically signed in another vendor system Normal [facility] CBC AUTO DIFFon 08-11-2021 BASO # 0.0 103/ul Normal 0.0-0.1 [facility] Comment on above: Performed By: #### C BC #### [facility] [address] [place] [address] Dr. Mark Albert Basophils/100 WBC (Bld) 0.7 % Normal 0.2-2.0 [facility] Comment on above: Performed By: #### C BC #### [facility] [address] [place] [address] Dr. Mark Albert EO # 0.3 103/ul Normal 0.0-0.7 [facility] Comment on above: Performed By: #### C BC #### [facility] [address] [place] [address] Dr. Mark Albert Eosinophils/100 WBC (Bld) 4.9 % Normal 0.9-7.0 [facility] Comment on above: Performed By: #### C BC #### [facility] [address] [place] [address] Dr. Mark Albert Erythrocyte distribution width (RBC) [Ratio] 13.0 % Normal 11.0-15.0 [facility] Comment on above: Performed By: #### C BC #### [facility] [address] [place] [address] Dr. Mark Albert Hematocrit (Bld) [Volume fraction] 48.2 % Critically high 36.0-48.0 [facility] Comment on above: Performed By: #### C BC #### [facility] [address] [place] [address] Dr. Mark Albert Hemoglobin (Bld) [Mass/Vol] 15.8 g/dL Normal 12.0-16.0 [facility] Comment on above: Performed By: #### C BC #### [facility] [address] [place] [address] Dr. Mark Albert IG # 0.01 10e3/ul Normal 0.00-0.03 [facility] Comment on above: Performed By: #### C BC #### [facility] [address] [place] [address] Dr. Mark Albert IG % 0.2 % Normal 0.0-0.5 [facility] Comment on above: Performed By: #### C BC #### [facility] [address] [place] [address] Dr. Mark Albert LYMPH # 2.0 103/ul Normal 1.2-3.8 [facility] Comment on above: Performed By: #### C BC #### [facility] [address] [place] [address] Dr. Mark Albert Lymphocytes/100 WBC (Bld) 32.8 % Normal 20.5-60.0 [facility] Comment on above: Performed By: #### C BC #### [facility] [address] [place] [address] Dr. Mark Albert MANUAL DIFF REQ NO Normal [facility] Comment on above: Performed By: #### C BC #### [facility] [address] [place] [address] Dr. Mark Albert MCH (RBC) [Entitic mass] 27.7 pg Normal 26.7-34.0 [facility] Comment on above: Performed By: #### C BC #### [facility] [address] [place] [address] Dr. Mark Albert MCHC (RBC) [Mass/Vol] 32.8 g/dL Normal 29.9-35.2 [facility] Comment on above: Performed By: #### C BC #### [facility] [address] [place] [address] Dr. Mark Albert MCV (RBC) [Entitic vol] 84.4 fL Normal 81.0-99.0 [facility] Comment on above: Performed By: #### C BC #### [facility] [address] [place] [address] Dr. Mark Albert MONO # 0.4 103/ul Normal 0.3-0.8 [facility] Comment on above: Performed By: #### C BC #### [facility] [address] [address] [address] Mark Albert Monocytes/100 WBC (Bld) 6.5 % Normal 1.7-12.0 [facility] Comment on above: Performed By: #### C BC #### [facility] [address] [place] [address] Dr. Mark Albert NEUT # 3.4 103/ul Normal 1.4-6.5 [facility] Comment on above: Performed By: #### C BC #### [facility] [address] [place] [address] Dr. Mark Albert Neutrophils/100 WBC (Bld) 54.9 % Normal 43.0-75.0 [facility] Comment on above: Performed By: #### C BC #### [facility] [address] [place] [address] Dr. Mark Albert Platelet mean volume (Bld) [Entitic vol] 11.8 fL Normal 9.5-13.5 [facility] Comment on above: Performed By: #### C BC #### [facility] [address] [place] [address] Dr. Mark Albert PLT 140 103/ul Critically low 150-450 [facility] Comment on above: Result Comment: plts reviewed Performed By: #### C BC #### [facility] [address] [place] [address] Dr. Mark Albert RBC 5.71 106/ul Critically high 4.20-5.40 [facility] Comment on above: Performed By: #### C BC #### [facility] [address] [place] [address] Dr. Mark Albert WBC 6.1 103/ul Normal 4.0-11.0 [facility] Comment on above: Performed By: #### C BC #### [facility] [address] [address] [address] Mark Albert LIPID PROFILEon 08-11-2021 CHOL-HDL RATIO NORM SEE BELOW Normal [facility] Comment on above: Result Comment: 3.3 - 4.4 LOW RISK 4.4 - 7.1 AVERAGE RISK 7.1 - 11.0 MODERATE RISK >11.0 HIGH RISK Performed By: #### L IPID, BMP #### [facility] [address] [address] [address] Mark Albert Cholesterol [Mass/Vol] 173 mg/dL Normal <=200 [facility] Comment on above: Performed By: #### L IPID, BMP #### [facility] [address] [address] [address] Mark Albert Cholesterol in HDL [Mass/Vol] 59 mg/dL Normal [facility] Comment on above: Performed By: #### L IPID, BMP #### [facility] [address] [address] [address] Mark Albert Cholesterol in LDL [Mass/Vol] 83.4 mg/dL Normal [facility] Comment on above: Performed By: #### L IPID, BMP #### [facility] [address] [address] [address] Mark Albert Cholesterol.total/Chol esterol in HDL [Mass ratio] 2.9 {ratio} Normal [facility] Comment on above: Performed By: #### L IPID, BMP #### [facility] [address] [address] [address] Mark Albert HDL NORMAL > or = 60 mg/dl - LO W CARDIOVASCULAR RISK <40 mg/dl - HIGH CARDIOVASCULAR RISK Normal [facility] Comment on above: Performed By: #### L IPID, BMP #### [facility] [address] [address] [address] Mark Albert LDL CALC NORMAL SEE BELOW Normal [facility] Comment on above: Result Comment: <100 mg/dl OPTIMAL 100 - 129 mg/dl NEAR OR ABOVE OPTIMAL 130 - 159 mg/dl BORDERLINE HIGH 160 - 189 mg/dl HIGH >190 mg/dl VERY HIGH Performed By: #### L IPID, BMP #### [facility] [address] [address] [address] Mark Albert Triglyceride [Mass/Vol] 153 mg/dL Critically high <=150 [facility] Comment on above: Performed By: #### L IPID, BMP #### [facility] [address] [address] [address] Mark Albert VLDL CALC 30.6 mg/dL Normal [facility] Comment on above: Performed By: #### L IPID, BMP #### [facility] [address] [place] [address] Dr. Mark Albert PROF CHEM 8 (BAS METB)on Anion gap [Moles/Vol] 11.7 mmol/L Normal [facility] Comment on above: Performed By: #### L IPID, BMP #### [facility] [address] [place] [address] Dr. Mark Albert Calcium [Mass/Vol] 9.8 mg/dL Normal 8.4-10.2 [facility] Comment on above: Performed By: #### L IPID, BMP #### [facility] [address] [place] [address] Dr. Mark Albert Chloride [Moles/Vol] 98 mmol/L Normal 98-107 [facility] Comment on above: Performed By: #### L IPID, BMP #### [facility] [address] [place] [address] Dr. Mark Albert CO2 [Moles/Vol] 28.7 mmol/L Normal 22.0-30.0 [facility] Comment on above: Performed By: #### L IPID, BMP #### [facility] [address] [place] [address] Dr. Mark Albert Creatinine [Mass/Vol] 0.72 mg/dL Normal 0.52-1.04 [facility] Comment on above: Performed By: #### L IPID, BMP #### [facility] [address] [place] [address] Dr. Mark Albert EGFR-AF BOLIVIAN >60 Normal >=60 [facility] Comment on above: Performed By: #### L IPID, BMP #### [facility] [address] [place] [address] Dr. Mark Albert EGFR-NON AF BOLIVIAN >60 Normal >=60 [facility] Comment on above: Performed By: #### L IPID, BMP #### [facility] [address] [place] [address] Dr. Mark Albert Glucose [Mass/Vol] 259 mg/dL Critically high 74-106 T [facility] Comment on above: Performed By: #### L IPID, BMP #### [facility] [address] [place] [address] Dr. Mark Albert Potassium [Moles/Vol] 4.4 mmol/L Normal 3.4-5.0 [facility] Comment on above: Performed By: #### L IPID, BMP #### [facility] [address] [place] [address] Dr. Mark Albert Sodium [Moles/Vol] 134 mmol/L Critically low 137-145 Th [facility] Comment on above: Performed By: #### L IPID, BMP #### [facility] [address] [place] [address] Dr. Mark Albert Urea nitrogen [Mass/Vol] 13.0 mg/dL Normal 7.0-17.0 [facility] Comment on above: Performed By: #### L IPID, BMP #### [facility] [address] [place] [address] Dr. Mark Albert Urea nitrogen/Creatinine [Mass ratio] 18.1 mg/mg Normal [facility] Comment on above: Performed By: #### L IPID, BMP #### [facility] [address] [place] [address] Dr. Mark Albert Vital Signs Date Time Vital Sign Value Performing Clinician Facility 05-22-2024 10:02-0400 Body height 162.56 cm [facility] 05-22-2024 10:020400 Body mass index (BMI) [Ratio] 37.8 kg/m2 [facility] 05-22-2024 10:02-0400 Body weight 99.79 kg [facility] 05-22-2024 10:02-0400 Diastolic blood pressure 80 mm[Hg] [facility] 05-22-2024 10:02-0400 Heart rate 81 /min [facility] 05-22-2024 10:02-0400 Systolic blood pressure 151 mm[Hg] [facility] 05-19-2023 10:00-0400 Body height 162.56 cm Ada Neff Other [facility] Other 05-19-2023 10:00-0400 Body mass index (BMI) [Ratio] 36.9 kg/m2 Ada Neff Other [facility] Other 05-19-2023 10:00-0400 Body weight 97.52 kg Ada Neff Other [facility] Other 05-19-2023 10:00-0400 Diastolic blood pressure 83 mm[Hg] Ada Neff Other [facility] Other 05-19-2023 10:00-0400 Systolic blood pressure 164 mm[Hg] Ada Neff Other [facility] Other 01-06-2022 18:30-0400 Body temperature 99.9 [degF] Tanmay Scott MD Work Phone: [employer] 01-06-2022 18:30-0400 Diastolic blood pressure 80 mm[Hg] Tanmay Scott MD Work Phone: [employer] 01-06-2022 18:30-0400 Heart rate 72 /min Tanmay Scott MD Work Phone: [employer] 01-06-2022 18:30-0400 SaO2% (BldA) [Mass fraction] 94 % Tanmay Scott MD Work Phone: [employer] 01-06-2022 18:30-0400 Systolic blood pressure 149 mm[Hg] Tanmay Scott MD Work Phone: [employer] 01-06-2022 18:03-0400 Respiratory rate 14 /min Tanmay Scott MD Work Phone: [employer] 01-04-2022 15:35-0400 Body temperature 98.4 [degF] Marianna Zavala MD Work Phone: [employer] 01-04-2022 15:35-0400 Diastolic blood pressure 69 mm[Hg] Marianna Zavala MD Work Phone: [employer] 01-04-2022 15:35-0400 Heart rate 86 /min Marianna Zavala MD Work Phone: [employer] 01-04-2022 15:35-0400 Respiratory rate 18 /min Marianna Zavala MD Work Phone: [employer] 01-04-2022 15:35-0400 SaO2% (BldA) [Mass fraction] 96 % Marianna Zavala MD Work Phone: [employer] 01-04-2022 15:35-0400 Systolic blood pressure 141 mm[Hg] Marianna Zavala MD Work Phone: [employer] 01-03-2022 18:30-0400 Body height 165.1 cm Marianna Zavala MD Work Phone: [employer] 01-03-2022 18:30-0400 Body mass index (BMI) [Ratio] 35.28 kg/m2 Marianna Zavala MD Work Phone: [employer] 01-03-2022 18:30-0400 Body weight 96.16 kg Marianna Zavala MD Work Phone: [employer] 01-03-2022 08:44-0400 Body temperature 98.06 [degF] Jl Moss [facility] 01-03-2022 08:44-0400 Diastolic blood pressure 78 mm[Hg] Jl Moss [facility] 01-03-2022 08:44-0400 Heart rate 80 /min Jl Moss [facility] 01-03-2022 08:44-0400 Respiratory rate 18 /min Jl Moss [facility] 01-03-2022 08:44-0400 SaO2% (BldA) [Mass fraction] 94 % Jl Moss [facility] 01-03-2022 08:44-0400 Systolic blood pressure 148 mm[Hg] Jl Moss [facility] Encounters Encounter Date Encounter Type Care Provider Facility Start: 05-22-2024 End: 05-22-2024 ambulatory [facility] Work Phone: Start: 05-22-2024 End: 05-22-2024 [facility]: Start: 02-10-2024 Telephone encounter Irena Lambert RN [facility] Start: 01-10-2024 End: 01-11-2024 ambulatory ADA NEFF Facility:[facility] Start: 01-10-2024 End: 01-10-2024 Office outpatient visit 15 minutes Tanmay Scott MD Work Phone: [facility] Comment on above: Chronic right should er pain (Primary Dx); Vitamin D deficiency Start: 01-10-2024 End: 01-10-2024 Subsequent hospital visit by physician Op Xray 1 [facility] Radiology Comment on above: Chronic right should er pain Start: 12-13-2023 Telephone encounter Irena Lambert RN [facility] Orthopedic Hand Start: 12-12-2023 Refill Janice smith PA-C Other Phone: [facility] Hand Comment on above: Refill Start: 11-18-2023 End: 11-18-2023 ambulatory GISELEJOHN MCKEON Not Available Start: 11-16-2023 End: 11-16-2023 ambulatory GISELE MCKEON Not Available Start: 11-11-2023 Bamboo flowsheet Love Lagunasy MACHINE CLOTH EXAMINER [facility] Start: 11-11-2023 Bamboo flowsheet Love Lagunasy MACHINE CLOTH EXAMINER [facility] Start: 11-11-2023 End: 11-11-2023 ambulatory Love Lagunasy MACHINE CLOTH EXAMINER [facility] Comment on above: Acute pain of right shoulder (Primary Dx); Stiffness of right shoulder joint Start: 11-09-2023 Bamboo flowsheet Love Brookebley MACHINE CLOTH EXAMINER [facility] Start: 11-09-2023 Bamboo flowsheet Love Brookebley MACHINE CLOTH EXAMINER [facility] Start: 11-09-2023 End: 11-09-2023 ambulatory LOVE LAGUNASY Not Available Start: 11-09-2023 End: 11-09-2023 ambulatory Love Lagunasy MACHINE CLOTH EXAMINER [facility] Comment on above: Acute pain of right shoulder (Primary Dx); Stiffness of right shoulder joint Start: 11-04-2023 End: 11-04-2023 ambulatory Gisele Mckeon PT Work Phone: [facility] Comment on above: Acute pain of right shoulder (Primary Dx); Stiffness of right shoulder joint Start: 11-02-2023 Refill Janice Thornton Jay smith PA-C Work Phone: [facility] Comment on above: Refill Start: 11-02-2023 End: 11-02-2023 ambulatory LOVE MELCHOR Not Available Start: 10-28-2023 End: 10-28-2023 ambulatory Gisele Mckeon PT Work Phone: [facility] Comment on above: Acute pain of right shoulder (Primary Dx); Stiffness of right shoulder joint Start: 10-26-2023 End: 10-26-2023 ambulatory BRAYDEN CASANDRA Not Available Start: 10-21-2023 End: 10-21-2023 ambulatory GISELEJOHN MCKEON Not Available Start: 10-11-2023 End: 10-12-2023 ambulatory UNKNOWN PROVIDER Facility:[facility] Start: 10-11-2023 End: 10-12-2023 ambulatory UNKNOWN PROVIDER Facility:[facility] Start: 10-11-2023 End: 10-12-2023 Office outpatient visit 25 minutes Tanmay Scott MD Work Phone: [facility] Comment on above: Other closed displac ed fracture of distal end of right humerus, initial encounter (Primary Dx); Closed supracondylar fracture of right humerus, initial encounter; Closed fracture of proximal end of right humerus, unspecified fracture morphology, initial encounter; Age-related osteoporosis without current pathological fracture Start: 08-24-2023 End: 08-25-2023 ambulatory JANICE ROLAND Facility:[facility] Start: 08-16-2023 End: 08-17-2023 ambulatory UNKNOWN PROVIDER Facility:[facility] Start: 08-16-2023 End: 08-16-2023 Office outpatient visit 15 minutes Janice Velastiven CALLAWAYC Work Phone: [facility] Comment on above: Other closed displac ed fracture of distal end of right humerus, initial encounter (Primary Dx); Closed supracondylar fracture of right humerus, initial encounter; Closed fracture of proximal end of right humerus, unspecified fracture morphology, initial encounter Start: 08-16-2023 End: 08-16-2023 Subsequent hospital visit by physician Op Xray 2 [facility] Radiology Comment on above: Other closed displac ed fracture of distal end of right humerus, initial encounter Start: 08-06-2023 End: 08-06-2023 ambulatory Estephanie Carballo Facility:[facility] Start: 08-06-2023 End: 08-06-2023 Patient encounter procedure NCR OPERATOR-C Estephanie Carballo Work Phone: [facility] [place] Work Phone: Start: 08-06-2023 End: 08-06-2023 ambulatory Ada Neff Other [facility] Other Start: 08-06-2023 Telephone encounter Ada Neff [facility] [place] Start: 05-19-2023 End: 05-19-2023 ambulatory Ada Neff Other [facility] Mtime Other Start: 05-19-2023 Office outpatient vi sit 15 minutes Ada Neff [facility] Start: 03-08-2023 End: 03-09-2023 ambulatory BAUTISTATONO VELASTIVEN [facility] Start: 03-08-2023 End: 03-08-2023 Office outpatient visit 15 minutes Janice Roland [facility]-C [facility] Comment on above: Other closed displac ed fracture of distal end of right humerus, initial encounter (Primary Dx) Start: 03-04-2023 Telephone encounter [facility] Start: 03-02-2023 Telephone encounter [facility] Start: 08-03-2022 End: 08-03-2022 Office outpatient visit 15 minutes Janice ROSADO-C [facility] Comment on above: Other closed displac ed fracture of distal end of right humerus, initial encounter (Primary Dx) Start: 05-04-2022 End: 05-04-2022 Office outpatient new 30 minutes Janice Roland PA-C Work Phone: [facility] Comment on above: Other closed displac ed fracture of distal end of right humerus, initial encounter (Primary Dx) Start: 05-04-2022 End: 05-04-2022 Subsequent hospital visit by physician Op Xray 5 [facility] Radiology Comment on above: Other closed displac ed fracture of distal end of right humerus, initial encounter Start: 03-02-2022 Telephone encounter Janice saleem PA-C Work Phone: [facility] Physical Therapy Start: 03-02-2022 End: 03-02-2022 Nutrition therapy Karla Stone OTR/L [facility] Occupational Therapy Start: 03-02-2022 End: 03-02-2022 Patient encounter procedure Janice Roland PA-C [facility] Comment on above: Other closed displac ed fracture of distal end of right humerus, initial encounter (Primary Dx) OT Treatment (Clinic 2) Start: 03-02-2022 End: 03-02-2022 Subsequent hospital visit by physician Op Xray 5 [facility] Radiology Comment on above: Other closed displac ed fracture of distal end of right humerus, initial encounter Start: 01-28-2022 End: 01-29-[address] NONE LISTED REQUEST Facility: Start: 01-19-2022 End: 01-19-2022 ambulatory Shirley Dee OTR/L Work Phone: [facility] Comment on above: Arrived Start: 01-19-2022 End: 01-19-2022 Nutrition therapy Shirley Dee OTR/L Work Phone: [facility] Start: 01-19-2022 End: 01-19-2022 Patient encounter procedure [facility]ice Roland [facility]-C [facility] Comment on above: Other closed displac ed fracture of distal end of right humerus, initial encounter (Primary Dx) Start: 01-19-2022 End: 01-19-2022 Subsequent hospital visit by physician Frank Op Xray 1 [facility] Radiology Comment on above: Other closed displac ed fracture of distal end of right humerus, initial encounter Start: 01-14-2022 Orders Only Janice Thompsonsarah Washington Work Phone: [facility] Start: 01-06-2022 End: 01-06-2022 Subsequent hospital visit by physician Tanmay Scott MD Work Phone: [facility] Radiology Comment on above: Arrived Start: 01-06-2022 End: 01-06-2022 Subsequent hospital visit by physician Tanmay Scott MD Work Phone: [facility] Main OR Comment on above: Closed fracture of d istal end of right humerus, unspecified fracture morphology, initial encounter (Primary Dx); Acute post-operative pain; Nonrheumatic aortic valve stenosis; Hyperlipidemia, unspecified hyperlipidemia type; Hypertension, unspecified type Arrived Start: 01-04-2022 Orders Only Godfrey Avila DO Work Phone: [facility] Start: 01-03-2022 End: 01-04-2022 Evaluation and management of inpatient Marianna Zavala MD Work Phone: Inpatient [facility]A Comment on above: Closed fracture of r ight elbow, initial encounter (Primary Dx); Closed fracture of distal end of right humerus, unspecified fracture morphology, initial encounter; Hyperlipidemia, unspecified hyperlipidemia type; Hypertension, unspecified type; Nonrheumatic aortic valve stenosis Start: 01-03-2022 Admission to [facility] Godfrey Avila Work Phone: [facility] Orthopedics Start: 01-03-2022 End: 01-03-2022 Emergency department patient visit Jl Moss [facility] Start: 10-14-2021 Adult health examination Roz Neff Other [facility] Other Start: 08-12-2021 End: 08-13-2021 ambulatory CARMEN VILLALTA Facility:[facility] Start: 08-11-2021 End: 08-12-[address] DOCTOR QUICK Facility:[facility] Start: 09-26-2019 Gynecological examin ation normal Ada Neff Other [facility] Other Procedures Date Procedure Procedure Detail Performing Clinician Start: 01-10-2024 End: 01-10-2024 Radex shoulder complete minimum 2 views Janice Roland PA-C Work Phone: Start: 08-16-2023 Radex elbow complete minimum 3 views Herber Brunson MD Work Phone: Start: 08-06-2023 Plain X-ray of right elbow NCR OPERATOR-C Estephanie Carballo Work Phone: Start: 08-06-2023 Plain X-ray of right shoulder NCR OPERATOR-C Estephanie Carballo Work Phone: Start: 03-08-2023 Removal implant deep Ma alejandra Roland PA-C Work Phone: Start: 05-04-2022 Radex elbow complete minimum 3 views Janice Roland PA-C Work Phone: Start: 03-02-2022 Radex elbow complete minimum 3 views Janice Roland PA-C Work Phone: Start: 01-19-2022 Therapeutic px 1/> a reas each 15 min exercises Shirley Szado OTR/L Work Phone: Start: 01-19-2022 Radex elbow complete minimum 3 views Janice Roland PA-C Work Phone: Start: 01-06-2022 End: 01-06-2022 Us guidance needle placement img s&i Minna Sin DO Work Phone: Start: 01-06-2022 Glucose blood reagent strip Tanmay Scott MD Work Phone: Start: 01-06-2022 Radex elbow 2 views Cuco Garcia MD Work Phone: Start: 01-06-2022 Glucose blood reagent strip Tanmay Scott MD Work Phone: Start: 01-04-2022 Echocardiography Paola Avila DO Work Phone: Start: 01-04-2022 Basic metabolic [...] Cholesterol [Mass/volume] in Serum or Plasma Cholesterol [facility] Start: 01-10-2024 End: 01-10-2024 Patient encounter procedure [facility] Start: 11-18-2023 End: 11-18-2023 ambulatory 11/18/2023 10:00 AM EST Treatment [facility] [address] [place] [address] Gisele Mckeon, PT [address] [place] [address] [facility] Start: 11-16-2023 End: 11-16-2023 ambulatory 11/16/2023 10:00 AM EST Treatment [facility] [address] [place] [address] Gisele Mckeon, PT [address] [place] [address] [facility] Start: 11-11-2023 End: 11-11-2023 ambulatory [facility] Comment on above: Arrived Start: 11-09-2023 End: 11-09-2023 ambulatory [facility] Comment on above: Arrived Start: 11-04-2023 End: 11-04-2023 ambulatory 11/04/2023 10:00 AM EST Treatment [facility] [address] [place] [address] Gisele Mckeon, PT [address] [place] [address] [facility] Start: 11-02-2023 End: 11-02-2023 ambulatory 11/02/2023 10:30 AM EST Treatment [facility] [address] [place] [address] Love Melchor, MACHINE CLOTH EXAMINER [facility] Start: 10-11-2023 End: 10-11-2024 DXA Skeletal system Views for bone density BD BONE DENSITY SURVEY Imaging Routine Closed fracture of proximal end of right humerus, unspecified fracture morphology, initial encounter Age-related osteoporosis without current pathological fracture Expected: 10/11/2023, Expires: 10/11/2024 [employer] Work Phone: Comment on above: Expected: 10/11/2023 , Expires: 10/11/2024 Start: 08-24-2023 End: 08-24-2023 Professional / ancillary services management 08/24/2023 2:00 PM EST Ancillary Procedure [facility] [address] [place] [address] [facility] [address] Start: 08-16-2023 End: 08-16-2024 CT Shoulder - right WO contrast CT PSI RIGHT SHOULDER W/O Imaging Within 1 week Other closed displaced fracture of distal end of right humerus, initial encounter Expected: 08/16/2023, Expires: 08/16/2024 [employer] Work Phone: Comment on above: Expected: 08/16/2023 , Expires: 08/16/2024 Start: 06-27-2023 Annual wellness visit Annual W ellness Visit ([id number]) [facility] Start: 05-28-2023 COVID-19 Vaccine ( season) COVID-19 Vaccine ( season) [facility] Start: 05-28-2023 Influenza vaccination Influenza Vacc ine (#1) [facility] Start: 05-03-2023 End: 05-03-2023 Patient encounter procedure 05/03/2023 9:45 AM EDT Office Visit [facility] Orth[facility] Hand [address] [place], [place] [id number] Janice Roland PA-C [address] [facility] [place] [address] [facility] Start: 01-04-2023 Basic metabolic 2000 panel - Serum or Plasma Basic Metabolic Panel [facility] Start: 01-04-2023 Creatinine measurement Basic Metabol ic Panel [facility] Start: 01-04-2023 End: 01-04-2023 Patient encounter procedure 01/04/2023 Office Visit Orthopedics Janice Roland PA-C [address] [place] [address] [facility] Hand Start: 08-03-2022 End: 08-03-2023 XR Elbow - right 3 Views XR ELBOW RIGHT MINIMUM 3 VIEWS Imaging Routine Other closed displaced fracture of distal end of right humerus, initial encounter Expected: 08/03/2022, Expires: 08/03/2023 [employer] Work Phone: Comment on above: Expected: 08/03/2022 , Expires: 08/03/2023 Start: 08-03-2022 End: 08-03-2022 Patient encounter procedure 08/03/2022 Office Visit Orthopedics Janice Roland PA-C [address] [place] [address] [facility] Hand Start: 2022 [facility] Start: 2022 Pneumococcal Vaccine : 65+ Years (1 - PCV) Pneumococcal Vaccine: 65+ Years (1 - PCV) [facility] Start: 2022 Pneumococcal Vaccine : 65+ Years (1 of 1 - PCV) Pneumococcal Vaccine: 65+ Years (1 of 1 - PCV) [facility] Start: 2022 Screening for osteoporosis Bone Densitometry [...] initial encounter Expected: 05/04/2022, Expires: 05/04/2023 [employer] Work Phone: Comment on above: Expected: 05/04/2022 , Expires: 05/04/2023 Start: 05-04-2022 End: 05-04-2022 Patient encounter procedure 05/04/2022 Office Visit Orthopedics Janice Roland PA-C [address] [place] [address] [facility] Start: 03-26-2022 End: 03-26-2022 ambulatory 03/26/2022 [facility] Occupational [facility] Nosin, Matti, OTR/L [address] [place] [address] [facility] Start: 03-02-2022 End: 03-02-2023 Radex elbow complete minimum 3 views XR ELBOW RIGHT MINIMUM 3 VIEWS Imaging Routine Other closed displaced fracture of distal end of right humerus, initial encounter Expected: 03/02/2022, Expires: 03/02/2023 [employer] Work Phone: Comment on above: Expected: 03/02/2022 , Expires: 03/02/2023 Start: 03-02-2022 End: 03-02-2022 Patient encounter procedure 03/02/2022 Office Visit Orthopedics Janice Roland PA-C [address] [place] [address] [facility] Start: 01-19-2022 End: 01-19-2023 Radex elbow complete minimum 3 views XR ELBOW RIGHT MINIMUM 3 VIEWS Imaging Routine Other closed displaced fracture of distal end of right humerus, initial encounter Expected: 01/19/2022, Expires: 01/19/2023 [email or web address] Work Phone: Comment on above: Expected: 01/19/2022 , Expires: 01/19/2023 Start: 01-19-2022 End: 01-19-2022 Patient encounter procedure 01/19/2022 Office Visit Orthopedics Janice Roland PA-C [address] [place] [address] [facility] Start: 01-14-2022 End: 01-14-2023 Radex elbow complete minimum 3 views XR ELBOW RIGHT MINIMUM 3 VIEWS Imaging Routine Other closed displaced fracture of distal end of right humerus, initial encounter Expected: 01/14/2022, Expires: 01/14/2023 [facility] Work Phone: Comment on above: Expected: 01/14/2022 , Expires: 01/14/2023 Start: 01-06-2022 End: 01-06-2022 REDUCTION, OPEN, HUMERUS, DISTAL REDUCTION, OPEN, HUMERUS, DISTAL Routine scheduled Closed fracture of right elbow, initial encounter 01/06/2022 1:22 PM EDT [facility] Start: 12-10-2021 COVID-19 Vaccine (3 - Booster for Gio series) COVID-19 Vaccine (3 - Booster for Gio series) [facility] Start: 10-07-2021 COVID-19 Vaccine (3 - Booster for Gio series) COVID-19 Vaccine (3 - Booster for Gio series) [facility] Start: 2017 Hepatitis B (HBV) Vaccine (optional start 60+ years) Hepatitis B (HBV) Vaccine (optional start 60+ years) [facility] Start: 2017 RSV vaccine (optiona l 60+ years) RSV vaccine (optional 60+ years) [facility] Start: 2007 Measurement of occul t blood in single stool specimen FIT [facility] Start: 2007 Screening for malign ant neoplasm of breast Mammography [facility] Start: 2007 Screening for malign ant neoplasm of colon CRC Screening [facility] Start: 2007 Varicella-zoster vaccine (product) Shingles (RZV) Vaccine (1 of 2) [facility] Start: 2002 Cholesterol [Mass/volume] in Serum or Plasma Cholesterol [facility] Start: 2002 Screening for malign ant neoplasm of colon [facility] Start: 1997 Screening for malign ant neoplasm of breast [facility] Start: 1978 Screening for malign ant neoplasm of cervix Pap Smear [facility] Start: 1976 Hepatitis A (HAV) Vaccine (optional start 19+ years) Hepatitis A (HAV) Vaccine (optional start 19+ years) [facility] Start: 1975 Hepatitis C screening Hepatitis C An tibody [facility] Start: 1975 Tetanus + diphtheria + acellular pertussis vaccine (product) Tdap Booster [facility] Start: 1972 HIV screening HIV Test [facility] Start: 1957 Screening for malign ant neoplasm of colon [facility] Comprehensive metabo lic 2000 panel - Serum or Plasma [facility] End: 01-04-2022 Ecg routine ecg w/least 12 lds trcg only w/o i&r EKG 12 LEAD - PERFORM MUSE Routine One time, now for 1 Occurrences starting 01/04/2022 until 01/04/2022 [employer] Work Phone: Comment on above: One time, now for 1 Occurrences starting 01/04/2022 until 01/04/2022 MG Breast - bilatera l Screening [facility] Microalbumin [Mass/volume] in Urine [facility] End: 01-03-2022 Radex elbow complete minimum 3 views XR ELBOW RIGHT MINIMUM 3 VIEWS Imaging STAT Today for 1 Occurrences starting 01/03/2022 until 01/03/2022 [employer] Work Phone: Comment on above: Today for 1 Occurren juan starting 01/03/2022 until 01/03/2022 End: 01-06-2022 Radex elbow complete minimum 3 views XR ELBOW RIGHT MINIMUM 3 VIEWS Imaging Routine Today for 1 Occurrences starting 01/06/2022 until 01/06/2022 [employer] Work Phone: Comment on above: Today [...] unspecified fracture morphology, initial encounter PERIOPERATIVE SERVICES [facility] Immunizations Immunization Date Immunization Notes Care Provider Fa sabina 09-07-2023 Influenza, injectabl e, high-dose seasonal, quadrivalent, 0.7 mL, preservative free (OLN=623) Tanmay Scott MD Work Phone: [facility] 09-07-2023 Respiratory syncytia l virus (RSV), vaccine, bivalent, protein subunit RSV prefusion F, diluent reconstituted, 0.5 mL, preservative free (KJR=027) Tanmay Scott MD Work Phone: [facility] 07-28-2022 influenza virus vaccine, split virus (incl. purified surface antigen) Ada Neff Other [facility] Other 07-28-2022 influenza virus vaccine, unspecified formulation [facility] 08-12-2021 Moderna Monovalent (12+ yrs) COVID-19 vaccine, mRNA, spike protein, LNP, PF, 100 mcg/0.5 mL (BGT=778) Irena Lambert RN [facility] Payers Date Payer Category Payer Private Health Insurance [id number] 2022 Private Health Insurance [id number] 2022 Medicare [id number] 315 2022 Medicare [id number] 2.1 [id number] 2022 Private Health Insurance CLI [id number] 2022 Unknown [id number] [id number]. 315 1959 Self-pay 1957 Unknown [id number] 2.16.840.1.754682.3.579.2.1259 1957 Unknown [id number] 2.16.840.1.492888.3.579.2.1259 1957 Unknown [id number] 2.16.840.1.386012.3.579.2.1259 1957 Unknown [id number] 2.16.840.1.422013.3.579.2.1259 1957 Unknown [id number] 2.16.840.1.792889.3.579.2.1259 1957 Unknown [id number] 2.16.840.1.476588.3.579.2.1259 1957 Unknown [id number] 2.16.840.1.350126.3.579.2.1259 1957 Unknown [id number] 2.16.840.1.599683.3.579.2.1259 1957 Unknown [id number] 2.16.840.1.489374.3.579.2.1259 1957 Unknown [id number] 2.16.840.1.416238.3.579.2.732 1957 Unknown [id number] 2.16.840.1.013859.3.579.2.732 1957 Unknown [id number] 2.16.840.1.934003.3.579.2.732 1957 Unknown [id number] 2.16.840.1.323403.3.579.2.732 1957 Unknown [id number] 2.16.840.1.764744.3.579.2.732 1957 Unknown [id number] 2.16.840.1.825151.3.579.2.732 1957 Unknown [id number] 2.16.840.1.136871.3.579.2.732 1957 Unknown [id number] 2.16.840.1.639224.3.579.2.732 1957 Unknown [id number] 2.16.840.1.277470.3.579.2.732 Unknown [id number] 2.16840.1.249378.3.579.2.593 Unknown [id number] 2.16840.1.267295.3.579.2.593 Unknown [id number] 2.16840.1.526640.3.579.2.593 Unknown [id number] Unknown [place] BC/BS [id number] 2..840.1.382213.3.579.2.531 Social History Date Type Detail Facility Start: 01-03-2022 End: 05-04-2022 Tobacco smoking status PRIS Ex-smoker [facility] Work Phone: Start: 09-27-1976 End: 09-27-1991 History of tobacco use Current smoker [facility] Start: 09-27-1976 End: 09-27-1991 History of tobacco use Cigarette Smoker [facility] Start: 01-03-2022 End: 08-16-2023 Cigarettes smoked current (pack per day) - Reported [facility] Start: 1955 Sex Assigned At Not [facility] file [facility] Tobacco [facility] Comment on above: pt denies Start: 08-16-2023 End: 01-10-2024 Sex [address] Female [facility] Start: 05-04-2022 End: 01-10-2024 Tobacco use and exposure Smokeless tobacco non-user [facility] Start: 1955 Sex Assigned At Female F [facility] Tobacco smoking stat [facility] Tobacco smoking consumption unknown [facility] Start: 01-12-2024 Tobacco smoking stat [facility] Never smoked tobacco (finding) [facility] Medical Equipment Procedure Code Equipment Code Equipment Origin al Text Equipment Identifier Dates Plate T 2.4mm 7h ole Shaft Lcp Ea1 249.508 - [id number] Start: 01-06-2022 Scr Bn 65mm Lg T lscp Kyls Ea1 [id number] - [id number] Start: 01-06-2022 Clinical Notes 01-03-2022 to 02-10-2024 Telephone Encounter - Irena Lambert RN - 02/10/2024 10:05 AM EDTTelephone Encounter - Irena Lambert RN - 02/10/2024 10:05 AM EDTTelephone Encounter - Yvette Milian - 02/10/2024 9:36 AM EDT Note Date & Type Note Facility 02-10-2024 Telephone encount er Note Left voicemail for patient- Vit D level is good she can begin to take Vit D 2000 units over the counter. [facility] 02-10-2024 Miscellaneous Notes Formattin g of this note might be different from the original. Left voicemail for patient- Vit D level is good she can begin to take Vit D 2000 units over the counter. documented in this encounter [facility] 02-10-2024 Telephone encount er Note Pt called, asking about her, Vit D, new test results. Please call pt @ [phone] Thank you. [facility] 02-10-2024 Miscellaneous Notes Formattin g of this note might be different from the original. Pt called, asking about her, Vit D, new test results. Please call pt @ [phone] Thank you. Left voicemail for patient, notified her we ordered and sent in Vit D to her pharmacy. She should begin to take it and then we will check to see where her levels are once she is done taking the Vit D. documented in this encounter [facility] 01-10-2024 Note Hand and Upper Extre mity [...] and Upper Extremity 01/10/24 9:45 AM [facility] 01-10-2024 History of Presen t illness Narrative [...] 01/10/24 9:45 AM documented in this encounter [facility] 12-13-2023 Telephone encount er Note Left voicemail for patient, notified her we ordered and sent in Vit D to her pharmacy. She should begin to take it and then we will check to see where her levels are once she is done taking the Vit D. [facility] 11-04-2023 History of Presen t illness Narrative [...] Physician Signature: Date: documented in this encounter [facility] 10-28-2023 History of Gavin t illness Narrative Physical Therapy Physical Therapy [...] Physician Signature: Date: documented in this encounter [facility] 10-11-2023 History of Presen t illness Narrative [...] Tanmay Scott M.D. documented in this encounter [facility] 08-16-2023 Note Hand and Upper Extre mity [...] and Upper Extremity 08/16/23 10:10 AM [facility] 08-16-2023 History of Presen t illness [...] protocol implemented: No documented in this encounter [facility] 05-19-2023 Evaluation note Encounter Date Diagnosis Assessment [...] to continue with above medication as directed. [facility] Other 06-12-2023 History of Present illness Narrative* Sophie Chaudhari RN - 03/08/2023 8:59 AM EDT Patient was identified by name and date of . Sophie Chaudhari RN Patient at risk for falls:No Falls Risk protocol implemented: No * Janice oRland PA-C - 03/08/2023 8:38 AM EDT Images [...] Extremity 03/08/23 8:42 AM documented in this [id number] Telephone encounter Note* Telephone Encounter - Irena Lambert RN - 03/04/2023 9:09 AM EDT Patient calling in regards to her external order so she can get the x-ray of her elbow. Order has been faxed. Patient to call if she does not get it or there are other issues. [id number] Miscellaneous Notes* Telephone Encounter - Irena Lambert RN - 03/04/2023 9:09 AM EDT Patient calling in regards to her external order so she can get the x-ray of her elbow. Order has been faxed. Patient to call if she does not get it or there are other issues. documented in this [id number] Telephone encounter Note* Telephone Encounter - Irena Lambert RN - 03/02/2023 4:59 PM EDT Patient has fax number for the order: fax to [phone]- to [facility]. [id number] Miscellaneous Notes* Telephone Encounter - Irena Lambert RN - 03/02/2023 4:59 PM EDT Patient has fax number for the order: fax to [phone]- to [facility]. documented in this [id number] Telephone encounter Note* Telephone Encounter - Irena Lambert RN - 03/02/2023 4:47 PM EDT Patient called to let me know she has the fax number so we can fax her external order for the xray.Explained we will not be able to see it, so she will obtain it on a disc and send it to us. We willcall her once we review it. [id number] Miscellaneous Notes* Telephone Encounter - Irena Lambert [...] once we review it. documented in this [id number] Telephone encounter Note* Telephone Encounter - Irena Lambert RN - 03/02/2023 3:20 PM EDT Called her elbow has been hurting she feels that the hardware came loose. She will need external x-ray order and then will get xrays. [id number] Miscellaneous Notes* Telephone Encounter - Irena Lambert RN - 03/02/2023 3:20 PM EDT Called her elbow has been hurting she feels that the hardware came loose. She will need external x-ray order and then will get xrays. documented in this [id number] History of Present illness Narrative* Janice Roland [...] Risk protocol implemented: No documented in this [id number] History of Present illness Narrative* Janice Roland [...] - Consider CT at next visit to [facility] - RTC in 3 months with XR ordered Janice Roland PA-C Orthopaedics Hand and Upper Extremity 05/04/22 10:02 AM * Lindsay Hernandes RN - 05/04/2022 9:26 AM EDT Patient was identified by name and date of . Lindsay Hernandes RN Patient at risk for falls:No Falls Risk protocol implemented: No documented in this [id number] Telephone encounter Note* Telephone Encounter - Stella De León - 03/02/2022 3:39 PM EDT Hi Ms. Roland, Patient called and stated going to a Therapy office which near to her home. The OT referral from December is too old as per the therapy office. Please update the [facility] therapy referral and fax it over to [phone]. If you have any questions, please feel free to call back to the patient. Thank you! [id number] Miscellaneous Notes* Telephone Encounter - Stella De León - 03/02/2022 3:39 PM EDT Hi Ms. Roland, Patient called and stated going to a Therapy office which near to her home. The OT referral from December is too old as per the therapy office. Please update the [facility] therapy referral and fax it over to [phone]. If you have any questions, please feel free to call back to the patient. Thank you! documented in this [id number] History of Present illness Narrative* Karla Stone OTR/L - 03/02/2022 9:40 AM EDT OCCUPATIONAL THERAPY [...] NWB Payor: FINANCIAL ASSISTANCE PROGRAM / Plan: [facility] / Product Type: *No Product type* Shruti [...] 3 months of injury date, progress program. CONOR Segura documented in this [id number] History of Present illness Narrative* Janice Roland [...] Extremity 03/02/22 9:23 AM documented in this [id number] History of Present illness Narrative* Shirley Price OTR/Tu - 01/19/2022 10:08 AM EDT OCCUPATIONAL THERAPY [...] NWB Payor: FINANCIAL ASSISTANCE PROGRAM / Plan: [facility] / Product Type: *No Product type* Shruti [...] for next visit: adjust splint as needed CONOR Jimenez documented in this [id number] Instructions* Patient Instructions* Janice Roland PA-C - 01/19/2022 9:52 AM EDT [facility] call [facility] at [phone] to schedule an appointment if one was not made for you today. documented in this [id number] History of Present illness Narrative* Janice Roland [...] Extremity 01/19/22 9:39 AM documented in this [id number] Miscellaneous Notes* Brief Operative Note - Buzz Garcia MD - 01/06/2022 2:23 PM EDT Brief Operative Note MAIN OR 05 Shruti Locke 66 year old female Surgical Contact Serial Number: [id number] Preoperative Diagnosis: Closed fracture of right elbow, initial encounter [S42.401A] Postoperative Diagnosis: * Closed fracture of right elbow, initial encounter [S42.401A] Procedures: ORIF R lateral epicondyle Surgeon(s): Surgeon(s): Tanmya Scott MD Staff: Scrub: Brooks Wesley RN; Tawanna Godfrey Real Estate Management Specialist Nurse: Love Carney RN; Sunny Donald RN Physician Senior Database Engineer: Janice Roland PA-C Mortgage Counselor: Buzz Garcia MD Anesthesia: General Anesthesiologist: Henry Farfan MD; Minna Sin DO CAA: Sunny Appiah CAA Specimen(s): * No specimens in log * Estimated Blood Loss: 5-10 cc Lines/Drains: Peripheral IV Access: 01/06/22927 20 gauge Distal;Left;Outer Forearm (Active) $ Lines: [...] lateral collateral ligament SURGEON: Tanmay Scott MD FUR BLOWING MACHINE OPERATOR: Radha TAYLOR, Amparo ROSADO ANESTHESIA: General ESTIMATED BLOOD LOSS: 10 cc FINDINGS: Multi fragmented and comminuted lateral epicondyle fracture involving the entire capitellum with intact medial column COMPLICATIONS: None. SPECIMENS: None. DRAINS: None IMPLANTS: Implant Name Type Inv. Item Serial No. Wind Turbine Mechanic Lot No. LRB No. Used Action PLATE T 2.4MM 7HOLE SHAFT LCP EA1 249.670 - [id number] Plate PLATE T 2.4MM 7HOLE SHAFT LCP EA1 249.670 [employer] TRAY Right 1 Implanted SCREW 2.4 X 28MM SELF-TAPPING EA1 201.778 - [id number] Screw SCREW 2.4 X 28MM SELF-TAPPING EA1 201.778 [employer] TRAY Right 1 Implanted SCREW 2.4 X 24MM SELF-TAPPING EA1 201.774 - [id number] Screw SCREW 2.4 X 24MM SELF-TAPPING EA1 201.774 [employer] TRAY Right 1 Implanted SCREW 2.4 X 30MM SELF-TAPPING EA1 212.830 - [id number] Screw SCREW 2.4 X 30MM SELF-TAPPING EA1 212.830 [employer] TRAY Right 1 Implanted SCR BN 65MM LG TLSCP KYLS EA1 [id number] - [id number] Screw SCR BN 65MM LG TLSCP KYLS EA1 [id number] Tyron TRAY Right 2 Implanted Tourniquet time: [...] with several interrupted 0 Vicryl sutures in rdjsrz-fm-esbfc fashion. The lateral intermuscular septum between the [...] were discussed with the patient and/or legal surgical sales representative. The risks, benefits and alternatives were reviewed. Questions regarding anesthesia were answered. Patient and/or legal surgical sales representative knows such anesthetics and procedures may be performed by Resident physicians, Certified Anesthesiologist Assistants, or Certified Nurse Anesthetists under the supervision of a physician. The patient /or the patient s legal representativeagree with the plan for anesthesia. * Blood Attestation - Minna Sin DO - 01/06/2022 1:40 PM EDT Blood Attestation ATTESTATION OF INFORMED CONSENT FOR BLOOD The transfusion of blood and/or blood components were discussed with the patient and/or legal surgical sales representative. The risks, benefits and alternatives were reviewed. Questions regarding blood transfusions were answered. The patient /or the patient s legal surgical sales representative agree with the plan for transfusion of blood and/or blood components. documented in this [id number] History general Narrative - Reported* Type Description Date Medical History Essential (primary) hypertension Medical History Type 2 diabetes mellitus with hy perglycemia Surgical History Tubal Ligation Surgical History Right elbow surgery 01/06/2022 Hospitalization History SEE SURGICAL HX [facility] Other 04-12-2022 Hospital Discharge instructions* Instructions* Kendy [...] listed above. After business hours please call [facility] fur blowing machine operator at and ask for the orthopeadicresident extension service specialist in charge. For emergencies call [phone]. [facility] Upper Extremity and Hand Surgery MD Trever Wright, MD Storm Delgado, MECHANICAL ASSEMBLY-DIEGO Cardenas, MD Jonn Salazar MD Michael Keith, MD Adrienne Lee, MD Janice Roland, PA-C MD Vito Stone MD Kathryn Wozniak, PAChaceC Orthopaedic Surgery Nurse Line Orthopaedic Surgery Appointments For questions related to paperwork, please call Orthopaedic Surgery , Option 1 PERIOPERATIVE DISCHARGE/HOME-GOING INSTRUCTIONS ANESTHESIA - GENERAL (ADULT) If a problem arises, you may contact your physician by calling [phone] and asking for the resident extension service specialist in charge for Hand service. Special Care Needs: Activity: [...] very uncomfortable and can t urinate, call [phone] or come to the emergency room. The [...] part of the affected area that persists fomxfw55 hours, contact [phone], and ask for the anesthesiologist extension service specialist in charge. For additional health information, call: [facility] at [phone]; 24 hours a day. PERIOPERATIVE DISCHARGE/HOME-GOING INSTRUCTIONS Obstructive Sleep Apnea (MARITZA) Recommendations: You have had an evaluation for Obstructive Sleep Apnea during your pre- operative interview and have been identified as possibly having MARITZA. Sleep apnea, if untreated, is thought to be a possible cause of high blood pressure and breathing problems. Please make an appointment with the sleep study office at [phone] to be evaluated and scheduled for the [...] sent through Care Everywhere. * Preventing Falls (Jordanian) documented in this [id number] History and physical note* Janice Roland PA-C [...] PA-C 01/06/22 10:31 AM documented in this [id number] Hospital Discharge instructions* Instructions* Lenin Carpio MD - 01/04/2022 Follow-Up Instructions Your surgery is scheduled for 01/06/[address] Scott. You will receive a call from the Surgery Schedulers on Wednesday with timing of your surgery. The direct orthopaedic clinic appointment line phone number is [phone]. Please do not delay incalling to make this appointment. Alternatively, you may call the main hospital appointment number at [phone], and ask the fur blowing machine operator to be connected to the orthopaedic outpatient clinic metal cnc operator. Cast/Splint Care Instructions: 1) Do not get [...] become infected. Alternatively, you may blow a chair installer, on the cool air setting, in order [...] medications. Take as needed. documented in this [id number] Consult note* Sushila Rodney - 01/04/2022 12:06 [...] Dep Max Mod Min CG CS DS IA I Set-Up Comment Feeding x x Using LUE, assist for cutting food Grooming/Hygiene x x Using LUE Bathing:UB x Simulated sponge bathing Bathing:LB x Simulated sponge bathing Dressing:UB x Anticipated to don shirt Dressing: LB x Anticipated to don pants Toileting x Anticipated for clothing management Transfers/Bed Mobility: Assistance Level Dep Max Mod Min CG CS DS IA I Set-Up Comment Toilet Transfers x anticipated [...] With Patients permission ordered no equipment via [facility] Order. If any questions contact [facility] Provider at [phone]. 6 Clicks Daily Activity OT 01/04/2022 Help [...] Guard Assist/Supervision 4 - Non = Modified [place]/Independent ASSESSMENT: Anticipate patient will be appropriate for [...] motor skills to fasten buttons/zippers PLAN: Shruti Hilt will be seen 1-3 times a week. [...] NA = Not Assessed, I = Independent, IA = Modified Independent, Sup = Supervised, Set [...] Patient seen from 926 to 941 on 702-1 unit for 15 minutes. 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 If any questions contact [facility] DME Provider at [phone]. 6 Clicks Basic Mobility PT 01/04/2022 Difficulty [...] NA = Not Assessed, I = Independent, IA = Modified Independent, Sup = Supervised, Set [...] included. MEDICINE CONSULTS PRE-SURGICAL EVALUATION Shruti Locke [id number] A702/01/03/2022 Length of stay: 1 day(s) REASON FOR CONSULT: PSE Surgical Procedure: ORIF RUE - distal humeral fracture Surgeon: hSeng Date of Surgery: 01/04/2022 HPI: Shruti Locke is a 66 year old female with a PMHx of HTN, HLD, DM (diagnosed 09/2021), and Aortic Stenosis (diagnosed 2012) who presented to the ED on 01/03/2022 with c/o R elbow pain following a mechanical fall. Initially presented to OSH and was found to have R elbow fracture; transferred to [facility] for in tervention. Pt tripped and [...] General: Denies: fever, chills and night sweats SUPERVISOR BAKING: No h/o CVA/TIA/Seizures Respiratory: h/o smoking 15 pack/years and No h/o COPD, asthma dyspnea or recent URI Cardiovascular: h/o diagnosed in 2013 (asymptomatic); No CP, KNOX, palpitations, or edema [...] I risk (3.9% 30-day risk of , IA, or cardiac arrest) ASSESSMENT: 66 year old [...] Internal Medicine/Pediatrics PGY 3 HAO Pager (19/04): [phone] (click to text page) Attending/Teaching Physician Note: [...] questions/comanagement. Emmett Garcia MD documented in this [id number] History of Present illness Narrative* Tj Reyes [...] were not included. Orthopaedics Progress Note Shruti Locke [id number] 01/04/22 S: No acute events overnight. Pain [...] m/r/u/a nerves of RUE Motor intact intrinsic, information systems operator, wrist flexion Radial pulse 2+ at wrist, [...] clear for OR - maintain splint RUE. Ice, elevate Phong Tatum DO Orthopaedic Surgery PGY-2 Pager [phone] 01/04/22 1:45 AM Team A: - Osmany Hanson, PGY-1, [phone] - Andres Rodriguez, PGY-3, [phone] - Phnog Tatum, PGY-2, [phone] Team B: - Toni Gilmore, PGY-2, [phone] - WEI Medrano, PGY-2, [phone] Elective Team: - Bertin Geronimo, PGY-2, [phone] - Lenin Carpio, PGY-3, [phone] Hand Team: - Denis Garcia, PGY-4, [phone] After 5 pm and on weekends, please page extension service specialist in charge resident ([phone]) with questions or concerns. documented in this [id number] Miscellaneous Notes* Care Plan Note - Abby [...] were discussed with the patient and/or legal surgical sales representative. The risks, benefits and alternatives were reviewed. Questions regarding anesthesia were answered. Patient and/or legal surgical sales representative knows such anesthetics and procedures may [...] were discussed with the patient and/or legal surgical sales representative. The risks, benefits and alternatives were reviewed. Questions regarding blood transfusions were answered. The patient /or the patient s legal surgical sales representative agree with the plan for transfusion of blood and/or blood components. 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: Exam Date: 01/04/2022 10:26 Fellow: LUIS A [...] on 01/05/2022 07:37 AM documented in this [id number] Reason for referral (narrative)* Tests/Procedures (Emergency) - Authorized Specialty Diagnoses / Procedures Referred By Contact Referred To Contact Cardiovascular Testing Procedures ECHOCARDIOGRAM, ADULT SERVICE REQUEST Ip [facility] [address] [place] [address] [facility] CARD NON INVASIVE [address] [place] [address] Referral ID Status Reason Start Date Expiration Date V isits Requested Visits Authorized [id number] Authorized 01/04/2022 01/04/2023 1 1 * Service Level Authorization (Emergency) - Authorized Specialty Diagnoses / Procedures Referred By Contac t Referred To Contact Radiology Procedures XR ELBOW RIGHT MINIMUM 3 VIEWS Adalid Tatum DO [address] [place] [address] [facility] DIAGNOSTIC RADIOLOGY [address] [place] [address] [place] [address] Referral ID Status Reason Start Date Expiration Date V isits Requested Visits Authorized [id number] Authorized 01/03/2022 01/03/2023 1 1 * Service Level Authorization (Emergency) - Closed Specialty Diagnoses / Procedures Referred By Contac t Referred To Contact Radiology Procedures XRAY UPPER EXTREMITY IMAGE IMPORT(BRAIN) DOWNLOAD POWERSHARE IMAGES TO [facility] Adalid Tatum DO [address] [place] [address] [facility] DIAGNOSTIC RADIOLOGY [address] [place] [address] [place] [address] Referral ID Status Reason Start Date Expiration Date Visits Re quested Visits Authorized [id number] Closed 01/03/2022 01/03/2023 1 1 [id number] History and physical note* Adalid Tatum DO - 01/04/2022 1:46 AM EDT I have reviewed the patient's History and Physical Examination. I have personally seen and evaluated the patient, repeating hooks portions. There is no significant interval change. Surgery is still indicated. Yes Consent reviewed and signed by patient/family: Yes Operative site verified: Yes Adalid Tatum DO Orthopaedic Surgery PGY-2 Pager [phone] 01/04/22 1:46 AM Alternative Team members: Ortho Team Piero Geronimo [phone] Ajay Gilmore [phone] After 5 pm and on weekends, please page extension service specialist in charge resident ([phone]) with questions or concerns. * Adalid TatumDO - 01/03/2022 4:46 PM EDT Orthopaedic Surgery Consult H&P Requesting Provider / Service: ED CC: R elbow pain HPI: 66 year old female presents to [facility] c/o righ elbow pain after mechanical fall. Pt fell yesterday while in [facility]. Pt lives in [facility]. Pt presented to outside facility and was [...] radiographs of the right elbow, obtained at [facility] today, show Acute, mildly displaced fracture [...] Phong Tatum DO Orthopedic Surgery, PGY-2 Pager [phone] For questions/issues: Patient will be followed by Team A Team A: - Osmany Hanson, PGY-1, [phone] - Andres Rodriguez, PGY-3, [phone] - Phong Tatum, PGY-2, [phone] Team B: - Toni Gilmore, PGY-2, [phone] - WEI Medrano, PGY-2, [phone] Elective Team: - Bertin Geronimo, PGY-2, [phone] - Lenin Carpio, PGY-3, [phone] Hand Team: - Denis Garcia, PGY-4, [phone] After 5 pm and on weekends, please page the on-call resident ([phone]) with questions or concerns. 12/27/21 This consult was seen and staffed within 30 minutes of the initial consult. documented in this [id number] Emergency department Note* Oliver Ivey MD - [...] Notes: Reviewed and utilized the nursing notes. Health Care Liaison: not needed - patient preferred language is Jordanian. Radiology Studies: Ordered and reviewed the radiology [...] fracture of right elbow, initial encounter [S42.401A] Medical Screening Exam: The patient has received [...] room at the time of the evaluation. Health Care Liaison: not needed - patient preferred language is Jordanian. The history is provided by the Patient. Shruti Locke is a 66 year old female RHD presenting to the ED for right elbow fracture. Pt reports she tripped and fell over concrete barrier yesterday while she was in [place], [place]. Fell onto right elbow. Denies any other injury. Went to [facility] in [place], [place], had xray and CT which demonstrated right elbow fx. Pt was splinted and given percocet rx for pain. [place] is from [place] [facility] referred to [facility] for orthopedic consultation. Pt last took [...] intra-articular fx through capitellum and lateral epicondyle [facility] Recommend repeat xrays, may need ORIF [...] consultation Marianna Zavala MD documented in this [id number] Evaluation + Plan note Extracted from: Title:ED Note Author:Timo MS III, Yaakov Jalloh e:01/03/22 1. Fracture of right elbow ( S42.401A: Unspecified fracture of lower end of right humerus, initial encounter for closed fracture) Orders: XR Elbow 2 Views Right [facility]04-09-2022 Hospital Discharge instructions Patient Education 01/03/2022 11:36:25 Cast or Splint Care, Adult, Pkdc-uz-Buds Cast or Splint Care, Adult Casts and [...] 01/13/2012 Document Revised: 01/03/2020 Document Reviewed: 09/03/2017 [employer] Patient Education 2020 [employer] Follow Up Care 01/03/2022 08:43:16 With:Go directly to [facility] emergency room to be evaluated by Dr. Avila Address:Unknown When: Unknown With:ADA NEFF Address: [address] [place], [place] [address]- Business (1) When:Within 3 Day(s) [facility] Diagnosis Other closed displaced fracture [...] in this encounter [facility] noteNo assessment information availableL[facility] Work Phone: Evaluation noteNo InformationNortNew Lifecare [facility]als [facility] Mtime Other Evaluation note* Diagnosis Other closed displaced [...] documented in this encounter [facility] Diagnosis Onset Date Resolution Status Essential (primary) hypertension acute Hyperlipidemia, unspecified acute Screening mammogram for breast cancer acute Type 2 diabetes mellitus with hyperglycemia acute [facility] Work Phone: Hospital course Narrative No data available for this section [facility] Tests/Procedures (Routine) - Authorized Specialty Diagnoses / Procedures Referred By Angie t Referred To Contact Diagnoses Other closed displaced fracture of distal end of right humerus, initial encounter Janice Roland PA-C [address] [place] [address] Referral ID Status Reason Start Date Expiration Date V isits Requested Visits Authorized [id number] Authorized 03/02/2023 03/02/2024 3 3 Comments XR elbow right - eval for hardware failure [facility] for referral (narrative)* Tests/Procedures (Routine) - Authorized Specialty Diagnoses / Procedures Referred By Contac t Referred To Contact Diagnoses Vitamin D deficiency Janice Roland PA-C [address] [place] [address] Referral ID Status Reason Start Date Expiration Date V isits Requested Visits Authorized [id number] Authorized 01/10/2024 01/09/2025 3 3 Comments 25-hydroxy vit D. Vit D lab - check level * Diagnostic X-Ray (Routine) - Closed Specialty Diagnoses / Procedures Referred By Contac t Referred To Contact Radiology Diagnoses Chronic right shoulder pain Procedures XR ELBOW RIGHT MINIMUM 3 VIEWS Janice Roland PA-C [address] [place] [address] [facility] DIAGNOSTIC RADIOLOGY [address] [place] [address] [place] [address] Referral ID Status Reason Start Date Expiration Date Visits Re quested Visits Authorized [id number] Closed 01/10/2024 01/04/2025 1 1 * Diagnostic X-Ray (Routine) - Closed Specialty Diagnoses / Procedures Referred By Contac t Referred To Contact Radiology Diagnoses Chronic right shoulder pain Procedures XR SHOULDER RIGHT MINIMUM 2 VIEWS Janice Roland PA-C [address] [address] [facility] DIAGNOSTIC RADIOLOGY [address] [place] [address] [place] [address] Referral ID Status Reason Start Date Expiration Date Visits Re quested Visits Authorized [id number] Closed 01/10/2024 01/04/2025 1 1 [facility] for visit Narrative* Auth/Cert Specialty Diagnoses / Procedures Referred By Angie t Referred To Contact General Surgery Diagnoses Closed fracture of right elbow, initial encounter Closed fracture of right elbow, initial encounter [S42.401A] Procedures OPEN TREATMENT, HUMERAL SUPRACONDYLAR/TRANSCOND YLAR FRACTURE; W/INTERCONDYLAR EXTENSION REDUCTION, OPEN, HUMERUS, DISTAL Tanmay Scott MD [address] [place] [phone] [facility] [address] [place] [address] Phone: [phone] Referral ID Status Reason Start Date Expiration Date Visits Re quested Visits Authorized [id number] 3 3 [facility] Advance Directives Latest Code Status on File Code Status [...] of code status. Defaulting to Full Code Advance Directive Response Recorded Date/ Time Advance Directives No July 8:46am Reason for Referral Specialty Diagnoses / Procedures Referred By Contac t Referred To Contact Radiology Diagnoses Chronic right shoulder pain Procedures XR SHOULDER RIGHT MINIMUM 2 VIEWS Janice Roland PA-C [address] [place] [address] [place] [address] [facility] DIAGNOSTIC RADIOLOGY [address] [place] [address] [place] [address] Referral ID Status Reason Start Date Expiration Date Visits Re quested Visits Authorized [id number] Closed 01/10/2024 01/04/2025 1 1 Specialty Diagnoses / Procedures Referred By Contac t Referred To Contact Radiology Diagnoses Chronic right shoulder pain Procedures XR ELBOW RIGHT MINIMUM 3 VIEWS Janice Roland PA-C [address] [place] [address] [place] [address] [facility] DIAGNOSTIC RADIOLOGY [address] [place] [address] [place] [address] Referral ID Status Reason Start Date Expiration Date Visits Re quested Visits Authorized [id number] Closed 01/10/2024 01/04/2025 1 1 Specialty Diagnoses / Procedures Referred By Contac t Referred To Contact Radiology Diagnoses Closed fracture of proximal end of right humerus, unspecified fracture morphology, initial encounter Age-related osteoporosis without current pathological fracture Procedures BD BONE DENSITY SURVEY Tanmay Scott MD [address] [place] [address] [facility] BONE DENSITY [address] [place] [address] Referral ID Status Reason Start Date Expiration Date V isits Requested Visits Authorized [id number] Authorized 10/11/2023 10/10/2024 1 1 Specialty Diagnoses / Procedures Referred By Contac t Referred To Contact Diagnoses Closed fracture of proximal end of right humerus, unspecified fracture morphology, initial encounter Tanmay Scott MD [address] [place] [address] Referral ID Status Reason Start Date Expiration Date Visits Requested Visits Authorized [id number] Authorized Patient Preference 10/11/2023 10/11/2024 3 3 Comments PT for the elbow and shoulder AAROM and AROM with gentle PROM as the fractures are healing nicely Eval and treat Advance as tolerated Modalities prn Visits 20 Referral ID Status Reason Start Date Expiration Date Visits Requested Visits Authorized [id number] Authorized Patient Preference 10/11/2023 10/11/2024 3 3 Comments Dexa scan for osteoporosis Specialty Diagnoses / Procedures Referred By Contac t Referred To Contact Radiology Diagnoses Closed supracondylar fracture of right humerus, initial encounter Procedures XR ELBOW RIGHT MINIMUM 3 VIEWS Janice Roland PA-C [address] [place] [address] [facility] DIAGNOST[facility] RADIOLOGY [address] [place] [address] [place] [id number] Referral ID Status Reason Start Date Expiration Date Visits Re quested Visits Authorized [id number] Closed 10/11/2023 10/10/2024 1 1 Specialty Diagnoses / Procedures Referred By Contac t Referred To Contact Radiology Diagnoses Closed fracture of proximal end of right humerus, unspecified fracture morphology, initial encounter Procedures XR SHOULDER RIGHT MINIMUM 2 VIEWS Janice Roland PA-C [address] [place] [address] [place] [address] [facility] DIAGNOST[facility] RADIOLOGY [address] [place] [address] [address] [place] [id number] Referral ID Status Reason Start Date Expiration Date Visits Re quested Visits Authorized [id number] Closed 10/11/2023 10/10/2024 1 1 Specialty Diagnoses / Procedures Referred By Contac t Referred To Contact Radiology Diagnoses Other closed displaced fracture of distal end of right humerus, initial encounter Procedures XR ELBOW RIGHT MINIMUM 3 VIEWS Janice Roland PA-C [address] [place] [address] [place] [address] [facility] DIAGNOST[facility] RADIOLOGY [address] [place] [address] [place] [address] Referral ID Status Reason Start Date Expiration Date V isits Requested Visits Authorized [id number] Authorized 01/14/2022 01/14/2023 1 1 Specialty Diagnoses / Procedures Referred By Contac t Referred To Contact Procedures US GUIDANCE NEEDLE PLACEMENT Main Or [address] [place] [id number] Referral ID Status Reason Start Date Expiration Date V isits Requested Visits Authorized [id number] Authorized 01/06/2022 01/06/2023 3 3 Specialty Diagnoses / Procedures Referred By Contac t Referred To Contact Cardiology Diagnoses Nonrheumatic aortic valve stenosis Hyperlipidemia, unspecified hyperlipidemia type Hypertension, unspecified type Procedures CARDIOLOGY SERVICE REQUEST Janice Roland PA-C [address] [place] [address] [place] [address] [facility] CARDIOLOGY HV [address] [place] [address] Referral ID Status Reason Start Date Expiration Date V isits Requested Visits Authorized [id number] Authorized 01/06/2022 07/05/2022 3 3 Specialty Diagnoses / Procedures Referred By Contac t Referred To Contact Radiology Procedures XR ELBOW RIGHT 2 VIEW XR ELBOW RIGHT MINIMUM 3 VIEWS Buzz Garcia MD [address] [place] [address] [place] [address] [facility] DIAGNOSTIC RADIOLOGY [address] [place] [address] [place] [address] Referral ID Status Reason Start Date Expiration Date Visits Re quested Visits Authorized [id number] Closed 01/06/2022 01/06/2023 1 1 Specialty Diagnoses / Procedures Referred By Contac t Referred To Contact Radiology Procedures XR ELBOW RIGHT MINIMUM 3 VIEWS Main Or [address] [place] [address] [facility] DIAGNOST[facility] RADIOLOGY [address] [place] [address] [place] [address] Referral ID Status Reason Start Date Expiration Date V isits Requested Visits Authorized [id number] Authorized 01/06/2022 01/06/2023 1 1 Specialty Diagnoses / Procedures Referred By Contact Referred To Contact Cardiovascular Testing Procedures ECHOCARDIOGRAM, ADULT SERVICE REQUEST Janice Roland PA-C [address] [place] [address] [place] [address] [facility] CARD NON INVASIVE [address] [place] [address] Referral ID Status Reason Start Date Expiration Date V isits Requested Visits Authorized [id number] Authorized 01/06/2022 01/06/2023 1 1 Specialty Diagnoses / Procedures Referred By Contac t Referred To Contact Procedures US GUIDANCE NEEDLE PLACEMENT Minna Sin DO [address] [place] [address] Referral ID Status Reason Start Date Expiration Date V isits Requested Visits Authorized [id number] Authorized 01/06/2022 01/06/2023 3 3 Summary Purpose Family History Relationship Condition Age at Onset Recorded Date/T jens father Diabetes mellitus Unknown Unknown Hypertension Unknown History of stroke Unknown Heart disease Unknown mother Heart disease Unknown Chief Complaint and Reason for Visit Chief Complaint [facility] Reason for Visit Essential (primary)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
== END 2024-09-14 09:47 | disposition home or self-care (01) ==
PROVIDERS: PCP Family Medicine; Visit Provider Family Medicine
DX: E11.65 Type 2 diabetes mellitus with hyperglycemia (principal)
CPT/HCPCS: 36415; 83036

== ENCOUNTER 2025-09-12 07:14 | Outpatient (OUT) | payer MEDICARE, SELFPAY ==
--- OUTSIDE RECORDS SUMMARY | 2025-09-06 05:40 | XMS_ITS | Continuity of Care Document ---
Author Organization [facility] Address [address] [place] [address] Phone Care Team Providers Care Siding Mechanic Name Role Phone Ciara Jefferson MD Primary Care Provider Ciara Jefferson MD Attending Provider Care Teams Patient Care Team Team Status: Active Member Role/Relationship Status Dates Ciara Jefferson MD Primary Care Provider Active Patient Care Team Team Status: Inactive Member Role/Relationship Status Dates Ciara Jefferson MD Primary Care Provider Active Start: September 06, 2025 End: September 06, 2025Ciara Jefferson MDAttending ProviderActiveStart: September 06, 2025 End: September 06, 2025 Chief Complaint and Reason for Visit Chief Complaint Admit Date Wellness September 06, 2025 9:16am Reason for Visit Admit Date Class 2 obesity with body ma ss index (BMI) of 36.0 to 36.9 in adult September 06, 2025 9:16am Essential (primary) hypertension Decee r 2024 9:16am Hyperlipidemia, unspecified August 9:16am Medicare annual wellness visit, subseque nt September 06, 2025 9:16am [facility] 9:16am Type 2 diabetes mellitus with hyperglyce elizabeth September 06, 2025 9:16am Vitamin D deficiency September 06, 2025 9:16am Allergies, Adverse Reactions, Alerts Allergen Type Severity Reaction Last Updated Verified Status Comments atorvastatin Allergy Unknown Hives August 9:33am Yes Active Onset Date: 06/14/2015 Social History Smoking Status Status Start Date End Date Date of Observa tion Never smoked tobacco (finding) September 06, 2025 9:35am Observation Status Observation Response Date of Response Legal Sex [facility] (finding) [facility] Family History Relationship Condition Age at Onset Recorded Date/T jens father Diabetes mellitus Unknown DeceasedUnknownHypertensionUnknownHistory of strokeUnknownHeart diseaseUnknown fatherDiabetes mellitusUnknownmotherHeart diseaseUnknownDeceasedUnknown HypertensionUnknown Problems Active Problems Problem Diagnosis/Recorded Date Onset Date Stat us Medicare annual wellness vis it, subsequent May 23, 2024 8:31am Unknown Active Type 2 diabetes mellitus wit h hyperglycemia May 19, 2024 3:09pm Unknown Active Screening mammogram for breast cancer May 22 9:30am Unknown Active Hyperlipidemia, unspecified May 19, 2024 3:09pm U nknown Active Essential (primary) hypertension May 19, 2024 3:0 9pm Unknown Active Vitamin D deficiency September 06, 2025 10:05am Unkno wn Active Class 2 obesity with body ma ss index (BMI) of 36.0 to 36.9 in adult September 06, 2025 10:26am Unknown A ctive Medications Medication Status Dose Units Route Directions Qty Days Refills S tart Date Stop Date End Date Reason(s) Instructions Adherence Metformin 500 mg tablet Discontinued 0 .ROUTE.FWIOFGB9854Aimfl 2023 8:42pmJuly 2023 9:12amTAKE 1 TABLET BY MOUTH TWICE A DAYMetformin 500 mg tabletDiscontinued0.ROUTE.SZMCPUP0130Yjgk 2023 9:12amOctober 2023 10:06amTAKE 1 TABLET BY MOUTH TWICE A DAY Metformin 1,000 mg lolctnCojqmwgunlkf4254EJLAAlwcb qhytw3317Ywjnvyu 9th, 2024 10:05amDecember 2023 10:43amMetformin 1,000 mg jmbyzrHbqtixobrald0310RJIE Sdlon867Jtcekcvv2023 10:41amJune 2024 9:49amRosuvastatin 10 mg tabletActive0.ROUTE.TEKCGET294Ifvhlaa 2024 8:39amTAKE 1 TABLET BY MOUTH DAILYComplies with drug therapyLisinopril 5 mg tabletActive0.ROUTE.HUDZLWZ002 October 10, 2024 8:39amTAKE 1 TABLET BY MOUTH DAILYComplies with drug therapy Metformin 1,000 mg vvrytyNwusgx6571XXBBBbixj516Barc 2024 9:49amComplies with drug therapyMetformin 500 mg uoovipQrywwohqkouf249JHPTHijty dailyApril 2023 11:00pmApril 2023 8:43pmLisinopril 5 mg sohaokMqnirakhspiz7OBEY DailyApril 2023 11:00pmJanuary 2024 8:39amRosuvastatin 10 mg tablet Qgpibkdplimy21HLJJGruzqKvxhs 2023 11:00pmJanuary 2024 8:39am Cholecalciferol (Vitamin D3) 50 mcg (2,000 unit) gjkbkdvAmdxnh19UWBQFBtgvkKsdztc 2023 11:00pmComplies with drug therapy Immunizations Immunization Event Date Not Given Reason Dose Number Well Driller Helper Lot Number Reason(s) Given Vaccine Information Statement (VIS) Detail Administration Location influenza, unspecified formulation July 28, 2022 Vital Signs Vital Reading Result Reference Range Collection Date/Time Height 64 [in_i] September 06, 2025 9:78zfAstsvg01.61 kgDecember 2024 9:32amHeart Rate77 /arj73-663Ahgmdmtq 2024 9:41amBP Tkfapvjn144 mm[Hg]100-140December 2024 9:41amBP Fdviexjxz19 mm[Hg]60-100December 2024 9:41amBMI (Body Mass Index)36.6 kg/k3Xikivkbs 2024 9:32am Advance Directives Advance Directive Response Recorded Date/ Time Advance Directives No July 7:46am Insurance Providers Guarantor Shruti Locke Address [address] [place] [phone] Info.Home Phone: Payer Group Member ID Coverage Type Subscriber Relationship to Subscriber Effective Date Expiration Date MMO Id: [id number] [facility] [id number] [address] [place] [phone] Home Phone: anthem BC/BS Retired Id: [id number] S Hilt Id: [id number] [address] [place], [place] [address] Home Phone: SelfMedicare [id number] S Hilt Id: [id number] [address] [place] [phone] Home Phone: SelfAetna SSI [address] [address] [place] [address] Work Phone: Id: Plan [id number] S Hilt Id: [id number] [address] [place] [phone] Home Phone: Self Encounters Encounter Location(s) Arrival/Admit Date Discharge/Departure Date Discharge/Departure Disposition Provider(s) Departed Physician/ Provider Office Visit -[facility] September 06, 2025 9:16am September 06, 2025 10:39am Discharged to home care or self care (routine discharge) Ciara Jefferson MD Recent Diagnosis Onset Date Admit Date Class 2 obesity with body ma ss index (BMI) of 36.0 to 36.9 in adult Unknown September 06, 2025 9:16am Essential (primary) hypertension Unknown September 06, 2025 9:16am Hyperlipidemia, unspecified Unknown Dece mber 2024 9:16am Medicare annual wellness visit, subsequent Unkno wn September 06, 2025 9:16am Screening mammogram for breast cancer Unknown September 06, 2025 9:16am Type 2 diabetes mellitus with hyperglycemia Unkn own September 06, 2025 9:16am Vitamin D deficiency Unknown September 062024 9:16am Assessments Diagnosis Onset Date Resolution Status Admit Date Class 2 obesity with body mass index (BM I) of 36.0 to 36.9 in adult acuteDecember 2024 9:16amEssential (primary) hypertensionacuteDecember 2024 9:16amHyperlipidemia, unspecifiedacuteDecember 2024 9:16am Medicare annual wellness visit, subsequentacuteSeptember 06, 2025 9:16am Screening mammogram for breast canceracuteSeptember 06, 2025 9:16amType 2 diabetes mellitus with hyperglycemiaacuteSeptember 06, 2025 9:16amVitamin D deficiencyacuteDe2024 9:16am Plan of Treatment Author [facility]ara [facility], 20[facility] 10:36amcontinue lisinopril check labs continue crestor Take medication as prescribed, keep follow up appointments, get any testing that's been ordered done in a timely fashion. Do not smoke. Call if any questions or problems.For Diabetes: Patient is advised to work on healthy diet choices and appropriate servings, weight control, regular exercise as directed, and reduce fat intake. Check home blood sugars as directed. Check feet regularly to be sure no sores or numbness are developing. Call if low sugar reactions occur, and be aware that lower sugars may happen with increased exercise. Personalized health advice was given to the beneficiary to health education of preventative counseling services or programs aimed at reducing identified risk factors and improving self-management or community-based lifestyle interventions to reduce health risks and promote self-management and wellness, including physical activity and nutrition. check lab Check labs and mamm. Consider change in metformin and or crestor based on results. Encouraged healthy diet and exercise. Future Tests Future scheduled test information is unavailable Pending Tests Test Name Ordered Date Scheduled Date Comprehensive Metabolic Panel September 06 10:03am MM screening mammo BI w/CADDece2024 10:06am Future Visits Future appointment information is unavailable Future Procedures Procedure Name Ordered Date Scheduled Date A1C with Estimated Average Glu September 06 10:03am Complete Blood Count Auto DiffDece2024 10:03amLipid PanelDece2024 10:03amMicroAlb Creat Ratio,UDeceer 2024 10:03amVitamin D 25 Hydroxy TotalDe2024 10:03am Future Medications Future medication information is unavailable Patient Instructions Patient instructions are unavailable
--- OUTSIDE RECORDS SUMMARY | 2025-09-12 07:20 | XMS_ITS | Clinical Summary ---
Author Organization [facility] Address [address] [place] [address] Care Team Providers Care Show Dog Trainer Name Role Phone Unallocated, Noms Provider Primary Care Provi eagle Social History Tobacco UseTypesPacks/DayYears UsedDateSmoking Tobacco: Never Assessed CommentsUnknownSex and Gender InformationValueDate RecordedSex Assigned at Not on fileLegal PcxPvtiaz51/15/2023 7:22 PM EDTGender IdentityNot on fileSexual OrientationNot on file Plan of Treatment Health MaintenanceDue DateLast DoneCommentsCT Fhcwipjckies1957Colonoscopy 1955Colorectal Cancer Pxvamtbei1957FIT-DNA1957FIT1955 FOBT1955Medicare Annual Wellness (AWV)1955 5770Tvcdqtbzvpsdm1957 Bxgobgyrf53/25/1997Pneumococcal Vaccine: 65+ Years (1 of 1 - PCV)2007 COVID-19 Vaccine ( - season)/, 12/02/2020Influenza Vaccine (#1) Insurance * Guarantor: Shruti Locke TypeRelation to PatientDate of BirthPhone Billing AddressPersonal/SbhybsLoet[address] [address] Care Teams Team MemberRelationshipSpecialtyStart DateEnd Date Unallocated, Noms Provider, [address] [place] [address] [facility]
--- OUTSIDE RECORDS SUMMARY | 2025-09-12 07:20 | XMS_ITS | Clinical Summary ---
Author Organization [facility] Address [address] [facility] [place] [address] Care Team Providers Care Bonding Machine Setter Name Role Phone Ciara Jefferson MD Primary Care Provider [phone] Shirley Price OTR/L Unavailable [phone] Karla Foreman MS, OTR/L Unavailable Unavai Tanmay Landis MD Unavailable [phone] Source Comments The following information is NOT included in Care Everywhere downloads:Psychiatric notes, ECG results, Cardiac Rehab notes, Pulmonary Function notes, data from [employer] (includes but not limited toPregnancy data,audiograms, eye exams, pre-surgical evaluation notes, well-child exam data).[facility] Allergies No known active allergies Medications MedicationSigDispense QuantityRefillsLast FilledStart DateEnd DateStatus docusate sodium (Colace) 100 MG capsule Take 1 Capsule by mouth 2 times daily. 60 Capsule /ctive Additional Information Patient not taking.Reported on 10/11/2023 lisinopril (ZESTRIL) 5 MG tablet Take 5 mg by mouth daily.Active lisinopril (ZESTRIL) 5 MG tablet Take by mouth.01/03/2022ctive metformin (GLUCOPHAGE) 500 MG tablet Take by mouth.01/03/2022ctive predniSONE (DELTASONE) 5 MG tablet Take 1 Tablet by mouth Continuous PRN. 42 Tablet 03/02/2022ctive Additional Information Patient not taking.Reported on 10/11/2023 rosuvastatin (CRESTOR) 5 MG tablet Take by mouth.01/03/2022ctive vitamin D2 (ERGOCALCIFEROL) 1.25 MG (60898 UT) capsule TAKE 1 CAPSULE BY MOUTH ONCE WEEKLY 6 Capsule 4Active Active Problems ProblemNoted DateDiagnosed DateAge-related osteoporosis without current pathological xaokyjtx86/15/2024losed supracondylar fracture of right humerus 08/16/2023HTN (hypertension)01/04/2022HLD (hyperlipidemia)01/04/2022Nonrheumatic aortic valve sabcmncy34/10/2022losed fracture of right distal kcjgglg5101/03/2022 Overview (01/03/2022): Added automatically from request for surgery [id number] Closed fracture of distal end of right humerus, unspecified fracture morphology, initial usvkhkalk21/09/2022 Immunizations ImmunizationAdministration DatesNext DueInfluenza, injectable, high-dose seasonal, quadrivalent, preservative free (GVR=338)09/07/2023Moderna Monovalent (12+ yrs) COVID-19 vaccine, mRNA, spike protein, LNP, PF, 100 mcg/0.5 mL (WCV=925)08/12/2021espiratory syncytial virus (RSV), vaccine, bivalent, protein subunit RSV prefusion F, diluent reconstituted, 0.5 mL, preservative free (EZN=149)09/07/2023 Social History Tobacco UseTypesPacks/DayYears UsedDateSmoking Tobacco: HjqhmxMcytaxwbhb4489395 - 1991Smokeless Tobacco: Never Tobacco Cessation:Counseling Given: Not Answered CommentsNoSex and Gender InformationValueDate RecordedSex Assigned at BirthNot on fileLegal NcyFzuzfg11/09/2022 11:01 AM EDTGender IdentityNot on file Sexual OrientationNot on file Last Filed Vital Signs Vital SignReadingTime TakenCommentsBlood Jscufrby330/80001/06/2022 6:30 PM EDT Swkeq5980/12/2022 6:30 PM VEIJaixjxdrtno93.7 ??C (99.9 ??F)01/06/2022 6:30 PM EDTRespiratory Zhkh986901/06/2022 6:03 PM EDTOxygen Jzwpnhcbjm30%01/06/2022 6:30 PM EDTInhaled Oxygen Concentration--Vqifgd81.2 kg (212 lb)01/03/2022 6:30 PM EDT Gpchdi719.1 cm (5' 5 )01/03/2022 6:30 PM EDTBody Mass Index35.28001/03/2022 6:30 PM EDT Plan of Treatment Health MaintenanceDue DateLast KxfkFhztceojVvlgtusubmz1955Hepatitis C Wvmwhnep73/25/1975Tdap Vomkfiq1207/21/1975Hepatitis A (HAV) Vaccine (optional start 19+ years)1976Pneumococcal Vaccine(s) (50+ yrs) (1 of 2 - PCV) 07/21/19764720Yfbyfzadlgv53/25/1997CRC Zwirzuopg68/25/2002Cologuard (Stool DNA) 2002FIT2002Shingles (RZV) Vaccine (1 of 2)2007Hepatitis B (HBV) Vaccine (optional start 60+ years)2017Bone Zimvrlfbvnaa97/25/2022 Basic Metabolic Panel//06/2022, 01/03/2022nnual Wellness Visit (G0438)3COVID-19 Vaccine ( - season)/, 12/02/2020Influenza Vaccine (#1)/6423Ammqqxwrfyd42/15/2026 1RSV vaccine (adult)Fgiqllypd52/12/2023Pap SmearDiscontinued Medical Devices ImplantedTypeAreaManufacturerDevice IdentifierShelf Expiration DateModel / Serial / LotPlate T 2.4mm 7hole Shaft Lcp Ea1 249.670 - [id number] Implanted:Qty: 1 on 01/06/2022 by Tanmay Scott MD at INPATIENT DEPARTMENTSPlateRight: Arley249.670 / / TRAYScrew 2.4 X 28mm Self-Tapping Ea1 201.778 - [id number] Implanted:Qty: 1 on 01/06/2022 by Tanmay Scott MD at INPATIENT DEPARTMENTSScrewRight: HumerusJohnson & Nmqcoph355.778 / / TRAYScrew 2.4 X 24mm Self-Tapping Ea1 201.774 - [id number] Implanted:Qty: 1 on 01/06/2022 by Tanmay Scott MD at INPATIENT DEPARTMENTSScrewRight: HumerusKenyettahnson & Kkiqpkr074.774 / / TRAYScrew 2.4 X 30mm Self-Tapping Ea1 212.830 - [id number] Implanted:Qty: 1 on 01/06/2022 by Tanmay Scott MD at INPATIENT DEPARTMENTSScrewRight: HumerusKenyettahnson & Foyfspf507.830 / / TRAYScr Bn 65mm Lg Tlscp Kyls Ea1 93419 - [id number] Implanted:Qty: 2 on 01/06/2022 by Tanmay Scott MD at INPATIENT DEPARTMENTSScrewRight: [id number] / / TRAY Procedures Procedure NamePriorityDate/TimeAssociated DiagnosisCommentsBASIC METABOLIC PANEL Bbxugmw5401/04/2022 1:49 AM EDT from Last 3 Months or Most Recently Relevant to Health Maintenance Results * BASIC METABOLIC PANEL (01/04/2022 1:49 AM EDT)ComponentValueRef RangeTest MethodAnalysis TimePerformed AtPathologist CrasexlylDirpvqz94376 - 116 mg/dL 01/04/2022 2:29 AM [facility] ZLZXMTQPRMKtxwea813292 - 148 mmol/L 01/04/2022 2:29 AM [facility] LABORATORYPotassium4.13.3 - 5.3 mmol/L 01/04/2022 2:29 AM [facility] LABORATORYCarbon Nsnlqxh7602 - 30 mmol/L 01/04/2022 2:29 AM [facility] LCRSSDXNUSVbsktlqf45111 - 111 mmol/L 01/04/2022 2:29 AM [facility] LABORATORYBlood Urea Upfeyjkj145 - 22 mg/dL01/04/2022 2:29 AM [facility] LABORATORYCreatinine0.760.50 - 1.10 mg/dL01/04/2022 2:29 AM [facility] LABORATORYCalcium9.38.4 - 10.4 mg/dL 01/04/2022 2:29 AM [facility] LABORATORYAnion Qrm7540 - 2:29 AM [facility] LABORATORYEstimated GFR (CKD-EPI)87>=60 mL/min/1.97srk6301/04/2022 2:29 AM [facility] LABORATORYComment: 2020 CKD EPI Equation using Creatinine without Race Comment: ??Estimated glomerular filtration rate (eGFR) is calculated without a race coefficient. Values should be interpreted in the context of the patient's full clinical presentation. Reference: 1. Gaurav C, Antonio M, Samy CARROLL, et al.. A Unifying Approach for GFR Estimation: Recommendations of the NKF-ASN Task Force on Reassessing the Inclusion of Race in Diagnosing Kidney Disease. AmericanJournal of Kidney Diseases 2021;79(2):268-88.e1. 2. N Engl J Med 1 Vol. 385 Issue 19 Pages 8486-6202 Specimen (Source)Anatomical Location / LateralityCollection Method / Volume Collection TimeReceived TimeBloodBLOOD SPECIMEN / UnknownVenipuncture / Unknown 01/04/2022 1:49 AM EDT01/04/2022 1:57 AM EDT Narrative Authorizing ProviderResult TypeResult StatusMatthew Spittler DO98 GENERAL LAB Final ResultPerforming OrganizationAddressCity/State/ZIP CodePhone Number [facility] [address] [place] [address] from Last 3 Months or Most Recently Relevant to Health Maintenance Insurance * Guarantor: Shruti LockeAccomendy TypeRelation to PatientDate of BirthPhoneBilling AddressPersonal/ZnsvcuDjmz[address] [place] [id number] * Guarantor: Shruti LockeAccount TypeRelation to PatientDate of BirthPhoneBilling AddressPersonal/CcqfyjDnzw[address] [place] [phone] Advance Directives * Full Code (Latest Code Status on File) Date ActivatedDate InactivatedComments01/03/2022 6:46 PM01/04/2022 7:48 PMQuestion AnswerCommentsDocumentation of decision process for this code status:* Patient and surrogate unable or unavailable to discuss.?? There is no previous documentation of code status.?? Defaulting to Full Code Care Teams Team MemberRelationshipSpecialtyStart DateEnd Date Ciara Jefferson MD [address] [place] [address] PCP - GeneralFamily Medicine01/03/22 Shirley Price, OTR/L [address] [place] [address] Occupational TherapistOccupational Therapy01/31/22 Karla Foreman, MS, OTR/L [address] [place] [address] Occupational TherapistOccupational Therapy03/28/22 Tanmay Scott MD [address] [place] [phone] PhysicianOrthopaedic Hand Service10/30/23
--- NOTE | 2025-09-12 07:26 | MM_ITS ---
Patient Name: DERRELL AGUERO MR#: [id number] : 1955 Exam Date: 09/12/2025 Ordering Doctor: DR ADA NEFF M.D. RADIOLOGY REPORT PROCEDURE: MM TOMOSYNTHESIS SCREENING BI COMPARISON: MM TOMOSYNTHESIS SCREENING BI, 05/24/2024. MG MAMM PINKY SCRN W CAD DIG, 02/13/2013. INDICATIONS: Screening Calculator Name NCI Breast Cancer Risk Assessment Tool 5 Year Breast Cancer Risk 1.20% Lifetime Breast Cancer Risk 4.00% Personal Breast Cancer No Personal Ovarian Cancer No Treatments None Family Cancers Sister with lymph cancer at age 42; Brother with colon cancer at age 58. LOCATION: [facility] BREAST COMPOSITION: The breasts are heterogeneously dense, which may obscure small masses. FINDINGS: RIGHT BREAST: No significant suspicious finding. LEFT BREAST: No significant suspicious finding. DIAGNOSTIC CATEGORY 1--NEGATIVE. RECOMMENDATIONS: ROUTINE MAMMOGRAM AND CLINICAL EVALUATION IN 12 MONTHS. Dictated by: Rahul Noyola DO on 09/12/2025 at 10:13 Approved by: Rahul Noyola DO on 09/12/2025 at 10:18
[2025-09-12 08:07] LABS: Hematocrit 43.4 % (36.0-48.0); Hemoglobin 14.1 g/dL (12.0-16.0); Immature Granulocytes Abs Auto 0.01 10^3/uL (0.00-0.03); Immature Granulocytes Pct Auto 0.2 % (0.0-0.5); Lymphocytes Absolute Auto 1.2 10^3/uL (1.2-3.8); Mean Corpuscular HGB Conc 32.5 g/dL (29.9-35.2); Mean Corpuscular Hemoglobin 27.3 pg (26.7-34.0); Mean Corpuscular Volume 83.9 fL (81.0-99.0); Platelet Count 123 10^3/uL (150-450); Red Blood Count 5.17 10^6/uL (4.20-5.40); White Blood Count 4.8 10^3/uL (4.0-11.0)
[2025-09-12 10:54] LABS: Alanine Aminotransferase 27 U/L (14-59); Albumin Globulin Ratio 1.2; Albumin Level 3.9 g/dL (3.4-5.0); Alkaline Phosphatase 86 U/L (46-116); Anion Gap 13.4; Aspartate Amino Transferase 30 U/L (15-37); Blood Urea Nitrogen 9.0 mg/dL (7.0-18.0); Calcium 9.6 mg/dL (8.5-10.1); Carbon Dioxide 28.6 mmol/L (21.0-32.0); Chloride 104 mmol/L (98-107); Cholesterol 147 mg/dL (<=200); Estimated GFR (African America >60 (>=60 mL/min/1.73m^2); Estimated GFR (Non-African Ame >60 (>=60 mL/min/1.73m^2); Globulin 3.3 g/dL; Glucose 153 mg/dL (74-106); HDL Cholesterol 64 mg/dL (40-60); Potassium 4.0 mmol/L (3.5-5.1); Sodium 142 mmol/L (136-145); Total Protein 7.2 g/dL (6.4-8.2); Triglycerides 119 mg/dL (<=150); VLDL CHOLESTEROL 23.8 mg/dL
[2025-09-12 13:22] LABS: Microalbum Creatinine Ratio Ur 57.1 mg/g (0.0-29.9)
== END 2025-09-12 07:15 | disposition home or self-care (01) ==
LOC: MAMMO 07:17
PROVIDERS: PCP Family Medicine; Visit Provider Family Medicine
DX: Z00.00 Encounter for general adult medical examination without abnormal findings (principal); E11.65 Type 2 diabetes mellitus with hyperglycemia; E78.5 Hyperlipidemia, unspecified; I10 Essential (primary) hypertension; E55.9 Vitamin D deficiency, unspecified; Z12.31 Encounter for screening mammogram for malignant neoplasm of breast; Z80.0 Family history of malignant neoplasm of digestive organs; Z80.7 Family history of other malignant neoplasms of lymphoid, hematopoietic and related tissues
CPT/HCPCS: 36415; 77063; 77067; 80053; 80061; 82043; 82306; 82570; 83036; 85025